=== PATIENT | male | born 1950 | race Two or more races ===

== ENCOUNTER 2016-04-11 21:47 | Emergency (ER) | payer MEDICARE ==
[2016-04-12] MEDS: MOTRIN PO ONE (04:58)
[2016-04-12 05:20] LABS: Hematocrit 39.5 % (35.5-45.6); Hemoglobin 13.1 gm/dl (11.8-15.2); Mean Corpuscular HGB Conc 33 % (32-34); Mean Corpuscular Hemoglobin 31 pg (28-32); Mean Corpuscular Volume 92 fl (84-94); Platelet Count 331 K/mm3 (140-440); Red Blood Count 4.28 M/mm3 (3.65-5.03); Red Cell Distribution Width 12.8 % (13.2-15.2); White Blood Count 12.7 K/mm3 (4.5-11.0)
[2016-04-12 05:31] LABS: Anion Gap 17 mmol/L; BUN/Creatinine Ratio 13.33; Blood Urea Nitrogen 12 mg/dL (9-20); Calcium 9.5 mg/dL (8.4-10.2); Carbon Dioxide 26 mmol/L (22-30); Glucose 212 mg/dL (75-100); Potassium 4.4 mmol/L (3.6-5.0); Sodium 135 mmol/L (137-145)
--- NOTE | 2016-04-12 06:11 | Emergency Department Report ---
ED Extremity Problem HPI - General Chief complaint: Extremity Problem,Nontraumatic Stated complaint: RIGHT FOOT PAIN AND SWELLING Source: patient Mode of arrival: Ambulatory Limitations: No Limitations - History of Present Illness Initial comments: 65-year-old male with a past medical history of hypertension and diabetes type 2 comes in for complaint of right foot and right knee pain 1 week. Patient denies any trauma. He does report a history of gout. He does admit that he went to the [facility] and had a little bit too much to drink. He comes in now for pain and swelling. He denies any shortness of breathing and no chest pain. Complains of pain more on the top of the knee. Does admit that he has a history of arthritis and has been on [facility]. MD Complaint: extremity pain, extremity swelling - Related Data Home Medications Medication Instructions Recorded Confirmed Last Taken Lisinopril [Zestril] 40 mg PO QDAY 09/10/14 09/10/14 1 Day Ago Metformin HCl [Glucophage] 1,000 mg PO BID 09/10/14 09/10/14 1 Day Ago glipiZIDE [Glucotrol] 10 mg PO BID 09/10/14 09/10/14 1 Day Ago Saxagliptin HCl [Onglyza] 2.5 mg PO QDAY 04/12/16 04/12/16 1 Day Ago Previous Rx's Medication Instructions Recorded Last Taken Type Ibuprofen [Motrin] 800 mg PO Q8HR PRN #30 tablet 04/01/16 Unknown Rx Allergies Allergy/AdvReac Type Severity Reaction Status Date / Time No Known Allergies Allergy Verified 07/06/14 03:11 ED Review of Systems ROS: Stated complaint: RIGHT FOOT PAIN AND SWELLING Other details as noted in HPI Respiratory: denies: cough Cardiovascular: denies: chest pain, dyspnea on exertion Gastrointestinal: denies: nausea, vomiting Musculoskeletal: joint swelling, arthralgia ED Past Medical Hx - Past Medical History Previous Medical History?: Yes Hx Hypertension: Yes Hx Diabetes: Yes - Surgical History Past Surgical History?: Yes Additional Surgical History: ribs - Social History Smoking Status: Current Every Day Smoker Substance Use Type: Alcohol - Medications Home Medications: Home Medications Medication Instructions Recorded Confirmed Last Taken Type Lisinopril [Zestril] 40 mg PO QDAY 09/10/14 09/10/14 1 Day Ago History Metformin HCl [Glucophage] 1,000 mg PO BID 09/10/14 09/10/14 1 Day Ago History glipiZIDE [Glucotrol] 10 mg PO BID 09/10/14 09/10/14 1 Day Ago History Ibuprofen [Motrin] 800 mg PO Q8HR PRN #30 tablet 04/01/16 Unknown Rx Saxagliptin HCl [Onglyza] 2.5 mg PO QDAY 04/12/16 04/12/16 1 Day Ago History ED Physical Exam - General Limitations: No Limitations General appearance: alert, in no apparent distress - Head Head exam: Present: atraumatic, normocephalic - Respiratory Respiratory exam: Present: normal lung sounds bilaterally - Expanded Lower Extremity Exam Right Upper Leg exam: Present: full ROM Knee exam: Present: tenderness, swelling Lower Leg exam: Present: full ROM, tenderness, swelling Ankle exam: Present: tenderness, swelling Foot/Toe exam: Present: tenderness, swelling Neuro vascular tendon exam: Present: no vascular compromise. Absent: pulse deficit, abnormal cap refill ED Course Vital Signs 04/11/16 04/12/16 04/12/16 21:56 04:58 05:51 Temperature 98.4 F 98.6 F Pulse Rate 102 H 92 H Respiratory 18 18 16 Rate Blood Pressure 145/82 Blood Pressure 127/90 [Left] O2 Sat by Pulse 100 97 Oximetry ED Medical Decision Making - Lab Data Result diagrams: 04/12/16 05:04 04/12/16 05:04 - Medical Decision Making Patient's been evaluated by this provider. CBC BMP uric acid within normal limits. We will order a Doppler of the right leg. Patient was given ibuprofen which helped with some of the pain. Patient verbalized understanding discussed with Dr. Jauregui he is aware of the Doppler been ordered. This provider will give report and handed off to the next Provider. Critical care attestation.: If time is entered above; I have spent that time in minutes in the direct care of this critically ill patient, excluding procedure time. ED Disposition Condition: Undetermined Referrals: SYEDA LYONS MD, PHD [Primary Care Provider] - 3-5 Days
--- NOTE | 2016-04-12 09:40 | Emergency Department Report ---
Blank Doc - Documentation Documentation: A/P: Right knee pain 1- Duplex negative for DVT 2- Labs unremarkable 3- motrin and tylenol # 3 PRN for pain 4- I provided pt with PMD and orthopedics referral. i advised pt to return to the ED if he cannot flex or extend his knee, if he cannot walk which he is able to now or if he develops any fever or chills. On exam of right knee and RLE he has good distal dorsalis pedis and PT pules on palpation, no signs of cellulitis or erythema, ROM right knee fully intact. Pt ambulatory without assistance before discharge 5- Case d/w Dr. Carlson
[2016-04-12 09:56] VITALS: BP 124/86
--- NOTE | 2016-04-13 08:35 | Vascular Lab Report ---
Right Lower Extremity Venous Duplex Study: Reason for Exam: Right leg swelling. Comments on the Right: All veins visualized are freely compressible without evidence of internal echogenicity. Flow is spontaneous and phasic throughout. No evidence of acute or chronic thrombus is seen in any of the vessels visualized. Comments on the Left: A limited duplex study was done of the proximal veins of the left lower extremity. All veins visualized are freely compressible without evidence of internal echogenicity. Flow is spontaneous and phasic throughout. No evidence of acute or chronic thrombus is seen in any of the vessels visualized. Impression: No evidence of acute or chronic deep venous thrombosis in the right lower extremity.
== END 2016-04-12 09:56 | disposition home or self-care (01) ==
LOC: ED 21:47
DX: M25.561 Pain in right knee (principal); M79.671 Pain in right foot; I10 Essential (primary) hypertension; E11.9 Type 2 diabetes mellitus without complications; F17.200 Nicotine dependence, unspecified, uncomplicated
CPT/HCPCS: 36415; 80048; 84550; 85027

== ENCOUNTER 2016-04-29 14:25 | Emergency (ER) | payer MEDICARE ==
[2016-04-29 14:56] VITALS: BP 140/80
== END 2016-04-29 17:55 | disposition left against medical advice (07) ==
LOC: ED 14:25
DX: R11.0 Nausea (principal); Z53.21 Procedure and treatment not carried out due to patient leaving prior to being seen by health care provider

== ENCOUNTER 2016-07-07 21:51 | Emergency (ER) | payer MEDICARE ==
[2016-07-07 22:23] VITALS: BP 158/96
[2016-07-07 23:01] LABS: Basophils % (Auto) 1.8 % (0.0-1.8); Eosinophils % (Auto) 2.8 % (0.0-4.3); Hematocrit 38.8 % (35.5-45.6); Hemoglobin 13.1 gm/dl (11.8-15.2); Mean Corpuscular HGB Conc 34 % (32-34); Mean Corpuscular Hemoglobin 31 pg (28-32); Mean Corpuscular Volume 92 fl (84-94); Platelet Count 194 K/mm3 (140-440); Red Blood Count 4.22 M/mm3 (3.65-5.03); Red Cell Distribution Width 13.7 % (13.2-15.2); White Blood Count 7.6 K/mm3 (4.5-11.0)
[2016-07-07 23:05] LABS: Anion Gap 17 mmol/L; Blood Urea Nitrogen 12 mg/dL (9-20); Calcium 8.9 mg/dL (8.4-10.2); Carbon Dioxide 25 mmol/L (22-30); Chloride 98.8 mmol/L (98-107); Glucose 201 mg/dL (75-100); Potassium 4.1 mmol/L (3.6-5.0); Sodium 137 mmol/L (137-145)
[2016-07-07 23:35] LABS: Erythrocyte Sedimentation Rate 12 mm/Hr (0-20)
[2016-07-08] MEDS ORDERED: MOTRIN PO ONE (00:21)
--- NOTE | 2016-07-08 00:21 | Emergency Department Report ---
ED General Adult HPI - General Chief complaint: Extremity Problem,Nontraumatic Stated complaint: RT FOOT PAIN Source: patient, RN notes reviewed, old records reviewed Mode of arrival: Ambulatory Limitations: No Limitations - History of Present Illness Initial comments: This is a 66-year-old male. He is previously known to me. The patient does a lot of work on his head. He presents to the ER with right lateral foot pain. The pain is present for 2 months. It is constant. It decreases with rest. It does not radiate anywhere. No fevers or chills, no chest pain or shortness of breath, no abdominal pain. -: Gradual Location: right, lower extremity Severity scale (0 -10): 4 Quality: aching Consistency: constant Improves with: rest Associated Symptoms: denies other symptoms, rash. denies: confusion, chest pain , cough, diaphoresis, fever/chills, headaches, loss of appetite, malaise, nausea /vomiting, shortness of breath, syncope, weakness - Related Data Home Medications Medication Instructions Recorded Confirmed Last Taken Lisinopril [Zestril] 40 mg PO QDAY 09/10/14 09/10/14 1 Day Ago Metformin HCl [Glucophage] 1,000 mg PO BID 09/10/14 09/10/14 1 Day Ago glipiZIDE [Glucotrol] 10 mg PO BID 09/10/14 09/10/14 1 Day Ago Saxagliptin HCl [Onglyza] 2.5 mg PO QDAY 04/12/16 04/12/16 1 Day Ago Previous Rx's Medication Instructions Recorded Last Taken Type Ibuprofen [Motrin] 800 mg PO Q8HR PRN #30 tablet 04/01/16 Unknown Rx Acetaminophen/Codeine [Tylenol #3] 1 tab PO Q6H PRN #12 tab 04/12/16 Unknown Rx Ibuprofen [Motrin] 200 mg PO Q6H PRN #20 tablet 04/12/16 Unknown Rx Ibuprofen [Motrin] 600 mg PO Q8H PRN #30 tablet 07/08/16 Unknown Rx Allergies Allergy/AdvReac Type Severity Reaction Status Date / Time No Known Allergies Allergy Verified 04/29/16 14:52 ED Review of Systems ROS: Stated complaint: RT FOOT PAIN Other details as noted in HPI ED Past Medical Hx - Past Medical History Previous Medical History?: Yes Hx Hypertension: Yes Hx Diabetes: Yes - Surgical History Past Surgical History?: Yes Additional Surgical History: ribs - Social History Smoking Status: Current Every Day Smoker Substance Use Type: Alcohol - Medications Home Medications: Home Medications Medication Instructions Recorded Confirmed Last Taken Type Lisinopril [Zestril] 40 mg PO QDAY 09/10/14 09/10/14 1 Day Ago History Metformin HCl [Glucophage] 1,000 mg PO BID 09/10/14 09/10/14 1 Day Ago History glipiZIDE [Glucotrol] 10 mg PO BID 09/10/14 09/10/14 1 Day Ago History Ibuprofen [Motrin] 800 mg PO Q8HR PRN #30 tablet 04/01/16 Unknown Rx Acetaminophen/Codeine [Tylenol #3] 1 tab PO Q6H PRN #12 tab 04/12/16 Unknown Rx Ibuprofen [Motrin] 200 mg PO Q6H PRN #20 tablet 04/12/16 Unknown Rx Saxagliptin HCl [Onglyza] 2.5 mg PO QDAY 04/12/16 04/12/16 1 Day Ago History Ibuprofen [Motrin] 600 mg PO Q8H PRN #30 tablet 07/08/16 Unknown Rx ED Physical Exam - General Limitations: No Limitations General appearance: alert, in no apparent distress - Head Head exam: Present: atraumatic, normocephalic - Eye Eye exam: Present: normal appearance, EOMI. Absent: nystagmus - ENT ENT exam: Present: normal exam, normal orophraynx, mucous membranes moist, normal external ear exam - Neck Neck exam: Present: normal inspection, full ROM. Absent: tenderness, meningismus - Respiratory Respiratory exam: Present: normal lung sounds bilaterally. Absent: respiratory distress, wheezes, rales, rhonchi, stridor, chest wall tenderness, accessory muscle use, decreased breath sounds, prolonged expiratory - Cardiovascular Cardiovascular Exam: Present: regular rate, normal rhythm, normal heart sounds. Absent: bradycardia, tachycardia, irregular rhythm, systolic murmur, diastolic murmur, rubs, gallop - GI/Abdominal GI/Abdominal exam: Present: soft, normal bowel sounds. Absent: distended, tenderness, guarding, rebound, rigid, pulsatile mass - Rectal Rectal exam: Present: deferred - Extremities Exam Extremities exam: Present: normal inspection, normal capillary refill, other ( there is chronic callus and chronic discoloration and hyperpigmentation to the lateral aspect of the right foot. There is no redness, pus, streaking or crepitus. 2+ pulses noted in 4 extremities. The compartments are soft.). Absent: pedal edema, joint swelling, calf tenderness - Back Exam Back exam: Present: normal inspection, full ROM. Absent: tenderness, CVA tenderness (R), CVA tenderness (L), muscle spasm, paraspinal tenderness, vertebral tenderness - Neurological Exam Neurological exam: Present: alert, oriented X3, normal gait, other (Extraocular movements intact. Tongue midline. No facial droop. Facial sensation intact to light touch in the V1, V2, V3 distribution bilaterally. 5 and 5 strength in 4 extremities.. Sensation is intact to light touch in 4 extremities.). Absent : motor sensory deficit - Psychiatric Psychiatric exam: Present: normal affect, normal mood - Skin Skin exam: Present: warm, dry, intact, normal color. Absent: rash ED Course Vital Signs 07/07/16 22:15 Temperature 98 F Pulse Rate 98 H Respiratory 20 Rate Blood Pressure 158/96 [Right] O2 Sat by Pulse 100 Oximetry - Reevaluation(s) Reevaluation #1: 07/08/16 00:25 differential diagnosis: Arthritis, bunion, chronic discoloration Assessment and plan: 66-year-old male with 2 weeks of chronic left foot pain, he stands, walks with a steady gait, x-ray demonstrates DJD. Patient's laboratory work is unremarkable. The patient should follow-up with an outpatient pesticide chemist. He will be discharged at this time. Return precautions are reviewed. ED Medical Decision Making - Lab Data Result diagrams: 07/07/16 22:35 07/07/16 22:35 Vital Signs 07/07/16 22:15 Temperature 98 F Pulse Rate 98 H Respiratory 20 Rate Blood Pressure 158/96 [Right] O2 Sat by Pulse 100 Oximetry Lab Results 07/07/16 07/07/16 07/07/16 Range/Units 22:35 22:35 22:38 WBC 7.6 (4.5-11.0) K/mm3 RBC 4.22 (3.65-5.03) M/mm3 Hgb 13.1 (11.8-15.2) gm/dl Hct 38.8 (35.5-45.6) % MCV 92 (84-94) fl MCH 31 (28-32) pg MCHC 34 (32-34) % RDW 13.7 (13.2-15.2) % Plt Count 194 (140-440) K/mm3 Lymph % (Auto) 23.0 (13.4-35.0) % [place] % (Auto) 7.9 H (0.0-7.3) % Eos % (Auto) 2.8 (0.0-4.3) % Baso % (Auto) 1.8 (0.0-1.8) % Lymph # 1.7 (1.2-5.4) K/mm3 [place] # 0.6 (0.0-0.8) K/mm3 Eos # 0.2 (0.0-0.4) K/mm3 Baso # 0.1 (0.0-0.1) K/mm3 Seg Neutrophils % 64.5 (40.0-70.0) % Seg Neutrophils # 4.9 (1.8-7.7) K/mm3 ESR 12 (0-20) mm/Hr Sodium 137 (137-145) mmol/L Potassium 4.1 (3.6-5.0) mmol/L Chloride 98.8 (98-107) mmol/L Carbon Dioxide 25 (22-30) mmol/L Anion Gap 17 mmol/L BUN 12 (9-20) mg/dL Creatinine 1.0 (0.8-1.5) mg/dL Estimated GFR > 60 ml/min BUN/Creatinine Ratio 12.00 % Glucose 201 H (75-100) mg/dL Calcium 8.9 (8.4-10.2) mg/dL C-Reactive Protein < 0.03 (0.00-1.30) mg/dL - Radiology Data Radiology results: image reviewed interpreted by me: X-ray of the right foot demonstrates DJD, no acute fracture, no acute dislocation Critical care attestation.: If time is entered above; I have spent that time in minutes in the direct care of this critically ill patient, excluding procedure time. ED Disposition Clinical Impression: Right foot pain Disposition: DISCHARGED TO HOME OR SELFCARE Is pt being admited?: No Does the pt Need Aspirin: No Condition: Good Instructions: Arthralgia (ED), Bunion (ED) Additional Instructions: Rest and avoid heavy lifting. Avoid strenuous physical activity. Take the pain medication as directed. Follow up with a pesticide chemist within the next [address] Campos, Dr. Malave are local podiatry specialist. Return to the ER right away with new pain, worsened pain, migration of pain, fevers or chills, nausea or vomiting, inability to tolerate liquid feeds. Referrals: PRIMARY CARE, [Primary Care Provider] - 3-5 Days MARU CAMPOS DPM [Staff Physician] - 3-5 Days NATO MALAVE MD [Staff Physician] - 3-5 Days SYEDA LYONS MD, PHD [Staff Physician] - 3-5 Days
--- NOTE | 2016-07-08 00:52 | XRay Report ---
FINAL REPORT EXAM: XR FOOT 3 RT HISTORY: RIGHT FOOT pain, send for report TECHNIQUE: 3 views of right foot. PRIORS: None. FINDINGS: Diffuse osteopenia and degenerative change scattered in the hind and midfoot. Mild posterior and plantar calcaneal spurring. Moderate hallux valgus, degenerative change in the great toe MTP and IP joints and mild soft tissue bunion formation overlying medial eminence of great toe metatarsal head. More pronounced soft tissue bunion formation overlying the lateral aspect of 5th metatarsal head. No apparent fracture or dislocation. Remainder of soft tissues grossly unremarkable. IMPRESSION: 1. No acute osseous abnormality. 2. Degenerative changes.
== END 2016-07-08 00:54 | disposition home or self-care (01) ==
LOC: ED 21:51
DX: M79.671 Pain in right foot (principal); I10 Essential (primary) hypertension; E11.9 Type 2 diabetes mellitus without complications; F17.200 Nicotine dependence, unspecified, uncomplicated
CPT/HCPCS: 36415; 80048; 85025; 85652; 86140; 99283

== ENCOUNTER 2016-08-31 22:07 | Emergency (ER) | payer MEDICARE ==
--- NOTE | 2016-09-01 00:09 | XRay Report ---
FINAL REPORT EXAM: XR FOOT 2V RT HISTORY: RIGHT FOOT PAIN TECHNIQUE: Right foot two views 2 images PRIORS: Right foot radiograph from 07/07/2016 FINDINGS: Soft tissue swelling is noted lateral to the 5th metatarsophalangeal joint, as in the prior study. There is hallux valgus. Joint space narrowing is seen in the 1st metatarsophalangeal joint. There is degenerative change in the interphalangeal joint of the great toe. No definite acute fracture is identified. There are degenerative changes in the tarsus. Traction enthesophytes are seen arising from the calcaneus. IMPRESSION: 1. Degenerative changes are again noted. 2. There is soft tissue swelling adjacent to the 5th metatarsophalangeal joint, as in the prior study. 3. No definite acute fracture is identified. If symptoms persist, consider repeat study in 10-14 days to assess for a currently radiographically occult fracture.
--- NOTE | 2016-09-01 00:36 | Cat Scan Report ---
FINAL REPORT EXAM: CT HEAD/BRAIN WO CON HISTORY: FALL TECHNIQUE: Noncontrast serial axial images from skull base to vertex PRIORS: CT scan of the head from 03/30/2015 FINDINGS: There is no mass effect or midline shift. Cortical sulci and lateral ventricles are within normal limits for size and configuration. Basilar cisterns are patent. No acute intracranial hemorrhage is identified. Visualized paranasal sinuses and mastoid air cells are well aerated. No acute osseous abnormality is identified. IMPRESSION: 1. No acute intracranial hemorrhage is identified.
[2016-09-01 03:30] VITALS: BP 140/79
--- NOTE | 2016-09-01 05:07 | Emergency Department Report ---
ED Fall HPI - General Chief Complaint: Fall Stated Complaint: FALL Time Seen by Provider: 09/01/16 04:56 Source: patient Mode of arrival: Ambulatory - History of Present Illness Initial Comments: Patient comes into the ER today with complaints of a abrasion to the front of his head as well as continued swelling to the right foot. Patient states that earlier tonight he was walking in the rain when he slipped and fell hitting his head. Patient denies any loss of consciousness. Patient states that he was able to get up on his own and has been walking since. Patient does state that the pain does seem to be getting worse with time as far as generalized body stiffening up. Patient denies any vision changes, nosebleed, back pain, chest pain, vomiting. MD Complaint: fall - Related Data Home Medications Medication Instructions Recorded Confirmed Last Taken Lisinopril [Zestril] 40 mg PO QDAY 09/10/14 09/10/14 1 Day Ago Metformin HCl [Glucophage] 1,000 mg PO BID 09/10/14 09/10/14 1 Day Ago glipiZIDE [Glucotrol] 10 mg PO BID 09/10/14 09/10/14 1 Day Ago Saxagliptin HCl [Onglyza] 2.5 mg PO QDAY 04/12/16 04/12/16 1 Day Ago Previous Rx's Medication Instructions Recorded Last Taken Type Ibuprofen [Motrin] 800 mg PO Q8HR PRN #30 tablet 04/01/16 Unknown Rx Acetaminophen/Codeine [Tylenol #3] 1 tab PO Q6H PRN #12 tab 04/12/16 Unknown Rx Ibuprofen [Motrin] 200 mg PO Q6H PRN #20 tablet 04/12/16 Unknown Rx Ibuprofen [Motrin] 600 mg PO Q8H PRN #30 tablet 07/08/16 Unknown Rx Cyclobenzaprine HCl [Flexeril 5 MG 5 mg PO TID #15 tab 09/01/16 Unknown Rx TAB] traMADol [Ultram 50 MG tab] 50 mg PO Q4HR PRN #20 tablet 09/01/16 Unknown Rx Allergies Allergy/AdvReac Type Severity Reaction Status Date / Time No Known Allergies Allergy Verified 04/29/16 14:52 ED Review of Systems ROS: Stated complaint: FALL Other details as noted in HPI Constitutional: denies: chills, fever Eyes: denies: eye pain, eye discharge, vision change ENT: denies: ear pain, throat pain, dental pain, epistaxis, congestion Respiratory: denies: cough, shortness of breath, wheezing Cardiovascular: denies: chest pain, palpitations Endocrine: no symptoms reported Gastrointestinal: denies: abdominal pain, nausea, vomiting, diarrhea Genitourinary: denies: urgency, dysuria Musculoskeletal: denies: back pain, joint swelling, arthralgia Skin: denies: rash, lesions Neurological: headache. denies: weakness, numbness, paresthesias, confusion, vertigo Psychiatric: denies: anxiety, depression Hematological/Lymphatic: denies: easy bleeding, easy bruising ED Past Medical Hx - Past Medical History Hx Hypertension: Yes Hx Diabetes: Yes - Surgical History Additional Surgical History: ribs - Social History Smoking Status: Current Every Day Smoker Substance Use Type: Alcohol - Medications Home Medications: Home Medications Medication Instructions Recorded Confirmed Last Taken Type Lisinopril [Zestril] 40 mg PO QDAY 09/10/14 09/10/14 1 Day Ago History Metformin HCl [Glucophage] 1,000 mg PO BID 09/10/14 09/10/14 1 Day Ago History glipiZIDE [Glucotrol] 10 mg PO BID 09/10/14 09/10/14 1 Day Ago History Ibuprofen [Motrin] 800 mg PO Q8HR PRN #30 tablet 04/01/16 Unknown Rx Acetaminophen/Codeine [Tylenol #3] 1 tab PO Q6H PRN #12 tab 04/12/16 Unknown Rx Ibuprofen [Motrin] 200 mg PO Q6H PRN #20 tablet 04/12/16 Unknown Rx Saxagliptin HCl [Onglyza] 2.5 mg PO QDAY 04/12/16 04/12/16 1 Day Ago History Ibuprofen [Motrin] 600 mg PO Q8H PRN #30 tablet 07/08/16 Unknown Rx Cyclobenzaprine HCl [Flexeril 5 MG 5 mg PO TID #15 tab 09/01/16 Unknown Rx TAB] traMADol [Ultram 50 MG tab] 50 mg PO Q4HR PRN #20 tablet 09/01/16 Unknown Rx ED Physical Exam - General Limitations: No Limitations General appearance: alert, in no apparent distress - Head Head exam: Present: normocephalic, other (left frontal skin abrasion) - Eye Eye exam: Present: normal appearance, PERRL, EOMI. Absent: conjunctival injection, periorbital swelling, periorbital tenderness Pupils: Present: normal accommodation - ENT ENT exam: Present: normal orophraynx, mucous membranes moist, TM's normal bilaterally, normal external ear exam - Neck Neck exam: Present: normal inspection, tenderness (bilateral trapezius muscle tenderness), full ROM. Absent: lymphadenopathy - Respiratory Respiratory exam: Present: normal lung sounds bilaterally. Absent: respiratory distress, chest wall tenderness - Cardiovascular Cardiovascular Exam: Present: regular rate, normal rhythm. Absent: systolic murmur, diastolic murmur, rubs, gallop - GI/Abdominal GI/Abdominal exam: Present: soft, normal bowel sounds. Absent: distended, tenderness, guarding, rebound - Rectal Rectal exam: Present: deferred - Extremities Exam Extremities exam: Present: normal inspection, full ROM, normal capillary refill , joint swelling (right lateral 5th MTP joint). Absent: tenderness, calf tenderness - Back Exam Back exam: Present: normal inspection, full ROM. Absent: tenderness, muscle spasm, paraspinal tenderness, vertebral tenderness - Neurological Exam Neurological exam: Present: alert, oriented X3, CN II-XII intact, normal gait, reflexes normal. Absent: motor sensory deficit - Psychiatric Psychiatric exam: Present: normal affect, normal mood - Skin Skin exam: Present: warm, dry, intact, normal color. Absent: rash ED Course Vital Signs 08/31/16 09/01/16 23:13 03:25 Temperature 98 F 98.3 F Pulse Rate 100 H 95 H Respiratory 18 20 Rate Blood Pressure 131/83 140/79 Blood Pressure 131/83 [Left] O2 Sat by Pulse 100 96 Oximetry ED Medical Decision Making - Radiology Data Radiology results: report reviewed CT head without contrast, No acute pathology noted X-ray foot reveals soft tissue swelling of right lateral MTP joint. No acute fracture noted. - Medical Decision Making Patient is nontoxic hemodynamically stable. Imaging results reviewed and discussed with patient room. I will start patient on some muscle relaxants and mild pain medications for any symptomatic relief and refer patient to podiatry to remove the noted pressure corn On right foot. Patient is in agreement with treatment plan patient is stable for discharge. Critical care attestation.: If time is entered above; I have spent that time in minutes in the direct care of this critically ill patient, excluding procedure time. ED Disposition Clinical Impression: Head contusion, Abrasion head, [place] of foot Disposition: DC- TO HOME OR SELFCARE Is pt being admited?: No Does the pt Need Aspirin: No Condition: Good Instructions: Minor Head Injury (ED), Abrasion (ED) Prescriptions: Cyclobenzaprine HCl [Flexeril 5 MG TAB] 5 mg PO TID #15 tab traMADol [Ultram 50 MG tab] 50 mg PO Q4HR PRN #20 tablet PRN Reason: Pain Referrals: PRIMARY CARE, [Primary Care Provider] - 3-5 Days SHLOMO ALTAMIRANO DPM [Staff Physician] - 3-5 Days Time of Disposition: 05:18
== END 2016-09-01 05:25 | disposition home or self-care (01) ==
LOC: ED 22:07
DX: S00.93XA Contusion of unspecified part of head, initial encounter (principal); S00.91XA Abrasion of unspecified part of head, initial encounter; L84 Corns and callosities; I10 Essential (primary) hypertension; E11.9 Type 2 diabetes mellitus without complications; F17.200 Nicotine dependence, unspecified, uncomplicated; W01.0XXA Fall on same level from slipping, tripping and stumbling without subsequent striking against object, initial encounter; Y93.9 Activity, unspecified; Y92.9 Unspecified place or not applicable; Y99.9 Unspecified external cause status
CPT/HCPCS: 70450; 82962; 99284

== ENCOUNTER 2016-09-30 00:10 | Emergency (ER) | payer MEDICARE ==
[2016-09-30 00:52] VITALS: BP 136/97
[2016-09-30 01:16] LABS: Basophils % (Auto) 1.3 % (0.0-1.8); Eosinophils % (Auto) 2.6 % (0.0-4.3); Hematocrit 37.9 % (35.5-45.6); Hemoglobin 12.9 gm/dl (11.8-15.2); Mean Corpuscular HGB Conc 34 % (32-34); Mean Corpuscular Hemoglobin 31 pg (28-32); Mean Corpuscular Volume 91 fl (84-94); Platelet Count 241 K/mm3 (140-440); Red Blood Count 4.15 M/mm3 (3.65-5.03); Red Cell Distribution Width 13.8 % (13.2-15.2); White Blood Count 8.5 K/mm3 (4.5-11.0)
[2016-09-30 01:25] LABS: Anion Gap 17 mmol/L; Blood Urea Nitrogen 21 mg/dL (9-20); Calcium 9.4 mg/dL (8.4-10.2); Carbon Dioxide 25 mmol/L (22-30); Chloride 100.1 mmol/L (98-107); Glucose 183 mg/dL (75-100); Potassium 4.1 mmol/L (3.6-5.0); Sodium 138 mmol/L (137-145)
[2016-09-30] MEDS ORDERED: TORADOL IM ONE (01:39)
[2016-09-30] MEDS ORDERED: NORCO PO ONE (01:39)
[2016-09-30] MEDS ORDERED: TORADOL ONE (01:44)
--- NOTE | 2016-09-30 01:46 | Emergency Department Report ---
ED Extremity Problem HPI - General Chief complaint: Extremity Injury, Lower Stated complaint: RT FOOT MUSCLE PAIN/ARTHRITIS Source: patient Mode of arrival: Ambulatory Limitations: No Limitations - History of Present Illness MD Complaint: extremity pain, extremity swelling, joint swelling, joint paint -: Gradual Location: right, lower extremity, toe History of Same: Yes -: Yes arthralgia, No fever Severity scale (0 -10): 8 Quality: aching Consistency: constant Worsens with: weight bearing, walking, exertion, palpation Associated Symptoms: denies other symptoms - Related Data Home Medications Medication Instructions Recorded Confirmed Last Taken Lisinopril [Zestril] 40 mg PO QDAY 09/10/14 09/10/14 1 Day Ago Metformin HCl [Glucophage] 1,000 mg PO BID 09/10/14 09/10/14 1 Day Ago glipiZIDE [Glucotrol] 10 mg PO BID 09/10/14 09/10/14 1 Day Ago Saxagliptin HCl [Onglyza] 2.5 mg PO QDAY 04/12/16 04/12/16 1 Day Ago Previous Rx's Medication Instructions Recorded Last Taken Type Ibuprofen [Motrin] 800 mg PO Q8HR PRN #30 tablet 04/01/16 Unknown Rx Acetaminophen/Codeine [Tylenol #3] 1 tab PO Q6H PRN #12 tab 04/12/16 Unknown Rx Ibuprofen [Motrin] 200 mg PO Q6H PRN #20 tablet 04/12/16 Unknown Rx Ibuprofen [Motrin] 600 mg PO Q8H PRN #30 tablet 07/08/16 Unknown Rx Cyclobenzaprine HCl [Flexeril 5 MG 5 mg PO TID #15 tab 09/01/16 Unknown Rx TAB] traMADol [Ultram 50 MG tab] 50 mg PO Q4HR PRN #20 tablet 09/01/16 Unknown Rx Prednisone [predniSONE 10 mg 10 mg PO .TAPER #1 tab.ds.pk 09/30/16 Unknown Rx (6-Day Pack, 21 Tabs)] traMADol [Ultram 50 MG tab] 50 mg PO Q4HR PRN #20 tablet 09/30/16 Unknown Rx Allergies Allergy/AdvReac Type Severity Reaction Status Date / Time No Known Allergies Allergy Verified 04/29/16 14:52 ED Review of Systems ROS: Stated complaint: RT FOOT MUSCLE PAIN/ARTHRITIS Other details as noted in HPI Patient has recurrent history of gouty arthritis that [facility] was supposed to be sending him his meds for gout and it has been a week and he still is not received them. Patient denies any other complaints. Constitutional: denies: chills, fever Eyes: denies: eye pain, eye discharge, vision change ENT: denies: ear pain, throat pain Respiratory: denies: cough, shortness of breath, wheezing Cardiovascular: denies: chest pain, palpitations Endocrine: no symptoms reported Gastrointestinal: denies: abdominal pain, nausea, diarrhea Genitourinary: denies: urgency, dysuria Musculoskeletal: joint swelling, arthralgia. denies: back pain Skin: denies: rash, lesions Neurological: denies: headache, weakness, paresthesias Psychiatric: denies: anxiety, depression Hematological/Lymphatic: denies: easy bleeding, easy bruising ED Past Medical Hx - Past Medical History Previous Medical History?: Yes Hx Hypertension: Yes Hx Diabetes: Yes - Surgical History Past Surgical History?: Yes Additional Surgical History: ribs - Social History Smoking Status: Current Every Day Smoker Substance Use Type: Alcohol - Medications Home Medications: Home Medications Medication Instructions Recorded Confirmed Last Taken Type Lisinopril [Zestril] 40 mg PO QDAY 09/10/14 09/10/14 1 Day Ago History Metformin HCl [Glucophage] 1,000 mg PO BID 09/10/14 09/10/14 1 Day Ago History glipiZIDE [Glucotrol] 10 mg PO BID 09/10/14 09/10/14 1 Day Ago History Ibuprofen [Motrin] 800 mg PO Q8HR PRN #30 tablet 04/01/16 Unknown Rx Acetaminophen/Codeine [Tylenol #3] 1 tab PO Q6H PRN #12 tab 04/12/16 Unknown Rx Ibuprofen [Motrin] 200 mg PO Q6H PRN #20 tablet 04/12/16 Unknown Rx Saxagliptin HCl [Onglyza] 2.5 mg PO QDAY 04/12/16 04/12/16 1 Day Ago History Ibuprofen [Motrin] 600 mg PO Q8H PRN #30 tablet 07/08/16 Unknown Rx Cyclobenzaprine HCl [Flexeril 5 MG 5 mg PO TID #15 tab 09/01/16 Unknown Rx TAB] traMADol [Ultram 50 MG tab] 50 mg PO Q4HR PRN #20 tablet 09/01/16 Unknown Rx Prednisone [predniSONE 10 mg 10 mg PO .TAPER #1 tab.ds.pk 09/30/16 Unknown Rx (6-Day Pack, 21 Tabs)] traMADol [Ultram 50 MG tab] 50 mg PO Q4HR PRN #20 tablet 09/30/16 Unknown Rx ED Physical Exam - General Limitations: No Limitations General appearance: alert, in no apparent distress - Head Head exam: Present: atraumatic, normocephalic - Eye Eye exam: Present: normal appearance - ENT ENT exam: Present: mucous membranes moist - Neck Neck exam: Present: normal inspection - Respiratory Respiratory exam: Present: normal lung sounds bilaterally. Absent: respiratory distress - Cardiovascular Cardiovascular Exam: Present: regular rate - GI/Abdominal GI/Abdominal exam: Present: soft - Expanded Lower Extremity Exam Right Foot/Toe exam: Present: tenderness, swelling, erythema Neuro vascular tendon exam: Present: no vascular compromise. Absent: pulse deficit, abnormal cap refill Gait: Positive: antalgic 1 - podagra - Back Exam Back exam: Present: normal inspection - Neurological Exam Neurological exam: Present: alert, oriented X3 - Psychiatric Psychiatric exam: Present: normal affect, normal mood - Skin Skin exam: Present: warm, dry, intact, normal color. Absent: rash ED Course Vital Signs 09/30/16 00:49 Temperature 98.8 F Pulse Rate 88 Respiratory 20 Rate Blood Pressure 136/97 O2 Sat by Pulse 97 Oximetry ED Medical Decision Making - Lab Data Result diagrams: 09/30/16 00:56 09/30/16 00:56 Critical care attestation.: If time is entered above; I have spent that time in minutes in the direct care of this critically ill patient, excluding procedure time. ED Disposition Clinical Impression: Gouty arthritis of toe of right foot Disposition: DC-01 TO HOME OR SELFCARE Is pt being admited?: No Condition: Stable Instructions: Acute Gouty Arthritis (ED) Prescriptions: Prednisone [predniSONE 10 mg (6-Day Pack, 21 Tabs)] 10 mg PO .TAPER #1 tab.ds.pk traMADol [Ultram 50 MG tab] 50 mg PO Q4HR PRN #20 tablet PRN Reason: Pain Referrals: SYEDA LYONS MD, PHD [Primary Care Provider] - 3-5 Days
== END 2016-09-30 02:09 | disposition home or self-care (01) ==
LOC: ED 00:10
DX: M10.9 Gout, unspecified (principal); I10 Essential (primary) hypertension; E11.9 Type 2 diabetes mellitus without complications; F17.200 Nicotine dependence, unspecified, uncomplicated
CPT/HCPCS: 36415; 80048; 85025; 96372; 99283; J1885

== ENCOUNTER 2016-10-21 03:11 | Emergency (ER) | payer MEDICARE ==
[2016-10-21 04:01] VITALS: BP 138/77
[2016-10-21] MEDS ORDERED: NAPROSYN PO ONE (04:59)
--- NOTE | 2016-10-21 05:05 | Emergency Department Report ---
ED ENT HPI - General Chief complaint: Earache Stated complaint: RT FOOT PAIN,RUNNY NOSE, EAR DRAINING,CRAMPING Time Seen by Provider: 10/21/16 04:26 Source: patient Mode of arrival: Ambulatory Limitations: No Limitations - History of Present Illness Initial comments: Left ear drainage x 1 week described as white/brown thick complaint: ear pain Onset/Timin -: Sudden, week(s) Location: L ear Severity: moderate Severity scale (0 -10): 4 Quality: aching Consistency: intermittent Improves with: none Worsens with: position Associated Symptoms: discharge from ear - Related Data Home Medications Medication Instructions Recorded Confirmed Last Taken Lisinopril [Zestril] 40 mg PO QDAY 09/10/14 09/10/14 1 Day Ago Metformin HCl [Glucophage] 1,000 mg PO BID 09/10/14 09/10/14 1 Day Ago glipiZIDE [Glucotrol] 10 mg PO BID 09/10/14 09/10/14 1 Day Ago Saxagliptin HCl [Onglyza] 2.5 mg PO QDAY 04/12/16 04/12/16 1 Day Ago Previous Rx's Medication Instructions Recorded Last Taken Type Ibuprofen [Motrin] 800 mg PO Q8HR PRN #30 tablet 04/01/16 Unknown Rx Acetaminophen/Codeine [Tylenol #3] 1 tab PO Q6H PRN #12 tab 04/12/16 Unknown Rx Ibuprofen [Motrin] 200 mg PO Q6H PRN #20 tablet 04/12/16 Unknown Rx Ibuprofen [Motrin] 600 mg PO Q8H PRN #30 tablet 07/08/16 Unknown Rx Cyclobenzaprine HCl [Flexeril 5 MG 5 mg PO TID #15 tab 09/01/16 Unknown Rx TAB] traMADol [Ultram 50 MG tab] 50 mg PO Q4HR PRN #20 tablet 09/01/16 Unknown Rx Prednisone [predniSONE 10 mg 10 mg PO .TAPER #1 tab.ds.pk 09/30/16 Unknown Rx (6-Day Pack, 21 Tabs)] traMADol [Ultram 50 MG tab] 50 mg PO Q4HR PRN #20 tablet 09/30/16 Unknown Rx Amoxicillin 500 mg PO TID #30 capsule 10/21/16 Unknown Rx Cipro/Dexameth 0.3/0.1% [Ciprodex 4 drops OT BID #1 bottle 10/21/16 Unknown Rx OTIC] Naproxen [Naprosyn TAB] 500 mg PO BID PRN #30 tablet 10/21/16 Unknown Rx Allergies Allergy/AdvReac Type Severity Reaction Status Date / Time No Known Allergies Allergy Verified 04/29/16 14:52 ED Dental HPI - General Chief complaint: Earache Stated complaint: RT FOOT PAIN,RUNNY NOSE, EAR DRAINING,CRAMPING Time Seen by Provider: 10/21/16 04:26 Source: patient Mode of arrival: Ambulatory Limitations: No Limitations - Related Data Home Medications Medication Instructions Recorded Confirmed Last Taken Lisinopril [Zestril] 40 mg PO QDAY 09/10/14 09/10/14 1 Day Ago Metformin HCl [Glucophage] 1,000 mg PO BID 09/10/14 09/10/14 1 Day Ago glipiZIDE [Glucotrol] 10 mg PO BID 09/10/14 09/10/14 1 Day Ago Saxagliptin HCl [Onglyza] 2.5 mg PO QDAY 04/12/16 04/12/16 1 Day Ago Previous Rx's Medication Instructions Recorded Last Taken Type Ibuprofen [Motrin] 800 mg PO Q8HR PRN #30 tablet 04/01/16 Unknown Rx Acetaminophen/Codeine [Tylenol #3] 1 tab PO Q6H PRN #12 tab 04/12/16 Unknown Rx Ibuprofen [Motrin] 200 mg PO Q6H PRN #20 tablet 04/12/16 Unknown Rx Ibuprofen [Motrin] 600 mg PO Q8H PRN #30 tablet 07/08/16 Unknown Rx Cyclobenzaprine HCl [Flexeril 5 MG 5 mg PO TID #15 tab 09/01/16 Unknown Rx TAB] traMADol [Ultram 50 MG tab] 50 mg PO Q4HR PRN #20 tablet 09/01/16 Unknown Rx Prednisone [predniSONE 10 mg 10 mg PO .TAPER #1 tab.ds.pk 09/30/16 Unknown Rx (6-Day Pack, 21 Tabs)] traMADol [Ultram 50 MG tab] 50 mg PO Q4HR PRN #20 tablet 09/30/16 Unknown Rx Amoxicillin 500 mg PO TID #30 capsule 10/21/16 Unknown Rx Cipro/Dexameth 0.3/0.1% [Ciprodex 4 drops OT BID #1 bottle 10/21/16 Unknown Rx OTIC] Naproxen [Naprosyn TAB] 500 mg PO BID PRN #30 tablet 10/21/16 Unknown Rx Allergies Allergy/AdvReac Type Severity Reaction Status Date / Time No Known Allergies Allergy Verified 04/29/16 14:52 ED Review of Systems ROS: Stated complaint: RT FOOT PAIN,RUNNY NOSE, EAR DRAINING,CRAMPING Other details as noted in HPI Constitutional: denies: chills, fever Eyes: denies: eye pain, eye discharge, vision change ENT: ear pain Respiratory: denies: cough, shortness of breath, wheezing Cardiovascular: denies: chest pain, palpitations Endocrine: no symptoms reported Gastrointestinal: denies: abdominal pain, nausea, diarrhea Genitourinary: denies: urgency, dysuria Musculoskeletal: denies: back pain, joint swelling, arthralgia Skin: denies: rash, lesions Neurological: denies: headache, weakness, paresthesias Psychiatric: denies: anxiety, depression Hematological/Lymphatic: denies: easy bleeding, easy bruising ED Past Medical Hx - Past Medical History Previous Medical History?: Yes Hx Hypertension: Yes Hx Diabetes: Yes - Surgical History Past Surgical History?: Yes Additional Surgical History: ribs - Social History Smoking Status: Current Every Day Smoker Substance Use Type: Alcohol - Medications Home Medications: Home Medications Medication Instructions Recorded Confirmed Last Taken Type Lisinopril [Zestril] 40 mg PO QDAY 09/10/14 09/10/14 1 Day Ago History Metformin HCl [Glucophage] 1,000 mg PO BID 09/10/14 09/10/14 1 Day Ago History glipiZIDE [Glucotrol] 10 mg PO BID 09/10/14 09/10/14 1 Day Ago History Ibuprofen [Motrin] 800 mg PO Q8HR PRN #30 tablet 04/01/16 Unknown Rx Acetaminophen/Codeine [Tylenol #3] 1 tab PO Q6H PRN #12 tab 04/12/16 Unknown Rx Ibuprofen [Motrin] 200 mg PO Q6H PRN #20 tablet 04/12/16 Unknown Rx Saxagliptin HCl [Onglyza] 2.5 mg PO QDAY 04/12/16 04/12/16 1 Day Ago History Ibuprofen [Motrin] 600 mg PO Q8H PRN #30 tablet 05/06/17 Unknown Rx Cyclobenzaprine HCl [Flexeril 5 MG 5 mg PO TID #15 tab 09/01/16 Unknown Rx TAB] traMADol [Ultram 50 MG tab] 50 mg PO Q4HR PRN #20 tablet 09/01/16 Unknown Rx Prednisone [predniSONE 10 mg 10 mg PO .TAPER #1 tab.ds.pk 09/30/16 Unknown Rx (6-Day Pack, 21 Tabs)] traMADol [Ultram 50 MG tab] 50 mg PO Q4HR PRN #20 tablet 09/30/16 Unknown Rx Amoxicillin 500 mg PO TID #30 capsule 10/21/16 Unknown Rx Cipro/Dexameth 0.3/0.1% [Ciprodex 4 drops OT BID #1 bottle 10/21/16 Unknown Rx OTIC] Naproxen [Naprosyn TAB] 500 mg PO BID PRN #30 tablet 10/21/16 Unknown Rx ED Physical Exam - General Limitations: No Limitations General appearance: alert, in no apparent distress - Head Head exam: Present: atraumatic, normocephalic - Eye Eye exam: Present: normal appearance - ENT ENT exam: Present: mucous membranes moist - Expanded ENT Exam Expanded TM/Canal exam: Erythema: Left TM, Loss of Landmarks: Left TM, Canal Discharge: Left TM, Canal Tenderness: Left TM Mouth exam: Present: normal external inspection, tongue normal. Absent: drooling, trismus, muffled voice Throat exam: Positive: normal inspection. Negative: tonsillar erythema, tonsillomegaly, tonsillar exudate, R peritonsillar mass, L peritonsillar mass - Neck Neck exam: Present: normal inspection, full ROM. Absent: lymphadenopathy, thyromegaly - Respiratory Respiratory exam: Present: normal lung sounds bilaterally. Absent: respiratory distress - Cardiovascular Cardiovascular Exam: Present: regular rate, normal rhythm. Absent: systolic murmur, diastolic murmur, rubs, gallop - GI/Abdominal GI/Abdominal exam: Present: soft, normal bowel sounds - Rectal Rectal exam: Present: deferred - Extremities Exam Extremities exam: Present: normal inspection - Back Exam Back exam: Present: normal inspection - Neurological Exam Neurological exam: Present: alert, oriented X3, normal gait, reflexes normal - Psychiatric Psychiatric exam: Present: normal affect, normal mood - Skin Skin exam: Present: warm, dry, intact, normal color. Absent: rash ED Course Vital Signs 10/21/16 03:58 Temperature 98.4 F Pulse Rate 87 Respiratory 20 Rate Blood Pressure 138/77 O2 Sat by Pulse 97 Oximetry ED Medical Decision Making - Medical Decision Making pt presents for left ear pain and discharge x 1 week pt denies fever or chills there is no tinnitis exam: left canal discharge purulent loss of landmark will tx wtih ciprodex drops , NSAIDS for pain. Critical care attestation.: If time is entered above; I have spent that time in minutes in the direct care of this critically ill patient, excluding procedure time. ED Disposition Clinical Impression: Otitis externa Qualifiers: Otitis externa type: diffuse Chronicity: acute Laterality: left Qualified Code( s): H60.312 - Diffuse otitis externa, left ear Disposition: TO HOME OR SELFCARE Is pt being admited?: No Does the pt Need Aspirin: No Condition: Good Instructions: Otitis Externa (ED) Prescriptions: Amoxicillin 500 mg PO TID #30 capsule Cipro/Dexameth 0.3/0.1% [Ciprodex OTIC] 4 drops OT BID #1 bottle Naproxen [Naprosyn TAB] 500 mg PO BID PRN #30 tablet PRN Reason: Pain Referrals: PRIMARY CARE, [Primary Care Provider] - 3-5 Days Forms: Work/School Release Form(ED) Time of Disposition: 05:12
[2016-10-21] MEDS ORDERED: MOTRIN PO ONE (05:13)
[2016-10-21] MEDS ORDERED: MOTRIN ONE (05:13)
== END 2016-10-21 05:21 | disposition home or self-care (01) ==
LOC: ED 03:11
DX: H60.312 Diffuse otitis externa, left ear (principal); I10 Essential (primary) hypertension; E11.9 Type 2 diabetes mellitus without complications; F17.200 Nicotine dependence, unspecified, uncomplicated
CPT/HCPCS: 99282

== ENCOUNTER 2016-11-30 00:06 | Emergency (ER) | payer MEDICARE ==
[2016-11-30 00:25] VITALS: BP 141/82
== END 2016-11-30 03:29 | disposition left against medical advice (07) ==
LOC: ED 00:06
DX: M79.671 Pain in right foot (principal); Z53.21 Procedure and treatment not carried out due to patient leaving prior to being seen by health care provider

== ENCOUNTER 2016-11-30 05:30 | Emergency (ER) | payer MEDICARE ==
[2016-11-30 06:13] VITALS: BP 150/98
--- NOTE | 2016-11-30 07:15 | XRay Report ---
FINAL REPORT EXAM: XR FOOT 3+V RT HISTORY: swelling, redness wound r foot TECHNIQUE: Two views of the right foot. PRIORS: 08/31/2016 FINDINGS: There is no evidence of acute fracture. There is no evidence of joint dislocation. There is soft tissue swelling laterally. There is a moderate bunion. There is moderate narrowing of the 1st MTP joint. There are degenerative changes involving the interphalangeal joints. There is plantar posterior calcaneal spurring. There is dorsal spurring in the midfoot. IMPRESSION: Soft tissue swelling laterally at the level of 5th MTP joint. Stable degenerative changes
== END 2016-11-30 06:24 | disposition left against medical advice (07) ==
LOC: ED 05:30
DX: S89.90XA Unspecified injury of unspecified lower leg, initial encounter (principal); X58.XXXA Exposure to other specified factors, initial encounter; Y93.9 Activity, unspecified; Y92.89 Other specified places as the place of occurrence of the external cause; Y99.9 Unspecified external cause status; Z53.21 Procedure and treatment not carried out due to patient leaving prior to being seen by health care provider

== ENCOUNTER 2017-01-21 21:05 | Emergency (ER) | payer MEDICARE ==
[2017-01-21 21:41] LABS: Basophils % (Auto) 1.2 % (0.0-1.8); Eosinophils % (Auto) 1.4 % (0.0-4.3); Hematocrit 38.6 % (35.5-45.6); Hemoglobin 13.1 gm/dl (11.8-15.2); Mean Corpuscular HGB Conc 34 % (32-34); Mean Corpuscular Hemoglobin 31 pg (28-32); Mean Corpuscular Volume 92 fl (84-94); Platelet Count 132 K/mm3 (140-440)
[2017-01-21 22:04] LABS: Alanine Aminotransferase 22 units/L (7-56); Albumin 4.3 g/dL (3.9-5); Albumin/Globulin Ratio 1.2 %; Alkaline Phosphatase 73 units/L (35-129); Anion Gap 17 mmol/L; BUN/Creatinine Ratio 17; Blood Urea Nitrogen 15 mg/dL (9-20); Calcium 9.2 mg/dL (8.4-10.2); Carbon Dioxide 27 mmol/L (22-30); Chloride 100.4 mmol/L (98-107); Glucose 109 mg/dL (75-100); Potassium 4.1 mmol/L (3.6-5.0); Sodium 140 mmol/L (137-145); Total Protein 7.9 g/dL (6.3-8.2)
--- NOTE | 2017-01-22 00:39 | XRay Report ---
FINAL REPORT EXAM: XR FOOT 3+V RT HISTORY: wound TECHNIQUE: AP, lateral, and oblique portable views of the right foot PRIORS: X-ray 11/30/2016 right foot FINDINGS: There is no evidence for acute fracture or dislocation. There is extensive soft tissue swelling of the 5th toe involving the neck of the 5th metatarsal and distally. No underlying cortical erosion or focal lucency is seen in the bony structures. No air in the soft tissues is seen. No radiopaque foreign bodies are seen. Bony mineralization is normal. There is extensive degenerative changes and spur formation throughout the foot along the dorsal tarsal bones and the plantar posterior calcaneus. A marked hallux valgus of the 1st metatarsophalangeal joint is seen with severe joint space narrowing at that level. These findings are all stable. IMPRESSION: No acute bony abnormality noted. Extensive soft tissue swelling of the 5th toe is noted. No underlying evidence for osteomyelitis is seen.
[2017-01-22 06:07] VITALS: BP 149/95
[2017-01-22] MEDS ORDERED: NAPROSYN PO ONE (07:07)
--- NOTE | 2017-01-22 08:02 | Emergency Department Report ---
ED General Adult HPI - General Chief complaint: Wound/Laceration Stated complaint: FOOT PAIN, RUNNY NOSE Time Seen by Provider: 01/22/17 07:07 Source: patient Mode of arrival: Ambulatory Limitations: No Limitations, Language Barrier - History of Present Illness Initial comments: Patient is a 66-year-old male past medical history of gout who presents with right foot pain. Patient states her veins been going on for possible diseases pain as a 7 out of 10 located to the right portion of his foot nothing makes it better and walking on it makes it worse. [facility] his medication for his gout. Patient also states that he's also run out of his medication for his diabetes. Patient denies any nausea or vomiting or any fatigue or any shortness of breath. Severity scale (0 -10): 4 - Related Data Home Medications Medication Instructions Recorded Confirmed Last Taken Lisinopril [Zestril] 40 mg PO QDAY 09/10/14 09/10/14 1 Day Ago ~04/11/16 Saxagliptin HCl [Onglyza] 2.5 mg PO QDAY 04/12/16 04/12/16 1 Day Ago ~04/11/16 Previous Rx's Medication Instructions Recorded Last Taken Type Ibuprofen [Motrin] 800 mg PO Q8HR PRN #30 tablet 04/01/16 Unknown Rx Acetaminophen/Codeine [Tylenol #3] 1 tab PO Q6H PRN #12 tab 04/12/16 Unknown Rx Ibuprofen [Motrin] 200 mg PO Q6H PRN #20 tablet 04/12/16 Unknown Rx Ibuprofen [Motrin] 600 mg PO Q8H PRN #30 tablet 07/08/16 Unknown Rx Cyclobenzaprine HCl [Flexeril 5 MG 5 mg PO TID #15 tab 09/01/16 Unknown Rx TAB] traMADol [Ultram 50 MG tab] 50 mg PO Q4HR PRN #20 tablet 09/01/16 Unknown Rx Prednisone [predniSONE 10 mg 10 mg PO .TAPER #1 tab.ds.pk 09/30/16 Unknown Rx (6-Day Pack, 21 Tabs)] traMADol [Ultram 50 MG tab] 50 mg PO Q4HR PRN #20 tablet 09/30/16 Unknown Rx Amoxicillin 500 mg PO TID #30 capsule 10/21/16 Unknown Rx Cipro/Dexameth 0.3/0.1% [Ciprodex 4 drops OT BID #1 bottle 10/21/16 Unknown Rx OTIC] Metformin HCl [Glucophage] 1,000 mg PO BID #60 tablet 01/22/17 Unknown Rx Naproxen [Naprosyn TAB] 500 mg PO BID PRN #30 tablet 01/22/17 Unknown Rx glipiZIDE [Glucotrol] 10 mg PO BID #60 tablet 01/22/17 Unknown Rx Allergies Allergy/AdvReac Type Severity Reaction Status Date / Time No Known Allergies Allergy Verified 01/21/17 21:11 ED Review of Systems ROS: Stated complaint: FOOT PAIN, RUNNY NOSE Other details as noted in HPI Constitutional: denies: chills, fever Eyes: denies: eye pain, eye discharge, vision change ENT: denies: ear pain, throat pain Respiratory: denies: cough, shortness of breath, wheezing Cardiovascular: denies: chest pain, palpitations Endocrine: no symptoms reported Gastrointestinal: denies: abdominal pain, nausea, diarrhea Genitourinary: denies: urgency, dysuria Musculoskeletal: other (foot pain). denies: back pain, joint swelling, arthralgia Skin: denies: rash, lesions Neurological: denies: headache, weakness, paresthesias Psychiatric: denies: anxiety, depression Hematological/Lymphatic: denies: easy bleeding, easy bruising ED Past Medical Hx - Past Medical History Hx Hypertension: Yes Hx Diabetes: Yes - Surgical History Additional Surgical History: ribs - Social History Smoking Status: Current Every Day Smoker Substance Use Type: Alcohol - Medications Home Medications: Home Medications Medication Instructions Recorded Confirmed Last Taken Type Lisinopril [Zestril] 40 mg PO QDAY 09/10/14 09/10/14 1 Day Ago History ~04/11/16 Ibuprofen [Motrin] 800 mg PO Q8HR PRN #30 tablet 04/01/16 Unknown Rx Acetaminophen/Codeine [Tylenol #3] 1 tab PO Q6H PRN #12 tab 04/12/16 Unknown Rx Ibuprofen [Motrin] 200 mg PO Q6H PRN #20 tablet 04/12/16 Unknown Rx Saxagliptin HCl [Onglyza] 2.5 mg PO QDAY 04/12/16 04/12/16 1 Day Ago History ~04/11/16 Ibuprofen [Motrin] 600 mg PO Q8H PRN #30 tablet 05/06/17 Unknown Rx Cyclobenzaprine HCl [Flexeril 5 MG 5 mg PO TID #15 tab 09/01/16 Unknown Rx TAB] traMADol [Ultram 50 MG tab] 50 mg PO Q4HR PRN #20 tablet 09/01/16 Unknown Rx Prednisone [predniSONE 10 mg 10 mg PO .TAPER #1 tab.ds.pk 09/30/16 Unknown Rx (6-Day Pack, 21 Tabs)] traMADol [Ultram 50 MG tab] 50 mg PO Q4HR PRN #20 tablet 09/30/16 Unknown Rx Amoxicillin 500 mg PO TID #30 capsule 10/21/16 Unknown Rx Cipro/Dexameth 0.3/0.1% [Ciprodex 4 drops OT BID #1 bottle 10/21/16 Unknown Rx OTIC] Metformin HCl [Glucophage] 1,000 mg PO BID #60 tablet 01/22/17 Unknown Rx Naproxen [Naprosyn TAB] 500 mg PO BID PRN #30 tablet 01/22/17 Unknown Rx glipiZIDE [Glucotrol] 10 mg PO BID #60 tablet 01/22/17 Unknown Rx ED Physical Exam - General Limitations: No Limitations, Language Barrier General appearance: alert, in no apparent distress - Head Head exam: Present: atraumatic, normocephalic - Eye Eye exam: Present: normal appearance - ENT ENT exam: Present: mucous membranes moist - Neck Neck exam: Present: normal inspection - Respiratory Respiratory exam: Present: normal lung sounds bilaterally. Absent: respiratory distress - Cardiovascular Cardiovascular Exam: Present: regular rate, normal rhythm. 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 Absent: rash ED Course Vital Signs 01/21/17 01/21/17 01/22/17 21:07 21:11 01:37 Temperature 98.2 F 98.2 F 97.8 F Pulse Rate 76 70 82 Respiratory 18 18 18 Rate Blood Pressure 166/92 166/92 168/69 Blood Pressure [Right] O2 Sat by Pulse 99 99 98 Oximetry 01/22/17 01/22/17 01/22/17 02:38 02:39 02:45 Temperature 98.2 F Pulse Rate 76 Respiratory 18 18 Rate Blood Pressure 159/88 Blood Pressure 155/69 [Right] O2 Sat by Pulse 100 100 100 Oximetry 01/22/17 01/22/17 01/22/17 03:01 03:15 03:30 Temperature Pulse Rate Respiratory Rate Blood Pressure 152/68 159/88 146/89 Blood Pressure [Right] O2 Sat by Pulse 100 99 99 Oximetry 01/22/17 01/22/17 01/22/17 03:45 04:00 04:15 Temperature Pulse Rate Respiratory Rate Blood Pressure 146/89 141/89 141/89 Blood Pressure [Right] O2 Sat by Pulse 99 100 99 Oximetry 01/22/17 01/22/17 01/22/17 04:30 04:45 05:00 Temperature Pulse Rate Respiratory Rate Blood Pressure 122/57 122/57 128/60 Blood Pressure [Right] O2 Sat by Pulse 100 99 99 Oximetry 01/22/17 01/22/17 01/22/17 05:15 05:30 05:45 Temperature Pulse Rate Respiratory Rate Blood Pressure 128/60 134/91 128/60 Blood Pressure [Right] O2 Sat by Pulse 98 98 100 Oximetry 01/22/17 01/22/17 06:01 06:07 Temperature 98.9 F Pulse Rate Respiratory Rate Blood Pressure 149/95 Blood Pressure [Right] O2 Sat by Pulse 100 Oximetry ED Medical Decision Making - Lab Data Result diagrams: 01/21/17 21:26 01/21/17 21:26 Lab Results 01/21/17 01/21/17 01/21/17 Range/Units 21:19 21:26 21:26 WBC 8.0 (4.5-11.0) K/mm3 RBC 4.20 (3.65-5.03) M/mm3 Hgb 13.1 (11.8-15.2) gm/dl Hct 38.6 (35.5-45.6) % MCV 92 (84-94) fl MCH 31 (28-32) pg MCHC 34 (32-34) % RDW 13.0 L (13.2-15.2) % Plt Count 132 L (140-440) K/mm3 Lymph % (Auto) 24.3 (13.4-35.0) % [place] % (Auto) 11.0 H (0.0-7.3) % Eos % (Auto) 1.4 (0.0-4.3) % Baso % (Auto) 1.2 (0.0-1.8) % Lymph # 1.9 (1.2-5.4) K/mm3 Marathon # 0.9 H (0.0-0.8) K/mm3 Eos # 0.1 (0.0-0.4) K/mm3 Baso # 0.1 (0.0-0.1) K/mm3 Seg Neutrophils % 62.1 (40.0-70.0) % Seg Neutrophils # 4.9 (1.8-7.7) K/mm3 Sodium 140 (137-145) mmol/L Potassium 4.1 (3.6-5.0) mmol/L Chloride 100.4 (98-107) mmol/L Carbon Dioxide 27 (22-30) mmol/L Anion Gap 17 mmol/L BUN 15 (9-20) mg/dL Creatinine 0.9 (0.8-1.5) mg/dL Estimated GFR > 60 ml/min BUN/Creatinine Ratio 17 % Glucose 109 H (75-100) mg/dL POC Glucose 125 H (70-105) Calcium 9.2 (8.4-10.2) mg/dL Total Bilirubin 0.60 (0.1-1.2) mg/dL AST 21 (5-40) units/L ALT 22 (7-56) units/L Alkaline Phosphatase 73 (35-129) units/L Total Protein 7.9 (6.3-8.2) g/dL Albumin 4.3 (3.9-5) g/dL Albumin/Globulin Ratio 1.2 % 01/22/17 Range/Units 06:18 WBC (4.5-11.0) K/mm3 RBC (3.65-5.03) M/mm3 Hgb (11.8-15.2) gm/dl Hct (35.5-45.6) % MCV (84-94) fl MCH (28-32) pg MCHC (32-34) % RDW (13.2-15.2) % Plt Count (140-440) K/mm3 Lymph % (Auto) (13.4-35.0) % Marathon % (Auto) (0.0-7.3) % Eos % (Auto) (0.0-4.3) % Baso % (Auto) (0.0-1.8) % Lymph # (1.2-5.4) K/mm3 [place] # (0.0-0.8) K/mm3 Eos # (0.0-0.4) K/mm3 Baso # (0.0-0.1) K/mm3 Seg Neutrophils % (40.0-70.0) % Seg Neutrophils # (1.8-7.7) K/mm3 Sodium (137-145) mmol/L Potassium (3.6-5.0) mmol/L Chloride (98-107) mmol/L Carbon Dioxide (22-30) mmol/L Anion Gap mmol/L BUN (9-20) mg/dL Creatinine (0.8-1.5) mg/dL Estimated GFR ml/min BUN/Creatinine Ratio % Glucose (75-100) mg/dL POC Glucose 83 (70-105) Calcium (8.4-10.2) mg/dL Total Bilirubin (0.1-1.2) mg/dL AST (5-40) units/L ALT (7-56) units/L Alkaline Phosphatase (35-129) units/L Total Protein (6.3-8.2) g/dL Albumin (3.9-5) g/dL Albumin/Globulin Ratio % - Radiology Data Radiology results: report reviewed, image reviewed Right foot x-ray: Shows soft tissue swelling of the fifth metatarsal no acute osseous injury. - Medical Decision Making Chief medical diagnosis: Gout Differential medical diagnosis: Osteomyelitis, callus formation, plantar fasciitis I will get CBC, CMP, oral pain medicine, x-ray of right foot. Shins x-ray shows no acute osseous injury his laboratory findings are unremarkable patient's feeling better after oral Naprosyn we'll send patient home with prescriptions for Naprosyn and metformin. Critical care attestation.: If time is entered above; I have spent that time in minutes in the direct care of this critically ill patient, excluding procedure time. ED Disposition Clinical Impression: Right foot pain Gout Qualifiers: Gout site: foot Gout etiology: unspecified cause Chronicity: chronic Laterality : right Qualified Code(s): M1A.0710 - Idiopathic chronic gout, right ankle and foot, without tophus (tophi) Diabetes mellitus Qualifiers: Diabetes mellitus type: type 2 Diabetes mellitus complication status: with unspecified complications Diabetes mellitus predatory animal exterminator insulin use: without predatory animal exterminator use Qualified Code(s): E11.8 - Type 2 diabetes mellitus with unspecified complications Disposition: TO HOME OR SELFCARE Is pt being admited?: No Does the pt Need Aspirin: No Condition: Stable Instructions: Acute Gouty Arthritis (ED), Self-Care Measures with a Chronic Disease (ED), Diabetes Mellitus Type 2 in Adults (ED) Prescriptions: glipiZIDE [Glucotrol] 10 mg PO BID #60 tablet Metformin HCl [Glucophage] 1,000 mg PO BID #60 tablet Naproxen [Naprosyn TAB] 500 mg PO BID PRN #30 tablet PRN Reason: Pain Referrals: SYEDA LYONS MD, PHD [Primary Care Provider] - 3-5 Days
== END 2017-01-22 08:48 | disposition home or self-care (01) ==
LOC: ED 21:05
DX: M1A.0710 Idiopathic chronic gout, right ankle and foot, without tophus (tophi) (principal); E11.8 Type 2 diabetes mellitus with unspecified complications; I10 Essential (primary) hypertension; E11.9 Type 2 diabetes mellitus without complications; F17.200 Nicotine dependence, unspecified, uncomplicated; Z79.4 Long term (current) use of insulin
CPT/HCPCS: 36415; 80053; 82962; 85025

== ENCOUNTER 2017-02-03 02:50 | Emergency (ER) | payer MEDICARE ==
[2017-02-03] MEDS ORDERED: NACL 0.9% 1000 ML 1,000 ML IV ONE (04:31)
[2017-02-03 04:43] LABS: Urine Drugs of Abuse Note Disclamer
[2017-02-03 04:45] LABS: Basophils % (Auto) 1.1 % (0.0-1.8); Eosinophils % (Auto) 0.7 % (0.0-4.3); Hemoglobin 12.7 gm/dl (11.8-15.2); Mean Corpuscular HGB Conc 34 % (32-34); Mean Corpuscular Hemoglobin 31 pg (28-32); Mean Corpuscular Volume 91 fl (84-94); Platelet Count 183 K/mm3 (140-440); Red Blood Count 4.16 M/mm3 (3.65-5.03); Red Cell Distribution Width 13.7 % (13.2-15.2); White Blood Count 7.1 K/mm3 (4.5-11.0)
[2017-02-03 04:53] LABS: Bilirubin,Urine NEG (Negative); Blood,Urine NEG (Negative); Ketones,Urine NEG (Negative); Leukocyte Esterase,Urine NEG (Negative); Nitrite,Urine NEG (Negative); Protein,Urine <15 mg/dL mg/dL (Negative); Urobilinogen,Urine < 2.0 mg/dL (<2.0)
[2017-02-03 05:29] LABS: Anion Gap 20 mmol/L; BUN/Creatinine Ratio 10; Blood Urea Nitrogen 9 mg/dL (9-20); Calcium 9.2 mg/dL (8.4-10.2); Carbon Dioxide 23 mmol/L (22-30); Chloride 99.4 mmol/L (98-107); Glucose 85 mg/dL (75-100); Potassium 3.6 mmol/L (3.6-5.0); Sodium 139 mmol/L (137-145)
--- NOTE | 2017-02-03 05:31 | Cat Scan Report ---
FINAL REPORT EXAM: CT HEAD/BRAIN W/O CONTRAST. HISTORY: Status post head injury. TECHNIQUE: Unenhanced axial CT images of the brain were obtained. Comparison is made with prior study 08/31/2016. FINDINGS: There is mild diffuse generalized volume loss, appropriate for patient's age. 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 The moreno-white differentiation is maintained. There is no mass, mass effect, midline shift, hydrocephalus, or acute intracranial hemorrhage. The overall appearance of the brain is stable compared to prior exam. There is opacification of left mastoid air cells, not seen on prior study. There is also near complete soft tissue opacification of the left middle ear cavity, likely otitis media. Clinical correlation is recommended. The visualized paranasal sinuses and right mastoid air cells are clear. There is no skull fracture or other osseous abnormality. Postsurgical changes are seen in both globes. IMPRESSION: 1. No fracture or acute intracranial abnormality. 2. Opacification of the left middle ear cavity, in keeping with otitis media. Clinical correlation is recommended. Additional opacification of left mastoid air cells, indicative of mild acute mastoiditis.
[2017-02-03] MEDS ORDERED: TYLENOL PO ONE (07:13)
[2017-02-03] MEDS ORDERED: VITAMIN B-1 100 MG, FOLVITE 1 MG, INFUVITE 10 ML in NACL 0.9% 1000 ML 1,000 ML IV ONE (07:13)
[2017-02-03] MEDS ORDERED: BOOSTRIX IM ONE (07:14)
--- NOTE | 2017-02-03 07:15 | Emergency Department Report ---
HPI - General Chief Complaint: Fall Time Seen by Provider: 02/03/17 06:50 - HPI HPI: The patient is a 66-year-old male presents for evaluation of traumatic injuries secondary to fall. Per local law enforcement, the patient was observed intoxicated and sustaining a fall from standing and injury to the head, approximately 1 hour prior to arrival. The patient complains of a mild, 1/10 severity achy in quality headache, constant since his fall, exacerbated with bright lights. The patient admits to consuming alcohol last night prior to his fall. The patient denies fever, neck pain, neck stiffness, vision or hearing changes, smell or taste changes, paresthesias, motor deficit, other focal neurological deficit, chest pain, dyspnea, abdominal pain, back pain, dysuria. ED Past Medical Hx - Past Medical History Hx Hypertension: Yes Hx Diabetes: Yes - Surgical History Additional Surgical History: ribs - Social History Smoking Status: Current Every Day Smoker Substance Use Type: Alcohol - Medications Home Medications: Home Medications Medication Instructions Recorded Confirmed Last Taken Type Lisinopril [Zestril] 40 mg PO QDAY 09/10/14 09/10/14 1 Day Ago History ~04/11/16 Ibuprofen [Motrin] 800 mg PO Q8HR PRN #30 tablet 04/01/16 Unknown Rx Acetaminophen/Codeine [Tylenol #3] 1 tab PO Q6H PRN #12 tab 04/12/16 Unknown Rx Ibuprofen [Motrin] 200 mg PO Q6H PRN #20 tablet 04/12/16 Unknown Rx Saxagliptin HCl [Onglyza] 2.5 mg PO QDAY 04/12/16 04/12/16 1 Day Ago History ~04/11/16 Ibuprofen [Motrin] 600 mg PO Q8H PRN #30 tablet 07/08/16 Unknown Rx Cyclobenzaprine HCl [Flexeril 5 MG 5 mg PO TID #15 tab 09/01/16 Unknown Rx TAB] traMADol [Ultram 50 MG tab] 50 mg PO Q4HR PRN #20 tablet 09/01/16 Unknown Rx Prednisone [predniSONE 10 mg 10 mg PO .TAPER #1 tab.ds.pk 09/30/16 Unknown Rx (6-Day Pack, 21 Tabs)] traMADol [Ultram 50 MG tab] 50 mg PO Q4HR PRN #20 tablet 09/30/16 Unknown Rx Amoxicillin 500 mg PO TID #30 capsule 10/21/16 Unknown Rx Cipro/Dexameth 0.3/0.1% [Ciprodex 4 drops OT BID #1 bottle 10/21/16 Unknown Rx OTIC] Metformin HCl [Glucophage] 1,000 mg PO BID #60 tablet 01/22/17 Unknown Rx Naproxen [Naprosyn TAB] 500 mg PO BID PRN #30 tablet 01/22/17 Unknown Rx glipiZIDE [Glucotrol] 10 mg PO BID #60 tablet 01/22/17 Unknown Rx Acetaminophen [Tylenol] 500 mg PO Q6HR #20 tablet 02/03/17 Unknown Rx ED Review of Systems ROS: Stated complaint: GROUND LEVEL FALL Other details as noted in HPI Constitutional: denies: fever ENT: denies: throat or neck pain Respiratory: denies: cough, shortness of breath Cardiovascular: denies: chest pain Endocrine: denies unexplained weight loss or gain Gastrointestinal: denies: abdominal pain, nausea Genitourinary: denies: dysuria Musculoskeletal: denies: leg swelling Skin: denies: rash Neurological: reports headache Hematological/Lymphatic: denies: easy bleeding or easy bruising Psych: denies sadness or hopelessness Physical Exam - Physical Exam Vital Signs: Vital Signs 02/03/17 02/03/17 02/03/17 04:05 04:45 04:49 Temperature 97.7 F Pulse Rate 79 68 Respiratory 16 15 15 Rate Blood Pressure 89/51 100/65 O2 Sat by Pulse 96 99 98 Oximetry 02/03/17 02/03/17 02/03/17 05:09 05:15 05:30 Temperature Pulse Rate 70 72 Respiratory 14 14 Rate Blood Pressure 100/65 111/72 117/76 O2 Sat by Pulse 99 100 99 Oximetry 02/03/17 02/03/17 02/03/17 05:45 06:00 06:30 Temperature Pulse Rate 70 71 72 Respiratory 13 14 14 Rate Blood Pressure 100/65 104/65 112/70 O2 Sat by Pulse 100 99 98 Oximetry Physical Exam: General: well-nourished, well-developed, no acute distress, patient smells of alcohol Head: Normocephalic, abrasions present to the left forehead and lateral to the left periorbital area Eyes: normal sclera, PERRL, EOM intact ENT: Mucous membranes are pale and dry Neck: No neck stiffness, no midline cervical tenderness to palpation, trachea midline, left tympanic membrane erythema present, mild middle ear effusion, no redness, swelling, fluctuance, or tenderness over the left or right mastoid process Respiratory: Breath sounds equal bilaterally, no wheezing, rales, or rhonchi Cardio: S1 and S2 present, no murmurs, rubs, gallops, capillary refill is delayed Abdomen: Normoactive bowel sounds, soft abdomen, no rigidity, no guarding or rebound tenderness Chest WALL/Back: No tenderness to palpation of the chest wall, no CVA tenderness with percussion Musc: No pitting edema of the legs Skin: No rash Neuro: alert oriented x4, normal cognition, speech mildly slurred, no facial drooping, no uvula or tongue deviation on protrusion, no deficit with rotation of neck or shoulder shrug, no obvious gross motor deficit in the upper or lower extremities with flexion or extension at the shoulder, elbow, wrist, hip, knee, or ankle bilaterally, no obvious gross sensation deficits, 2+ symmetric reflexes on DTR testing, no coordination deficit with [id number] testing Psych: Normal affect ED Course Vital Signs 02/03/17 02/03/17 02/03/17 04:05 04:45 04:49 Temperature 97.7 F Pulse Rate 79 68 Respiratory 16 15 15 Rate Blood Pressure 89/51 100/65 O2 Sat by Pulse 96 99 98 Oximetry 02/03/17 02/03/17 02/03/17 05:09 05:15 05:30 Temperature Pulse Rate 70 72 Respiratory 14 14 Rate Blood Pressure 100/65 111/72 117/76 O2 Sat by Pulse 99 100 99 Oximetry 02/03/17 02/03/17 02/03/17 05:45 06:00 06:30 Temperature Pulse Rate 70 71 72 Respiratory 13 14 14 Rate Blood Pressure 100/65 104/65 112/70 O2 Sat by Pulse 100 99 98 Oximetry ED Medical Decision Making - Lab Data Result diagrams: 02/03/17 04:25 02/03/17 04:25 - Medical Decision Making The patient was seen and examined by myself. The patient is placed on a fish farm laborer and continuous pulse ox. On initial evaluation, the patient was found to be in no distress. Evaluation orders were placed. The patient is given Tylenol for his pain. The patient is given a tetanus immunization. No lacerations warranting laceration repair. Lab results revealed elevated EtOH level of 0.2. CT scan the head is negative for acute or emergent intracranial disease process, but does exhibit left middle ear findings concerning for otitis media. CT scan also exhibited findings concerning for mastoiditis, but there are no clinical exam findings consistent with mastoiditis and has the patient is afebrile without any pain tenderness, redness or fluctuance to the mastoid area, mastoiditis is not suspected. Repeat alcohol level is obtained and found to be trending down. The patient's family member who presents to the emergency department and submits that the patient is at typical mental status baseline and behavior for the patient. The patient is discharged to the care of their family member. Critical care attestation.: If time is entered above; I have spent that time in minutes in the direct care of this critically ill patient, excluding procedure time. ED Disposition Clinical Impression: Acute post-traumatic headache, not intractable, Dehydration, Fall from other slipping, tripping, or stumbling Alcohol intoxication Qualifiers: Complication of substance-induced condition: uncomplicated Qualified Code(s): F10.920 - Alcohol use, unspecified with intoxication, uncomplicated Disposition: DC-01 TO HOME OR SELFCARE Is pt being admited?: No Does the pt Need Aspirin: No Condition: Stable Instructions: Fall Prevention (ED), Abuse of Alcohol (ED), Acute Headache (ED) Referrals: PRIMARY CARE, [Primary Care Provider] - 3-5 Days Time of Disposition: 08:49
[2017-02-03] MEDS ORDERED: ATIVAN IM ONE (08:38)
[2017-02-03] MEDS ORDERED: ATIVAN ONE (08:41)
--- NOTE | 2017-02-03 09:17 | XRay Report ---
LEFT CLAVICLE, 2 views: HISTORY: pain The clavicle is intact without evidence of fracture or bony destruction. Moderate to severe arthritic changes are identified at the acromioclavicular joint. The soft tissues are within normal limits. IMPRESSION: Unremarkable left clavicle. Degenerative changes at the left a.c. joint.
--- NOTE | 2017-02-03 09:18 | XRay Report ---
AP CHEST: HISTORY: chest pain Multiple bilateral chronic rib deformities are identified. Degenerative changes are noted in the shoulders and spine. No displaced bony fracture is appreciated. Heart and mediastinal structures are within normal limits. There are mild chronic interstitial changes in both lung bullard but no evidence for pneumonia, pleural effusion or pneumothorax. No overwhelming change since 07/06/14. IMPRESSION: No acute cardiopulmonary process identified.
[2017-02-03 16:34] VITALS: BP 162/84
== END 2017-02-03 16:34 | disposition home or self-care (01) ==
LOC: ED 02:50
DX: F10.920 Alcohol use, unspecified with intoxication, uncomplicated (principal); G44.209 Tension-type headache, unspecified, not intractable; I10 Essential (primary) hypertension; E11.9 Type 2 diabetes mellitus without complications; F17.200 Nicotine dependence, unspecified, uncomplicated
CPT/HCPCS: 36415; 70450; 71010; 73000; 80048; 80307; 81001; 82962; 85025; 90471; 90715; 96361; 96365; 96366; 96372; 99285; G0480; J2060; J3411; J7030; 80320

== ENCOUNTER 2017-02-09 21:04 | Inpatient (IN) | payer MEDICARE ==
[2017-02-09 23:31] LABS: Basophils % (Auto) 0.8 % (0.0-1.8); Eosinophils % (Auto) 1.9 % (0.0-4.3); Hematocrit 38.9 % (35.5-45.6); Hemoglobin 12.7 gm/dl (11.8-15.2); Mean Corpuscular HGB Conc 33 % (32-34); Mean Corpuscular Hemoglobin 31 pg (28-32); Mean Corpuscular Volume 94 fl (84-94); Platelet Count 234 K/mm3 (140-440); Red Blood Count 4.12 M/mm3 (3.65-5.03); Red Cell Distribution Width 14.5 % (13.2-15.2)
[2017-02-09 23:43] LABS: Anion Gap 19 mmol/L; BUN/Creatinine Ratio 19; Blood Urea Nitrogen 19 mg/dL (9-20); Calcium 9.1 mg/dL (8.4-10.2); Carbon Dioxide 25 mmol/L (22-30); Chloride 101.3 mmol/L (98-107); Glucose 207 mg/dL (75-100); Potassium 3.9 mmol/L (3.6-5.0); Sodium 141 mmol/L (137-145)
--- NOTE | 2017-02-10 04:02 | XRay Report ---
FINAL REPORT PROCEDURE: XR CHEST 1V AP TECHNIQUE: Chest radiograph anteroposterior view. CPT 48481 HISTORY: COUGH,?PNEUMONIA COMPARISON: No prior studies are available for comparison. FINDINGS: Heart: Normal. Mediastinum/Vessels: Normal. Lungs/Pleural space: Lungs are expanded. There are faint right perihilar and lower lobe infiltrates. Left lung is clear and expanded. There are no effusions or pneumothoraces. Questionable cavitating 16 millimeter nodule or thick walled cyst seen at the right lung apex. CT may be indicated. Bony thorax: No acute osseous abnormality. Life support devices: None. IMPRESSION: Right perihilar and lower lobe infiltrates.. Questionable cavitating 16 millimeter nodule or thick walled cyst seen at the right lung apex. CT may be indicated.
[2017-02-10 04:39] LABS: Alanine Aminotransferase 12 units/L (7-56); Albumin 3.4 g/dL (3.9-5); Albumin/Globulin Ratio 1.2 %; Alkaline Phosphatase 64 units/L (35-129); Total Protein 6.2 g/dL (6.3-8.2)
[2017-02-10 04:55] LABS: Bilirubin,Direct < 0.2 mg/dL (0-0.2)
--- NOTE | 2017-02-10 06:48 | Emergency Department Report ---
- General Chief Complaint: Chest Pain Stated Complaint: FLU SYMPTOMS Time Seen by Provider: 02/10/17 03:22 Source: patient Mode of arrival: Ambulatory Limitations: No Limitations - History of Present Illness MD Complaint: cough -: days(s) (2) Consistency: intermittent Improves With: nothing Worsens With: nothing - Related Data Home Medications Medication Instructions Recorded Confirmed Last Taken Lisinopril [Zestril] 40 mg PO QDAY 09/10/14 09/10/14 1 Day Ago ~04/11/16 Saxagliptin HCl [Onglyza] 2.5 mg PO QDAY 04/12/16 04/12/16 1 Day Ago ~04/11/16 Previous Rx's Medication Instructions Recorded Last Taken Type Ibuprofen [Motrin] 800 mg PO Q8HR PRN #30 tablet 04/01/16 Unknown Rx Acetaminophen/Codeine [Tylenol #3] 1 tab PO Q6H PRN #12 tab 04/12/16 Unknown Rx Ibuprofen [Motrin] 200 mg PO Q6H PRN #20 tablet 04/12/16 Unknown Rx Ibuprofen [Motrin] 600 mg PO Q8H PRN #30 tablet 07/08/16 Unknown Rx Cyclobenzaprine HCl [Flexeril 5 MG 5 mg PO TID #15 tab 09/01/16 Unknown Rx TAB] traMADol [Ultram 50 MG tab] 50 mg PO Q4HR PRN #20 tablet 09/01/16 Unknown Rx Prednisone [predniSONE 10 mg 10 mg PO .TAPER #1 tab.ds.pk 09/30/16 Unknown Rx (6-Day Pack, 21 Tabs)] traMADol [Ultram 50 MG tab] 50 mg PO Q4HR PRN #20 tablet 09/30/16 Unknown Rx Amoxicillin 500 mg PO TID #30 capsule 10/21/16 Unknown Rx Cipro/Dexameth 0.3/0.1% [Ciprodex 4 drops OT BID #1 bottle 10/21/16 Unknown Rx OTIC] Metformin HCl [Glucophage] 1,000 mg PO BID #60 tablet 01/22/17 Unknown Rx Naproxen [Naprosyn TAB] 500 mg PO BID PRN #30 tablet 01/22/17 Unknown Rx glipiZIDE [Glucotrol] 10 mg PO BID #60 tablet 01/22/17 Unknown Rx Acetaminophen [Tylenol] 500 mg PO Q6HR #20 tablet 02/03/17 Unknown Rx Allergies Allergy/AdvReac Type Severity Reaction Status Date / Time No Known Allergies Allergy Verified 01/21/17 21:11 ED Review of Systems ROS: Stated complaint: FLU SYMPTOMS Other details as noted in HPI Constitutional: denies: chills, fever Eyes: denies: eye pain, eye discharge, vision change ENT: denies: ear pain, throat pain Respiratory: denies: cough, shortness of breath, wheezing Cardiovascular: chest pain. denies: palpitations Endocrine: no symptoms reported Gastrointestinal: denies: abdominal pain, nausea, diarrhea Genitourinary: denies: urgency, dysuria Musculoskeletal: denies: back pain, joint swelling, arthralgia Skin: denies: rash, lesions Neurological: denies: headache, weakness, paresthesias Psychiatric: denies: anxiety, depression Hematological/Lymphatic: denies: easy bleeding, easy bruising ED Past Medical Hx - Past Medical History Previous Medical History?: Yes Hx Hypertension: Yes Hx Diabetes: Yes - Surgical History Past Surgical History?: Yes Additional Surgical History: ribs - Family History Family history: hypertension - Social History Smoking Status: Current Every Day Smoker Substance Use Type: None - Medications Home Medications: Home Medications Medication Instructions Recorded Confirmed Last Taken Type Lisinopril [Zestril] 40 mg PO QDAY 09/10/14 09/10/14 1 Day Ago History ~04/11/16 Ibuprofen [Motrin] 800 mg PO Q8HR PRN #30 tablet 04/01/16 Unknown Rx Acetaminophen/Codeine [Tylenol #3] 1 tab PO Q6H PRN #12 tab 04/12/16 Unknown Rx Ibuprofen [Motrin] 200 mg PO Q6H PRN #20 tablet 04/12/16 Unknown Rx Saxagliptin HCl [Onglyza] 2.5 mg PO QDAY 04/12/16 04/12/16 1 Day Ago History ~04/11/16 Ibuprofen [Motrin] 600 mg PO Q8H PRN #30 tablet 07/08/16 Unknown Rx Cyclobenzaprine HCl [Flexeril 5 MG 5 mg PO TID #15 tab 09/01/16 Unknown Rx TAB] traMADol [Ultram 50 MG tab] 50 mg PO Q4HR PRN #20 tablet 09/01/16 Unknown Rx Prednisone [predniSONE 10 mg 10 mg PO .TAPER #1 tab.ds.pk 09/30/16 Unknown Rx (6-Day Pack, 21 Tabs)] traMADol [Ultram 50 MG tab] 50 mg PO Q4HR PRN #20 tablet 09/30/16 Unknown Rx Amoxicillin 500 mg PO TID #30 capsule 10/21/16 Unknown Rx Cipro/Dexameth 0.3/0.1% [Ciprodex 4 drops OT BID #1 bottle 10/21/16 Unknown Rx OTIC] Metformin HCl [Glucophage] 1,000 mg PO BID #60 tablet 01/22/17 Unknown Rx Naproxen [Naprosyn TAB] 500 mg PO BID PRN #30 tablet 01/22/17 Unknown Rx glipiZIDE [Glucotrol] 10 mg PO BID #60 tablet 01/22/17 Unknown Rx Acetaminophen [Tylenol] 500 mg PO Q6HR #20 tablet 02/03/17 Unknown Rx ED Physical Exam - General Limitations: No Limitations, Language Barrier General appearance: alert, in no apparent distress - Head Head exam: Present: atraumatic, normocephalic - Eye Eye exam: Present: normal appearance, EOMI - ENT ENT exam: Present: mucous membranes moist - Neck Neck exam: Present: normal inspection, full ROM - Cardiovascular Cardiovascular Exam: Present: regular rate, normal rhythm, normal heart sounds - GI/Abdominal GI/Abdominal exam: Present: soft. Absent: tenderness - Rectal Rectal exam: Present: deferred - Extremities Exam Extremities exam: Present: full ROM - Back Exam Back exam: Present: normal inspection, full ROM - Neurological Exam Neurological exam: Present: alert, oriented X3, CN II-XII intact - Psychiatric Psychiatric exam: Present: normal affect, normal mood - Skin Skin exam: Present: warm, dry ED Course Vital Signs 02/09/17 22:33 Temperature 97.3 F L Pulse Rate 78 Blood Pressure 173/102 O2 Sat by Pulse 97 Oximetry ED Medical Decision Making - Lab Data Result diagrams: 02/09/17 23:05 02/09/17 23:05 - EKG Data -: EKG Interpreted by Me EKG shows normal: sinus rhythm, axis, intervals, QRS complexes, ST-T waves - Radiology Data Radiology results: report reviewed (CXR; RIGHT PERIHILAR AND LOWER LOBE INFILTRATE, 18MM CAVITATING LYMPH NODE IN THE RIGHT UPPER LUNG) Critical care attestation.: If time is entered above; I have spent that time in minutes in the direct care of this critically ill patient, excluding procedure time. ED Disposition Clinical Impression: Cavitary lesion of lung, Hyperglycemia Pneumonia Qualifiers: Pneumonia type: due to unspecified organism Laterality: right Lung location: lower lobe of lung Qualified Code(s): J18.1 - Lobar pneumonia, unspecified organism Disposition: OP ADMIT IP TO THIS HOSP Is pt being admited?: Yes Does the pt Need Aspirin: No Condition: Stable Referrals: SYEDA LYONS MD, PHD [Primary Care Provider] - 3-5 Days Time of Disposition: 06:51 (CASE REVIEWED WITH DR DIAZ AND HE KAYLEEN ACCEPT THE PT TO HIS SERVICE)
[2017-02-10] MEDS ORDERED: ROCEPHIN 500 MG in NACL 0.9% 50 ML IV NR (07:00)
[2017-02-10] MEDS ORDERED: cefTRIAXone 0.5 GM in NACL 0.9% 20 ML IV ONE (07:15)
--- NOTE | 2017-02-10 08:04 | Cat Scan Report ---
FINAL REPORT EXAM: CT CHEST W CON HISTORY: chest cavitary lesion, and infiltrates TECHNIQUE: CT imaging obtained through the chest following intravenous administration of contrast. Transaxial, Coronal and sagittal reformats are provided. PRIORS: Chest radiograph of the same date FINDINGS: Mediastinum is remarkable for coronary artery disease. Thoracic aorta is normal in course and caliber. No pneumothorax, effusion or focal airspace disease. The central airways are patent. No bronchiectasis. Imaged portion of the upper abdomen is unremarkable. The superficial soft tissues are unremarkable. No acute bony abnormality or worrisome osseous lesions identified. Multiple old posterior and anterolateral right rib fracture deformities. Thoracic diffuse idiopathic skeletal hyperostosis. IMPRESSION: No acute pulmonary finding or CT is focal airspace disease including no cavitary lesion. Described chest radiographic findings of the same date are likely due to multiple right-sided rib fracture deformities. Coronary artery disease.
[2017-02-10] MEDS ORDERED: ULTRAM PO PRN (08:34)
[2017-02-10] MEDS ORDERED: TRADJENTA PO SCH (09:00)
[2017-02-10] MEDS ORDERED: ZESTRIL PO SCH (10:00)
[2017-02-10] MEDS ORDERED: SAXAGLIPTIN HCL 2.5 MG PO SCH (10:00)
[2017-02-10] MEDS ORDERED: ZITHROMAX 500 MG in NACL 0.9% 250ML 250 ML IV SCH (10:00)
--- NOTE | 2017-02-10 13:50 | Event Note ---
Date: 02/10/17 Patient seen and examined. CXR reviewed with radiologist and finding discussed with ID Dr. Almanza. Patient is asymptomatic. He basically went to [place] yesterday at [facility] for appointment and then he was waiting for his daughter to pick him up. he could not communicate with bis daughter as he didnot have a cell phone, he started to walk (It was very cold and snowing yesterday) and felt very cold, sick and tired. he decided to come to hospital as that was on his way. he denies any chest pain, SOB, night sweat, fever. Admits cough but that is chronic as he is a 1 PPD smoker. Will discharge him and he will f/u at [place] for further work up.
[2017-02-10 16:16] VITALS: BP 148/89
--- NOTE | 2017-03-01 15:51 | Query- Nutrition ---
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 Questions asked do not imply a particular answer is desired or expected. We greatly appreciate your clarification on this issue. Clinical Documentation States: The event note (Dr. Deutsch) states " Patient seen and examined. CXR reviewed with radiologist and finding discussed with ID Dr. Almanza. He denies any chest pain, SOB, night sweat, fever. Admits cough but that is chronic as he is a 1 PPD smoker. " The ED documentation states " Clinical Impression: Cavitary lesion of lung, Hyperglycemia Pneumonia " Clinical Findings Show: Albumin: 3.4 Please select the most appropriate option 3 [x] Mild Malnutrition [] Mild - Moderate Malnutrition [] Moderate - Severe Malnutrition [] Severe Malnutrition Serum Albumin 2.8 to 3.4 g/dl or Pre-albumin 5 to 17 mg/dl1,2 Inadequate nutritional intake1,2,3,4 NPO > 5 days Weight loss: 5% in 1 month or 7.5% in 3 months or 10% in 6 months1, 3,4 BMI 16 to 18.4 or Weight <90% of ideal body weight1,2,3,4 Serum Albumin < 2.8 g/ dl1,2 Lymphocytes < 1500/ L2 Inadequate nutritional intake3, high stress e.g. major trauma, sepsis,pancreatitis, benavides etc. Decubitus ulcers1,2, , skin breakdown2, easy hair pluckability2 Weight <80% standard for height2 Triceps skin fold <3 mm2 Mid-arm muscle circumference <15 cm2 Creatinine-height index <60% standard2 [ ] Cachexia [ ] Emaciated w/Malnutrition [ ] Other: [ ] Unable to determine [ ] Comment/Explanation: Present on Admission: [x ] Yes (Y) [ ] Clinically undeterminable (W) [ ] No (N) Please also document response in your Progress Notes and/or Discharge Summary and indicate if the condition was present on admission. MTDD
== END 2017-02-10 14:49 | disposition home or self-care (01) | DRG 178 ==
LOC: ED 21:04 → 3A 02-10 06:40
PROVIDERS: ADMIT Internal Medicine; ATTEND Internal Medicine
DX: A15.0 Tuberculosis of lung (principal); E44.1 Mild protein-calorie malnutrition; J18.9 Pneumonia, unspecified organism; R07.9 Chest pain, unspecified; I10 Essential (primary) hypertension; F17.200 Nicotine dependence, unspecified, uncomplicated; E11.65 Type 2 diabetes mellitus with hyperglycemia; Z79.899 Other long term (current) drug therapy; Z82.49 Family history of ischemic heart disease and other diseases of the circulatory system; Z68.24 Body mass index [BMI] 24.0-24.9, adult
CPT/HCPCS: 36415; 71010; 71260; 80048; 80074; 82962; 84484; 85025; 87040; 93005; 93010; 96366; 96367; 96374; J0456; J0696; J7050; Q9967

== ENCOUNTER 2017-02-23 01:47 | Emergency (ER) | payer MEDICARE ==
--- NOTE | 2017-02-23 03:46 | XRay Report ---
FINAL REPORT EXAM: XR CHEST ROUTINE 2V HISTORY: cough COMPARISON: February 10, 2017. FINDINGS:: Frontal and lateral views of the chest obtained. Cardiac silhouette is within normal limits. No focal consolidation or effusion. No pneumothorax. Remote bilateral rib fractures.. IMPRESSION:: No acute infiltrates or effusions.
[2017-02-23 09:58] VITALS: BP 145/89
--- NOTE | 2017-02-23 11:41 | Emergency Department Report ---
ED General Adult HPI - General Chief complaint: Upper Respiratory Infection Stated complaint: URI SX Time Seen by Provider: 02/23/17 11:27 Source: patient, RN notes reviewed, old records reviewed Mode of arrival: Ambulatory Limitations: No Limitations - History of Present Illness Initial comments: This is a 66-year-old male who was previously unknown to this provider, typically follows at the [facility], presented to the ER with a complaint of cough. Cough has been present for weeks. It is constant. It does not radiate anywhere, patient indicates no exacerbating or relieving factors. Denies neck pain, chest pain, abdominal pain, shortness of breath, DVT or pulmonary embolus risk factors. Patient seen in this department a few days ago for similar symptoms, had a noncontrast CT scan of chest which demonstrated no significant or impressive findings. Patient admits to consuming tobacco. -: Gradual, week(s) Severity scale (0 -10): 0 Improves with: none Worsens with: none Associated Symptoms: cough. denies: confusion, chest pain, diaphoresis, fever/ chills, headaches, loss of appetite, malaise, rash, shortness of breath, syncope , weakness - Related Data Home Medications Medication Instructions Recorded Confirmed Last Taken Lisinopril [Zestril TAB] 40 mg PO QDAY 09/10/14 09/10/14 1 Day Ago ~04/11/16 Saxagliptin HCl [Onglyza] 2.5 mg PO QDAY 04/12/16 04/12/16 1 Day Ago ~04/11/16 Previous Rx's Medication Instructions Recorded Last Taken Type Ibuprofen [Motrin 800 MG tab] 800 mg PO Q8HR PRN #30 tablet 04/01/16 Unknown Rx Acetaminophen/Codeine [Tylenol 1 tab PO Q6H PRN #12 tab 04/12/16 Unknown Rx /Codeine # 3 tab] Ibuprofen [Motrin 200 MG tab] 200 mg PO Q6H PRN #20 tablet 04/12/16 Unknown Rx Ibuprofen [Motrin 600 MG tab] 600 mg PO Q8H PRN #30 tablet 07/08/16 Unknown Rx Cyclobenzaprine HCl [Flexeril 5 MG 5 mg PO TID #15 tab 09/01/16 Unknown Rx TAB] traMADol [Ultram 50 MG tab] 50 mg PO Q4HR PRN #20 tablet 09/01/16 Unknown Rx Prednisone [predniSONE 10 mg 10 mg PO .TAPER #1 tab.ds.pk 09/30/16 Unknown Rx (6-Day Pack, 21 Tabs)] traMADol [Ultram 50 MG tab] 50 mg PO Q4HR PRN #20 tablet 09/30/16 Unknown Rx Cipro/Dexameth 0.3/0.1% [Ciprodex 4 drops OT BID #1 bottle 10/21/16 Unknown Rx OTIC] Metformin HCl [Glucophage] 1,000 mg PO BID #60 tablet 01/22/17 Unknown Rx Naproxen [Naprosyn TAB] 500 mg PO BID PRN #30 tablet 01/22/17 Unknown Rx glipiZIDE [Glucotrol] 10 mg PO BID #60 tablet 01/22/17 Unknown Rx Acetaminophen [Acetaminophen TAB] 500 mg PO Q6HR #20 tablet 02/03/17 Unknown Rx Azithromycin [Zithromax TAB] 500 mg PO QDAY #5 tablet 02/10/17 Unknown Rx Albuterol Sulfate [Proair 90 mcg IH Q4HR PRN #2 aer.pow.ba 02/23/17 Unknown Rx Respiclick] Benzonatate [Tessalon Perles] 100 mg PO Q8HR PRN #30 capsule 02/23/17 Unknown Rx Fluticasone [Flonase] 1 spray NS QDAY #1 bottle 02/23/17 Unknown Rx Allergies Allergy/AdvReac Type Severity Reaction Status Date / Time No Known Allergies Allergy Verified 01/21/17 21:11 ED Review of Systems ROS: Stated complaint: URI SX Other details as noted in HPI ED Past Medical Hx - Past Medical History Previous Medical History?: Yes Hx Hypertension: Yes Hx Diabetes: Yes - Surgical History Past Surgical History?: Yes Additional Surgical History: ribs - Social History Smoking Status: Current Every Day Smoker Substance Use Type: Alcohol - Medications Home Medications: Home Medications Medication Instructions Recorded Confirmed Last Taken Type Lisinopril [Zestril TAB] 40 mg PO QDAY 09/10/14 09/10/14 1 Day Ago History ~04/11/16 Ibuprofen [Motrin 800 MG tab] 800 mg PO Q8HR PRN #30 tablet 04/01/16 Unknown Rx Acetaminophen/Codeine [Tylenol 1 tab PO Q6H PRN #12 tab 04/12/16 Unknown Rx /Codeine # 3 tab] Ibuprofen [Motrin 200 MG tab] 200 mg PO Q6H PRN #20 tablet 04/12/16 Unknown Rx Saxagliptin HCl [Onglyza] 2.5 mg PO QDAY 04/12/16 04/12/16 1 Day Ago History ~04/11/16 Ibuprofen [Motrin 600 MG tab] 600 mg PO Q8H PRN #30 tablet 07/08/16 Unknown Rx Cyclobenzaprine HCl [Flexeril 5 MG 5 mg PO TID #15 tab 09/01/16 Unknown Rx TAB] traMADol [Ultram 50 MG tab] 50 mg PO Q4HR PRN #20 tablet 09/01/16 Unknown Rx Prednisone [predniSONE 10 mg 10 mg PO .TAPER #1 tab.ds.pk 09/30/16 Unknown Rx (6-Day Pack, 21 Tabs)] traMADol [Ultram 50 MG tab] 50 mg PO Q4HR PRN #20 tablet 09/30/16 Unknown Rx Cipro/Dexameth 0.3/0.1% [Ciprodex 4 drops OT BID #1 bottle 10/21/16 Unknown Rx OTIC] Metformin HCl [Glucophage] 1,000 mg PO BID #60 tablet 01/22/17 Unknown Rx Naproxen [Naprosyn TAB] 500 mg PO BID PRN #30 tablet 01/22/17 Unknown Rx glipiZIDE [Glucotrol] 10 mg PO BID #60 tablet 01/22/17 Unknown Rx Acetaminophen [Acetaminophen TAB] 500 mg PO Q6HR #20 tablet 02/03/17 Unknown Rx Azithromycin [Zithromax TAB] 500 mg PO QDAY #5 tablet 02/10/17 Unknown Rx Albuterol Sulfate [Proair 90 mcg IH Q4HR PRN #2 aer.pow.ba 02/23/17 Unknown Rx Respiclick] Benzonatate [Tessalon Perles] 100 mg PO Q8HR PRN #30 capsule 02/23/17 Unknown Rx Fluticasone [Flonase] 1 spray NS QDAY #1 bottle 02/23/17 Unknown Rx ED Physical Exam - General Limitations: No Limitations General appearance: alert, in no apparent distress - Head Head exam: Present: atraumatic, normocephalic - Eye Eye exam: Present: normal appearance, EOMI. Absent: nystagmus - ENT ENT exam: Present: normal exam, normal orophraynx, mucous membranes moist, normal external ear exam - Neck Neck exam: Present: normal inspection, full ROM - Respiratory Respiratory exam: Present: normal lung sounds bilaterally. Absent: respiratory distress, wheezes, rales, rhonchi, stridor, chest wall tenderness - Cardiovascular Cardiovascular Exam: Present: regular rate, normal rhythm, normal heart sounds. Absent: bradycardia, tachycardia, irregular rhythm, systolic murmur, diastolic murmur, rubs, gallop - GI/Abdominal GI/Abdominal exam: Present: soft, normal bowel sounds. Absent: distended, tenderness, guarding, rebound, rigid, pulsatile mass - Rectal Rectal exam: Present: deferred - Extremities Exam Extremities exam: Present: normal inspection, full ROM, normal capillary refill. Absent: tenderness, pedal edema, joint swelling, calf tenderness - Back Exam Back exam: Present: normal inspection, full ROM. Absent: tenderness, CVA tenderness (R), paraspinal tenderness, vertebral tenderness - Neurological Exam Neurological exam: Present: alert, oriented X3, CN II-XII intact, normal gait, other (Extraocular movements intact. Tongue midline. No facial droop. Facial sensation intact to light touch in the V1, V2, V3 distribution bilaterally. 5 and 5 strength in 4 extremities.. Sensation is intact to light touch in 4 extremities.). Absent: motor sensory deficit - Psychiatric Psychiatric exam: Present: normal affect, normal mood - Skin Skin exam: Present: warm, dry, intact, normal color. Absent: rash ED Course Vital Signs 02/23/17 02/23/17 02/23/17 03:05 07:55 09:57 Temperature 97.6 F 98.6 F 98.7 F Pulse Rate 90 85 78 Respiratory 18 16 18 Rate Blood Pressure 160/90 158/101 Blood Pressure 145/89 [Left] O2 Sat by Pulse 98 100 99 Oximetry ED Medical Decision Making - Lab Data Vital Signs 02/23/17 02/23/17 02/23/17 03:05 07:55 09:57 Temperature 97.6 F 98.6 F 98.7 F Pulse Rate 90 85 78 Respiratory 18 16 18 Rate Blood Pressure 160/90 158/101 Blood Pressure 145/89 [Left] O2 Sat by Pulse 98 100 99 Oximetry - Radiology Data Radiology results: report reviewed, image reviewed nt Report Referring Physician: Maryuri Law Patient Name: FREDERICK GRULLON Date of : 1950 Sex: Male Report Date: 2017-02-10 Report Status: Finalized Findings [facility] [address] [place] [address] Cat Scan Report Signed Patient: FREDERICK GRULLON MR#: [id number] : 1950 Acct:[id number] Age/Sex: 66 / M ADM Date: 02/10/17 Loc: 3A [id number]: ROB DIAZ MD Ordering Physician: Maryuri Law MD Date of Service: 02/10/17 Procedure(s): CT chest w con Accession Number(s): [id number] cc: Maryuri Law MD FINAL REPORT EXAM: CT CHEST W CON HISTORY: chest cavitary lesion, and infiltrates TECHNIQUE: CT imaging obtained through the chest following intravenous administration of contrast. Transaxial, Coronal and sagittal reformats are provided. PRIORS: Chest radiograph of the same date FINDINGS: Mediastinum is remarkable for coronary artery disease. Thoracic aorta is normal in course and caliber. No pneumothorax, effusion or focal airspace disease. The central airways are patent. No bronchiectasis. Imaged portion of the upper abdomen is unremarkable. The superficial soft tissues are unremarkable. No acute bony abnormality or worrisome osseous lesions identified. Multiple old posterior and anterolateral right rib fracture deformities. Thoracic diffuse idiopathic skeletal hyperostosis. IMPRESSION: No acute pulmonary finding or CT is focal airspace disease including no cavitary lesion. Described chest radiographic findings of the same date are likely due to multiple right-sided rib fracture deformities. Coronary artery disease. Transcribed By: MB Dictated By: ROB HAMMOND MD Electronically Authenticated By: ROB HAMMOND MD Signed Date/Time: 02/10/17 0401 Referring Physician: ED DOC Patient Name: FREDERICK GRULLON Date of : 1950 Sex: Male Report Date: 2017-02-22 Report Status: Finalized Findings [facility] [address] [place] [address] XRay Report Signed Patient: FREDERICK GRULLON MR#: [id number] : 1950 Acct:[id number] Age/Sex: 66 / M ADM Date: 02/23/17 Loc: ED Attending Dr: Ordering Physician: LAWRENCE JEFFERSON MD Date of Service: 02/23/17 Procedure(s): XR chest routine 2V Accession Number(s): [id number] cc: LAWRENCE JEFFERSON MD Fluoro Time In Minutes: FINAL REPORT EXAM: XR CHEST ROUTINE 2V HISTORY: cough COMPARISON: February 10, 2017. FINDINGS:: Frontal and lateral views of the chest obtained. Cardiac silhouette is within normal limits. No focal consolidation or effusion. No pneumothorax. Remote bilateral rib fractures.. IMPRESSION:: No acute infiltrates or effusions. Transcribed By: LMA Dictated By: SCOTT COHEN MD Electronically Authenticated By: SCOTT COHEN MD Signed Date/Time: 02/22/172341 DD/ 41 TD/TT: 02/22/172341 - Medical Decision Making Differential diagnosis, including but not limited to: Bronchitis, bronchiectasis , smoker's cough, pneumonia Assessment and plan: 66-year-old male with complaint of coughing for weeks. Patient seen at this hospital earlier on this month, had unremarkable blood work , had a noncontrast CT scan of the chest February 10 was demonstrated no significant airway or airspace disease. Patient is likely experiencing the natural expected history of bronchitis and chronic tobacco use. He is instructed to discontinue tobacco consumption, he will be discharged with as needed cough medication, and he can follow up with his outpatient primary care doctor at the [facility], and I will also refer him to outpatient pulmonology. Critical care attestation.: If time is entered above; I have spent that time in minutes in the direct care of this critically ill patient, excluding procedure time. ED Disposition Clinical Impression: Cough, Bronchitis Disposition: DC-01 TO HOME OR SELFCARE Is pt being admited?: No Does the pt Need Aspirin: No Condition: Good Instructions: Chronic Bronchitis (ED) Additional Instructions: Discontinue consumption of tobacco products. These are most likely the single most important contributing factor to the cough that the patient is experiencing. Patient likely has bronchitis, and symptoms of bronchitis can last for days, weeks or even months. Take cough medication/breathing medication as needed/directed, follow up with outpatient primary care doctor or information assurance specialist within the next month. Dr Aldana is a local information assurance specialist. Return to the ER right away with new pain, worsened pain, migration of pain, fevers, chills, lethargy, irritability, projectile vomiting, change in mental status, confusion, inability to tolerate liquids. Prescriptions: Albuterol Sulfate [Proair Respiclick] 90 mcg IH Q4HR PRN #2 aer.pow.ba PRN Reason: Wheezing Benzonatate [Tessalon Perles] 100 mg PO Q8HR PRN #30 capsule PRN Reason: Cough Fluticasone [Flonase] 1 spray NS QDAY #1 bottle Referrals: SYEDA LYONS MD, PHD [Primary Care Provider] - 3-5 Days BONNIE MITCHELL MD [Staff Physician] - 3-5 Days
== END 2017-02-23 12:05 | disposition home or self-care (01) ==
LOC: ED 01:47
DX: J40 Bronchitis, not specified as acute or chronic (principal); I10 Essential (primary) hypertension; E11.9 Type 2 diabetes mellitus without complications; F17.200 Nicotine dependence, unspecified, uncomplicated
CPT/HCPCS: 71020; 99283

== ENCOUNTER 2017-03-02 03:36 | Emergency (ER) | payer MEDICARE ==
--- NOTE | 2017-03-02 08:07 | Emergency Department Report ---
ED Back Pain/Injury HPI - General Chief Complaint: Extremity Injury, Lower Stated Complaint: RT LEG/RT FOOT PAIN Time Seen by Provider: 03/02/17 07:44 Source: patient Limitations: No Limitations - Related Data Home Medications Medication Instructions Recorded Confirmed Last Taken Lisinopril [Zestril TAB] 40 mg PO QDAY 09/10/14 09/10/14 1 Day Ago ~04/11/16 Saxagliptin HCl [Onglyza] 2.5 mg PO QDAY 04/12/16 04/12/16 1 Day Ago ~04/11/16 Previous Rx's Medication Instructions Recorded Last Taken Type Metformin HCl [Glucophage] 1,000 mg PO BID #60 tablet 01/22/17 Unknown Rx glipiZIDE [Glucotrol] 10 mg PO BID #60 tablet 01/22/17 Unknown Rx Acetaminophen [Acetaminophen TAB] 500 mg PO Q6HR #20 tablet 02/03/17 Unknown Rx Cyclobenzaprine [Flexeril] 5 mg PO BID PRN #10 tablet 03/02/17 Unknown Rx Allergies Allergy/AdvReac Type Severity Reaction Status Date / Time No Known Allergies Allergy Verified 01/21/17 21:11 ED Review of Systems ROS: Stated complaint: RT LEG/RT FOOT PAIN Other details as noted in HPI ED Past Medical Hx Family history: hypertension ED Back Pain Physical Exam - Exam General: Vital signs noted. No distress. Alert and acting appropriately. ED Course Vital Signs 03/02/17 03:48 Temperature 97.7 F Pulse Rate 97 H Blood Pressure 139/88 O2 Sat by Pulse 99 Oximetry Critical care attestation.: If time is entered above; I have spent that time in minutes in the direct care of this critically ill patient, excluding procedure time. ED Disposition Clinical Impression: Pain, joint, multiple sites, Back pain, Foot pain, Corns/callosities, Diabetes mellitus, HTN (hypertension), benign Disposition: DC-01 TO HOME OR SELFCARE Is pt being admited?: No Does the pt Need Aspirin: No Condition: Stable Instructions: Arthralgia (ED), Diabetes Mellitus Type 2 in Adults (ED), Hypertension (ED) Additional Instructions: rest hydrate well with water med as ordered today take naprosyn with food [facility]. Referrals: PRIMARY CARE, [Primary Care Provider] - 3-5 Days Time of Disposition: 08:14
[2017-03-02 08:47] VITALS: BP 119/78
== END 2017-03-02 08:58 | disposition home or self-care (01) ==
LOC: ED 03:36
DX: M79.672 Pain in left foot (principal); M54.9 Dorsalgia, unspecified; I10 Essential (primary) hypertension; E11.9 Type 2 diabetes mellitus without complications
CPT/HCPCS: 82962; 99282

== ENCOUNTER 2017-03-13 02:29 | Emergency (ER) | payer MEDICARE, OTHER ==
[2017-03-13 04:14] VITALS: BP 143/83
== END 2017-03-13 12:05 | disposition left against medical advice (07) ==
LOC: ED 02:29
DX: M79.673 Pain in unspecified foot (principal); Z53.21 Procedure and treatment not carried out due to patient leaving prior to being seen by health care provider

== ENCOUNTER 2017-03-14 01:17 | Emergency (ER) | payer MEDICARE | END 2017-03-14 01:45 | disposition left against medical advice (07) | LOC: ED 01:17 | DX: M79.671 Pain in right foot (principal); Z53.21 Procedure and treatment not carried out due to patient leaving prior to being seen by health care provider ==

== ENCOUNTER 2017-03-14 23:41 | Emergency (ER) | payer MEDICARE ==
[2017-03-14 23:57] VITALS: BP 162/81
--- NOTE | 2017-03-15 07:15 | Emergency Department Report ---
ED Extremity Problem HPI - General Chief complaint: Extremity Injury, Lower Stated complaint: FOOT PAIN Time Seen by Provider: 03/15/17 07:07 Source: patient Mode of arrival: Ambulatory Limitations: No Limitations - History of Present Illness Initial comments: 66-year-old male past medical history hypertension, diabetes type 2, presents with complaint of acute on chronic right foot pain. Patient states he has chronic pain in his right foot. States he spends prolonged periods of time on his feet walking states he walks at work because he works at a [employer]. Denies any fevers chills nausea vomiting. Patient states he had pain medicine but ran out. Patient awake alert and oriented 3. MD Complaint: extremity pain -: year(s) Location: right History of Same: Yes Severity scale (0 -10): 5 Quality: aching Consistency: constant Worsens with: weight bearing, walking - Related Data Home Medications Medication Instructions Recorded Confirmed Last Taken Lisinopril [Zestril TAB] 40 mg PO QDAY 09/10/14 09/10/14 1 Day Ago ~04/11/16 Saxagliptin HCl [Onglyza] 2.5 mg PO QDAY 04/12/16 04/12/16 1 Day Ago ~04/11/16 Previous Rx's Medication Instructions Recorded Last Taken Type Metformin HCl [Glucophage] 1,000 mg PO BID #60 tablet 01/22/17 Unknown Rx glipiZIDE [Glucotrol] 10 mg PO BID #60 tablet 01/22/17 Unknown Rx Cyclobenzaprine [Flexeril] 5 mg PO BID PRN #10 tablet 03/02/17 Unknown Rx Naproxen Sodium [Aleve TAB] 220 mg PO Q8H PRN #12 tablet 03/02/17 Unknown Rx Acetaminophen [Acetaminophen TAB] 500 mg PO Q6HR PRN #30 tablet 03/15/17 Unknown Rx Allergies Allergy/AdvReac Type Severity Reaction Status Date / Time No Known Allergies Allergy Verified 01/21/17 21:11 ED Review of Systems ROS: Stated complaint: FOOT PAIN Other details as noted in HPI Constitutional: denies: chills, fever Eyes: denies: eye pain, eye discharge, vision change ENT: denies: ear pain, throat pain Respiratory: denies: cough, shortness of breath, wheezing Cardiovascular: denies: chest pain, palpitations Endocrine: no symptoms reported Gastrointestinal: denies: abdominal pain, nausea, diarrhea Genitourinary: denies: urgency, dysuria Musculoskeletal: as per HPI. denies: back pain, joint swelling, arthralgia Skin: denies: rash, lesions Neurological: denies: headache, weakness, paresthesias Psychiatric: denies: anxiety, depression Hematological/Lymphatic: denies: easy bleeding, easy bruising ED Past Medical Hx - Past Medical History Previous Medical History?: Yes Hx Hypertension: Yes Hx Diabetes: Yes - Surgical History Past Surgical History?: Yes Additional Surgical History: ribs - Social History Smoking Status: Current Every Day Smoker Substance Use Type: None - Medications Home Medications: Home Medications Medication Instructions Recorded Confirmed Last Taken Type Lisinopril [Zestril TAB] 40 mg PO QDAY 09/10/14 09/10/14 1 Day Ago History ~04/11/16 Saxagliptin HCl [Onglyza] 2.5 mg PO QDAY 04/12/16 04/12/16 1 Day Ago History ~04/11/16 Metformin HCl [Glucophage] 1,000 mg PO BID #60 tablet 01/22/17 Unknown Rx glipiZIDE [Glucotrol] 10 mg PO BID #60 tablet 01/22/17 Unknown Rx Cyclobenzaprine [Flexeril] 5 mg PO BID PRN #10 tablet 03/02/17 Unknown Rx Naproxen Sodium [Aleve TAB] 220 mg PO Q8H PRN #12 tablet 03/02/17 Unknown Rx Acetaminophen [Acetaminophen TAB] 500 mg PO Q6HR PRN #30 tablet 03/15/17 Unknown Rx ED Physical Exam - General Limitations: No Limitations General appearance: alert, in no apparent distress - Head Head exam: Present: atraumatic, normocephalic - Eye Eye exam: Present: normal appearance, PERRL, EOMI - ENT ENT exam: Present: mucous membranes moist - Neck Neck exam: Present: normal inspection - Respiratory Respiratory exam: Present: normal lung sounds bilaterally. Absent: respiratory distress - Cardiovascular Cardiovascular Exam: Present: regular rate, normal rhythm. Absent: systolic murmur, diastolic murmur, rubs, gallop - GI/Abdominal GI/Abdominal exam: Present: soft, normal bowel sounds - Rectal Rectal exam: Present: deferred - Extremities Exam Extremities exam: Present: normal inspection - Expanded Lower Extremity Exam Right Hip exam: Present: normal inspection, full ROM Upper Leg exam: Present: normal inspection, full ROM Knee exam: Present: normal inspection, full ROM Lower Leg exam: Present: normal inspection, full ROM Ankle exam: Present: normal inspection, full ROM Foot/Toe exam: Present: full ROM, deformity (patient has multiple calluses and bunion right foot on plantar aspect of foot and sole of foot) Neuro vascular tendon exam: Present: no vascular compromise (distal dorsalis pedis and posterior tibial pulses are intact to palpation) - Back Exam Back exam: Present: normal inspection - Neurological Exam Neurological exam: Present: alert, oriented X3, CN II-XII intact, normal gait - Psychiatric Psychiatric exam: Present: normal affect, normal mood - Skin Skin exam: Present: warm, dry, intact, normal color. Absent: rash ED Course Vital Signs 03/14/17 03/15/17 03/15/17 23:48 07:23 08:18 Temperature 98.4 F Pulse Rate 96 H Respiratory 18 18 18 Rate Blood Pressure 162/81 O2 Sat by Pulse 97 Oximetry ED Medical Decision Making - Medical Decision Making A/P: Chronic right foot pain, calluses right foot 1-no clinical signs of diabetic foot infection on clinical exam 2-patient requires follow-up with spool tender 3-analgesia when necessary for pain 4-x-ray shows no Critical care attestation.: If time is entered above; I have spent that time in minutes in the direct care of this critically ill patient, excluding procedure time. ED Disposition Clinical Impression: Chronic pain in right foot Disposition: DC-01 TO HOME OR SELFCARE Is pt being admited?: No Does the pt Need Aspirin: No Condition: Stable Instructions: Arthralgia (ED) Prescriptions: Acetaminophen [Acetaminophen TAB] 500 mg PO Q6HR PRN #30 tablet PRN Reason: Pain Referrals: IFEANYI ALTAMIRANO [Registered Nurse] - 3-5 Days [facility] [Outside] - 3-5 Days Time of Disposition: 09:16
[2017-03-15] MEDS ORDERED: NORCO 5/325 PO ONE (07:16)
--- NOTE | 2017-03-15 09:18 | XRay Report ---
Right foot 3 views. History: Chronic foot pain. Findings: There is extensive soft tissue swelling of the fifth toe without underlying fracture or dislocation. There is no evidence of osteomyelitis. Small bony fragments adjacent to the base of the fifth metatarsal present on the previous study in January and consistent with a chronic process. Arthritic changes are noted at multiple sites, similar to the previous study. Impression: No acute findings or interval changes since January of 2017. There is no radiographic evidence of osteomyelitis although extensive soft tissue swelling is seen in the fifth digit.
== END 2017-03-15 09:28 | disposition home or self-care (01) ==
LOC: ED 23:41
DX: M79.671 Pain in right foot (principal); G89.29 Other chronic pain; I10 Essential (primary) hypertension; E11.9 Type 2 diabetes mellitus without complications; F17.200 Nicotine dependence, unspecified, uncomplicated
CPT/HCPCS: 99283

== ENCOUNTER 2017-03-21 22:29 | Emergency (ER) | payer MEDICARE ==
[2017-03-21 22:37] VITALS: BP 155/98
--- NOTE | 2017-03-22 09:51 | Emergency Department Report ---
ED Lower Extremity HPI - General Chief Complaint: Extremity Injury, Lower Stated Complaint: RIGHT FOOT PAIN Time Seen by Provider: 03/22/17 09:04 Source: patient Mode of arrival: Ambulatory Limitations: No Limitations - History of Present Illness Initial Comments: Patient is a 66-year-old male who returns to the ED stating that he has right foot pain. Patient states this going on for several years now sometimes the pain is aggravated with long periods of walking and standing. Patient states he has been walking for a long period of time. Patient states he did not sustain any injuries or trauma to the foot. Patient states he has a history of hypertension or diabetes and is taking his medication regularly. He denies chest pain, fever, nausea, vomiting, loss of sensation in the feet or any other problems. MD Complaint: foot injury Severity scale (0 -10): 3 Improves With: NSAID Worsens With: movement Associated Symptoms: denies: swelling, numbness, tingling - Related Data Home Medications Medication Instructions Recorded Confirmed Last Taken Lisinopril [Zestril TAB] 40 mg PO QDAY 09/10/14 09/10/14 1 Day Ago ~04/11/16 Saxagliptin HCl [Onglyza] 2.5 mg PO QDAY 04/12/16 04/12/16 1 Day Ago ~04/11/16 Previous Rx's Medication Instructions Recorded Last Taken Type Metformin HCl [Glucophage] 1,000 mg PO BID #60 tablet 01/22/17 Unknown Rx glipiZIDE [Glucotrol] 10 mg PO BID #60 tablet 01/22/17 Unknown Rx Naproxen Sodium [Aleve TAB] 220 mg PO Q8H PRN #12 tablet 03/02/17 Unknown Rx Acetaminophen [Acetaminophen TAB] 500 mg PO Q6HR PRN #30 tablet 03/15/17 Unknown Rx Cyclobenzaprine [Flexeril 10 MG 5 mg PO BID PRN #10 tablet 03/22/17 Unknown Rx TAB] Naproxen [Naprosyn] 500 mg PO BID #30 tablet 03/22/17 Unknown Rx Allergies Allergy/AdvReac Type Severity Reaction Status Date / Time No Known Allergies Allergy Verified 03/21/17 22:35 ED Review of Systems ROS: Stated complaint: RIGHT FOOT PAIN Other details as noted in HPI Constitutional: denies: chills, fever Eyes: denies: eye pain, eye discharge, vision change ENT: denies: ear pain, throat pain Respiratory: denies: cough, shortness of breath, wheezing Cardiovascular: denies: chest pain, palpitations Endocrine: no symptoms reported Gastrointestinal: denies: abdominal pain, nausea, diarrhea Genitourinary: denies: urgency, dysuria Musculoskeletal: denies: back pain, joint swelling, arthralgia Skin: denies: rash, lesions Neurological: denies: headache, weakness, paresthesias Psychiatric: denies: anxiety, depression Hematological/Lymphatic: denies: easy bleeding, easy bruising ED Past Medical Hx - Past Medical History Hx Hypertension: Yes Hx Diabetes: Yes - Surgical History Additional Surgical History: ribs - Social History Smoking Status: Current Every Day Smoker Substance Use Type: Alcohol - Medications Home Medications: Home Medications Medication Instructions Recorded Confirmed Last Taken Type Lisinopril [Zestril TAB] 40 mg PO QDAY 09/10/14 09/10/14 1 Day Ago History ~04/11/16 Saxagliptin HCl [Onglyza] 2.5 mg PO QDAY 04/12/16 04/12/16 1 Day Ago History ~04/11/16 Metformin HCl [Glucophage] 1,000 mg PO BID #60 tablet 01/22/17 Unknown Rx glipiZIDE [Glucotrol] 10 mg PO BID #60 tablet 01/22/17 Unknown Rx Naproxen Sodium [Aleve TAB] 220 mg PO Q8H PRN #12 tablet 03/02/17 Unknown Rx Acetaminophen [Acetaminophen TAB] 500 mg PO Q6HR PRN #30 tablet 03/15/17 Unknown Rx Cyclobenzaprine [Flexeril 10 MG 5 mg PO BID PRN #10 tablet 03/22/17 Unknown Rx TAB] Naproxen [Naprosyn] 500 mg PO BID #30 tablet 03/22/17 Unknown Rx ED Physical Exam - General Limitations: No Limitations General appearance: alert, in no apparent distress - Head Head exam: Present: atraumatic, normocephalic - Eye Eye exam: Present: normal appearance - ENT ENT exam: Present: mucous membranes moist - Neck Neck exam: Present: normal inspection - Respiratory Respiratory exam: Present: normal lung sounds bilaterally. Absent: respiratory distress - Cardiovascular Cardiovascular Exam: Present: regular rate, normal rhythm. Absent: systolic murmur, diastolic murmur, rubs, gallop - GI/Abdominal GI/Abdominal exam: Present: soft, normal bowel sounds - Rectal Rectal exam: Present: deferred - Extremities Exam Extremities exam: Present: normal inspection - Expanded Lower Extremity Exam Right Hip exam: Present: normal inspection Upper Leg exam: Present: normal inspection, full ROM Knee exam: Present: normal inspection, full ROM. Absent: tenderness, swelling, abrasion, laceration Lower Leg exam: Present: normal inspection, full ROM. Absent: tenderness, swelling, abrasion Ankle exam: Present: normal inspection, full ROM. Absent: tenderness, swelling , abrasion, laceration Foot/Toe exam: Present: normal inspection (callus noted on lateral asfect of foot, non tender), full ROM. Absent: tenderness, swelling, abrasion, dislocation, erythema, amputation, foreign body Neuro vascular tendon exam: Absent: no vascular compromise, sensory deficit Gait: Positive: observed and normal - Back Exam Back exam: Present: normal inspection - Neurological Exam Neurological exam: Present: alert, oriented X3 - Psychiatric Psychiatric exam: Present: normal affect, normal mood - Skin Skin exam: Present: warm, dry, intact, normal color. Absent: rash ED Course Vital Signs 03/21/17 22:35 Temperature 98.4 F Pulse Rate 102 H Respiratory 18 Rate Blood Pressure 155/98 O2 Sat by Pulse 98 Oximetry ED Lower Extremity MDM - Medical Decision Making 66-year-old male presents with chronic right foot pain. ED course: Patient received Motrin in the ED. I discussed with the patient was sent home on some NSAIDs to help with the pain. Patient's foot was Rei wrapped and he was given a prescription of naproxen 500mg Patient had no ulcers on the foot. Vital signs are normal patient was very interactive, pleasant and talkative and laughing he stay. Patient is in no acute distress. I discussed the [facility]. Patient is alert and oriented 3 has no neuro deficits states he understands instructions and will follow-up. Critical care attestation.: If time is entered above; I have spent that time in minutes in the direct care of this critically ill patient, excluding procedure time. ED Disposition Clinical Impression: Foot pain, right Disposition: DC-01 TO HOME OR SELFCARE Is pt being admited?: No Does the pt Need Aspirin: No Condition: Stable Instructions: Arthralgia (ED), Heat Pack Application (ED) Additional Instructions: Make sure to follow up with the primary care physician as discussed. Take all your medications as you've been prescribed. If you have any worsening symptoms or develop new symptoms please return to ED immediately. Prescriptions: Cyclobenzaprine [Flexeril 10 MG TAB] 5 mg PO BID PRN #10 tablet PRN Reason: Muscle Spasm Naproxen [Naprosyn] 500 mg PO BID #30 tablet Referrals: SYEDA LYONS MD, PHD [Primary Care Provider] - 3-5 Days Forms: Work/School Release Form(ED) Time of Disposition: 09:58
[2017-03-22] MEDS ORDERED: MOTRIN PO ONE (09:55)
== END 2017-03-22 10:36 | disposition home or self-care (01) ==
LOC: ED 22:29
DX: M79.671 Pain in right foot (principal); I10 Essential (primary) hypertension; E11.9 Type 2 diabetes mellitus without complications; F17.200 Nicotine dependence, unspecified, uncomplicated
CPT/HCPCS: 99282

== ENCOUNTER → 2017-03-27 | Emergency (ER) | payer MEDICARE ==
--- NOTE | 2017-03-28 10:27 | Emergency Department Report ---
ED Extremity Problem HPI - General Chief complaint: Extremity Problem,Nontraumatic Stated complaint: BILATERAL FEET PAIN Time Seen by Provider: 03/28/17 10:26 Source: family Mode of arrival: Ambulatory Limitations: No Limitations - History of Present Illness Initial comments: 66-year-old male past medical history diabetes, chronic foot pain, presents with acute on chronic bilateral foot pain. Denies any fevers chills denies any direct trauma. Patient states that he stands for prolonged periods of time at work. Patient is fully lucid awake alert and oriented 3. States he has been taking Tylenol for his pain. States he does take care of his feet and has tried to arrange follow-up with the [facility] with a agency service coordinator. Patient is ambulatory without assistance. Patient also complains of left-sided earache with some left-sided ear discharge for 2 days. Denies any tinnitus. States he has had some yellowish discharge from left ear. MD Complaint: extremity pain -: year(s) Location: bilateral lower extremity History of Same: Yes Severity scale (0 -10): 5 Quality: aching Consistency: intermittent Improves with: nothing Worsens with: weight bearing, walking Associated Symptoms: denies other symptoms - Related Data Home Medications Medication Instructions Recorded Confirmed Last Taken Lisinopril [Zestril TAB] 40 mg PO QDAY 09/10/14 09/10/14 1 Day Ago ~04/11/16 Saxagliptin HCl [Onglyza] 2.5 mg PO QDAY 04/12/16 04/12/16 1 Day Ago ~04/11/16 Previous Rx's Medication Instructions Recorded Last Taken Type Metformin HCl [Glucophage] 1,000 mg PO BID #60 tablet 01/22/17 Unknown Rx glipiZIDE [Glucotrol] 10 mg PO BID #60 tablet 01/22/17 Unknown Rx Naproxen Sodium [Aleve TAB] 220 mg PO Q8H PRN #12 tablet 03/02/17 Unknown Rx Acetaminophen [Acetaminophen TAB] 500 mg PO Q6HR PRN #30 tablet 03/15/17 Unknown Rx Cyclobenzaprine [Flexeril 10 MG 5 mg PO BID PRN #10 tablet 03/22/17 Unknown Rx TAB] Naproxen [Naprosyn] 500 mg PO BID #30 tablet 03/22/17 Unknown Rx Acetaminophen [Acetaminophen TAB] 500 mg PO Q6HR PRN #30 tablet 03/28/17 Unknown Rx Amoxicillin/K Clav Tab [Augmentin 1 tab PO Q12HR #20 tab 03/28/17 Unknown Rx 875 mg] Allergies Allergy/AdvReac Type Severity Reaction Status Date / Time No Known Allergies Allergy Verified 03/21/17 22:35 ED Review of Systems ROS: Stated complaint: BILATERAL FEET PAIN Other details as noted in HPI Constitutional: denies: chills, fever Eyes: denies: eye pain, eye discharge, vision change ENT: as per HPI, ear pain (left ear). denies: throat pain Respiratory: denies: cough, shortness of breath, wheezing Cardiovascular: denies: chest pain, palpitations Endocrine: no symptoms reported Gastrointestinal: denies: abdominal pain, nausea, diarrhea Genitourinary: denies: urgency, dysuria Musculoskeletal: as per HPI. denies: back pain, joint swelling, arthralgia Skin: denies: rash, lesions Neurological: denies: headache, weakness, paresthesias Psychiatric: denies: anxiety, depression Hematological/Lymphatic: denies: easy bleeding, easy bruising ED Past Medical Hx - Past Medical History Previous Medical History?: Yes Hx Hypertension: Yes Hx Diabetes: Yes - Surgical History Past Surgical History?: Yes Additional Surgical History: ribs - Social History Smoking Status: Current Every Day Smoker Substance Use Type: Alcohol - Medications Home Medications: Home Medications Medication Instructions Recorded Confirmed Last Taken Type Lisinopril [Zestril TAB] 40 mg PO QDAY 09/10/14 09/10/14 1 Day Ago History ~04/11/16 Saxagliptin HCl [Onglyza] 2.5 mg PO QDAY 04/12/16 04/12/16 1 Day Ago History ~04/11/16 Metformin HCl [Glucophage] 1,000 mg PO BID #60 tablet 01/22/17 Unknown Rx glipiZIDE [Glucotrol] 10 mg PO BID #60 tablet 01/22/17 Unknown Rx Naproxen Sodium [Aleve TAB] 220 mg PO Q8H PRN #12 tablet 03/02/17 Unknown Rx Acetaminophen [Acetaminophen TAB] 500 mg PO Q6HR PRN #30 tablet 03/15/17 Unknown Rx Cyclobenzaprine [Flexeril 10 MG 5 mg PO BID PRN #10 tablet 03/22/17 Unknown Rx TAB] Naproxen [Naprosyn] 500 mg PO BID #30 tablet 03/22/17 Unknown Rx Acetaminophen [Acetaminophen TAB] 500 mg PO Q6HR PRN #30 tablet 03/28/17 Unknown Rx Amoxicillin/K Clav Tab [Augmentin 1 tab PO Q12HR #20 tab 03/28/17 Unknown Rx 875 mg] ED Physical Exam - General Limitations: No Limitations General appearance: alert, in no apparent distress - Head Head exam: Present: atraumatic, normocephalic - Eye Eye exam: Present: normal appearance, PERRL, EOMI - ENT ENT exam: Present: mucous membranes moist - Expanded ENT Exam Expanded TM/Canal exam: Erythema: Left TM, Bulging: Left TM (no clinical signs of mastoiditis. Some left-sided canal discharge yellowish.), Canal Discharge: Left TM Mouth exam: Present: normal external inspection Teeth exam: Present: normal inspection - Neck Neck exam: Present: normal inspection, full ROM - Respiratory Respiratory exam: Present: normal lung sounds bilaterally. Absent: respiratory distress - Cardiovascular Cardiovascular Exam: Present: regular rate, normal rhythm. Absent: systolic murmur, diastolic murmur, rubs, gallop - GI/Abdominal GI/Abdominal exam: Present: soft, normal bowel sounds - Rectal Rectal exam: Present: deferred - Extremities Exam Extremities exam: Present: full ROM, other - Expanded Lower Extremity Exam Right Hip exam: Present: normal inspection, full ROM Upper Leg exam: Present: normal inspection, full ROM Knee exam: Present: normal inspection, full ROM Lower Leg exam: Present: normal inspection, full ROM Ankle exam: Present: normal inspection, full ROM Foot/Toe exam: Present: full ROM, deformity (small less than 1 cm diabetic foot ulcer with no subcutaneous fluctuance or surrounding cellulitis. Distal pulses dorsalis pedis and posterior tibial pulses strong to palpation.) Neuro vascular tendon exam: Present: no vascular compromise (distal posterior tibial and dorsalis pedis pulses strong to palpation) Gait: Positive: observed and normal - Back Exam Back exam: Present: normal inspection - Neurological Exam Neurological exam: Present: alert, oriented X3, CN II-XII intact, normal gait - Psychiatric Psychiatric exam: Present: normal affect, normal mood - Skin Skin exam: Present: warm, dry, intact, normal color. Absent: rash ED Course Vital Signs 03/28/17 01:04 Temperature 99.1 F Pulse Rate 94 H Blood Pressure 130/75 O2 Sat by Pulse 94 Oximetry ED Medical Decision Making - Medical Decision Making A/P: Chronic foot pain, acute otitis media, diabetic foot ulcer 1-Tylenol when necessary, [employer] foot powder 2-Augmentin twice a day 10 days 3-follow-up with primary care 4- I advised patient that it is important to follow-up with podiatry and to consistently take his diabetes medicines. Patient states that he does take his diabetes medicines on a regular basis. I advised him to return to the ED for any fevers chills or increased pain near site of the ulcer. Ulcer is approximately 1 cm in diameter that but has no underlying fluctuance and there is no surrounding cellulitis. Distal pulses are strong to palpation on exam. I advised him to wear comfortable footwear and to place and nonstick dressings on his foot on a daily basis. 5- patient has had x-rays of his feet multiple times, chronic degen changes. As there is no acute injury and patient is ambulatory no indication for reimaging at this time. Critical care attestation.: If time is entered above; I have spent that time in minutes in the direct care of this critically ill patient, excluding procedure time. ED Disposition Clinical Impression: Chronic foot pain Qualifiers: Laterality: unspecified laterality Qualified Code(s): M79.673 - Pain in unspecified foot Diabetic foot ulcer Qualifiers: Diabetic foot ulcer location: other Diabetes mellitus type: type 2 Laterality: right Non-pressure ulcer stage: limited to breakdown of skin Qualified Code(s): E11.621 - Type 2 diabetes mellitus with foot ulcer Otitis media Qualifiers: Otitis media type: suppurative Chronicity: acute Laterality: left Recurrence: not specified as recurrent Spontaneous tympanic membrane rupture: without spontaneous rupture Qualified Code(s): H66.002 - Acute suppurative otitis media without spontaneous rupture of ear drum, left ear Disposition: DC-01 TO HOME OR SELFCARE Is pt being admited?: No Does the pt Need Aspirin: No Condition: Stable Instructions: Diabetes Mellitus Type 2 in Adults (ED), Diabetic Foot Ulcers (ED ) Additional Instructions: [email or web address] Prescriptions: Acetaminophen [Acetaminophen TAB] 500 mg PO Q6HR PRN #30 tablet PRN Reason: Pain Amoxicillin/K Clav Tab [Augmentin 875 mg] 1 tab PO Q12HR #20 tab Referrals: [facility] [Outside] - 3-5 Days [facility] [Outside] - 3-5 Days IFEANYI ALTAMIRANO [Registered Nurse] - 3-5 Days [facility] [Outside] - 3-5 Days Time of Disposition: 11:26
[2017-03-28 11:57] VITALS: BP 132/82
== END | disposition home or self-care (01) ==
LOC: ED 23:53
DX: E11.621 Type 2 diabetes mellitus with foot ulcer (principal); M79.672 Pain in left foot; M79.671 Pain in right foot; G89.29 Other chronic pain; H66.92 Otitis media, unspecified, left ear; I10 Essential (primary) hypertension; F17.200 Nicotine dependence, unspecified, uncomplicated; Z88.0 Allergy status to penicillin
CPT/HCPCS: 99281

== ENCOUNTER 2017-04-01 20:29 | Emergency (ER) | payer MEDICARE ==
[2017-04-02 01:52] VITALS: BP 143/81
[2017-04-02] MEDS ORDERED: BENADRYL IM ONE (03:37)
[2017-04-02] MEDS ORDERED: DELTASONE PO ONE (03:37)
--- NOTE | 2017-04-02 03:37 | Emergency Department Report ---
ED Allergic Reaction HPI - General Chief complaint: Skin Rash Stated complaint: BROKEN SKIN,UPSET STOMACH Time Seen by Provider: 04/02/17 03:25 Source: patient Mode of arrival: Ambulatory Limitations: No Limitations - History of Present Illness Initial Comments: Patient here reports that he was antibiotic 03/28/2017 and started itching 2 days ago and stop antibiotic. He reports that he has a rash to his skin with itching. Denies any sore throat, coughing, wheezing, difficulty swallowing, swelling of tongue or lips. Denies any fever or chills. Denies any nausea or vomiting. Patient with documentation on chart that he has diabetes and hypertension. Also chart reflects the patient was here on 03/28/2017 and started on Augmentin and Tylenol for diabetic foot ulcer right foot and was referred to his principal secretary. Patient states that his foot is getting better but now he has allergic reaction to medication with itching and rash. No Over-the- counter medication taken. MD Complaint: allergic reaction Onset/Timin -: days(s) Exposure: medication Symptoms: rash, itching. denies: facial swelling, lip swelling, difficulty swallowing, difficulty breathing, orolingual swelling, hoarseness, syncopy, dizziness, nausea, vomiting, other, abdominal pain Treatment Prior to Arrival: none Previous Allergy History: none - Related Data Home Medications Medication Instructions Recorded Confirmed Last Taken Lisinopril [Zestril TAB] 40 mg PO QDAY 09/10/14 09/10/14 1 Day Ago ~04/11/16 Saxagliptin HCl [Onglyza] 2.5 mg PO QDAY 04/12/16 04/12/16 1 Day Ago ~04/11/16 Previous Rx's Medication Instructions Recorded Last Taken Type Metformin HCl [Glucophage] 1,000 mg PO BID #60 tablet 01/22/17 Unknown Rx glipiZIDE [Glucotrol] 10 mg PO BID #60 tablet 01/22/17 Unknown Rx Naproxen Sodium [Aleve TAB] 220 mg PO Q8H PRN #12 tablet 03/02/17 Unknown Rx Acetaminophen [Acetaminophen TAB] 500 mg PO Q6HR PRN #30 tablet 03/15/17 Unknown Rx Cyclobenzaprine [Flexeril 10 MG 5 mg PO BID PRN #10 tablet 03/22/17 Unknown Rx TAB] Naproxen [Naprosyn] 500 mg PO BID #30 tablet 03/22/17 Unknown Rx Acetaminophen [Acetaminophen TAB] 500 mg PO Q6HR PRN #30 tablet 03/28/17 Unknown Rx Clindamycin [Clindamycin CAP] 300 mg PO Q8H 10 Days #30 cap 04/02/17 Unknown Rx diphenhydrAMINE [Benadryl CAP] 25 mg PO Q8HR PRN #12 capsule 04/02/17 Unknown Rx predniSONE [Deltasone] 20 mg PO QDAY 5 Days #5 tab 04/02/17 Unknown Rx Allergies Allergy/AdvReac Type Severity Reaction Status Date / Time No Known Allergies Allergy Verified 03/21/17 22:35 ED Review of Systems ROS: Stated complaint: BROKEN SKIN,UPSET STOMACH Other details as noted in HPI Comment: All other systems reviewed and negative Constitutional: no symptoms reported ENT: denies: ear pain, throat pain, congestion Respiratory: no symptoms reported Cardiovascular: denies: chest pain, palpitations, edema, syncope Gastrointestinal: denies: nausea, vomiting Musculoskeletal: denies: back pain, joint swelling, arthralgia, myalgia Skin: rash, pruritus Neurological: denies: headache, abnormal gait ED Past Medical Hx - Past Medical History Previous Medical History?: Yes Hx Hypertension: Yes Hx Diabetes: Yes - Surgical History Past Surgical History?: Yes Additional Surgical History: ribs - Family History Family history: hypertension - Social History Smoking Status: Never Smoker Substance Use Type: None - Medications Home Medications: Home Medications Medication Instructions Recorded Confirmed Last Taken Type Lisinopril [Zestril TAB] 40 mg PO QDAY 09/10/14 09/10/14 1 Day Ago History ~04/11/16 Saxagliptin HCl [Onglyza] 2.5 mg PO QDAY 04/12/16 04/12/16 1 Day Ago History ~04/11/16 Metformin HCl [Glucophage] 1,000 mg PO BID #60 tablet 01/22/17 Unknown Rx glipiZIDE [Glucotrol] 10 mg PO BID #60 tablet 01/22/17 Unknown Rx Naproxen Sodium [Aleve TAB] 220 mg PO Q8H PRN #12 tablet 03/02/17 Unknown Rx Acetaminophen [Acetaminophen TAB] 500 mg PO Q6HR PRN #30 tablet 03/15/17 Unknown Rx Cyclobenzaprine [Flexeril 10 MG 5 mg PO BID PRN #10 tablet 03/22/17 Unknown Rx TAB] Naproxen [Naprosyn] 500 mg PO BID #30 tablet 03/22/17 Unknown Rx Acetaminophen [Acetaminophen TAB] 500 mg PO Q6HR PRN #30 tablet 03/28/17 Unknown Rx Clindamycin [Clindamycin CAP] 300 mg PO Q8H 10 Days #30 cap 04/02/17 Unknown Rx diphenhydrAMINE [Benadryl CAP] 25 mg PO Q8HR PRN #12 capsule 04/02/17 Unknown Rx predniSONE [Deltasone] 20 mg PO QDAY 5 Days #5 tab 04/02/17 Unknown Rx ED Physical Exam - General Limitations: No Limitations General appearance: alert, in no apparent distress - Head Head exam: Present: atraumatic, normocephalic, normal inspection - Eye Eye exam: Present: normal appearance, PERRL, EOMI. Absent: periorbital swelling , periorbital tenderness Pupils: Present: normal accommodation - ENT ENT exam: Present: normal exam, normal orophraynx, mucous membranes moist, TM's normal bilaterally, normal external ear exam - Neck Neck exam: Present: normal inspection, full ROM, other (no C-spine tenderness). Absent: tenderness, meningismus, lymphadenopathy, thyromegaly - Respiratory Respiratory exam: Present: normal lung sounds bilaterally. Absent: respiratory distress, wheezes, rales, rhonchi, stridor, chest wall tenderness, accessory muscle use, decreased breath sounds, prolonged expiratory - Cardiovascular Cardiovascular Exam: Present: regular rate, normal rhythm, normal heart sounds. Absent: systolic murmur, diastolic murmur - GI/Abdominal GI/Abdominal exam: Present: soft, normal bowel sounds. Absent: distended, tenderness, guarding, rebound, rigid, organomegaly, mass, bruit, pulsatile mass - Extremities Exam Extremities exam: Present: normal inspection, full ROM, tenderness (right foot) , normal capillary refill, other (ambulates without any difficulties. No clubbing, cyanosis or edema. +2 pulses to all extremities). Absent: pedal edema, joint swelling, calf tenderness - Back Exam Back exam: Present: normal inspection, full ROM - Neurological Exam Neurological exam: Present: alert, oriented X3, normal gait - Psychiatric Psychiatric exam: Present: normal affect, normal mood - Skin Skin exam: Present: warm, dry, other (Pt with diabetic ulcer to right foot without any drainage. No cellulitic areas noted.) ED Course Vital Signs 04/01/17 04/01/17 04/02/17 21:44 21:49 01:49 Temperature 97.6 F 97.9 F 97.6 F Pulse Rate 87 85 82 Respiratory 18 18 17 Rate Blood Pressure 143/81 156/90 143/81 O2 Sat by Pulse 90 96 95 Oximetry - Reevaluation(s) Reevaluation #1: 04/02/17 04:36 Patient given Benadryl 50 mg IM and Deltasone 60 mg by mouth with reports of decreased itching and feeling better. I discussed the patient he needs to stop Augmentin and I'll put him on another antibiotic for diabetic ulcer ED Medical Decision Making - Medical Decision Making ED course: Patient reports allergic reaction to Augmentin which he said he stopped taking 2 days ago. Patient was started on Augmentin for diabetic foot ulcer on 03/28/2017. Patient does have access to primary care and he does have a principal secretary that he was told to follow up with. Physical findings for erythema , maculopapular areas to skin surface. Patient also has areas of scratch cerda from where he scratched. No respiratory involvement. Patient was given Benadryl 50 mg IM and Deltasone 60 mg by mouth with relief of itching. I discussed the patient that he should stop taking Augmentin and will start patient on clindamycin, Benadryl and prednisone. Also discussed the patient he needs to take his blood sugar daily and more frequently due to prednisone. I told him that prednisone can cause his blood sugar to be elevated. I also discussed that he should call his principal secretary and schedule appointment and also schedule an appointment for follow-up visit primary care. Discharged home a prescription for clindamycin, Benadryl and prednisone Critical care attestation.: If time is entered above; I have spent that time in minutes in the direct care of this critically ill patient, excluding procedure time. ED Disposition Clinical Impression: Rash as adverse effect of penicillin, Pruritic dermatitis Allergic reaction caused by a drug Qualifiers: Encounter type: initial encounter Qualified Code(s): T78.40XA - Allergy, unspecified, initial encounter Disposition: TO HOME OR SELFCARE Is pt being admited?: No Does the pt Need Aspirin: No Condition: Stable Instructions: Antibiotic Medication Allergy (ED), Zinc Oxide (On the skin), Acute Rash (ED), Itchy Skin (ED), Diabetic Foot Ulcers (ED) Additional Instructions: Stop Taking Augmentin Start taking clindamycin antibiotic Please do not drive or operate heavy machinery while taking in Benadryl as this medication causes drowsiness Take prednisone as prescribed but please take your blood sugar several times a day as this medication causes elevation in blood sugar Increasing her fluid intake Follow up with your Primary care physician and your principal secretary in 2-3 days Prescriptions: Clindamycin [Clindamycin CAP] 300 mg PO Q8H 10 Days #30 cap diphenhydrAMINE [Benadryl CAP] 25 mg PO Q8HR PRN #12 capsule PRN Reason: Allergic Reaction predniSONE [Deltasone] 20 mg PO QDAY 5 Days #5 tab Referrals: follow-up with your, primary care physician [Other] - 2-3 Days [facility] [Outside] - 2-3 Days Forms: Work/School Release Form(ED)
== END 2017-04-02 05:07 | disposition home or self-care (01) ==
LOC: ED 20:29
DX: T78.40XA Allergy, unspecified, initial encounter (principal); L30.8 Other specified dermatitis; Y92.9 Unspecified place or not applicable; I10 Essential (primary) hypertension; E11.9 Type 2 diabetes mellitus without complications
CPT/HCPCS: 96372; 99282; J1200; J7512

== ENCOUNTER 2017-05-24 15:43 | Emergency (ER) | payer MEDICARE ==
[2017-05-24 15:50] VITALS: BP 129/86
[2017-05-24 16:30] LABS: Basophils # (Auto) 0.1 K/mm3 (0.0-0.1); Basophils % (Auto) 0.8 % (0.0-1.8); Eosinophils # (Auto) 0.1 K/mm3 (0.0-0.4); Eosinophils % (Auto) 0.6 % (0.0-4.3); Hematocrit 39.7 % (35.5-45.6); Hemoglobin 13.2 gm/dl (11.8-15.2); Mean Corpuscular HGB Conc 33 % (32-34); Mean Corpuscular Hemoglobin 30 pg (28-32); Mean Corpuscular Volume 89 fl (84-94); Monocytes # (Auto) 0.8 K/mm3 (0.0-0.8); Monocytes % (Auto) 7.3 % (0.0-7.3); Platelet Count 189 K/mm3 (140-440); Red Blood Count 4.48 M/mm3 (3.65-5.03); Red Cell Distribution Width 14.2 % (13.2-15.2)
[2017-05-24 16:45] LABS: Alanine Aminotransferase 19 units/L (7-56); Albumin 4.3 g/dL (3.9-5); BUN/Creatinine Ratio 19; Blood Urea Nitrogen 19 mg/dL (9-20); Calcium 9.2 mg/dL (8.4-10.2); Hemolysis Index 7; Lipase 26 units/L (13-60)
[2017-05-24 17:30] LABS: Bilirubin,Urine NEG (Negative); Blood,Urine NEG (Negative); Color,Urine Yellow (Yellow); Mucus,Urine FEW /HPF; Protein,Urine <15 mg/dL mg/dL (Negative)
== END 2017-05-24 18:48 | disposition left against medical advice (07) ==
LOC: ED 15:43
DX: R10.9 Unspecified abdominal pain (principal); Z53.21 Procedure and treatment not carried out due to patient leaving prior to being seen by health care provider
CPT/HCPCS: 36415; 80053; 81001; 82962; 83690; 85025

== ENCOUNTER 2017-05-24 23:08 | Emergency (ER) | payer MEDICARE ==
[2017-05-25 02:12] LABS: Basophils # (Auto) 0.1 K/mm3 (0.0-0.1); Eosinophils # (Auto) 0.1 K/mm3 (0.0-0.4); Eosinophils % (Auto) 0.7 % (0.0-4.3); Hematocrit 35.5 % (35.5-45.6); Hemoglobin 11.8 gm/dl (11.8-15.2); Lymphocytes # (Auto) 1.8 K/mm3 (1.2-5.4); Lymphocytes % (Auto) 18.3 % (13.4-35.0); Mean Corpuscular HGB Conc 33 % (32-34); Mean Corpuscular Hemoglobin 30 pg (28-32); Mean Corpuscular Volume 91 fl (84-94); Monocytes # (Auto) 0.7 K/mm3 (0.0-0.8); Monocytes % (Auto) 7.1 % (0.0-7.3); Platelet Count 180 K/mm3 (140-440); Red Blood Count 3.92 M/mm3 (3.65-5.03); Red Cell Distribution Width 13.6 % (13.2-15.2)
[2017-05-25 02:21] LABS: Alanine Aminotransferase 17 units/L (7-56); Albumin 3.9 g/dL (3.9-5); BUN/Creatinine Ratio 18; Blood Urea Nitrogen 16 mg/dL (9-20); Hemolysis Index 3
[2017-05-25] MEDS ORDERED: ALUM-MAG HYDROX-SIMETH 200-200-20MG/5ML PO ONE (03:23)
[2017-05-25] MEDS ORDERED: LIDOCAINE VISCOUS 2% PO ONE (03:23)
--- NOTE | 2017-05-25 04:30 | Emergency Department Report ---
ED Abdominal Pain HPI - General Chief Complaint: Abdominal Pain Stated Complaint: STOMACH ACHE, HEADACHE AND RIGHT FOOT Time Seen by Provider: 05/25/17 03:23 Source: patient Mode of arrival: Ambulatory Limitations: No Limitations - History of Present Illness Initial Comments: Presents to the ER complaining of right foot pain, belly pain, and a headache. Patient states that his belly pain is the main reason that he came to the ER today. He always has the foot pain. His belly hurts and the top portion of his belly. Burning in nature. He says that is because he drinks too much coffee and drinks too much alcohol. The pain is non-exertional, non-pleuritic, not affected by food. Has had a chronic healing wound on his right foot, but it is improving. Says that his headache is mild, progressive onset without numbness /weakness in his arms/legs. MD Complaint: abdominal pain -: month(s) Location: periumbilical Radiation: none Severity: moderate Quality: burning Consistency: intermittent - Related Data Home Medications Medication Instructions Recorded Confirmed Last Taken Lisinopril [Zestril TAB] 40 mg PO QDAY 09/10/14 09/10/14 1 Day Ago ~04/11/16 Saxagliptin HCl [Onglyza] 2.5 mg PO QDAY 04/12/16 04/12/16 1 Day Ago ~04/11/16 Previous Rx's Medication Instructions Recorded Last Taken Type Metformin HCl [Glucophage] 1,000 mg PO BID #60 tablet 01/22/17 Unknown Rx glipiZIDE [Glucotrol] 10 mg PO BID #60 tablet 01/22/17 Unknown Rx Naproxen Sodium [Aleve TAB] 220 mg PO Q8H PRN #12 tablet 03/02/17 Unknown Rx Acetaminophen [Acetaminophen TAB] 500 mg PO Q6HR PRN #30 tablet 03/15/17 Unknown Rx Cyclobenzaprine [Flexeril 10 MG 5 mg PO BID PRN #10 tablet 03/22/17 Unknown Rx TAB] Naproxen [Naprosyn] 500 mg PO BID #30 tablet 03/22/17 Unknown Rx Acetaminophen [Acetaminophen TAB] 500 mg PO Q6HR PRN #30 tablet 03/28/17 Unknown Rx Clindamycin [Clindamycin CAP] 300 mg PO Q8H 10 Days #30 cap 04/02/17 Unknown Rx diphenhydrAMINE [Benadryl CAP] 25 mg PO Q8HR PRN #12 capsule 04/02/17 Unknown Rx predniSONE [Deltasone] 20 mg PO QDAY 5 Days #5 tab 04/02/17 Unknown Rx Allergies Allergy/AdvReac Type Severity Reaction Status Date / Time Penicillins Allergy Mild Rash Verified 04/02/17 04:54 ED Review of Systems ROS: Stated complaint: STOMACH ACHE, HEADACHE AND RIGHT FOOT Other details as noted in HPI Constitutional: denies: chills, fever Eyes: denies: eye pain, eye discharge, vision change ENT: denies: ear pain, throat pain Respiratory: denies: cough, shortness of breath, wheezing Cardiovascular: denies: chest pain, palpitations Endocrine: no symptoms reported Gastrointestinal: abdominal pain. denies: nausea, diarrhea Genitourinary: denies: urgency, dysuria Musculoskeletal: arthralgia, myalgia. denies: back pain, joint swelling Skin: denies: rash, lesions Neurological: headache. denies: weakness, paresthesias Psychiatric: denies: anxiety, depression Hematological/Lymphatic: denies: easy bleeding, easy bruising ED Past Medical Hx - Past Medical History Previous Medical History?: Yes Hx Hypertension: Yes Hx Heart Attack/AMI: Yes Hx Diabetes: Yes Additional medical history: gout - Surgical History Past Surgical History?: Yes Additional Surgical History: ribs - Social History Smoking Status: Current Every Day Smoker Substance Use Type: Alcohol - Medications Home Medications: Home Medications Medication Instructions Recorded Confirmed Last Taken Type Lisinopril [Zestril TAB] 40 mg PO QDAY 09/10/14 09/10/14 1 Day Ago History ~04/11/16 Saxagliptin HCl [Onglyza] 2.5 mg PO QDAY 04/12/16 04/12/16 1 Day Ago History ~04/11/16 Metformin HCl [Glucophage] 1,000 mg PO BID #60 tablet 01/22/17 Unknown Rx glipiZIDE [Glucotrol] 10 mg PO BID #60 tablet 01/22/17 Unknown Rx Naproxen Sodium [Aleve TAB] 220 mg PO Q8H PRN #12 tablet 03/02/17 Unknown Rx Acetaminophen [Acetaminophen TAB] 500 mg PO Q6HR PRN #30 tablet 03/15/17 Unknown Rx Cyclobenzaprine [Flexeril 10 MG 5 mg PO BID PRN #10 tablet 03/22/17 Unknown Rx TAB] Naproxen [Naprosyn] 500 mg PO BID #30 tablet 03/22/17 Unknown Rx Acetaminophen [Acetaminophen TAB] 500 mg PO Q6HR PRN #30 tablet 03/28/17 Unknown Rx Clindamycin [Clindamycin CAP] 300 mg PO Q8H 10 Days #30 cap 04/02/17 Unknown Rx diphenhydrAMINE [Benadryl CAP] 25 mg PO Q8HR PRN #12 capsule 04/02/17 Unknown Rx predniSONE [Deltasone] 20 mg PO QDAY 5 Days #5 tab 04/02/17 Unknown Rx ED Physical Exam - General Limitations: No Limitations General appearance: alert, in no apparent distress (sleeping when I walked in the room) - Head Head exam: Present: atraumatic, normocephalic - Eye Eye exam: Present: normal appearance - ENT ENT exam: Present: mucous membranes moist - Neck Neck exam: Present: normal inspection - Respiratory Respiratory exam: Present: normal lung sounds bilaterally. Absent: respiratory distress - Cardiovascular Cardiovascular Exam: Present: regular rate, normal rhythm. Absent: systolic murmur, diastolic murmur, rubs, gallop - GI/Abdominal GI/Abdominal exam: Present: soft, tenderness (epigastric), normal bowel sounds - Rectal Rectal exam: Present: deferred - Extremities Exam Extremities exam: Present: normal inspection, other (right lateral foot with bunion on the 5th MTP) - Back Exam Back exam: Present: normal inspection - Neurological Exam Neurological exam: Present: alert, oriented X3 - Psychiatric Psychiatric exam: Present: normal affect, normal mood - Skin Skin exam: Present: warm, dry, intact, normal color. Absent: rash ED Course Vital Signs 05/25/17 05/25/17 00:08 03:47 Temperature 98.1 F Pulse Rate 88 Respiratory 18 20 Rate Blood Pressure 139/72 O2 Sat by Pulse 95 Oximetry ED Medical Decision Making - Lab Data Result diagrams: 05/25/17 01:48 05/25/17 01:48 - Medical Decision Making 67-year-old male with past history of diabetes, hypertension that presents to the ER with multiple complaints. Patient with mild epigastric abdominal pain. He was given a GI cocktail which helped the symptoms. Likely patient is having gastritis versus gastric ulcer. Both suspicion for pancreatitis given the well appearance of the patient and no correlation with eating. Nothing to benefit from imaging at this point in time. Labwork unremarkable. Patient has a chronic right lateral foot wound. He has been to this ER numerous times for this issue. We'll acute pathology at this point in time. I reevaluation, patient feeling improved and sleeping comfortably in the room. Patient will be discharged with Pepcid and told to follow-up with his family doctor for reevaluation. Vital signs stable presentation. Critical care attestation.: If time is entered above; I have spent that time in minutes in the direct care of this critically ill patient, excluding procedure time. ED Disposition Clinical Impression: Abdominal pain, Headache, Foot pain, right Disposition: DC-01 TO HOME OR SELFCARE Is pt being admited?: No Condition: Stable Additional Instructions: Please start taking a daily pepcid. This can be purchased over the counter at a [employer], [employer], [employer], [employer], etc. Referrals: ROB PRYOR MD [Primary Care Provider] - 3-5 Days
[2017-05-25 04:56] VITALS: BP 129/78
== END 2017-05-25 04:30 | disposition home or self-care (01) ==
LOC: ED 23:08
DX: R10.9 Unspecified abdominal pain (principal); R51 Headache; M79.671 Pain in right foot; I10 Essential (primary) hypertension; I25.2 Old myocardial infarction; F17.200 Nicotine dependence, unspecified, uncomplicated
CPT/HCPCS: 36415; 80053; 85025; 99283

== ENCOUNTER 2017-05-27 06:25 | Emergency (ER) | payer MEDICARE ==
[2017-05-27 07:40] VITALS: BP 119/97
== END 2017-05-27 07:45 | disposition left against medical advice (07) ==
LOC: ED 06:25
DX: R10.9 Unspecified abdominal pain (principal); Z53.21 Procedure and treatment not carried out due to patient leaving prior to being seen by health care provider

== ENCOUNTER 2017-05-27 22:42 | Emergency (ER) | payer MEDICARE ==
[2017-05-28] MEDS ORDERED: ULTRAM PO ONE (02:23)
[2017-05-28] MEDS ORDERED: ALUM-MAG HYDROX-SIMETH 200-200-20MG/5ML PO ONE (02:23)
[2017-05-28] MEDS ORDERED: LIDOCAINE VISCOUS 2% PO ONE (02:23)
--- NOTE | 2017-05-28 03:19 | Emergency Department Report ---
ED Abdominal Pain HPI - General Chief Complaint: Abdominal Pain Stated Complaint: STOMACH ,RIGHT FOOT PAIN Time Seen by Provider: 05/28/17 02:05 Source: patient, old records reviewed Mode of arrival: Ambulatory Limitations: No Limitations - History of Present Illness Initial Comments: 67-year-old male with a past medical history PUD, diabetes, hypertension, and gout presents to the hospital with complaints of chronic stomach and right foot pain. Patient states symptoms have been going on for greater than one year. He has had multiple recent visits here for the same including a visit on the . Patient states he has a history of ulcers and has intermittent epigastric pain worse with caffeine and alcohol use. Burning in nature. He denies nausea, vomiting, melena, hematochezia, hematemesis, or fever. Patient is not currently taking a PPI or H2 penelope. Patient has a chronic wound to the fifth MTP area of his right foot. He states it is painful when he walks and places pressure on the wound. This wound has been here for greater than 1 year as well. No present fever or purulent drainage. Patient was just seen here on the for the same symptoms. He states that they are unchanged since his initial presentation. He was recommended to take [id number] Pepcid. Patient did not take the medication nor did he follow-up with his primary care doctor. He states he has missed his last several follow-up visits with the [facility]. Severity scale (0 -10): 6 - Related Data Home Medications Medication Instructions Recorded Confirmed Last Taken Lisinopril [Zestril TAB] 40 mg PO QDAY 09/10/14 09/10/14 1 Day Ago ~04/11/16 Saxagliptin HCl [Onglyza] 2.5 mg PO QDAY 04/12/16 04/12/16 1 Day Ago ~04/11/16 Previous Rx's Medication Instructions Recorded Last Taken Type Metformin HCl [Glucophage] 1,000 mg PO BID #60 tablet 01/22/17 Unknown Rx glipiZIDE [Glucotrol] 10 mg PO BID #60 tablet 01/22/17 Unknown Rx Naproxen Sodium [Aleve TAB] 220 mg PO Q8H PRN #12 tablet 03/02/17 Unknown Rx Acetaminophen [Acetaminophen TAB] 500 mg PO Q6HR PRN #30 tablet 03/15/17 Unknown Rx Cyclobenzaprine [Flexeril 10 MG 5 mg PO BID PRN #10 tablet 03/22/17 Unknown Rx TAB] Naproxen [Naprosyn] 500 mg PO BID #30 tablet 03/22/17 Unknown Rx Acetaminophen [Acetaminophen TAB] 500 mg PO Q6HR PRN #30 tablet 03/28/17 Unknown Rx Clindamycin [Clindamycin CAP] 300 mg PO Q8H 10 Days #30 cap 04/02/17 Unknown Rx diphenhydrAMINE [Benadryl CAP] 25 mg PO Q8HR PRN #12 capsule 04/02/17 Unknown Rx predniSONE [Deltasone] 20 mg PO QDAY 5 Days #5 tab 04/02/17 Unknown Rx Mag Hydrox/Aluminum Hyd/Simeth 20 ml PO QID PRN #1 bottle 05/28/17 Unknown Rx [Maalox Advanced Suspension] Omeprazole Magnesium [PriLOSEC Otc] 20 mg PO QDAY #20 tablet. 05/28/17 Unknown Rx traMADol [Ultram 50 MG tab] 50 mg PO Q6HR PRN #20 tablet 05/28/17 Unknown Rx Allergies Allergy/AdvReac Type Severity Reaction Status Date / Time Penicillins Allergy Mild Rash Verified 04/02/17 04:54 ED Review of Systems ROS: Stated complaint: STOMACH ,RIGHT FOOT PAIN Other details as noted in HPI Comment: All other systems reviewed and negative ED Past Medical Hx - Past Medical History Previous Medical History?: Yes Hx Hypertension: Yes Hx Heart Attack/AMI: Yes Hx Diabetes: Yes Additional medical history: gout - Surgical History Past Surgical History?: Yes Additional Surgical History: ribs - Social History Smoking Status: Current Every Day Smoker Substance Use Type: None - Medications Home Medications: Home Medications Medication Instructions Recorded Confirmed Last Taken Type Lisinopril [Zestril TAB] 40 mg PO QDAY 09/10/14 09/10/14 1 Day Ago History ~04/11/16 Saxagliptin HCl [Onglyza] 2.5 mg PO QDAY 04/12/16 04/12/16 1 Day Ago History ~04/11/16 Metformin HCl [Glucophage] 1,000 mg PO BID #60 tablet 01/22/17 Unknown Rx glipiZIDE [Glucotrol] 10 mg PO BID #60 tablet 01/22/17 Unknown Rx Naproxen Sodium [Aleve TAB] 220 mg PO Q8H PRN #12 tablet 03/02/17 Unknown Rx Acetaminophen [Acetaminophen TAB] 500 mg PO Q6HR PRN #30 tablet 03/15/17 Unknown Rx Cyclobenzaprine [Flexeril 10 MG 5 mg PO BID PRN #10 tablet 03/22/17 Unknown Rx TAB] Naproxen [Naprosyn] 500 mg PO BID #30 tablet 03/22/17 Unknown Rx Acetaminophen [Acetaminophen TAB] 500 mg PO Q6HR PRN #30 tablet 03/28/17 Unknown Rx Clindamycin [Clindamycin CAP] 300 mg PO Q8H 10 Days #30 cap 04/02/17 Unknown Rx diphenhydrAMINE [Benadryl CAP] 25 mg PO Q8HR PRN #12 capsule 04/02/17 Unknown Rx predniSONE [Deltasone] 20 mg PO QDAY 5 Days #5 tab 04/02/17 Unknown Rx Mag Hydrox/Aluminum Hyd/Simeth 20 ml PO QID PRN #1 bottle 05/28/17 Unknown Rx [Maalox Advanced Suspension] Omeprazole Magnesium [PriLOSEC Otc] 20 mg PO QDAY #20 tablet.dr 05/28/17 Unknown Rx traMADol [Ultram 50 MG tab] 50 mg PO Q6HR PRN #20 tablet 05/28/17 Unknown Rx ED Physical Exam - General Limitations: No Limitations - Other Other exam information: General: No limitations, patient is alert in no acute distress Head exam: Atraumatic, normocephalic Eyes exam: Normal appearance ENT: Moist mucous membrane, normal oropharynx Neck exam: Normal inspection, full range of motion, no meningismus nontender Respiratory exam: Clear to auscultation bilateral, no wheezes, rales, crackles Cardiovascular: Normal rate and rhythm, normal heart sounds Abdomen: Soft, nondistended, epigastric tenderness, with normal bowel sounds, no rebound, or guarding Extremity: Full range of motion, chronic ulcerated callused to the right plantar surface of the lateral right foot at the area of the fifth MTP. Tender to palpation. No warmth, erythema, or drainage Back: Normal Inspection, full range of motion, no tenderness Neurologic: Alert, oriented x3, cranial nerves intact, no motor or sensory deficit Psychiatric: normal affect, normal mood Skin: Warm, dry, intact ED Course Vital Signs 05/27/17 05/28/17 05/28/17 22:53 02:39 02:45 Temperature 98.7 F Pulse Rate 102 H Respiratory 17 Rate Blood Pressure 156/89 142/87 142/87 O2 Sat by Pulse 97 Oximetry 05/28/17 05/28/17 05/28/17 03:00 03:15 03:24 Temperature Pulse Rate Respiratory 16 Rate Blood Pressure 144/96 142/87 O2 Sat by Pulse 96 95 96 Oximetry 05/28/17 03:39 Temperature Pulse Rate 72 Respiratory 16 Rate Blood Pressure O2 Sat by Pulse 95 Oximetry - Reevaluation(s) Reevaluation #1: 05/28/17 03:20 Patient stable ED Medical Decision Making - Lab Data Lab Results 05/28/17 Range/Units 03:07 POC Glucose 212 H (70-105) - Medical Decision Making Recent labs from the reviewed. Patient also had labs on the but left prior to MD evaluation. Patient's symptoms are chronic and ongoing and he has not been compliant with his follow-up. He will be prescribed tramadol for pain and a PPI and Maalox for his abdominal symptoms. Once again outpatient follow- up will be encouraged. - Differential Diagnosis gastritis, pancreatitis, PUD, chronic pain, ulcer, cellulitis Critical Care Time: No Critical care attestation.: If time is entered above; I have spent that time in minutes in the direct care of this critically ill patient, excluding procedure time. ED Disposition Clinical Impression: Epigastric pain, Diabetes mellitus, Foot callus Disposition: - TO HOME OR SELFCARE Is pt being admited?: No Does the pt Need Aspirin: No Condition: Stable Instructions: Gastritis (ED), Diabetic Foot Care (ED) Additional Instructions: Take the medication as prescribed. It is very important that you follow up with either the doctor provided or with your [facility] with the [facility]. Return if symptoms worsen as indicated by your discharge instructions Prescriptions: Mag Hydrox/Aluminum Hyd/Simeth [Maalox Advanced Suspension] 20 ml PO QID PRN #1 bottle PRN Reason: Indigestion Omeprazole Magnesium [PriLOSEC Otc] 20 mg PO QDAY #20 tablet.dr JenkinsADol [Ultram 50 MG tab] 50 mg PO Q6HR PRN #20 tablet PRN Reason: Pain Referrals: ROB PRYOR MD [Primary Care Provider] - 3-5 Days [facility] [Other] - 3-5 Days Time of Disposition: 03:51
[2017-05-28 04:07] VITALS: BP 118/67
== END 2017-05-28 04:33 | disposition home or self-care (01) ==
LOC: ED 22:42
DX: E11.621 Type 2 diabetes mellitus with foot ulcer (principal); I11.0 Hypertensive heart disease with heart failure; E11.9 Type 2 diabetes mellitus without complications; M10.9 Gout, unspecified; F17.200 Nicotine dependence, unspecified, uncomplicated; Z88.0 Allergy status to penicillin
CPT/HCPCS: 82962; 99282

== ENCOUNTER 2017-05-31 05:24 | Emergency (ER) | payer MEDICARE ==
--- NOTE | 2017-05-31 06:33 | XRay Report ---
FINAL REPORT EXAM: XR FOOT 2V RT HISTORY: right foot pain TECHNIQUE: Two views the right foot were submitted. Comparison is made to the study of 01/21/2017. FINDINGS: There is non specific soft tissue swelling along the lateral aspect of the 5th metatarsophalangeal joint. There is no evidence of fracture or osteomyelitis. There is a prominent hallux valgus deformity of the 1st metatarsophalangeal joint along with joint space narrowing. There additional marginal spurring along multiple joints in the midfoot along with spurring along the posterior and plantar margin of the calcaneus. Additional arthritic changes seen in the ankle. IMPRESSION: Nonspecific soft tissue swelling overlying the lateral aspect of the 5th metatarsophalangeal joint. No evidence of fracture or dislocation. Prominent hallux valgus deformity with arthritic changes noted midfoot and in the ankle. Calcaneal spurs.
[2017-05-31 08:04] VITALS: BP 132/63
[2017-05-31] MEDS ORDERED: TYLENOL PO ONE (08:10)
[2017-05-31] MEDS ORDERED: GUAIFENESIN DM SYRUP PO ONE (08:10)
--- NOTE | 2017-05-31 08:15 | Emergency Department Report ---
ED Extremity Problem HPI - General Chief complaint: Upper Respiratory Infection Stated complaint: COLD SX Time Seen by Provider: 05/31/17 07:30 Source: patient Mode of arrival: Ambulatory Limitations: No Limitations - History of Present Illness Initial comments: 67-year-old male past medical history multiple medical problems, chronic foot pain, multiple ED, diabetes visits presents with complaint of one-week of stuffy runny nose. Patient denies fevers or chills earache sore throat nausea or vomiting. Patient denies headache blurry vision or dizziness or tinnitus. 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 Primarily complaining of nasal congestion and stuffy nose. Patient also states that since he is on his feet for prolonged periods of time he is experiencing acute on chronic right foot pain. Denies any direct trauma. Patient is ambulatory without assistance. Patient speaking in full sentences awake alert and oriented 3 nontoxic appearing. Denies any productive cough. Patient states he was recently treated for GERD/indigestion. I specifically asked patient if he had any chest pain shortness of breath palpitations diaphoresis or abdominal pain. Patient denies any of these at this time. Patient is ambulatory without assistance. MD Complaint: extremity pain Onset/Timin -: week(s) Location: right, lower extremity (right foot) History of Same: Yes -: Yes arthralgia Radiation: distal Severity scale (0 -10): 4 Quality: aching Consistency: constant Improves with: immobilization, elevation Worsens with: weight bearing, walking Associated Symptoms: denies other symptoms - Related Data Home Medications Medication Instructions Recorded Confirmed Last Taken Lisinopril [Zestril TAB] 40 mg PO QDAY 09/10/14 09/10/14 1 Day Ago ~04/11/16 Saxagliptin HCl [Onglyza] 2.5 mg PO QDAY 04/12/16 04/12/16 1 Day Ago ~04/11/16 Previous Rx's Medication Instructions Recorded Last Taken Type Metformin HCl [Glucophage] 1,000 mg PO BID #60 tablet 01/22/17 Unknown Rx glipiZIDE [Glucotrol] 10 mg PO BID #60 tablet 01/22/17 Unknown Rx Naproxen Sodium [Aleve TAB] 220 mg PO Q8H PRN #12 tablet 03/02/17 Unknown Rx Acetaminophen [Acetaminophen TAB] 500 mg PO Q6HR PRN #30 tablet 03/15/17 Unknown Rx Cyclobenzaprine [Flexeril 10 MG 5 mg PO BID PRN #10 tablet 03/22/17 Unknown Rx TAB] Naproxen [Naprosyn] 500 mg PO BID #30 tablet 03/22/17 Unknown Rx Acetaminophen [Acetaminophen TAB] 500 mg PO Q6HR PRN #30 tablet 03/28/17 Unknown Rx Clindamycin [Clindamycin CAP] 300 mg PO Q8H 10 Days #30 cap 04/02/17 Unknown Rx diphenhydrAMINE [Benadryl CAP] 25 mg PO Q8HR PRN #12 capsule 04/02/17 Unknown Rx predniSONE [Deltasone] 20 mg PO QDAY 5 Days #5 tab 04/02/17 Unknown Rx Mag Hydrox/Aluminum Hyd/Simeth 20 ml PO QID PRN #1 bottle 05/28/17 Unknown Rx [Maalox Advanced Suspension] Omeprazole Magnesium [PriLOSEC Otc] 20 mg PO QDAY #20 tablet. 05/28/17 Unknown Rx traMADol [Ultram 50 MG tab] 50 mg PO Q6HR PRN #20 tablet 05/28/17 Unknown Rx Acetaminophen [Acetaminophen TAB] 500 mg PO Q6HR PRN #20 tablet 05/31/17 Unknown Rx Fluticasone [Flonase] 1 spray NS QDAY PRN #1 bottle 05/31/17 Unknown Rx Loratadine [Claritin] 10 mg PO DAILY PRN #20 tablet 05/31/17 Unknown Rx Allergies Allergy/AdvReac Type Severity Reaction Status Date / Time Penicillins Allergy Mild Rash Verified 04/02/17 04:54 ED Review of Systems ROS: Stated complaint: COLD SX Other details as noted in HPI Constitutional: denies: chills, fever Eyes: denies: eye pain, eye discharge, vision change ENT: congestion (1-2 weeks of nasal congestion). denies: ear pain, throat pain Respiratory: denies: cough, shortness of breath, wheezing Cardiovascular: denies: chest pain, palpitations Endocrine: no symptoms reported Gastrointestinal: denies: abdominal pain, nausea, diarrhea Genitourinary: denies: urgency, dysuria Musculoskeletal: as per HPI (chronic right foot pain). denies: back pain, joint swelling, arthralgia Skin: denies: rash, lesions Neurological: denies: headache, weakness, paresthesias Psychiatric: denies: anxiety, depression Hematological/Lymphatic: denies: easy bleeding, easy bruising ED Past Medical Hx - Past Medical History Hx Hypertension: Yes Hx Heart Attack/AMI: Yes Hx Diabetes: Yes Additional medical history: gout - Surgical History Additional Surgical History: ribs - Social History Smoking Status: Current Every Day Smoker Substance Use Type: Alcohol - Medications Home Medications: Home Medications Medication Instructions Recorded Confirmed Last Taken Type Lisinopril [Zestril TAB] 40 mg PO QDAY 09/10/14 09/10/14 1 Day Ago History ~04/11/16 Saxagliptin HCl [Onglyza] 2.5 mg PO QDAY 04/12/16 04/12/16 1 Day Ago History ~04/11/16 Metformin HCl [Glucophage] 1,000 mg PO BID #60 tablet 01/22/17 Unknown Rx glipiZIDE [Glucotrol] 10 mg PO BID #60 tablet 01/22/17 Unknown Rx Naproxen Sodium [Aleve TAB] 220 mg PO Q8H PRN #12 tablet 03/02/17 Unknown Rx Acetaminophen [Acetaminophen TAB] 500 mg PO Q6HR PRN #30 tablet 03/15/17 Unknown Rx Cyclobenzaprine [Flexeril 10 MG 5 mg PO BID PRN #10 tablet 03/22/17 Unknown Rx TAB] Naproxen [Naprosyn] 500 mg PO BID #30 tablet 03/22/17 Unknown Rx Acetaminophen [Acetaminophen TAB] 500 mg PO Q6HR PRN #30 tablet 03/28/17 Unknown Rx Clindamycin [Clindamycin CAP] 300 mg PO Q8H 10 Days #30 cap 04/02/17 Unknown Rx diphenhydrAMINE [Benadryl CAP] 25 mg PO Q8HR PRN #12 capsule 04/02/17 Unknown Rx predniSONE [Deltasone] 20 mg PO QDAY 5 Days #5 tab 04/02/17 Unknown Rx Mag Hydrox/Aluminum Hyd/Simeth 20 ml PO QID PRN #1 bottle 05/28/17 Unknown Rx [Maalox Advanced Suspension] Omeprazole Magnesium [PriLOSEC Otc] 20 mg PO QDAY #20 tablet. 05/28/17 Unknown Rx traMADol [Ultram 50 MG tab] 50 mg PO Q6HR PRN #20 tablet 05/28/17 Unknown Rx Acetaminophen [Acetaminophen TAB] 500 mg PO Q6HR PRN #20 tablet 05/31/17 Unknown Rx Fluticasone [Flonase] 1 spray NS QDAY PRN #1 bottle 05/31/17 Unknown Rx Loratadine [Claritin] 10 mg PO DAILY PRN #20 tablet 05/31/17 Unknown Rx ED Physical Exam - General Limitations: No Limitations General appearance: alert, in no apparent distress - Head Head exam: Present: atraumatic, normocephalic - Eye Eye exam: Present: normal appearance, PERRL, EOMI - ENT ENT exam: Present: mucous membranes moist, other (nasal congestion, nares are open bilaterally) - Neck Neck exam: Present: normal inspection, full ROM - Respiratory Respiratory exam: Present: normal lung sounds bilaterally (lungs clear to auscultation bilaterally). Absent: respiratory distress - Cardiovascular Cardiovascular Exam: Present: regular rate, normal rhythm. Absent: systolic murmur, diastolic murmur, rubs, gallop - GI/Abdominal GI/Abdominal exam: Present: soft (abdomen soft and nontender), normal bowel sounds - Rectal Rectal exam: Present: deferred - Extremities Exam Extremities exam: Present: normal inspection - Expanded Lower Extremity Exam Right Upper Leg exam: Present: normal inspection, full ROM Knee exam: Present: normal inspection, full ROM Lower Leg exam: Present: normal inspection, full ROM Ankle exam: Present: normal inspection, full ROM Foot/Toe exam: Present: full ROM Neuro vascular tendon exam: Present: no vascular compromise (distal dorsalis pedis and posterior tibial pulses strong to palpation) Gait: Positive: observed and normal - Back Exam Back exam: Present: normal inspection - Neurological Exam Neurological exam: Present: alert, oriented X3, CN II-XII intact, normal gait - Psychiatric Psychiatric exam: Present: normal affect, normal mood - Skin Skin exam: Present: warm, dry, intact, normal color. Absent: rash ED Course Vital Signs 05/31/17 05/31/17 05/31/17 05:50 08:03 08:05 Temperature 98.5 F 97.8 F Pulse Rate 98 H 58 L Respiratory 16 20 20 Rate Blood Pressure 137/88 132/63 [Left] O2 Sat by Pulse 98 96 96 Oximetry 05/31/17 08:26 Temperature Pulse Rate Respiratory 20 Rate Blood Pressure [Left] O2 Sat by Pulse Oximetry ED Medical Decision Making - Medical Decision Making A/P: Allergic rhinitis, chronic right foot pain 1- xray shows chronic degenerative changes of right foot. No cellulitis on exam , chronic bunion, small chronic noninfected ulcer on foot no erythema or purulence on exam 2- Flonase when necessary, Claritin when necessary 3- patient referred to primary care and podiatry 4- advised patient to continue to take Pepcid as prescribed previously for GERD , can take when necessary Flonase and Claritin Critical care attestation.: If time is entered above; I have spent that time in minutes in the direct care of this critically ill patient, excluding procedure time. ED Disposition Clinical Impression: Chronic toe pain, right foot Allergic rhinitis Qualifiers: Allergic rhinitis trigger: pollen Allergic rhinitis seasonality: seasonal Qualified Code(s): J30.1 - Allergic rhinitis due to pollen Disposition: DC-01 TO HOME OR SELFCARE Is pt being admited?: No Does the pt Need Aspirin: No Condition: Stable Instructions: Bunion (ED), Allergic Rhinitis (ED), Arthralgia (ED) Prescriptions: Acetaminophen [Acetaminophen TAB] 500 mg PO Q6HR PRN #20 tablet PRN Reason: Pain Fluticasone [Flonase] 1 spray NS QDAY PRN #1 bottle PRN Reason: Congestion Loratadine [Claritin] 10 mg PO DAILY PRN #20 tablet PRN Reason: Congestion Referrals: SYEDA LYONS MD, PHD [Primary Care Provider] - 3-5 Days [facility] [Provider Group] - 3-5 Days Forms: Work/School Release Form(ED) Time of Disposition: 08:12
== END 2017-05-31 08:32 | disposition home or self-care (01) ==
LOC: ED 05:24
DX: J30.89 Other allergic rhinitis (principal); M79.674 Pain in right toe(s); I11.0 Hypertensive heart disease with heart failure; E11.9 Type 2 diabetes mellitus without complications; M10.9 Gout, unspecified; F17.200 Nicotine dependence, unspecified, uncomplicated; Z88.0 Allergy status to penicillin
CPT/HCPCS: 99283

== ENCOUNTER 2017-06-03 02:14 | Emergency (ER) | payer MEDICARE ==
[2017-06-03 05:40] VITALS: BP 163/88
--- NOTE | 2017-06-03 07:35 | Emergency Department Report ---
ED Headache HPI - General Chief Complaint: Headache Stated Complaint: HEADACHE,CHILL Time Seen by Provider: 06/03/17 07:09 - History of Present Illness Initial Comments: This is a 67-year-old male nontoxic, well nourished in appearance, no acute signs of distress presents to the ED with c/o of headache. Patient stated last night he had into an argument with step daughter and then developed a headache. Patient describes headache as a gradual onset and aching diffusely but denies thunderclap headache. Patient then stated he went to the [employer] and ate a "big mac" and headache went away. Patient stated he came in to the ED because he was "bored" and wanted to get checked out. Patient curretnly denies any headache. Patient denies any head trauma, nausea, vomiting, chest pain, shortness of breathe, fever, chills, nausea, vomiting, blurry vision, or visual changes. Patient denies any numbness or tingling. Patient states allergies to PCN. Quality: mild, achy Head Injury Location: other (diffuse) Recent Head Trauma: no recent headache/trauma Associated Symptoms: denies symptoms. denies: confusion, fatigue, facial pain, fever/chills, flushing, loss of consciousness, nausea/vomiting, nasal congestion , nasal drainage, numbness in legs/feet, rash, seizures, sinus infection, stiff neck, vision changes, weakness Allergies/Adverse Reactions: Allergies Penicillins Allergy (Mild, Verified 04/02/17 04:54) Rash Home Medications: Ambulatory Orders Lisinopril [Zestril TAB] 40 mg PO QDAY 09/10/14 Saxagliptin HCl [Onglyza] 2.5 mg PO QDAY 04/12/16 Metformin HCl [Glucophage] 1,000 mg PO BID #60 tablet 01/22/17 glipiZIDE [Glucotrol] 10 mg PO BID #60 tablet 01/22/17 Naproxen Sodium [Aleve TAB] 220 mg PO Q8H PRN #12 tablet 03/02/17 Acetaminophen [Acetaminophen TAB] 500 mg PO Q6HR PRN #30 tablet 03/15/17 Cyclobenzaprine [Flexeril 10 MG TAB] 5 mg PO BID PRN #10 tablet 03/22/17 Naproxen [Naprosyn] 500 mg PO BID #30 tablet 03/22/17 Acetaminophen [Acetaminophen TAB] 500 mg PO Q6HR PRN #30 tablet 03/28/17 Clindamycin [Clindamycin CAP] 300 mg PO Q8H 10 Days #30 cap 04/02/17 diphenhydrAMINE [Benadryl CAP] 25 mg PO Q8HR PRN #12 capsule 04/02/17 predniSONE [Deltasone] 20 mg PO QDAY 5 Days #5 tab 04/02/17 Mag Hydrox/Aluminum Hyd/Simeth [Maalox Advanced Suspension] 20 ml PO QID PRN #1 bottle 05/28/17 Omeprazole Magnesium [PriLOSEC Otc] 20 mg PO QDAY #20 tablet. 05/28/17 traMADol [Ultram 50 MG tab] 50 mg PO Q6HR PRN #20 tablet 05/28/17 Acetaminophen [Acetaminophen TAB] 500 mg PO Q6HR PRN #20 tablet 05/31/17 Fluticasone [Flonase] 1 spray NS QDAY PRN #1 bottle 05/31/17 Loratadine [Claritin] 10 mg PO DAILY PRN #20 tablet 05/31/17 Ibuprofen [Motrin] 600 mg PO Q8H PRN #30 tablet 06/03/17 ED Review of Systems ROS: Stated complaint: HEADACHE,CHILL Other details as noted in HPI Constitutional: denies: chills, fever Eyes: denies: eye pain, eye discharge, vision change ENT: denies: ear pain, throat pain Respiratory: denies: cough, shortness of breath, wheezing Cardiovascular: denies: chest pain, palpitations Endocrine: no symptoms reported Gastrointestinal: denies: abdominal pain, nausea, diarrhea Genitourinary: denies: urgency, dysuria Musculoskeletal: denies: back pain, joint swelling, arthralgia Skin: denies: rash, lesions Neurological: headache. denies: weakness, paresthesias Psychiatric: denies: anxiety, depression Hematological/Lymphatic: denies: easy bleeding, easy bruising ED Past Medical Hx - Past Medical History Hx Hypertension: Yes Hx Heart Attack/AMI: Yes Hx Diabetes: Yes Additional medical history: gout - Surgical History Additional Surgical History: ribs - Social History Smoking Status: Current Every Day Smoker Substance Use Type: None - Medications Home Medications: Home Medications Medication Instructions Recorded Confirmed Last Taken Type Lisinopril [Zestril TAB] 40 mg PO QDAY 09/10/14 09/10/14 1 Day Ago History ~04/11/16 Saxagliptin HCl [Onglyza] 2.5 mg PO QDAY 04/12/16 04/12/16 1 Day Ago History ~04/11/16 Metformin HCl [Glucophage] 1,000 mg PO BID #60 tablet 01/22/17 Unknown Rx glipiZIDE [Glucotrol] 10 mg PO BID #60 tablet 01/22/17 Unknown Rx Naproxen Sodium [Aleve TAB] 220 mg PO Q8H PRN #12 tablet 03/02/17 Unknown Rx Acetaminophen [Acetaminophen TAB] 500 mg PO Q6HR PRN #30 tablet 03/15/17 Unknown Rx Cyclobenzaprine [Flexeril 10 MG 5 mg PO BID PRN #10 tablet 03/22/17 Unknown Rx TAB] Naproxen [Naprosyn] 500 mg PO BID #30 tablet 03/22/17 Unknown Rx Acetaminophen [Acetaminophen TAB] 500 mg PO Q6HR PRN #30 tablet 03/28/17 Unknown Rx Clindamycin [Clindamycin CAP] 300 mg PO Q8H 10 Days #30 cap 04/02/17 Unknown Rx diphenhydrAMINE [Benadryl CAP] 25 mg PO Q8HR PRN #12 capsule 04/02/17 Unknown Rx predniSONE [Deltasone] 20 mg PO QDAY 5 Days #5 tab 04/02/17 Unknown Rx Mag Hydrox/Aluminum Hyd/Simeth 20 ml PO QID PRN #1 bottle 05/28/17 Unknown Rx [Maalox Advanced Suspension] Omeprazole Magnesium [PriLOSEC Otc] 20 mg PO QDAY #20 tablet.dr 05/28/17 Unknown Rx traMADol [Ultram 50 MG tab] 50 mg PO Q6HR PRN #20 tablet 05/28/17 Unknown Rx Acetaminophen [Acetaminophen TAB] 500 mg PO Q6HR PRN #20 tablet 05/31/17 Unknown Rx Fluticasone [Flonase] 1 spray NS QDAY PRN #1 bottle 05/31/17 Unknown Rx Loratadine [Claritin] 10 mg PO DAILY PRN #20 tablet 05/31/17 Unknown Rx Ibuprofen [Motrin] 600 mg PO Q8H PRN #30 tablet 06/03/17 Unknown Rx ED Physical Exam - General Limitations: No Limitations General appearance: alert, in no apparent distress - Head Head exam: Present: atraumatic, normocephalic - Eye Eye exam: Present: normal appearance Pupils: Present: normal accommodation - ENT ENT exam: Present: normal exam, mucous membranes moist - Neck Neck exam: Present: normal inspection, full ROM. Absent: tenderness, meningismus - Respiratory Respiratory exam: Present: normal lung sounds bilaterally. Absent: respiratory distress, wheezes, rales, rhonchi, stridor, chest wall tenderness, accessory muscle use, decreased breath sounds, prolonged expiratory - Cardiovascular Cardiovascular Exam: Present: regular rate, normal rhythm, normal heart sounds. Absent: irregular rhythm, systolic murmur, diastolic murmur, rubs, gallop - GI/Abdominal GI/Abdominal exam: Present: soft, normal bowel sounds. Absent: distended, tenderness, guarding, rebound, rigid, diminished bowel sounds - Rectal Rectal exam: Present: deferred - Extremities Exam Extremities exam: Present: normal inspection, full ROM, normal capillary refill. Absent: tenderness - Back Exam Back exam: Present: normal inspection, full ROM. Absent: tenderness, CVA tenderness (R) - Neurological Exam Neurological exam: Present: alert, oriented X3, CN II-XII intact, normal gait, reflexes normal - Expanded Neurological Exam Expanded Patient oriented to: Present: person, place, time Cranial nerves: EOM's Intact: Normal, Gag Reflex: Normal, Facial Sensation: Normal, Facial Palsy with Forehead Movement: Normal Cerebellar function: Finger to Nose: Normal Upper motor neuron: Pronator Drift: Normal, Sensory Extinction: Normal Sensory exam: Upper Extremity Light Touch: Normal, Upper Extremity Pin Prick: Normal, Upper Extremity Temperature: Normal, UE 2 Point Discrimination: Normal, Lower Extremity Light Touch: Normal, Lower Extremity Pin Prick: Normal, Lower Extremity Temperature: Normal, LE 2 Point Discrimination: Normal Motor strength exam: RUE: 5, LUE: 5, RLE: 5, LLE: 5 DTR: bicep (R): 2+, bicep (L): 2+, tricep (R): 2+, tricep (L): 2+, knee (R): 2+ , knee (L): 2+, ankle (R): 2+, ankle (L): 2+ Best Eye Response (Adi): (4) open spontaneously Best Motor Response (Adi): (6) obeys commands Best Verbal Response (Adi): (5) oriented [place] Total: 15 - Psychiatric Psychiatric exam: Present: normal affect, normal mood - Skin Skin exam: Present: warm, dry, intact, normal color. Absent: rash ED Course Vital Signs 06/03/17 05:30 Temperature 98.5 F Pulse Rate 78 Respiratory 16 Rate Blood Pressure 163/88 O2 Sat by Pulse 97 Oximetry - Reevaluation(s) Reevaluation #1: 06/03/17 07:37 Patient is speaking in full sentences with no signs of distress noted. ED Medical Decision Making - Medical Decision Making This is a 67-year-old male that presents with headache. Patient is stable and was examined by me. Patient refused any medical treatment and he refused Tylenol that was prescribed to him in triage as he stated that his headache has subsided and he is just "board". Patient refused any medications or further evaluation. 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 Patient is neurologically stable. Patient was instructed to Follow-up with a primary care doctor in 3-5 days or if symptoms worsen and continue return to emergency room as soon as possible. At time of discharge, the patient does not seem toxic or ill in appearance. No acute signs of distress noted. Patient agrees to discharge treatment plan of care. No further questions noted by the patient. Critical care attestation.: If time is entered above; I have spent that time in minutes in the direct care of this critically ill patient, excluding procedure time. ED Disposition Clinical Impression: Headache Qualifiers: Headache type: unspecified Headache chronicity pattern: acute headache Intractability: not intractable Qualified Code(s): R51 - Headache Disposition: DC-01 TO HOME OR SELFCARE Is pt being admited?: No Does the pt Need Aspirin: No Condition: Stable Instructions: Acute Headache (ED) Additional Instructions: Follow-up with a primary care doctor in 3-5 days or if symptoms worsen and continue return to emergency room as soon as possible. Prescriptions: Ibuprofen [Motrin] 600 mg PO Q8H PRN #30 tablet PRN Reason: Pain Referrals: ROB PRYOR MD [Primary Care Provider] - 3-5 Days PRIMARY CARE, [Referring] - 3-5 Days [facility] [Outside] - 3-5 Days [facility] [Outside] - 3-5 Days
== END 2017-06-03 07:59 | disposition home or self-care (01) ==
LOC: ED 02:14
DX: R51 Headache (principal); I10 Essential (primary) hypertension; E11.9 Type 2 diabetes mellitus without complications; I25.2 Old myocardial infarction; F17.200 Nicotine dependence, unspecified, uncomplicated; Z88.0 Allergy status to penicillin
CPT/HCPCS: 99282

== ENCOUNTER 2017-06-11 17:15 | Emergency (ER) | payer MEDICARE ==
[2017-06-11 17:53] VITALS: BP 155/94
== END 2017-06-11 19:57 | disposition left against medical advice (07) ==
LOC: ED 17:15
DX: R10.9 Unspecified abdominal pain (principal); Z53.21 Procedure and treatment not carried out due to patient leaving prior to being seen by health care provider

== ENCOUNTER 2017-06-19 04:14 | Emergency (ER) | payer MEDICARE ==
[2017-06-19 09:53] VITALS: BP 129/82
== END 2017-06-19 12:09 | disposition left against medical advice (07) ==
LOC: ED 04:14
DX: R10.9 Unspecified abdominal pain (principal); Z53.21 Procedure and treatment not carried out due to patient leaving prior to being seen by health care provider

== ENCOUNTER 2017-07-03 03:25 | Emergency (ER) | payer MEDICARE ==
[2017-07-03 03:34] VITALS: BP 135/69
[2017-07-03 04:22] LABS: Basophils # (Auto) 0.1 K/mm3 (0.0-0.1); Basophils % (Auto) 0.8 % (0.0-1.8); Eosinophils # (Auto) 0.2 K/mm3 (0.0-0.4); Eosinophils % (Auto) 2.2 % (0.0-4.3); Hematocrit 37.5 % (35.5-45.6); Hemoglobin 12.6 gm/dl (11.8-15.2); Lymphocytes # (Auto) 1.7 K/mm3 (1.2-5.4); Lymphocytes % (Auto) 21.2 % (13.4-35.0); Mean Corpuscular HGB Conc 34 % (32-34); Mean Corpuscular Hemoglobin 30 pg (28-32); Mean Corpuscular Volume 90 fl (84-94); Monocytes # (Auto) 0.6 K/mm3 (0.0-0.8); Monocytes % (Auto) 7.9 % (0.0-7.3); Platelet Count 231 K/mm3 (140-440); Red Blood Count 4.16 M/mm3 (3.65-5.03); Red Cell Distribution Width 14.6 % (13.2-15.2)
[2017-07-03 05:48] LABS: Alanine Aminotransferase 39 units/L (7-56); Albumin 4.2 g/dL (3.9-5); BUN/Creatinine Ratio 17; Blood Urea Nitrogen 15 mg/dL (9-20); Calcium 9.2 mg/dL (8.4-10.2); Hemolysis Index 2
== END 2017-07-03 06:45 | disposition left against medical advice (07) ==
LOC: ED 03:25
DX: M79.1 Myalgia (principal); Z53.21 Procedure and treatment not carried out due to patient leaving prior to being seen by health care provider
CPT/HCPCS: 36415; 80053; 85025

== ENCOUNTER 2017-07-19 03:45 | Emergency (ER) | payer MEDICARE ==
[2017-07-19 04:15] VITALS: BP 146/78
== END 2017-07-19 09:10 | disposition left against medical advice (07) ==
LOC: ED 03:45
DX: M54.2 Cervicalgia (principal); M79.1 Myalgia; Z53.21 Procedure and treatment not carried out due to patient leaving prior to being seen by health care provider

== ENCOUNTER 2018-06-03 03:21 | Emergency (ER) | payer MEDICARE ==
[2018-06-03 03:40] VITALS: BP 155/83
[2018-06-03] MEDS ORDERED: TORADOL IM ONE (07:27)
--- NOTE | 2018-06-03 07:32 | Emergency Department Report ---
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 He denies any respiratory complaints as indicated in triage. Patient admits to alcohol. He is diabetic he takes metformin. He also is on Naprosyn for his foot pain. Patient's vital signs are stable. He is ambulatory and laughing and talking with staff. -: Gradual, month(s) Location: lower extremity Severity scale (0 -10): 0 Improves with: none Worsens with: none Associated Symptoms: denies other symptoms Treatments Prior to Arrival: NSAID - Related Data Home Medications Medication Instructions Recorded Confirmed Last Taken Lisinopril [Zestril TAB] 40 mg PO QDAY 09/10/14 09/10/14 1 Day Ago ~04/11/16 Saxagliptin HCl [Onglyza] 2.5 mg PO QDAY 04/12/16 04/12/16 1 Day Ago ~04/11/16 Previous Rx's Medication Instructions Recorded Last Taken Type Metformin HCl [Glucophage] 1,000 mg PO BID #60 tablet 01/22/17 Unknown Rx glipiZIDE [Glucotrol] 10 mg PO BID #60 tablet 01/22/17 Unknown Rx Naproxen Sodium [Aleve TAB] 220 mg PO Q8H PRN #12 tablet 03/02/17 Unknown Rx Acetaminophen [Acetaminophen TAB] 500 mg PO Q6HR PRN #30 tablet 03/15/17 Unknown Rx Cyclobenzaprine [Flexeril 10 MG 5 mg PO BID PRN #10 tablet 03/22/17 Unknown Rx TAB] Naproxen [Naprosyn] 500 mg PO BID #30 tablet 03/22/17 Unknown Rx Acetaminophen [Acetaminophen TAB] 500 mg PO Q6HR PRN #30 tablet 03/28/17 Unknown Rx Clindamycin [Clindamycin CAP] 300 mg PO Q8H 10 Days #30 cap 04/02/17 Unknown Rx diphenhydrAMINE [Benadryl CAP] 25 mg PO Q8HR PRN #12 capsule 04/02/17 Unknown Rx predniSONE [Deltasone] 20 mg PO QDAY 5 Days #5 tab 04/02/17 Unknown Rx Mag Hydrox/Aluminum Hyd/Simeth 20 ml PO QID PRN #1 bottle 05/28/17 Unknown Rx [Maalox Advanced Suspension] Omeprazole Magnesium [PriLOSEC Otc] 20 mg PO QDAY #20 tablet. 05/28/17 Unknown Rx traMADol [Ultram 50 MG tab] 50 mg PO Q6HR PRN #20 tablet 05/28/17 Unknown Rx Acetaminophen [Acetaminophen TAB] 500 mg PO Q6HR PRN #20 tablet 05/31/17 Unknown Rx Fluticasone [Flonase] 1 spray NS QDAY PRN #1 bottle 05/31/17 Unknown Rx Loratadine [Claritin] 10 mg PO DAILY PRN #20 tablet 05/31/17 Unknown Rx Ibuprofen [Motrin] 600 mg PO Q8H PRN #30 tablet 06/03/17 Unknown Rx Allergies Allergy/AdvReac Type Severity Reaction Status Date / Time Penicillins Allergy Mild Rash Verified 06/19/17 07:12 ED Review of Systems ROS: Stated complaint: COLD SX Other details as noted in HPI Comment: All other systems reviewed and negative Constitutional: denies: chills ENT: denies: ear pain Respiratory: denies: orthopnea Cardiovascular: denies: palpitations Endocrine: denies: intolerance to cold Gastrointestinal: denies: nausea Genitourinary: denies: urgency Musculoskeletal: as per HPI Skin: denies: rash Neurological: denies: weakness Psychiatric: denies: depression Hematological/Lymphatic: denies: easy bleeding ED Past Medical Hx - Past Medical History Previous Medical History?: Yes Hx Hypertension: Yes Hx Heart Attack/AMI: Yes Hx Diabetes: Yes Hx Arthritis: Yes (gout) Additional medical history: gout - Surgical History Past Surgical History?: Yes Additional Surgical History: ribs - Family History Family history: no significant - Social History Smoking Status: Current Every Day Smoker Substance Use Type: None - Medications Home Medications: Home Medications Medication Instructions Recorded Confirmed Last Taken Type Lisinopril [Zestril TAB] 40 mg PO QDAY 09/10/14 09/10/14 1 Day Ago History ~04/11/16 Saxagliptin HCl [Onglyza] 2.5 mg PO QDAY 04/12/16 04/12/16 1 Day Ago History ~04/11/16 Metformin HCl [Glucophage] 1,000 mg PO BID #60 tablet 01/22/17 Unknown Rx glipiZIDE [Glucotrol] 10 mg PO BID #60 tablet 01/22/17 Unknown Rx Naproxen Sodium [Aleve TAB] 220 mg PO Q8H PRN #12 tablet 03/02/17 Unknown Rx Acetaminophen [Acetaminophen TAB] 500 mg PO Q6HR PRN #30 tablet 03/15/17 Unknown Rx Cyclobenzaprine [Flexeril 10 MG 5 mg PO BID PRN #10 tablet 03/22/17 Unknown Rx TAB] Naproxen [Naprosyn] 500 mg PO BID #30 tablet 03/22/17 Unknown Rx Acetaminophen [Acetaminophen TAB] 500 mg PO Q6HR PRN #30 tablet 03/28/17 Unknown Rx Clindamycin [Clindamycin CAP] 300 mg PO Q8H 10 Days #30 cap 04/02/17 Unknown Rx diphenhydrAMINE [Benadryl CAP] 25 mg PO Q8HR PRN #12 capsule 04/02/17 Unknown Rx predniSONE [Deltasone] 20 mg PO QDAY 5 Days #5 tab 04/02/17 Unknown Rx Mag Hydrox/Aluminum Hyd/Simeth 20 ml PO QID PRN #1 bottle 05/28/17 Unknown Rx [Maalox Advanced Suspension] Omeprazole Magnesium [PriLOSEC Otc] 20 mg PO QDAY #20 tablet.dr 05/28/17 Unknown Rx traMADol [Ultram 50 MG tab] 50 mg PO Q6HR PRN #20 tablet 05/28/17 Unknown Rx Acetaminophen [Acetaminophen TAB] 500 mg PO Q6HR PRN #20 tablet 05/31/17 Unknown Rx Fluticasone [Flonase] 1 spray NS QDAY PRN #1 bottle 05/31/17 Unknown Rx Loratadine [Claritin] 10 mg PO DAILY PRN #20 tablet 05/31/17 Unknown Rx Ibuprofen [Motrin] 600 mg PO Q8H PRN #30 tablet 06/03/17 Unknown Rx ED Physical Exam - General Limitations: No Limitations General appearance: alert - Head Head exam: Present: normocephalic - Eye Eye exam: Present: normal appearance, PERRL - ENT ENT exam: Present: mucous membranes moist - Neck Neck exam: Present: normal inspection - Respiratory Respiratory exam: Present: normal lung sounds bilaterally - Cardiovascular Cardiovascular Exam: Present: regular rate - GI/Abdominal GI/Abdominal exam: Present: soft, normal bowel sounds - Rectal Rectal exam: Present: deferred - Extremities Exam Extremities exam: Present: normal inspection, full ROM - Back Exam Back exam: Present: normal inspection, full ROM - Neurological Exam Neurological exam: Present: alert, oriented X3, CN II-XII intact - Psychiatric Psychiatric exam: Present: normal affect, normal mood - Skin Skin exam: Present: warm, dry, intact ED Course Vital Signs 06/03/18 03:38 Temperature 97.7 F Pulse Rate 86 Respiratory 18 Rate Blood Pressure 155/83 O2 Sat by Pulse 96 Oximetry ED Medical Decision Making - Medical Decision Making a/c foot pain 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 ED Disposition Clinical Impression: Foot pain Disposition: DC-01 TO HOME OR SELFCARE Is pt being admited?: No Does the pt Need Aspirin: No Condition: Stable Additional Instructions: FOLLOW UP WITH PRIMARY CARE THIS WEEK. TAKE YOUR HOME MEDICATIONS HYDRATE WELL WITH WATER Referrals: MARQUIS ACUNA MD [Primary Care Provider] - 3-5 Days Time of Disposition: 07:40
== END 2018-06-03 07:43 | disposition home or self-care (01) ==
LOC: ED 03:21
DX: M79.671 Pain in right foot (principal); M79.672 Pain in left foot; I10 Essential (primary) hypertension; I25.2 Old myocardial infarction; E11.9 Type 2 diabetes mellitus without complications; F17.200 Nicotine dependence, unspecified, uncomplicated; M10.9 Gout, unspecified; Z79.899 Other long term (current) drug therapy; Z88.0 Allergy status to penicillin
CPT/HCPCS: 96372; 99282; J1885

== ENCOUNTER 2018-07-26 15:39 | Emergency (ER) | payer MEDICARE | END 2018-07-26 15:44 | disposition left against medical advice (07) | LOC: ED 15:39 | DX: M79.673 Pain in unspecified foot (principal); Z53.21 Procedure and treatment not carried out due to patient leaving prior to being seen by health care provider ==

== ENCOUNTER 2019-01-14 12:34 | Emergency (ER) | payer MEDICARE ==
--- NOTE | 2019-01-14 13:45 | Emergency Department Report ---
Blank Doc - Documentation Documentation: Patient is a 68-year-old gentleman who presented secondary to feeling cold and having some dysuria. Patient was at a [facility] and staff called 911 secondary to the patient yelling that he was not feeling well. EMS transported the patient here. Patient's blood pressure was 210/109. Patient was noted to be pacing back and forth in the room yelling and cursing. Patient refused the assessment viral nursing staff. Patient walked out before I was able to go into the room. I was actively walking into the room when the patient was walking.
== END 2019-01-14 14:42 ==
LOC: ED 12:34
DX: J00 Acute nasopharyngitis [common cold] (principal); Z53.21 Procedure and treatment not carried out due to patient leaving prior to being seen by health care provider

== ENCOUNTER 2019-01-15 00:45 | Inpatient (IN) | payer MEDICARE ==
[2019-01-15] MEDS ORDERED: IPRATROPIUM/ALBUTEROL SULFATE 3 ML AMPUL.NEB IH ONE (02:41)
[2019-01-15] MEDS ORDERED: methylPREDNISolone Sod Succinate 125 MG/2 ML INJ IV ONE (02:41)
--- NOTE | 2019-01-15 03:25 | XRay Report ---
CHEST 2 VIEWS INDICATION / CLINICAL INFORMATION: cough. COMPARISON: 02/23/2017 FINDINGS: SUPPORT DEVICES: None. HEART / MEDIASTINUM: No significant abnormality. LUNGS / PLEURA: No significant pulmonary or pleural abnormality. The lungs remain mildly hyperinflate d. No pneumothorax. ADDITIONAL FINDINGS: Multiple healed bilateral rib fractures. IMPRESSION: 1. No acute findings. COPD. Signer Name: Edna Lopez MD Signed: 01/15/2019 3:20 AM Workstation Name: [id number]
[2019-01-15 03:53] LABS: Hematocrit 37.3 % (35.5-45.6); Hemoglobin 12.4 gm/dl (11.8-15.2); Mean Corpuscular HGB Conc 33 % (32-34); Mean Corpuscular Volume 95 fl (84-94); Platelet Count 160 K/mm3 (140-440); Red Blood Count 3.92 M/mm3 (3.65-5.03); Red Cell Distribution Width 13.5 % (13.2-15.2)
[2019-01-15 04:12] LABS: Alanine Aminotransferase 19 units/L (7-56); Albumin 3.6 g/dL (3.9-5); BUN/Creatinine Ratio 16; Blood Urea Nitrogen 23 mg/dL (9-20); Calcium 9.2 mg/dL (8.4-10.2); Hemolysis Index 10
[2019-01-15] MEDS ORDERED: cefTRIAXone/NS 1 GM/50 ML 1 GM/50 ML BAG IV ONE (04:42)
[2019-01-15] MEDS ORDERED: AZITHROMYCIN 500 MG in SODIUM CHLORIDE 0.9% 250ML 250 ML IV ONE (04:42)
[2019-01-15 05:25] LABS: Band Neutrophils # (Manual) 2.9 K/mm3; Basophils % (Manual) 0 % (0.0-1.8); Eosinophils % (Manual) 0 % (0.0-4.3); Total Cells Counted 100
[2019-01-15 05:26] LABS: Platelet Estimate Consistent w Auto
--- NOTE | 2019-01-15 05:45 | Emergency Department Report ---
- General Chief Complaint: Dyspnea/Respdistress Stated Complaint: Cough, Nasal and sinus congestion Source: patient Mode of arrival: Ambulatory Limitations: No Limitations - History of Present Illness Initial Comments: Patient is a 68-year-old Monegasque male with history of hypertension, [id number] diabetes, COPD, coronary artery disease status post CO and chronic gout and heavy tobacco smoker who presents to the ED with complaint of acute onset persistent nasal and sinus congestion, dry cough with wheezing and shortness of breath for the last 2 weeks. Patient states that his symptoms got worse in the last 2 days. Patient denies dizziness, chest pain, abdominal pain, nausea, vomiting, diarrhea, change in vision, syncope, palpitations, back pain, dysuria or hematuria, urinary frequency and urgency and sore throat. MD Complaint: fever, cough, rhinorrhea, nasal congestion, sinus pain, other (shortness of breath) -: Gradual, week(s) (2) Severity: moderate Severity scale (0 -10): 7 Quality: dull, aching Consistency: constant Improves With: nothing Worsens With: activity Context: sick contacts, other (homeless, on the streets) Associated Symptoms: denies other symptoms, fever, chills, myalgias, rhinorrhea, nasal congestion, cough, shortness of breath, hoarseness. denies: diaphoresis, headache, chest pain, abdominal pain, nausea, vomiting, diarrhea, dysuria, rash, confusion, weight loss, ear pain Treatments Prior to Arrival: none - Related Data Home Medications Medication Instructions Recorded Confirmed Last Taken Lisinopril [Zestril TAB] 40 mg PO QDAY 09/10/14 09/10/14 1 Day Ago ~04/11/16 Saxagliptin HCl [Onglyza] 2.5 mg PO QDAY 04/12/16 04/12/16 1 Day Ago ~04/11/16 Previous Rx's Medication Instructions Recorded Last Taken Type Metformin HCl [Glucophage] 1,000 mg PO BID #60 tablet 01/22/17 Unknown Rx glipiZIDE [Glucotrol] 10 mg PO BID #60 tablet 01/22/17 Unknown Rx Naproxen Sodium [Aleve TAB] 220 mg PO Q8H PRN #12 tablet 03/02/17 Unknown Rx Naproxen [Naprosyn] 500 mg PO BID #30 tablet 03/22/17 Unknown Rx Omeprazole Magnesium [PriLOSEC Otc] 20 mg PO QDAY #20 tablet. 05/28/17 Unknown Rx Loratadine [Claritin] 10 mg PO DAILY PRN #20 tablet 05/31/17 Unknown Rx Fluticasone [Flonase] 1 spray NS QDAY #1 bottle 11/22/18 Unknown Rx Ibuprofen [Motrin] 600 mg PO Q8H PRN #30 tablet 11/22/18 Unknown Rx Magnesium Oxide [Magnesium] 400 mg PO QDAY #7 capsule 11/22/18 Unknown Rx Azithromycin [Zithromax Z-HARJINDER] 250 mg PO DAILY #6 tablet 11/25/18 Unknown Rx Naproxen 500 mg PO Q8H PRN #20 tablet 11/25/18 Unknown Rx Allergies Allergy/AdvReac Type Severity Reaction Status Date / Time Penicillins Allergy Mild Rash Verified 07/26/18 15:41 ED Review of Systems ROS: Stated complaint: Other details as noted in HPI Constitutional: denies: chills, fever Eyes: denies: eye pain, eye discharge, vision change ENT: congestion. denies: ear pain, throat pain Respiratory: cough, shortness of breath, wheezing Cardiovascular: denies: chest pain, palpitations Endocrine: no symptoms reported Gastrointestinal: denies: abdominal pain, nausea, diarrhea Genitourinary: denies: urgency, dysuria Musculoskeletal: arthralgia, myalgia. denies: back pain, joint swelling Skin: denies: rash, lesions Neurological: headache. denies: weakness, paresthesias Psychiatric: denies: anxiety, depression Hematological/Lymphatic: denies: easy bleeding, easy bruising ED Past Medical Hx - Past Medical History Previous Medical History?: Yes Hx Hypertension: Yes Hx Heart Attack/AMI: Yes Hx Diabetes: Yes Hx Arthritis: Yes (gout) Additional medical history: gout, Chronic Pain in legs - Surgical History Past Surgical History?: Yes Additional Surgical History: ribs - Social History Smoking Status: Current Every Day Smoker Substance Use Type: Alcohol - Medications Home Medications: Home Medications Medication Instructions Recorded Confirmed Last Taken Type Lisinopril [Zestril TAB] 40 mg PO QDAY 09/10/14 09/10/14 1 Day Ago History ~04/11/16 Saxagliptin HCl [Onglyza] 2.5 mg PO QDAY 04/12/16 04/12/16 1 Day Ago History ~04/11/16 Metformin HCl [Glucophage] 1,000 mg PO BID #60 tablet 01/22/17 Unknown Rx glipiZIDE [Glucotrol] 10 mg PO BID #60 tablet 01/22/17 Unknown Rx Naproxen Sodium [Aleve TAB] 220 mg PO Q8H PRN #12 tablet 03/02/17 Unknown Rx Naproxen [Naprosyn] 500 mg PO BID #30 tablet 03/22/17 Unknown Rx Omeprazole Magnesium [PriLOSEC Otc] 20 mg PO QDAY #20 tablet. 05/28/17 Unknown Rx Loratadine [Claritin] 10 mg PO DAILY PRN #20 tablet 05/31/17 Unknown Rx Fluticasone [Flonase] 1 spray NS QDAY #1 bottle 11/22/18 Unknown Rx Ibuprofen [Motrin] 600 mg PO Q8H PRN #30 tablet 11/22/18 Unknown Rx Magnesium Oxide [Magnesium] 400 mg PO QDAY #7 capsule 11/22/18 Unknown Rx Azithromycin [Zithromax Z-HARJINDER] 250 mg PO DAILY #6 tablet 11/25/18 Unknown Rx Naproxen 500 mg PO Q8H PRN #20 tablet 11/25/18 Unknown Rx ED Physical Exam - General General appearance: alert, in no apparent distress - Head Head exam: Present: atraumatic, normocephalic, normal inspection - Eye Eye exam: Present: normal appearance, PERRL, EOMI Pupils: Present: normal accommodation - ENT ENT exam: Present: mucous membranes dry, mucous membranes moist, TM's normal bilaterally, normal external ear exam, other (grossly congested nasal passages) - Neck Neck exam: Present: normal inspection, full ROM. Absent: tenderness - Respiratory Respiratory exam: Present: wheezes (diffuse coarse wheezes throughout). Absent: respiratory distress, chest wall tenderness, accessory muscle use, decreased breath sounds, prolonged expiratory - Cardiovascular Cardiovascular Exam: Present: regular rate, normal rhythm, normal heart sounds. Absent: systolic murmur, diastolic murmur, rubs, gallop - GI/Abdominal GI/Abdominal exam: Present: soft, normal bowel sounds. Absent: tenderness, guarding, rebound, hyperactive bowel sounds - Extremities Exam Extremities exam: Present: normal inspection, full ROM, normal capillary refill - Back Exam Back exam: Present: normal inspection, full ROM. Absent: tenderness, CVA tenderness (R), CVA tenderness (L), muscle spasm, paraspinal tenderness - Neurological Exam Neurological exam: Present: alert, oriented X3, CN II-XII intact, normal gait, reflexes normal - Psychiatric Psychiatric exam: Present: normal affect, normal mood - Skin Skin exam: Present: warm, dry, intact, normal color. Absent: rash ED Medical Decision Making - Lab Data Result diagrams: 01/15/19 03:25 01/15/19 03:25 - Radiology Data Radiology results: report reviewed, image reviewed Chest x-ray shows no acute cardiopulmonary abnormalities or pneumonitis. - Medical Decision Making This is a 68-year-old male with a history of hypertension, [id number] diabetes and coronary artery disease and is homeless and living on the streets who presented to the ED with shortness of breath, nasal and sinus congestion, wheezing, dry cough, subjective fever and diffuse body aches and pains for 2 weeks. In the ED: Patient is alert and oriented 3 and is not in distress but appears to be cachectic and unkempt but in no acute distress. Lab test results were reviewed and show acute leukocytosis of 22,500 with a BNP of 1123 and BUN of 23, as well as hyperglycemia to 216 mg/dL. Chest x-ray shows no acute cardiopulmonary abnormalities. Patient was treated in the ED with DuoNeb, Solu- Medrol 125 mg IV. Patient's case was discussed with the ED attending physician Dr. Michelle who agreed with the plan of care to admit the patient to hospital. The patient's case was therefore discussed with the hospitalist physician rehabilitation team lead Dr. Valenzuela who admitted patient to the hospital for further evaluation and treatment. - Differential Diagnosis Asthma/COPD Exacerbation; Pneumonia; Influenza; URI; CHF Critical care attestation.: If time is entered above; I have spent that time in minutes in the direct care of this critically ill patient, excluding procedure time. ED Disposition Clinical Impression: COPD with acute exacerbation, Shortness of breath CHF exacerbation Qualifiers: Heart failure type: unspecified Qualified Code(s): I50.9 - Heart failure, unspecified Disposition: OP ADMIT IP TO THIS HOSP Is pt being admited?: Yes Does the pt Need Aspirin: Yes Condition: Stable Instructions: Chronic Obstructive Pulmonary Disease (ED), Heart Failure (ED) Referrals: PRIMARY CARE, [Primary Care Provider] - 3-5 Days Time of Disposition: 04:00 Print Language: TAJIK
[2019-01-15] MEDS ORDERED: ASPIRIN 81 MG TAB CHEW PO ONE (05:56)
[2019-01-15] MEDS ORDERED: ONDANSETRON 4 MG/2 ML INJ IV PRN (06:39)
[2019-01-15] MEDS ORDERED: ACETAMINOPHEN 325 MG TAB PO PRN (06:39)
[2019-01-15] MEDS ORDERED: ALBUTEROL 2.5 MG/3 ML NEBU IH PRN (06:43)
--- NOTE | 2019-01-15 06:51 | History and Physical Report ---
History of Present Illness Date of examination: 01/22/19 Date of admission: 01/15/19 Chief complaint: Shortness of breath and cough History of present illness: Patient is a 68-year-old male with known history of COPD and diabetes mellitus presented to the emergency room today complaining of cough and shortness of breath which has been ongoing for the past few days. He has also been having some fever but denies any chills. Denies any chest pain . No nausea vomiting. Upon arrival in the emergency room his work-up reveals a leukocytosis of about 22,000, chest x-ray was within normal limits except for COPD changes. Past History Past Medical History: COPD, diabetes, hypertension Past Surgical History: Other (Right foot surgery in the past) Social history: smoking (Smokes 2 packs/day of cigarette), alcohol abuse (Drinks liquor on a daily basis) Family history: diabetes (Brother had diabetes mellitus) Medications and Allergies Allergies Allergy/AdvReac Type Severity Reaction Status Date / Time Penicillins Allergy Mild Rash Verified 07/26/18 15:41 Home Medications Medication Instructions Recorded Confirmed Last Taken Type Lisinopril [Zestril TAB] 40 mg PO QDAY 09/10/14 09/10/14 1 Day Ago History ~04/11/16 Saxagliptin HCl [Onglyza] 2.5 mg PO QDAY 04/12/16 04/12/16 1 Day Ago History ~04/11/16 Metformin HCl [Glucophage] 1,000 mg PO BID #60 tablet 01/22/17 Unknown Rx glipiZIDE [Glucotrol] 10 mg PO BID #60 tablet 01/22/17 Unknown Rx Naproxen Sodium [Aleve TAB] 220 mg PO Q8H PRN #12 tablet 03/02/17 Unknown Rx Naproxen [Naprosyn] 500 mg PO BID #30 tablet 03/22/17 Unknown Rx Omeprazole Magnesium [PriLOSEC Otc] 20 mg PO QDAY #20 tablet. 05/28/17 Unknown Rx Loratadine [Claritin] 10 mg PO DAILY PRN #20 tablet 05/31/17 Unknown Rx Fluticasone [Flonase] 1 spray NS QDAY #1 bottle 11/22/18 Unknown Rx Ibuprofen [Motrin] 600 mg PO Q8H PRN #30 tablet 11/22/18 Unknown Rx Magnesium Oxide [Magnesium] 400 mg PO QDAY #7 capsule 11/22/18 Unknown Rx Azithromycin [Zithromax Z-HARJINDER] 250 mg PO DAILY #6 tablet 11/25/18 Unknown Rx Naproxen 500 mg PO Q8H PRN #20 tablet 11/25/18 Unknown Rx Active Meds: Active Medications Acetaminophen (Tylenol) 650 mg PO Q4H PRN PRN Reason: Pain MILD(1-3)/Fever >100.5/LOJA Albuterol (Proventil) 2.5 mg IH Q4HRT PRN PRN Reason: Shortness Of Breath Levofloxacin/Dextrose (Levaquin 750mg/150ml) 750 mg in 150 mls @ 100 mls/hr IV Q24HR SOPHIE; Protocol Ondansetron HCl (Zofran) 4 mg IV Q8H PRN PRN Reason: Nausea And Vomiting Sodium Chloride (Sodium Chloride Flush Syringe 10 Ml) 10 ml IV BID SOPHIE Sodium Chloride (Sodium Chloride Flush Syringe 10 Ml) 10 ml IV PRN PRN PRN Reason: LINE FLUSH Review of Systems Constitutional: fever Respiratory: cough, shortness of breath Exam - Constitutional General appearance: Present: no acute distress, cachectic - EENT Eyes: Present: PERRL, EOM intact ENT: hearing intact, clear oral mucosa, dentition normal - Neck Neck: Present: supple, normal ROM - Respiratory Respiratory: bilateral: wheezing - Cardiovascular Rhythm: regular Heart Sounds: Present: S1 & S2 - Extremities Extremities: no ischemia, No edema Peripheral Pulses: within normal limits - Abdominal General gastrointestinal: Present: soft, non-tender, non-distended - Integumentary Integumentary: Present: clear, warm, dry - Musculoskeletal Musculoskeletal: strength equal bilaterally - Psychiatric Psychiatric: appropriate mood/affect, intact judgment & insight - Neurologic Neurologic: CNII-XII intact, moves all extremities Results - Labs CBC & Chem 7: 01/15/19 03:25 01/15/19 03:25 Labs: Abnormal lab results 01/15/19 01/15/19 01/15/19 Range/Units 03:25 03:25 03:25 WBC 22.5 H (4.5-11.0) K/mm3 MCV 95 H (84-94) fl Seg Neuts % (Manual) 75.0 H (40.0-70.0) % Lymphocytes % (Manual) 3.0 L (13.4-35.0) % Monocytes % (Manual) 9.0 H (0.0-7.3) % Seg Neutrophils # Man 16.9 H (1.8-7.7) K/mm3 Lymphocytes # (Manual) 0.7 L (1.2-5.4) K/mm3 Monocytes # (Manual) 2.0 H (0.0-0.8) K/mm3 Sodium 135 L (137-145) mmol/L BUN 23 H (9-20) mg/dL Glucose 216 H (75-100) mg/dL NT-Pro-B Natriuret Pep 1123 H (0-900) pg/mL Albumin 3.6 L (3.9-5) g/dL Assessment and Plan - Patient Problems (1) COPD with acute exacerbation Current Visit: Yes Status: Acute Plan to address problem: Patient admitted to the medical floor and will place on nebulizer treatments and also on IV steroid. We will keep O2 saturation greater than 92%. (2) Diabetes mellitus Current Visit: No Status: Acute Plan to address problem: We will monitor Accu-Cheks and continue routine home medications (3) Leucocytosis Current Visit: Yes Status: Acute Plan to address problem: Will monitor CBC. No obvious source of infection but probably secondary to underlying bronchitis. Patient placed on empiric IV antibiotics. (4) DVT prophylaxis Current Visit: Yes Status: Acute Plan to address problem: Patient placed on subcutaneous heparin (5) Full code status Current Visit: Yes Status: Acute
[2019-01-15] MEDS: methylPREDNISolone Sod Succinate 40 MG/1 ML INJ IV SCH ×2 (13:23→22:15)
--- NOTE | 2019-01-15 13:26 | Event Note ---
Date: 01/15/19 Patient seen and examined Appears very agitated, refusing treatment, Admitted for elevated white count/SIRS and COPD exacerbation Will consult psych for further evaluation for acute psychosis
[2019-01-15 15:32] LABS: Bilirubin,Urine NEG (Negative); Blood,Urine NEG (Negative); Color,Urine Yellow (Yellow); Mucus,Urine FEW /HPF; Urobilinogen,Urine < 2.0 mg/dL (<2.0)
[2019-01-15] MEDS: INSULIN REGULAR, HUMAN 100 UNITS/1 ML SUB-Q SCH ×2 (17:13→22:15)
[2019-01-16 05:39] LABS: Hematocrit 40.9 % (35.5-45.6); Hemoglobin 13.4 gm/dl (11.8-15.2); Mean Corpuscular HGB Conc 33 % (32-34); Mean Corpuscular Volume 95 fl (84-94); Platelet Count 172 K/mm3 (140-440); Red Blood Count 4.29 M/mm3 (3.65-5.03); Red Cell Distribution Width 13.6 % (13.2-15.2)
[2019-01-16 05:47] LABS: INR 0.95 (0.87-1.13)
[2019-01-16 05:48] LABS: Partial Thromboplastin Time 32.7 Sec. (24.2-36.6)
[2019-01-16 05:53] LABS: BUN/Creatinine Ratio 29; Blood Urea Nitrogen 40 mg/dL (9-20); Calcium 9.7 mg/dL (8.4-10.2); Hemolysis Index 5
[2019-01-16] MEDS: methylPREDNISolone Sod Succinate 40 MG/1 ML INJ IV SCH (06:11)
[2019-01-16] MEDS: INSULIN REGULAR, HUMAN 100 UNITS/1 ML SUB-Q SCH (07:43)
[2019-01-16 07:48] VITALS: BP 134/85
[2019-01-16 09:55] LABS: Band Neutrophils # (Manual) 7.6 K/mm3; Basophils % (Manual) 0 % (0.0-1.8); Eosinophils % (Manual) 0 % (0.0-4.3); Total Cells Counted 100
[2019-01-16 09:56] LABS: Platelet Estimate Consistent w Auto; RBC Morphology Normal
--- NOTE | 2019-01-16 11:38 | Discharge Summary ---
Providers - Providers Date of Admission: 01/15/19 06:39 Date of discharge: 01/16/19 Attending physician: GIANNI GUERIN 01/15/19 13:13 Consult to Mental Health [CONS] Routine Reason For Exam: psychosis Place consult to:: mental health Notified:: yes Phone number called:: [phone] Was contact made?: Yes If yes, spoke with:: [email or web address] Time called:: 13:42 Comment:: dariel 01/16/19 10:07 Consult to Physician [CONS] Routine Comment: Consulting Provider: MELODIE SANTANA Physician Instructions: Reason For Exam: gm -ve bacteremia Primary care physician: [employer] Hospitalization Condition: Stable Hospital course: Patient is a 68-year-old male with known history of COPD and diabetes mellitus presented to the emergency room complaining of cough and shortness of breath which has been ongoing for the past few days. He also reported having some fever but denies any chills. Upon arrival in the emergency room his work-up reveals a leukocytosis of about 22,000, chest x-ray was within normal limits except for COPD changes. blood cx grew Gm -ve rods. But today he refused to stay hospital as he was not allowed to smoke. He signed AMA paper and left the hospital. His working diagnosis and risk of leaving AMA explained with risk management, he vwebalized understanding. Discharge diagnosis: (1) COPD with acute exacerbation (2) Diabetes mellitus type 2 uncontrolled (3) Sepsis with bacteremia with gm -ve rods (4) Tobacco abuse (5) Full code status Disposition: [id number] LEFT AGAINST MED ADVICE Core Measure Documentation - Palliative Care Palliative Care/ Comfort Measures: Not Applicable - Core Measures Any of the following diagnoses?: none Exam - Constitutional Vitals: Temp Pulse Resp BP Pulse Ox 98.0 F 76 20 134/85 94 01/16/19 07:25 01/16/19 07:25 01/16/19 07:25 01/16/19 07:25 01/16/19 07:25 General appearance: Present: other (very agitated) - Neck Neck: Present: supple, normal ROM - Respiratory Respiratory effort: normal - Cardiovascular Heart Sounds: Present: S1 & S2 - Extremities Extremities: No edema - Abdominal General gastrointestinal: Present: soft, non-distended - Integumentary Integumentary: Present: clear, dry - Musculoskeletal Musculoskeletal: gait normal, strength equal bilaterally - Psychiatric Psychiatric: no cooperative, agitated - Neurologic Neurologic: moves all extremities Plan Follow up with: PRIMARY CARE, [Primary Care Provider] - 3-5 Days
[2019-01-16] MEDS ORDERED: MEROPENEM/NS 500 MG/50 ML 500 MG/50 ML BAG IV SCH (12:00)
== END 2019-01-16 11:30 | disposition left against medical advice (07) | DRG 872 ==
LOC: SUATTDRO 00:45 → ED 00:45 → 2B-ACE 06:39
PROVIDERS: ADMIT Internal Medicine Geriatric Medicine; ATTEND Internal Medicine
DX: A41.9 Sepsis, unspecified organism (principal); J44.1 Chronic obstructive pulmonary disease with (acute) exacerbation; E11.9 Type 2 diabetes mellitus without complications; I50.9 Heart failure, unspecified; Z53.29 Procedure and treatment not carried out because of patient's decision for other reasons; G89.29 Other chronic pain; M10.9 Gout, unspecified; I11.0 Hypertensive heart disease with heart failure; F17.210 Nicotine dependence, cigarettes, uncomplicated; F10.10 Alcohol abuse, uncomplicated; Y90.9 Presence of alcohol in blood, level not specified; I25.10 Atherosclerotic heart disease of native coronary artery without angina pectoris; I25.2 Old myocardial infarction; Z79.84 Long term (current) use of oral hypoglycemic drugs; Z79.899 Other long term (current) drug therapy; Z88.0 Allergy status to penicillin; Z83.3 Family history of diabetes mellitus
CPT/HCPCS: 36415; 71046; 80048; 80053; 81001; 82962; 83880; 84484; 85007; 85025; 85610; 85730; 87040; 87076; 87086; 87116; 87186; 93005; 93010; 96360; G0378; J0456; J0696; J1815; J1956; J2405; J2920; J2930; J7050

== ENCOUNTER 2019-01-16 21:13 | Inpatient (IN) | payer MEDICARE ==
--- NOTE | 2019-01-16 22:15 | Emergency Department Report ---
Blank Doc - Documentation Documentation: 68-year-old male that presents with abdominal pain with n/v and URI symptoms. Patient left AMA this morning and returned today. This initial assessment/diagnostic orders/clinical plan/treatment(s) is/are subject to change based on patient's health status, clinical progression and re- assessment by fellow clinical providers in the ED. Further treatment and workup at subsequent clinical providers discretion. Patient/guardians urged not to elope from the ED as their condition may be serious if not clinically assessed and managed. Initial orders include: 1- Patient sent to MAIN ED for further evaluation and treatment 2- labs 3- UA
[2019-01-16 22:48] LABS: Hematocrit 39.5 % (35.5-45.6); Hemoglobin 13.1 gm/dl (11.8-15.2); Mean Corpuscular HGB Conc 33 % (32-34); Mean Corpuscular Volume 95 fl (84-94); Platelet Count 182 K/mm3 (140-440); Red Blood Count 4.18 M/mm3 (3.65-5.03); Red Cell Distribution Width 13.5 % (13.2-15.2)
[2019-01-16 23:11] LABS: Albumin 3.6 g/dL (3.9-5); Calcium 9.5 mg/dL (8.4-10.2)
[2019-01-16 23:23] LABS: Basophils % (Manual) 0 % (0.0-1.8); Eosinophils % (Manual) 0 % (0.0-4.3); RBC Morphology Normal; Total Cells Counted 100
--- NOTE | 2019-01-17 00:36 | Emergency Department Report ---
ED General Adult HPI - General Chief complaint: Abdominal Pain Stated complaint: ABD PAIN, COLD, RUNNY NOSE Time Seen by Provider: 01/16/19 22:12 Source: patient Mode of arrival: Ambulatory Limitations: No Limitations - History of Present Illness Initial comments: The patient presents to the emergency department with a chief complaint of abdominal pain. Patient was admitted to this health care facility and left AGAINST MEDICAL ADVICE morning. Patient was admitted to the hospital for sepsis. Patient's only complaint currently is abdominal pain and upset stomach. Patient denies any chest pain, shortness breath, or headache. -: unknown Location: abdomen Radiation: non-radiation Severity scale (0 -10): 2 Quality: aching Consistency: constant Improves with: none Worsens with: none Associated Symptoms: denies other symptoms Treatments Prior to Arrival: none - Related Data Home Medications Medication Instructions Recorded Confirmed Last Taken Lisinopril [Zestril TAB] 40 mg PO QDAY 09/10/14 01/15/19 1 Day Ago ~04/11/16 Previous Rx's Medication Instructions Recorded Last Taken Type Metformin HCl [Glucophage] 1,000 mg PO BID #60 tablet 01/22/17 Unknown Rx glipiZIDE [Glucotrol] 10 mg PO BID #60 tablet 01/22/17 Unknown Rx Omeprazole Magnesium [PriLOSEC Otc] 20 mg PO QDAY #20 tablet. 05/28/17 Unknown Rx Loratadine [Claritin] 10 mg PO DAILY PRN #20 tablet 05/31/17 Unknown Rx Fluticasone [Flonase] 1 spray NS QDAY #1 bottle 11/22/18 Unknown Rx Ibuprofen [Motrin] 600 mg PO Q8H PRN #30 tablet 11/22/18 Unknown Rx Magnesium Oxide [Magnesium] 400 mg PO QDAY #7 capsule 11/22/18 Unknown Rx Naproxen 500 mg PO Q8H PRN #20 tablet 11/25/18 Unknown Rx Allergies Allergy/AdvReac Type Severity Reaction Status Date / Time Penicillins Allergy Mild Rash Verified 07/26/18 15:41 ED Review of Systems ROS: Stated complaint: ABD PAIN, COLD, RUNNY NOSE Other details as noted in HPI Constitutional: denies: chills, fever Eyes: denies: eye pain, eye discharge, vision change ENT: denies: ear pain, throat pain Respiratory: denies: cough, shortness of breath, wheezing Cardiovascular: denies: chest pain, palpitations Endocrine: no symptoms reported Gastrointestinal: abdominal pain. denies: nausea, diarrhea Genitourinary: denies: urgency, dysuria Musculoskeletal: denies: back pain, joint swelling, arthralgia Skin: denies: rash, lesions Neurological: denies: headache, weakness, paresthesias Psychiatric: denies: anxiety, depression Hematological/Lymphatic: denies: easy bleeding, easy bruising ED Past Medical Hx - Past Medical History Previous Medical History?: Yes Hx Hypertension: Yes Hx Heart Attack/AMI: Yes Hx Diabetes: Yes Hx Arthritis: Yes (gout) Hx COPD: Yes (Admitted with acute exacerbation) Hx Dementia: No Additional medical history: gout, Chronic Pain in legs - Surgical History Past Surgical History?: Yes Additional Surgical History: ribs - Social History Smoking Status: Current Every Day Smoker Substance Use Type: None - Medications Home Medications: Home Medications Medication Instructions Recorded Confirmed Last Taken Type Lisinopril [Zestril TAB] 40 mg PO QDAY 09/10/14 01/15/19 1 Day Ago History ~04/11/16 Metformin HCl [Glucophage] 1,000 mg PO BID #60 tablet 01/22/17 01/15/19 Unknown Rx glipiZIDE [Glucotrol] 10 mg PO BID #60 tablet 01/22/17 01/15/19 Unknown Rx Omeprazole Magnesium [PriLOSEC Otc] 20 mg PO QDAY #20 tablet. 05/28/17 01/15/19 Unknown Rx Loratadine [Claritin] 10 mg PO DAILY PRN #20 tablet 05/31/17 01/15/19 Unknown Rx Fluticasone [Flonase] 1 spray NS QDAY #1 bottle 11/22/18 01/15/19 Unknown Rx Ibuprofen [Motrin] 600 mg PO Q8H PRN #30 tablet 11/22/18 01/15/19 Unknown Rx Magnesium Oxide [Magnesium] 400 mg PO QDAY #7 capsule 11/22/18 01/15/19 Unknown Rx Naproxen 500 mg PO Q8H PRN #20 tablet 11/25/18 01/15/19 Unknown Rx ED Physical Exam - General Limitations: No Limitations General appearance: alert, in no apparent distress - Head Head exam: Present: atraumatic, normocephalic - Eye Eye exam: Present: normal appearance, PERRL, EOMI - ENT ENT exam: Present: mucous membranes moist - Neck Neck exam: Present: normal inspection - Respiratory Respiratory exam: Present: normal lung sounds bilaterally. Absent: respiratory distress - Cardiovascular Cardiovascular Exam: Present: regular rate, normal rhythm. Absent: systolic murmur, diastolic murmur, rubs, gallop - GI/Abdominal GI/Abdominal exam: Present: soft, tenderness (diffuse tenderness to palpation), normal bowel sounds. Absent: distended - Rectal Rectal exam: Present: deferred - Extremities Exam Extremities exam: Present: normal inspection - Back Exam Back exam: Present: normal inspection - Neurological Exam Neurological exam: Present: alert, oriented X3 - Psychiatric Psychiatric exam: Present: normal affect, normal mood - Skin Skin exam: Present: warm, dry, intact, normal color. Absent: rash ED Course Vital Signs 01/16/19 21:28 Temperature 98.0 F Pulse Rate 78 Respiratory 20 Rate Blood Pressure 197/84 O2 Sat by Pulse 95 Oximetry ED Medical Decision Making - Lab Data Result diagrams: 01/17/19 00:09 01/17/19 00:09 Lab Results 01/16/19 01/16/19 01/17/19 Range/Units 22:37 22:37 00:09 WBC 21.6 H 19.8 H (4.5-11.0) K/mm3 RBC 4.18 3.94 (3.65-5.03) M/mm3 Hgb 13.1 12.4 (11.8-15.2) gm/dl Hct 39.5 37.4 (35.5-45.6) % MCV 95 H 95 H (84-94) fl MCH 31 31 (28-32) pg MCHC 33 33 (32-34) % RDW 13.5 13.4 (13.2-15.2) % Plt Count 182 168 (140-440) K/mm3 Lymph % (Auto) 2.8 L (13.4-35.0) % Thomas % (Auto) 7.1 (0.0-7.3) % Eos % (Auto) 0.0 (0.0-4.3) % Baso % (Auto) 0.1 (0.0-1.8) % Lymph # 0.6 L (1.2-5.4) K/mm3 Thomas # 1.4 H (0.0-0.8) K/mm3 Eos # 0.0 (0.0-0.4) K/mm3 Baso # 0.0 (0.0-0.1) K/mm3 Add Manual Diff Complete Total Counted 100 Seg Neutrophils % Portable Grinding Machine Operator 90.0 H Seg Neuts % (Manual) 89.0 H (40.0-70.0) % Band Neutrophils % 0 % Lymphocytes % (Manual) 4.0 L (13.4-35.0) % Reactive Lymphs % (Man) 0 % Monocytes % (Manual) 7.0 (0.0-7.3) % Eosinophils % (Manual) 0 (0.0-4.3) % Basophils % (Manual) 0 (0.0-1.8) % Metamyelocytes % 0 % Myelocytes % 0 % Promyelocytes % 0 % Blast Cells % 0 % Nucleated RBC % Not Reportable Seg Neutrophils # 17.8 H (1.8-7.7) K/mm3 Seg Neutrophils # Man 19.2 H (1.8-7.7) K/mm3 Band Neutrophils # 0.0 K/mm3 Lymphocytes # (Manual) 0.9 L (1.2-5.4) K/mm3 Abs React Lymphs (Man) 0.0 K/mm3 Monocytes # (Manual) 1.5 H (0.0-0.8) K/mm3 Eosinophils # (Manual) 0.0 (0.0-0.4) K/mm3 Basophils # (Manual) 0.0 (0.0-0.1) K/mm3 Metamyelocytes # 0.0 K/mm3 Myelocytes # 0.0 K/mm3 Promyelocytes # 0.0 K/mm3 Blast Cells # 0.0 K/mm3 WBC Morphology Not Reportable Hypersegmented Neuts Not Reportable Hyposegmented Neuts Not Reportable Hypogranular Neuts Not Reportable Smudge Cells Not Reportable Toxic Granulation Not Reportable Toxic Vacuolation Not Reportable Dohle Bodies Not Reportable Pelger-Huet Anomaly Not Reportable Kathryn Rods Not Reportable Platelet Estimate Not Reportable Clumped Platelets Not Reportable Plt Clumps, EDTA Not Reportable Large Platelets Not Reportable Giant Platelets Not Reportable Platelet Satelliting Not Reportable Plt Morphology Comment Not Reportable RBC Morphology Normal Dimorphic RBCs Not Reportable Polychromasia Not Reportable Hypochromasia Not Reportable Poikilocytosis Not Reportable Anisocytosis Not Reportable Microcytosis Not Reportable Macrocytosis Not Reportable Spherocytes Not Reportable Pappenheimer Bodies Not Reportable Sickle Cells Not Reportable Target Cells Not Reportable Tear Drop Cells Not Reportable Ovalocytes Not Reportable Helmet Cells Not Reportable [place] Bodies Not Reportable [place] Rings Not Reportable Ca Cells Not Reportable Bite Cells Not Reportable Crenated Cell Not Reportable Elliptocytes Not Reportable Acanthocytes (Spur) Not Reportable Rouleaux Not Reportable Hemoglobin C Crystals Not Reportable Schistocytes Not Reportable Malaria parasites Not Reportable Leon Bodies Not Reportable Hem Pathologist Commnt No Sodium 134 L (137-145) mmol/L Potassium 4.4 (3.6-5.0) mmol/L Chloride 97.9 L (98-107) mmol/L Carbon Dioxide 24 (22-30) mmol/L Anion Gap 17 mmol/L BUN 43 H (9-20) mg/dL Creatinine 1.5 (0.8-1.5) mg/dL Estimated GFR 56 ml/min BUN/Creatinine Ratio 29 % Glucose 285 H (75-100) mg/dL Lactic Acid (0.7-2.0) mmol/L Calcium 9.5 (8.4-10.2) mg/dL Total Bilirubin 0.40 (0.1-1.2) mg/dL AST 20 (5-40) units/L ALT 20 (7-56) units/L Alkaline Phosphatase 68 (35-129) units/L Total Protein 7.1 (6.3-8.2) g/dL Albumin 3.6 L (3.9-5) g/dL Albumin/Globulin Ratio 1.0 % Lipase 30 (13-60) units/L 01/17/19 01/17/19 Range/Units 00:09 00:09 WBC (4.5-11.0) K/mm3 RBC (3.65-5.03) M/mm3 Hgb (11.8-15.2) gm/dl Hct (35.5-45.6) % MCV (84-94) fl MCH (28-32) pg MCHC (32-34) % RDW (13.2-15.2) % Plt Count (140-440) K/mm3 Lymph % (Auto) (13.4-35.0) % Thomas % (Auto) (0.0-7.3) % Eos % (Auto) (0.0-4.3) % Baso % (Auto) (0.0-1.8) % Lymph # (1.2-5.4) K/mm3 Thomas # (0.0-0.8) K/mm3 Eos # (0.0-0.4) K/mm3 Baso # (0.0-0.1) K/mm3 Add Manual Diff Total Counted Seg Neutrophils % Seg Neuts % (Manual) (40.0-70.0) % Band Neutrophils % % Lymphocytes % (Manual) (13.4-35.0) % Reactive Lymphs % (Man) % Monocytes % (Manual) (0.0-7.3) % Eosinophils % (Manual) (0.0-4.3) % Basophils % (Manual) (0.0-1.8) % Metamyelocytes % % Myelocytes % % Promyelocytes % % Blast Cells % % Nucleated RBC % Seg Neutrophils # (1.8-7.7) K/mm3 Seg Neutrophils # Man (1.8-7.7) K/mm3 Band Neutrophils # K/mm3 Lymphocytes # (Manual) (1.2-5.4) K/mm3 Abs React Lymphs (Man) K/mm3 Monocytes # (Manual) (0.0-0.8) K/mm3 Eosinophils # (Manual) (0.0-0.4) K/mm3 Basophils # (Manual) (0.0-0.1) K/mm3 Metamyelocytes # K/mm3 Myelocytes # K/mm3 Promyelocytes # K/mm3 Blast Cells # K/mm3 WBC Morphology Hypersegmented Neuts Hyposegmented Neuts Hypogranular Neuts Smudge Cells Toxic Granulation Toxic Vacuolation Dohle Bodies Pelger-Huet Anomaly Kathryn Rods Platelet Estimate Clumped Platelets Plt Clumps, EDTA Large Platelets Giant Platelets Platelet Satelliting Plt Morphology Comment RBC Morphology Dimorphic RBCs Polychromasia Hypochromasia Poikilocytosis Anisocytosis Microcytosis Macrocytosis Spherocytes Pappenheimer Bodies Sickle Cells Target Cells Tear Drop Cells Ovalocytes Helmet Cells Marks-[place] Bodies [place] Rings Ca Cells Bite Cells Crenated Cell Elliptocytes Acanthocytes (Spur) Rouleaux Hemoglobin C Crystals Schistocytes Malaria parasites Leon Bodies Hem Pathologist Commnt Sodium 135 L (137-145) mmol/L Potassium 4.2 (3.6-5.0) mmol/L Chloride 99.1 (98-107) mmol/L Carbon Dioxide 24 (22-30) mmol/L Anion Gap 16 mmol/L BUN 42 H (9-20) mg/dL Creatinine 1.5 (0.8-1.5) mg/dL Estimated GFR 56 ml/min BUN/Creatinine Ratio 28 % Glucose 263 H (75-100) mg/dL Lactic Acid 1.00 (0.7-2.0) mmol/L Calcium 9.3 (8.4-10.2) mg/dL Total Bilirubin 0.40 (0.1-1.2) mg/dL AST 17 (5-40) units/L ALT 18 (7-56) units/L Alkaline Phosphatase 62 (35-129) units/L Total Protein 6.6 (6.3-8.2) g/dL Albumin 3.3 L (3.9-5) g/dL Albumin/Globulin Ratio 1.0 % Lipase (13-60) units/L - Radiology Data Radiology results: report reviewed - Medical Decision Making The patient's medical record was reviewed and the cultures show growth of Negative rods Critical care attestation.: If time is entered above; I have spent that time in minutes in the direct care of this critically ill patient, excluding procedure time. ED Disposition Clinical Impression: Leukocytosis, Bacteremia Disposition: [id number] OP ADMIT IP TO THIS HOSP Is pt being admited?: Yes Does the pt Need Aspirin: No Condition: Fair
[2019-01-17 00:39] LABS: Basophils % (Auto) 0.1 % (0.0-1.8); Hematocrit 37.4 % (35.5-45.6); Hemoglobin 12.4 gm/dl (11.8-15.2); Lymphocytes # (Auto) 0.6 K/mm3 (1.2-5.4); Lymphocytes % (Auto) 2.8 % (13.4-35.0); Mean Corpuscular HGB Conc 33 % (32-34); Mean Corpuscular Volume 95 fl (84-94); Monocytes # (Auto) 1.4 K/mm3 (0.0-0.8); Monocytes % (Auto) 7.1 % (0.0-7.3); Platelet Count 168 K/mm3 (140-440); Red Blood Count 3.94 M/mm3 (3.65-5.03); Red Cell Distribution Width 13.4 % (13.2-15.2)
[2019-01-17 01:03] LABS: Albumin 3.3 g/dL (3.9-5); Calcium 9.3 mg/dL (8.4-10.2)
--- NOTE | 2019-01-17 01:36 | Cat Scan Report ---
CT abdomen pelvis w con INDICATION / CLINICAL INFORMATION: Patient complains of "Generalized" abdominal pain. Omnipaque 300 / 100ml's was used for this exam.. TECHNIQUE: Axial CT imaging of abdomen and pelvis was obtained with IV contrast. Coronal and sagittal reformatte d imaging obtained and reviewed. All CT scans at this location are performed using CT dose reduction for ALARA by means of automated exposure control. COMPARISON: None available. FINDINGS: CT abdomen with contrast demonstrates grossly normal appearance of the liver, spleen, pancreas, kidne ys, and adrenal glands. Gallbladder is present and without obvious abnormality. No biliary dilatation . The abdominal aorta contains a small amount of calcific plaque and is without aneurysm. CT pelvis with contrast demonstrates moderate enlargement of the prostate gland. No pelvic mass, free fluid, or focal inflammatory changes noted. 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 For this p atient, the cecum is in the LEFT lower quadrant. A normal appendix is identified in the LEFT lower qu adrant. Moderate amount retained stool is seen throughout the colon. No acute GI tract abnormality is noted. Visualized lung bases are grossly clear. There are old healed right posterior rib fractures noted. No acute osseous abnormality. IMPRESSION: 1. No acute significant finding of the abdomen or pelvis is identified. 2. Moderate amount retained stool is present consistent with constipation. 3. Incidental finding of congenital malrotation. For future reference, the appendix is in the left lo wer quadrant of this patient's abdomen Signer Name: Edna Lopez MD Signed: 01/17/2019 1:32 AM Workstation Name: [email or web address]
[2019-01-17 03:21] LABS: Bacteria,Urine 1+ /HPF (Negative); Bilirubin,Urine NEG (Negative); Blood,Urine SM (Negative); Color,Urine Yellow (Yellow); Mucus,Urine FEW /HPF
[2019-01-17] MEDS ORDERED: ONDANSETRON 4 MG/2 ML INJ IV PRN (03:53)
[2019-01-17] MEDS ORDERED: MAGNESIUM HYDROXIDE (MOM) ORAL LIQD UDC PO PRN (03:53)
[2019-01-17] MEDS ORDERED: DEXTROSE 50% IN WATER (25GM) 50 ML SYRINGE IV PRN (03:53)
[2019-01-17] MEDS ORDERED: SODIUM CHLORIDE 0.9% 1000 ML 1,000 ML IV SCH (04:00)
--- NOTE | 2019-01-17 05:39 | History and Physical Report ---
History of Present Illness Date of examination: 01/17/19 Date of admission: 01/17/19 02:13 Chief complaint: Abdominal pain History of present illness: Patient is a 68-year-old male with known history of diabetes mellitus hypertension COPD. He was recently seen in this hospital few days ago and left AMA he had been admitted for COPD exacerbation and also had a leukocytosis during his recent admission. Presents to the emergency room today with abdominal pain which is said to be generalized. He denies any nausea vomiting and no diarrhea. Denies any chest pain or shortness of breath. Review of his recent labs done during his recent admission showed gram-negative rods on the blood culture. He was given some IV fluids in the emergency room and started on empiric IV antibiotics Past History Past Medical History: COPD, diabetes, hypertension Past Surgical History: Other (Right foot surgery in the past) Social history: smoking (2 packs/day), alcohol abuse (Drinks liquid on a daily basis) Family history: diabetes (Brother has diabetes mellitus) Medications and Allergies Allergies Allergy/AdvReac Type Severity Reaction Status Date / Time Penicillins Allergy Mild Rash Verified 07/26/18 15:41 Home Medications Medication Instructions Recorded Confirmed Last Taken Type Lisinopril [Zestril TAB] 40 mg PO QDAY 09/10/14 01/17/19 1 Day Ago History ~04/11/16 Metformin HCl [Glucophage] 1,000 mg PO BID #60 tablet 01/22/17 01/17/19 Unknown Rx glipiZIDE [Glucotrol] 10 mg PO BID #60 tablet 01/22/17 01/17/19 Unknown Rx Omeprazole Magnesium [PriLOSEC Otc] 20 mg PO QDAY #20 tablet. 05/28/17 01/17/19 Unknown Rx Loratadine [Claritin] 10 mg PO DAILY PRN #20 tablet 05/31/17 01/17/19 Unknown Rx Fluticasone [Flonase] 1 spray NS QDAY #1 bottle 11/22/18 01/17/19 Unknown Rx Ibuprofen [Motrin] 600 mg PO Q8H PRN #30 tablet 11/22/18 01/17/19 Unknown Rx Magnesium Oxide [Magnesium] 400 mg PO QDAY #7 capsule 11/22/18 01/17/19 Unknown Rx Naproxen 500 mg PO Q8H PRN #20 tablet 11/25/18 01/17/19 Unknown Rx Active Meds: Active Medications Acetaminophen (Tylenol) 650 mg PO Q4H PRN PRN Reason: Pain MILD(1-3)/Fever >100.5/LOJA Dextrose (D50w (25gm) Syringe) 0 ml IV Q30MIN PRN; Protocol PRN Reason: Hypoglycemia Sodium Chloride (Nacl 0.9% 1000 Ml) 1,000 mls @ 125 mls/hr IV DIRECT SOPHIE Levofloxacin/Dextrose (Levaquin 750mg/150ml) 750 mg in 150 mls @ 100 mls/hr IV Q24HR SOPHIE; Protocol Magnesium Hydroxide (Milk Of Magnesia) 30 ml PO Q4H PRN PRN Reason: Constipation Ondansetron HCl (Zofran) 4 mg IV Q8H PRN PRN Reason: Nausea And Vomiting Sodium Chloride (Sodium Chloride Flush Syringe 10 Ml) 10 ml IV BID SOPHIE Sodium Chloride (Sodium Chloride Flush Syringe 10 Ml) 10 ml IV PRN PRN PRN Reason: LINE FLUSH Review of Systems Gastrointestinal: abdominal pain Exam - Constitutional Vitals: Temp Pulse Resp BP Pulse Ox 98.0 F 78 20 168/86 98 01/16/19 21:28 01/17/19 03:10 01/17/19 03:10 01/17/19 03:10 01/17/19 03:10 General appearance: Present: no acute distress, well-nourished - EENT Eyes: Present: PERRL, EOM intact ENT: hearing intact, clear oral mucosa, dentition normal - Neck Neck: Present: supple, normal ROM - Respiratory Respiratory effort: normal Respiratory: bilateral: CTA - Cardiovascular Rhythm: regular Heart Sounds: Present: S1 & S2 - Extremities Extremities: no ischemia, No edema Peripheral Pulses: within normal limits - Abdominal General gastrointestinal: Present: soft, non-tender, non-distended - Integumentary Integumentary: Present: clear, warm, dry - Musculoskeletal Musculoskeletal: strength equal bilaterally - Psychiatric Psychiatric: appropriate mood/affect, intact judgment & insight - Neurologic Neurologic: CNII-XII intact, moves all extremities Results - Labs CBC & Chem 7: 01/17/19 00:09 01/17/19 00:09 Labs: Abnormal lab results 01/16/19 01/16/19 01/17/19 Range/Units 22:37 22:37 00:09 WBC 21.6 H 19.8 H (4.5-11.0) K/mm3 MCV 95 H 95 H (84-94) fl Lymph % (Auto) 2.8 L (13.4-35.0) % Lymph # 0.6 L (1.2-5.4) K/mm3 Rawlins # 1.4 H (0.0-0.8) K/mm3 Seg Neutrophils % 90.0 H (40.0-70.0) % Seg Neuts % (Manual) 89.0 H (40.0-70.0) % Lymphocytes % (Manual) 4.0 L (13.4-35.0) % Seg Neutrophils # 17.8 H (1.8-7.7) K/mm3 Seg Neutrophils # Man 19.2 H (1.8-7.7) K/mm3 Lymphocytes # (Manual) 0.9 L (1.2-5.4) K/mm3 Monocytes # (Manual) 1.5 H (0.0-0.8) K/mm3 Sodium 134 L (137-145) mmol/L Chloride 97.9 L (98-107) mmol/L BUN 43 H (9-20) mg/dL Glucose 285 H (75-100) mg/dL Albumin 3.6 L (3.9-5) g/dL Urine WBC (Auto) (0.0-6.0) /HPF 01/17/19 01/17/19 Range/Units 00:09 Unknown WBC (4.5-11.0) K/mm3 MCV (84-94) fl Lymph % (Auto) (13.4-35.0) % Lymph # (1.2-5.4) K/mm3 Raw[place]ins # (0.0-0.8) K/mm3 Seg Neutrophils % (40.0-70.0) % Seg Neuts % (Manual) (40.0-70.0) % Lymphocytes % (Manual) (13.4-35.0) % Seg Neutrophils # (1.8-7.7) K/mm3 Seg Neutrophils # Man (1.8-7.7) K/mm3 Lymphocytes # (Manual) (1.2-5.4) K/mm3 Monocytes # (Manual) (0.0-0.8) K/mm3 Sodium 135 L (137-145) mmol/L Chloride (98-107) mmol/L BUN 42 H (9-20) mg/dL Glucose 263 H (75-100) mg/dL Albumin 3.3 L (3.9-5) g/dL Urine WBC (Auto) 81.0 H (0.0-6.0) /HPF Assessment and Plan - Patient Problems (1) Abdominal pain Current Visit: Yes Status: Acute Plan to address problem: Etiology is unclear however patient indicates that he has history of GERD. Will consider placing on proton pump inhibitor if needed (2) Bacteremia Current Visit: Yes Status: Acute Plan to address problem: He has been placed on empiric IV antibiotics. Will await final identification of organism blood culture (3) Diabetes mellitus Current Visit: No Status: Chronic Plan to address problem: We will monitor Accu-Cheks and continue routine home medications. (4) DVT prophylaxis Current Visit: No Status: Acute Plan to address problem: Patient placed on subcutaneous heparin. (5) Full code status Current Visit: No Status: Acute
[2019-01-17] MEDS: ACETAMINOPHEN 325 MG TAB PO PRN (06:16)
[2019-01-17] MEDS ORDERED: MEROPENEM/NS 500 MG/50 ML 500 MG/50 ML BAG IV SCH (12:00)
[2019-01-17] MEDS: INSULIN REGULAR, HUMAN 100 UNITS/1 ML SUB-Q SCH ×3 (12:02→22:55)
[2019-01-17] MEDS: MEROPENEM/NS 500 MG/50 ML 500 MG/50 ML BAG IV SCH ×2 (12:02→16:37)
--- NOTE | 2019-01-17 14:32 | Consultation ---
History of Present Illness - Reason for Consult Consult date: 01/17/19 GNR bacteremia Requesting physician: GIANNI GUERIN - History of Present Illness The patient is a 68-year-old male with COPD, diabetes mellitus, hypertension, ongoing tobacco and alcohol use came into the emergency room initially on 01/14/2019 but left before he could be seen. He returned on 01/15/2019 with complaints of pain with urination as well as cough and shortness of breath. He was admitted to the hospital, blood cultures grew gram-negative rods but patient left AMA. He then returned to the hospital with complaints of abdominal pain and was hospitalized, started on IV antibiotics. He is hard of hearing. Complains of abdominal pain and having pain with urination prior to admission. He has otherwise been afebrile. He was noted to have leukocytosis. Denies nausea or vomiting. Denies diarrhea. Review of Systems: General: no fevers,chills or rigors HEENT: no new visual disturbance Respiratory: No cough, sputum, hemoptysis or shortness of breath Cardiovascular: No chest pain, syncope Gastrointestinal: No nausea, vomiting or diarrhea Genitourinary: + dysuria. no hematuria Musculoskeletal: No new or worsening neck pain or back pain Neurologic: No headaches, seizures Hematologic: No easy bruising or bleeding Endocrine: No night sweats or acute weight loss Skin: negative for rash, jaundice Psychiatric: No suicidal or homicidal ideation Past History Past Medical History: COPD, diabetes, hypertension Past Surgical History: Other (Right foot surgery in the past) Social history: smoking (2 packs/day), alcohol abuse (Drinks liquid on a daily basis) Family history: diabetes (Brother has diabetes mellitus) Medications and Allergies Allergies Allergy/AdvReac Type Severity Reaction Status Date / Time Penicillins Allergy Mild Rash Verified 07/26/18 15:41 Home Medications Medication Instructions Recorded Confirmed Last Taken Type Lisinopril [Zestril TAB] 40 mg PO QDAY 09/10/14 01/17/19 1 Day Ago History ~04/11/16 Metformin HCl [Glucophage] 1,000 mg PO BID #60 tablet 01/22/17 01/17/19 Unknown Rx glipiZIDE [Glucotrol] 10 mg PO BID #60 tablet 01/22/17 01/17/19 Unknown Rx Omeprazole Magnesium [PriLOSEC Otc] 20 mg PO QDAY #20 tablet. 05/28/17 01/17/19 Unknown Rx Loratadine [Claritin] 10 mg PO DAILY PRN #20 tablet 05/31/17 01/17/19 Unknown Rx Fluticasone [Flonase] 1 spray NS QDAY #1 bottle 11/22/18 01/17/19 Unknown Rx Ibuprofen [Motrin] 600 mg PO Q8H PRN #30 tablet 11/22/18 01/17/19 Unknown Rx Magnesium Oxide [Magnesium] 400 mg PO QDAY #7 capsule 11/22/18 01/17/19 Unknown Rx Naproxen 500 mg PO Q8H PRN #20 tablet 11/25/18 01/17/19 Unknown Rx Active Meds: Active Medications Acetaminophen (Tylenol) 650 mg PO Q4H PRN PRN Reason: Pain MILD(1-3)/Fever >100.5/LOJA Last Admin: 01/17/19 06:16 Dose: 650 mg Documented by: Dextrose (D50w (25gm) Syringe) 0 ml IV Q30MIN PRN; Protocol PRN Reason: Hypoglycemia Sodium Chloride (Nacl 0.9% 1000 Ml) 1,000 mls @ 125 mls/hr IV DIRECT SOPHIE Last Admin: 01/17/19 05:52 Dose: 125 mls/hr Documented by: Meropenem (Merrem/Ns 500 Mg/50 Ml) 500 mg in 50 mls @ 50 mls/hr IV Q8HR SOPHIE Last Admin: 01/17/19 12:02 Dose: 50 mls/hr Documented by: Insulin Human Regular (Humulin R) 0 units SUB-Q ACHS SOPHIE; Protocol Last Admin: 01/17/19 12:02 Dose: 4 units Documented by: Magnesium Hydroxide (Milk Of Magnesia) 30 ml PO Q4H PRN PRN Reason: Constipation Ondansetron HCl (Zofran) 4 mg IV Q8H PRN PRN Reason: Nausea And Vomiting Last Admin: 01/17/19 06:17 Dose: 4 mg Documented by: Sodium Chloride (Sodium Chloride Flush Syringe 10 Ml) 10 ml IV BID SOPHIE Last Admin: 01/17/19 12:02 Dose: 10 ml Documented by: Sodium Chloride (Sodium Chloride Flush Syringe 10 Ml) 10 ml IV PRN PRN PRN Reason: LINE FLUSH Physical Examination - Physical Exam Narrative exam: Physical Exam: Constitutional: Alert, cooperative. No acute distress Head, Ears, Nose: Normocephalic, atraumatic. External ears, nose normal. Hard of hearing. Eyes: Conjunctivae/corneas clear. No icterus. No ptosis. Neck: Supple, no meningeal signs Oral: edentulous. no thrush Cardiovascular: S1, S2 normal. Respiratory: Good air entry, clear to auscultation bilaterally GI: Soft, Mild epigastric tenderness; bowel sounds normal. No peritoneal signs Musculoskeletal: No pedal edema, no cyanosis. Skin: No rash or abscess Hem/Lymphatic: No palpable cervical or supraclavicular nodes. No lymphangitis Psych: Mood ok. Affect normal Neurological: Awake, alert, oriented. No gross abnormality - Constitutional Vitals: Vital Signs Temp Pulse Resp BP Pulse Ox 98.3 F 68 20 202/109 95 01/17/19 13:36 01/17/19 13:36 01/17/19 13:36 01/17/19 13:36 01/17/19 13:36 Temperature -Last 24 Hours Temperature 98.3 F Temperature 97.9 F Temperature 98.0 F Results - Labs CBC & Chem 7: 01/17/19 00:09 01/17/19 00:09 Labs: Abnormal lab results 01/16/19 01/16/19 01/17/19 Range/Units 22:37 22:37 00:09 WBC 21.6 H 19.8 H (4.5-11.0) K/mm3 MCV 95 H 95 H (84-94) fl Lymph % (Auto) 2.8 L (13.4-35.0) % Lymph # 0.6 L (1.2-5.4) K/mm3 [place] # 1.4 H (0.0-0.8) K/mm3 Seg Neutrophils % 90.0 H (40.0-70.0) % Seg Neuts % (Manual) 89.0 H (40.0-70.0) % Lymphocytes % (Manual) 4.0 L (13.4-35.0) % Seg Neutrophils # 17.8 H (1.8-7.7) K/mm3 Seg Neutrophils # Man 19.2 H (1.8-7.7) K/mm3 Lymphocytes # (Manual) 0.9 L (1.2-5.4) K/mm3 Monocytes # (Manual) 1.5 H (0.0-0.8) K/mm3 Sodium 134 L (137-145) mmol/L Chloride 97.9 L (98-107) mmol/L BUN 43 H (9-20) mg/dL Glucose 285 H (75-100) mg/dL POC Glucose (70-105) Albumin 3.6 L (3.9-5) g/dL Urine WBC (Auto) (0.0-6.0) /HPF 01/17/19 01/17/19 01/17/19 Range/Units 00:09 07:18 11:34 WBC (4.5-11.0) K/mm3 MCV (84-94) fl Lymph % (Auto) (13.4-35.0) % Lymph # (1.2-5.4) K/mm3 [place] # (0.0-0.8) K/mm3 Seg Neutrophils % (40.0-70.0) % Seg Neuts % (Manual) (40.0-70.0) % Lymphocytes % (Manual) (13.4-35.0) % Seg Neutrophils # (1.8-7.7) K/mm3 Seg Neutrophils # Man (1.8-7.7) K/mm3 Lymphocytes # (Manual) (1.2-5.4) K/mm3 Monocytes # (Manual) (0.0-0.8) K/mm3 Sodium 135 L (137-145) mmol/L Chloride (98-107) mmol/L BUN 42 H (9-20) mg/dL Glucose 263 H (75-100) mg/dL POC Glucose 241 H 289 H (70-105) Albumin 3.3 L (3.9-5) g/dL Urine WBC (Auto) (0.0-6.0) /HPF 01/17/19 Range/Units Unknown WBC (4.5-11.0) K/mm3 MCV (84-94) fl Lymph % (Auto) (13.4-35.0) % Lymph # (1.2-5.4) K/mm3 [place] # (0.0-0.8) K/mm3 Seg Neutrophils % (40.0-70.0) % Seg Neuts % (Manual) (40.0-70.0) % Lymphocytes % (Manual) (13.4-35.0) % Seg Neutrophils # (1.8-7.7) K/mm3 Seg Neutrophils # Man (1.8-7.7) K/mm3 Lymphocytes # (Manual) (1.2-5.4) K/mm3 Monocytes # (Manual) (0.0-0.8) K/mm3 Sodium (137-145) mmol/L Chloride (98-107) mmol/L BUN (9-20) mg/dL Glucose (75-100) mg/dL POC Glucose (70-105) Albumin (3.9-5) g/dL Urine WBC (Auto) 81.0 H (0.0-6.0) /HPF - Imaging and Cardiology Chest x-ray: report reviewed, image reviewed (no pneumonia seen) CT scan - abdomen: report reviewed, image reviewed (evidence of constipation. No pyelonephritis seen) Assessment and Plan Cultures: 01/15/2019 blood culture: GNR 01/15/2019 MRSA nasal culture: Negative 01/15/2019 urine culture: No significant growth 01/17/2019 blood culture: In process A/P: 68-year-old male with COPD, diabetes mellitus, hypertension, ongoing tobacco and alcohol use came into the emergency room initially on 01/14/2019 but left before he could be seen. He returned on 01/15/2019 with complaints of pain with urination as well as cough and shortness of breath, LEFT AMA and then re-admitted: #Leukocytosis, Gram-negative bacteremia: UA shows pyuria and patient was symptomatic with dysuria. Denies any h/o prostate issues. CT without pyelonephritis or hydronephrosis. LFTs normal, GB also appeared normal on CT. So likely source is urine. Treat empirically with IV Cefepime. May need outpatient urology eval. #Acute kidney injury: Renally dose antibiotics. #Epigastric abdominal pain # DM # PCN allergy: remote. Tolerated Meropenem. Low risk with Cefepime. Recs: d/charley Meropenem started IV Cefepime 1 gm q8 hrs follow up blood culture results monitor WBC d/w Dr. Guerin. Robby Ford MD, FACP [facility] C: [phone] O: [phone] F: [phone]
--- NOTE | 2019-01-17 15:33 | Progress Note ---
Assessment and Plan /Leukocytosis with Gram-negative bacteremia: - UA shows pyuria and patient was symptomatic with dysuria. CT without pyelonephritis or hydronephrosis. likely source is urine. Treat empirically with IV Cefepime. May need outpatient urology eval. ID consulted and following, ordered repeat blood culture /Acute kidney injury: Renally dose antibiotics. IV fluid / DM type 2 -continue consistent carb diet and SSI / COPD with exacerbation, continue nebs, tapering steroid /Possible psychosis with aggressive behavior - Psych consult placed - We'll give him as needed Xanax /DVT prophylaxis Brief history: 68-year-old male with COPD, diabetes mellitus, hypertension, ongoing tobacco and alcohol use came into the emergency room initially on 01/15/2019 but left AMA. He returned on 01/16/2019 with complaints of pain with urination as well as cough and shortness of breath, and then re-admitted: Physical exam: GENERAL: Elderly male lying on bed appeared to be in no discomfort. HEENT: Normocephalic. Atraumatic. No conjunctival congestion or icterus. Patient has moist mucous membranes. NECK: Supple. Trachea midline. CHEST/LUNGS: Decreased breath sounds auscultated bilaterally, breathing nonlabored. No wheezes crackles or rhonchi. HEART/CARDIOVASCULAR: Regular in rate and rhythm. S1 and S2 positive. ABDOMEN: Abdomen is soft, nontender. Patient has normal bowel sounds. SKIN: There is no rash. Warm and dry. NEURO: No focal motor deficit. Follows command. MUSCULOSKELETAL: No joint effusion or tenderness. EXTRIMITY: No edema, no cyanosis or clubbing. PSYCH: Cooperative but little agitated. Subjective Date of service: 01/17/19 Interval history: Patient seen and examined. Medical records and medication list reviewed. No acute event overnight noted by the RN. Patient denies any chest pain or difficulty breathing. Patient is tolerating diet. Discussed plan of care at bedside with patient. Plan the RN he remains aggressive towards the staff -but a lot better today Objective - Constitutional Vitals: Vital Signs - 12hr 01/17/19 01/17/19 01/17/19 06:16 07:33 10:00 Temperature 97.9 F Pulse Rate 67 67 Respiratory 20 18 Rate Blood Pressure 182/102 O2 Sat by Pulse 95 Oximetry 01/17/19 13:36 Temperature 98.3 F Pulse Rate 68 Respiratory 20 Rate Blood Pressure 202/109 O2 Sat by Pulse 95 Oximetry - Labs CBC & Chem 7: 01/18/19 04:12 01/18/19 04:12 Labs: Abnormal lab results 01/16/19 01/16/19 01/17/19 Range/Units 22:37 22:37 00:09 WBC 21.6 H 19.8 H (4.5-11.0) K/mm3 MCV 95 H 95 H (84-94) fl Lymph % (Auto) 2.8 L (13.4-35.0) % Lymph # 0.6 L (1.2-5.4) K/mm3 [place] # 1.4 H (0.0-0.8) K/mm3 Seg Neutrophils % 90.0 H (40.0-70.0) % Seg Neuts % (Manual) 89.0 H (40.0-70.0) % Lymphocytes % (Manual) 4.0 L (13.4-35.0) % Seg Neutrophils # 17.8 H (1.8-7.7) K/mm3 Seg Neutrophils # Man 19.2 H (1.8-7.7) K/mm3 Lymphocytes # (Manual) 0.9 L (1.2-5.4) K/mm3 Monocytes # (Manual) 1.5 H (0.0-0.8) K/mm3 Sodium 134 L (137-145) mmol/L Chloride 97.9 L (98-107) mmol/L BUN 43 H (9-20) mg/dL Glucose 285 H (75-100) mg/dL POC Glucose (70-105) Albumin 3.6 L (3.9-5) g/dL Urine WBC (Auto) (0.0-6.0) /HPF 01/17/19 01/17/19 01/17/19 Range/Units 00:09 07:18 11:34 WBC (4.5-11.0) K/mm3 MCV (84-94) fl Lymph % (Auto) (13.4-35.0) % Lymph # (1.2-5.4) K/mm3 [place] # (0.0-0.8) K/mm3 Seg Neutrophils % (40.0-70.0) % Seg Neuts % (Manual) (40.0-70.0) % Lymphocytes % (Manual) (13.4-35.0) % Seg Neutrophils # (1.8-7.7) K/mm3 Seg Neutrophils # Man (1.8-7.7) K/mm3 Lymphocytes # (Manual) (1.2-5.4) K/mm3 Monocytes # (Manual) (0.0-0.8) K/mm3 Sodium 135 L (137-145) mmol/L Chloride (98-107) mmol/L BUN 42 H (9-20) mg/dL Glucose 263 H (75-100) mg/dL POC Glucose 241 H 289 H (70-105) Albumin 3.3 L (3.9-5) g/dL Urine WBC (Auto) (0.0-6.0) /HPF 01/17/19 Range/Units Unknown WBC (4.5-11.0) K/mm3 MCV (84-94) fl Lymph % (Auto) (13.4-35.0) % Lymph # (1.2-5.4) K/mm3 [place] # (0.0-0.8) K/mm3 Seg Neutrophils % (40.0-70.0) % Seg Neuts % (Manual) (40.0-70.0) % Lymphocytes % (Manual) (13.4-35.0) % Seg Neutrophils # (1.8-7.7) K/mm3 Seg Neutrophils # Man (1.8-7.7) K/mm3 Lymphocytes # (Manual) (1.2-5.4) K/mm3 Monocytes # (Manual) (0.0-0.8) K/mm3 Sodium (137-145) mmol/L Chloride (98-107) mmol/L BUN (9-20) mg/dL Glucose (75-100) mg/dL POC Glucose (70-105) Albumin (3.9-5) g/dL Urine WBC (Auto) 81.0 H (0.0-6.0) /HPF
[2019-01-17] MEDS: predniSONE 20 MG TAB PO SCH (16:32)
[2019-01-17] MEDS: CEFEPIME/NS 1 GM/100 ML 1 GM/100 ML BAG IV SCH (16:36)
[2019-01-17] MEDS: IPRATROPIUM/ALBUTEROL SULFATE 3 ML AMPUL.NEB IH SCH ×2 (17:07→21:47)
[2019-01-18] MEDS: IPRATROPIUM/ALBUTEROL SULFATE 3 ML AMPUL.NEB IH SCH ×3 (02:00→14:57)
[2019-01-18] MEDS: hydrALAZINE 20 MG/1 ML INJ IV PRN ×2 (03:09→08:05)
[2019-01-18] MEDS: CEFEPIME/NS 1 GM/100 ML 1 GM/100 ML BAG IV SCH (03:09)
[2019-01-18 04:57] LABS: Basophils % (Auto) 0.2 % (0.0-1.8); Hematocrit 42.2 % (35.5-45.6); Hemoglobin 14.2 gm/dl (11.8-15.2); Lymphocytes # (Auto) 0.4 K/mm3 (1.2-5.4); Lymphocytes % (Auto) 5.1 % (13.4-35.0); Mean Corpuscular HGB Conc 34 % (32-34); Mean Corpuscular Volume 95 fl (84-94); Monocytes # (Auto) 0.9 K/mm3 (0.0-0.8); Monocytes % (Auto) 10.9 % (0.0-7.3); Platelet Count 167 K/mm3 (140-440); Red Blood Count 4.45 M/mm3 (3.65-5.03); Red Cell Distribution Width 13.4 % (13.2-15.2)
[2019-01-18 05:06] LABS: INR 1.03 (0.87-1.13); Partial Thromboplastin Time 30.7 Sec. (24.2-36.6)
[2019-01-18 05:14] LABS: BUN/Creatinine Ratio 19; Blood Urea Nitrogen 23 mg/dL (9-20); Calcium 9.1 mg/dL (8.4-10.2); Hemolysis Index 5
[2019-01-18] MEDS: INSULIN REGULAR, HUMAN 100 UNITS/1 ML SUB-Q SCH ×2 (08:06→12:03)
[2019-01-18] MEDS: ACETAMINOPHEN 325 MG TAB PO PRN (08:12)
[2019-01-18] MEDS ORDERED: LORATADINE (NF) 10 MG TAB PO PRN (09:14)
[2019-01-18] MEDS ORDERED: glipiZIDE 10 MG TAB PO SCH (10:00)
[2019-01-18] MEDS ORDERED: amLODIPine 10 MG TAB PO SCH (10:00)
[2019-01-18] MEDS ORDERED: LISINOPRIL 40 MG TAB PO SCH (10:00)
[2019-01-18] MEDS ORDERED: PANTOPRAZOLE 20 MG TAB PO SCH (10:00)
[2019-01-18] MEDS ORDERED: NON-FORMULARY EACH (Metformin Hcl [Glucophage] 1,000 MG) PO SCH (10:00)
[2019-01-18] MEDS ORDERED: metFORMIN 500 MG TAB PO SCH (10:00)
[2019-01-18] MEDS ORDERED: NON-FORMULARY EACH (Omeprazole Magnesium [Prilosec Otc] 20 MG) PO SCH (10:00)
[2019-01-18] MEDS ORDERED: FLUTICASONE PROPIONATE NASAL SPRAY 16 GM NS SCH (10:00)
[2019-01-18] MEDS: hydrALAZINE 25 MG TAB PO SCH ×2 (10:19→14:00)
[2019-01-18] MEDS: predniSONE 20 MG TAB PO SCH (10:20)
[2019-01-18] MEDS ORDERED: CEFEPIME/NS 1 GM/100 ML 1 GM/100 ML BAG IV SCH (14:00)
--- NOTE | 2019-01-18 14:00 | Discharge Summary ---
Providers - Providers Date of Admission: 01/17/19 02:13 Date of discharge: 01/18/19 Attending physician: GIANNI GUERIN 01/17/19 08:53 Consult to Mental Health [CONS] Routine Reason For Exam: agitation Place consult to:: mental health Notified:: [place] Consult to Physician [CONS] Routine Comment: Consulting Provider: MELODIE FORD Physician Instructions: Reason For Exam: bacteremia Primary care physician: SYEDA LYONS Hospitalization Condition: Fair Pertinent studies: Abdomen/pelvis CT CXR Hospital course: 68-year-old male with COPD, diabetes mellitus, hypertension, ongoing tobacco and alcohol use came into the emergency room initially on 01/15/2019 but left AMA. He returned on 01/16/2019 with complaints of pain with urination as well as cough and shortness of breath, and then re-admitted for for further evaluation AND Mx: He was medicaly stabilized and was discharged home to be f/u at [facility]. Discharge diagnosis and management: /Leukocytosis with Gram-negative bacteremia: - UA showed pyuria and patient was symptomatic with dysuria. CT without pyelon ephritis or hydronephrosis. likely source is urine. Treated empirically with IV Cefepime. May need outpatient urology eval. ID consulted and ordered repeat blood culture which was negative Discussed with Dr. Ford - recommended to discharge patient with Levaquin for 10 days Patient will do further follow-up as outpatient. /Acute kidney injury: vasomotor nephropathy, Renally dosed antibiotics. i mproved with IV fluid / DM type 2 -placed on consistent carb diet and SSI / COPD with exacerbation, managed with scheduled nebs, tapering steroid /Possible psychosis with aggressive behavior -Patient was much cooperative and calm on the day of discharge - Recommended to follow-up at [facility] for further management /DVT prophylaxis Physical exam: GENERAL: Elderly male lying on bed appeared to be in no discomfort. HEENT: Normocephalic. Atraumatic. No conjunctival congestion or icterus. Patient has moist mucous membranes. NECK: Supple. Trachea midline. CHEST/LUNGS: Decreased breath sounds auscultated bilaterally, breathing nonlabored. No wheezes crackles or rhonchi. HEART/CARDIOVASCULAR: Regular in rate and rhythm. S1 and S2 positive. ABDOMEN: Abdomen is soft, nontender. Patient has normal bowel sounds. SKIN: There is no rash. Warm and dry. NEURO: No focal motor deficit. Follows command. MUSCULOSKELETAL: No joint effusion or tenderness. EXTRIMITY: No edema, no cyanosis or clubbing. PSYCH: Cooperative but little agitated. Disposition: DC-01 TO HOME OR SELFCARE Time spent for discharge: 34 minutes Core Measure Documentation - Palliative Care Palliative Care/ Comfort Measures: Not Applicable - Core Measures Any of the following diagnoses?: none Exam - Constitutional Vitals: Temp Pulse Resp BP Pulse Ox 98.8 F 81 18 204/121 99 01/18/19 07:32 01/18/19 10:19 01/18/19 07:32 01/18/19 10:19 01/18/19 07:32 Plan Activity: advance as tolerated Weight Bearing Status: Weight Bear as Tolerated Diet: low fat, low salt Additional Instructions: [facility] Follow up with: SYEDA LYONS MD, PHD [Primary Care Provider] - 7 Days Prescriptions: ALBUTEROL Inhaler (OR & NICU) [ProAir HFA Inhaler] 2 puff IH QID PRN #8.5 gram PRN Reason: Shortness Of Breath
[2019-01-18 17:14] VITALS: BP 178/88
== END 2019-01-18 15:45 | disposition home or self-care (01) | DRG 190 ==
LOC: ED 21:13 → 2B-ACE 01-17 02:13
PROVIDERS: ADMIT Internal Medicine Geriatric Medicine; ATTEND Internal Medicine
DX: J44.1 Chronic obstructive pulmonary disease with (acute) exacerbation (principal); N17.0 Acute kidney failure with tubular necrosis; R78.81 Bacteremia; D72.829 Elevated white blood cell count, unspecified; E11.9 Type 2 diabetes mellitus without complications; I10 Essential (primary) hypertension; F29 Unspecified psychosis not due to a substance or known physiological condition; M10.9 Gout, unspecified; G89.29 Other chronic pain; Z72.89 Other problems related to lifestyle; Z83.3 Family history of diabetes mellitus; Z88.0 Allergy status to penicillin; Z79.899 Other long term (current) drug therapy; I25.2 Old myocardial infarction
CPT/HCPCS: 36415; 74177; 80048; 80053; 81001; 82140; 82962; 83690; 85007; 85025; 85610; 85730; 87040; 87086; 94640; G0378; J0360; J0692; J1815; J1956; J2185; J2405; J7030; J7512; Q9967

== ENCOUNTER 2019-01-25 12:28 | Emergency (ER) | payer MEDICARE | END 2019-01-25 12:30 | disposition left against medical advice (07) | LOC: ED 12:28 | DX: J00 Acute nasopharyngitis [common cold] (principal); Z53.21 Procedure and treatment not carried out due to patient leaving prior to being seen by health care provider ==

== ENCOUNTER 2019-01-26 17:20 | Inpatient (IN) | payer MEDICARE ==
--- NOTE | 2019-01-26 17:31 | Event Note ---
ED Screening Note ED Screening Note: pt presents for "feeling sick" states he has dysuria states he has productive cough admitted recently for gram negative bacteremia This initial assessment/diagnostic orders/clinical plan/treatment(s) is/are subject to change based on patients health status, clinical progression and re- assessment by fellow clinical providers in the ED. Further treatment and workup at subsequent clinical providers discretion. Patient/guardian urged not to elope from the ED as their condition may be serious if not clinically assessed and managed. Initial orders include: labs, UA, CXR
--- NOTE | 2019-01-26 18:12 | XRay Report ---
CHEST 2 VIEWS INDICATION / CLINICAL INFORMATION: productive cough. COMPARISON: 2 views of the chest from 01/15/2019. FINDINGS: SUPPORT DEVICES: None. HEART / MEDIASTINUM: No significant abnormality. LUNGS / PLEURA: No significant pulmonary or pleural abnormality. No pneumothorax. ADDITIONAL FINDINGS: The bones are unchanged. IMPRESSION: 1. No acute abnormality of the chest. Signer Name: Richar Almaguer MD Signed: 01/26/2019 6:07 PM Workstation Name: [id number]
[2019-01-26 18:46] LABS: Albumin 3.2 g/dL (3.9-5); Calcium 8.7 mg/dL (8.4-10.2)
[2019-01-26 18:51] LABS: Hematocrit 35.6 % (35.5-45.6); Hemoglobin 11.7 gm/dl (11.8-15.2); Mean Corpuscular HGB Conc 33 % (32-34); Mean Corpuscular Volume 95 fl (84-94); Platelet Count 249 K/mm3 (140-440); Red Blood Count 3.76 M/mm3 (3.65-5.03); Red Cell Distribution Width 13.1 % (13.2-15.2)
--- NOTE | 2019-01-26 20:06 | Emergency Department Report ---
Blank Doc - Documentation Documentation: patient did not answer for a room I attempted and SHYANNE do attempted to call all numbers provided for patient appears pt has suspected sepsis advised charge nurse diane that the police need to be called to patients house
[2019-01-26 21:31] LABS: Basophils % (Manual) 0.5 % (0.0-1.8); Eosinophils % (Manual) 0 % (0.0-4.3); Large Platelets 1+; Total Cells Counted 200
[2019-01-26 21:32] LABS: Platelet Estimate Consistent w Auto; RBC Morphology Normal
[2019-01-26 22:05] LABS: Bilirubin,Urine NEG (Negative); Blood,Urine MOD (Negative); Color,Urine Yellow (Yellow)
[2019-01-26 22:13] LABS: Bacteria,Urine 2+ /HPF (Negative); Mucus,Urine FEW /HPF
[2019-01-26] MEDS ORDERED: SODIUM CHLORIDE 0.9% 1000 ML 1,000 ML IV ONE (22:17)
[2019-01-26 22:25] LABS: WBC,Urine > 182.0 /HPF (0.0-6.0)
--- NOTE | 2019-01-26 22:34 | Emergency Department Report ---
HPI - General Chief Complaint: Pain General Time Seen by Provider: 01/26/19 17:28 - HPI HPI: 68 yo M presents to the ED with the complaint of "I'm sick." He says that he has a past medical history of hypertension and diabetes, but chart review also appears to show that he has a history of COPD and CHF. The patient was recently here being treated for SIRS or sepsis. He was admitted to this hospital and then upon discharge he says that he made an appointment at the [facility] for follow-up but was late and it was rescheduled. The patient complains of some pain to the right lower quadrant and right groin that he says has been going on for the past 3 months. He is a tobacco smoker. He denies any illicit drug use. He does drink alcohol but says he does it on weekends. Apparently this patient came into the emergency department yesterday for the complaints of some general illness but became agitated and eloped before being seen. ED Past Medical Hx - Past Medical History Previous Medical History?: Yes Hx Hypertension: Yes Hx Heart Attack/AMI: Yes Hx Diabetes: Yes Hx Arthritis: Yes (gout) Hx COPD: Yes (Admitted with acute exacerbation) Hx Dementia: No Additional medical history: gout, Chronic Pain in legs - Surgical History Past Surgical History?: Yes Additional Surgical History: ribs - Social History Smoking Status: Current Every Day Smoker - Medications Home Medications: Home Medications Medication Instructions Recorded Confirmed Last Taken Type Metformin HCl [Glucophage] 1,000 mg PO BID #60 tablet 01/22/17 01/17/19 Unknown Rx glipiZIDE [Glucotrol] 10 mg PO BID #60 tablet 01/22/17 01/17/19 Unknown Rx Omeprazole Magnesium [PriLOSEC Otc] 20 mg PO QDAY #20 tablet. 05/28/17 01/17/19 Unknown Rx Loratadine [Claritin] 10 mg PO DAILY PRN #20 tablet 05/31/17 01/17/19 Unknown Rx Fluticasone [Flonase] 1 spray NS QDAY #1 bottle 11/22/18 01/17/19 Unknown Rx Ibuprofen [Motrin 600 MG tab] 600 mg PO Q8H PRN #30 tablet 11/22/18 01/17/19 Unknown Rx Magnesium Oxide [Magnesium] 400 mg PO QDAY #7 capsule 11/22/18 01/17/19 Unknown Rx ALBUTEROL Inhaler (OR & NICU) 2 puff IH QID PRN #8.5 gram 01/18/19 Unknown Rx [ProAir HFA Inhaler] amLODIPine 10 mg PO QDAY #30 tablet 01/18/19 Unknown Rx hydrALAZINE [Apresoline TAB] 50 mg PO Q8HR #90 tablet 01/18/19 Unknown Rx levoFLOXacin [Levaquin] 750 mg PO QDAY #7 tablet 01/18/19 Unknown Rx ED Review of Systems ROS: Stated complaint: GENERAL ILLNESS Other details as noted in HPI Comment: All other systems reviewed and negative Constitutional: chills. denies: fever Eyes: denies: eye pain, vision change ENT: denies: ear pain, throat pain Respiratory: cough. denies: shortness of breath Cardiovascular: denies: chest pain, palpitations Gastrointestinal: abdominal pain. denies: vomiting Genitourinary: dysuria. denies: discharge Musculoskeletal: denies: back pain, arthralgia Skin: denies: rash, lesions Neurological: denies: headache, weakness Physical Exam - Physical Exam Vital Signs: Vital Signs 01/26/19 22:24 Temperature 97.7 F Pulse Rate 86 Respiratory 16 Rate Blood Pressure 98/68 [Right] O2 Sat by Pulse 98 Oximetry Physical Exam: GENERAL: The patient is well-developed well-nourished. HENT: Normocephalic. Atraumatic. Patient has moist mucous membranes. EYES: Extraocular motions are intact. NECK: Supple. Trachea is midline. CHEST/LUNGS: Clear to auscultation. There is no respiratory distress noted. HEART/CARDIOVASCULAR: Regular. There is no tachycardia. There is no murmur. ABDOMEN: Abdomen is soft. There is some right lower quadrant abdominal tenderness to palpation. There is some tenderness to palpation to the right inguinal region without any hernia, swelling or any abnormalities palpated. No guarding. Patient has normal bowel sounds. There is no abdominal distention. SKIN: Skin is warm and dry. NEURO: The patient is awake, alert, and oriented. The patient is cooperative. The patient has no focal neurologic deficits. Normal speech. MUSCULOSKELETAL: There is no tenderness or deformity. There is no evidence of acute injury. ED Course Vital Signs 01/26/19 22:24 Temperature 97.7 F Pulse Rate 86 Respiratory 16 Rate Blood Pressure 98/68 [Right] O2 Sat by Pulse 98 Oximetry ED Medical Decision Making - Lab Data Result diagrams: 01/26/19 17:46 01/26/19 17:46 - Radiology Data Radiology results: report reviewed, image reviewed interpreted by me: Chest x-ray does not show any acute process. There are no pleural effusions, obvious pneumonia and there is no pneumothorax. CT ABDOMEN AND PELVIS WITHOUT CONTRAST INDICATION / CLINICAL INFORMATION: RLQ and groin pain. TECHNIQUE: Axial CT images were obtained through the abdomen and pelvis without IV contrast. All CT scans at this location are performed using CT dose reduction for ALARA by means of automated exposure control. COMPARISON: CT scan 01/17/2019 FINDINGS: LOWER CHEST: No significant abnormality. LIVER: No significant abnormality. GALLBLADDER: No significant abnormality. BILE DUCTS: No significant abnormality. PANCREAS: No significant abnormality. SPLEEN: No significant abnormality. ADRENALS: No significant abnormality. RIGHT KIDNEY and URETER: No significant abnormality. LEFT KIDNEY and URETER: No significant abnormality. STOMACH and SMALL BOWEL: No acute abnormality. Congenital malrotation again noted. COLON: No significant abnormality. APPENDIX: Normal, again seen in the left lower quadrant. PERITONEUM: No free fluid. No free air. No fluid collection. LYMPH NODES: No adenopathy. AORTA and ARTERIES: No significant abnormality. IVC and VEINS: No significant abnormality. URINARY BLADDER: No significant abnormality. REPRODUCTIVE ORGANS: No significant abnormality. ADDITIONAL FINDINGS: None. SKELETAL SYSTEM: No acute abnormality. IMPRESSION: 1. No acute finding or significant change. - Medical Decision Making This patient presents with complaint of being "sick." While he is afebrile he was found to have a 34,000 white blood cell count. Labs also show hyponatremia, acute kidney injury and a urinary tract infection. Cultures have been sent and the patient has been started on Levaquin. A chest x-ray did not show any pneumonia or any other acute process. CT scan of the abdomen and pelvis did not show any acute process as well. Patient will be admitted to the hospital for further evaluation and treatment was accepted for admission by the hospitalist, Dr. Joya. - Differential Diagnosis UTI, sepsis, nephrolithiasis, pyelonephritis, appendicitis Critical Care Time: No Critical care attestation.: If time is entered above; I have spent that time in minutes in the direct care of this critically ill patient, excluding procedure time. ED Disposition Clinical Impression: AMANDA (acute kidney injury), Hyponatremia Leukocytosis Qualifiers: Leukocytosis type: unspecified Qualified Code(s): D72.829 - Elevated white blood cell count, unspecified Abdominal pain Qualifiers: Abdominal location: right lower quadrant Qualified Code(s): R10.31 - Right lower quadrant pain UTI (urinary tract infection) Qualifiers: Urinary tract infection type: acute cystitis Hematuria presence: with hematuria Qualified Code(s): N30.01 - Acute cystitis with hematuria Disposition: OP ADMIT IP TO THIS HOSP Is pt being admited?: Yes Condition: Fair Time of Disposition: 00:02
--- NOTE | 2019-01-26 23:48 | Cat Scan Report ---
CT ABDOMEN AND PELVIS WITHOUT CONTRAST INDICATION / CLINICAL INFORMATION: RLQ and groin pain. TECHNIQUE: Axial CT images were obtained through the abdomen and pelvis without IV contrast. All CT scans at [facility] location are performed using CT dose reduction for ALARA by means of automated exposure control. COMPARISON: CT scan 01/17/2019 FINDINGS: LOWER CHEST: No significant abnormality. LIVER: No significant abnormality. GALLBLADDER: No significant abnormality. BILE DUCTS: No significant abnormality. PANCREAS: No significant abnormality. SPLEEN: No significant abnormality. ADRENALS: No significant abnormality. RIGHT KIDNEY and URETER: No significant abnormality. LEFT KIDNEY and URETER: No significant abnormality. STOMACH and SMALL BOWEL: No acute abnormality. Congenital malrotation again noted. COLON: No significant abnormality. APPENDIX: Normal, again seen in the left lower quadrant. PERITONEUM: No free fluid. No free air. No fluid collection. LYMPH NODES: No adenopathy. AORTA and ARTERIES: No significant abnormality. IVC and VEINS: No significant abnormality. URINARY BLADDER: No significant abnormality. REPRODUCTIVE ORGANS: No significant abnormality. ADDITIONAL FINDINGS: None. SKELETAL SYSTEM: No acute abnormality. IMPRESSION: 1. No acute finding or significant change. Signer Name: Rubin Salinas MD Signed: 01/26/2019 11:44 PM Workstation Name: [id number]
[2019-01-27] MEDS ORDERED: ONDANSETRON 4 MG/2 ML INJ IV PRN (00:36)
[2019-01-27] MEDS ORDERED: ACETAMINOPHEN 325 MG TAB PO PRN (00:36)
[2019-01-27] MEDS ORDERED: DEXTROSE 50% IN WATER (25GM) 50 ML SYRINGE IV PRN (00:41)
--- NOTE | 2019-01-27 00:41 | History and Physical Report ---
History of Present Illness Date of examination: 01/27/19 History of present illness: History was obtained from the chart and pertinent nurse. This is a 68-year-old man with a history of hypertension, diabetes, COPD, coronary artery disease, schizophrenia was brought to the emergency room for evaluation. Chart state th at he had multiple layers of clothing on and was throwing is close at the nurses, yelling. He states that they should leave him alone, refused offer further history. Lab shows urinary tract infection. Her review of systems unobtainable PAST MEDICAL HISTORY hypertension, diabetes, COPD, coronary artery disease, schizophrenia PAST SURGICAL HISTORY: Unknown SOCIAL HISTORY: Unknown FAMILY HISTORY: Unknown Medications and Allergies Allergies Allergy/AdvReac Type Severity Reaction Status Date / Time Penicillins Allergy Mild Rash Verified 07/26/18 15:41 Home Medications Medication Instructions Recorded Confirmed Last Taken Type Metformin HCl [Glucophage] 1,000 mg PO BID #60 tablet 01/22/17 01/17/19 Unknown Rx glipiZIDE [Glucotrol] 10 mg PO BID #60 tablet 01/22/17 01/17/19 Unknown Rx Omeprazole Magnesium [PriLOSEC Otc] 20 mg PO QDAY #20 tablet. 05/28/17 01/17/19 Unknown Rx Loratadine [Claritin] 10 mg PO DAILY PRN #20 tablet 05/31/17 01/17/19 Unknown Rx Fluticasone [Flonase] 1 spray NS QDAY #1 bottle 11/22/18 01/17/19 Unknown Rx Ibuprofen [Motrin 600 MG tab] 600 mg PO Q8H PRN #30 tablet 11/22/18 01/17/19 Unknown Rx Magnesium Oxide [Magnesium] 400 mg PO QDAY #7 capsule 11/22/18 01/17/19 Unknown Rx ALBUTEROL Inhaler (OR & NICU) 2 puff IH QID PRN #8.5 gram 01/18/19 Unknown Rx [ProAir HFA Inhaler] amLODIPine 10 mg PO QDAY #30 tablet 01/18/19 Unknown Rx hydrALAZINE [Apresoline TAB] 50 mg PO Q8HR #90 tablet 01/18/19 Unknown Rx levoFLOXacin [Levaquin] 750 mg PO QDAY #7 tablet 01/18/19 Unknown Rx Active Meds: Active Medications Sodium Chloride (Nacl 0.9% 1000 Ml) 1,000 mls @ 125 mls/hr IV ONCE ONE Stop: 01/27/19 06:16 Last Admin: 01/26/19 22:56 Dose: 125 mls/hr Documented by: Exam - Physical Exam Narrative exam: Gen. appearance: Patient lying in bed, no apparent distress HEENT: Normocephalic, atraumatic, pupils equally round and reactive to light, extraocular movement intact, and no sclericterus,. No JVD or thyromegaly or nodule,neck supple, no carotid bruit ,mucous membranes moist, unable to examine oral cavity Heart: S1, S2, regular rate and rhythm Lungs: Difficult to assess Abdomen: Positive bowel sounds, non-tender, nondistended, no organomegaly Extremity:no edema cyanosis, clubbing Skin: no rash, dry, warm Neuro: Difficult to assess - Constitutional Vitals: Temp Pulse Resp BP Pulse Ox 97.7 F 88 16 107/62 98 01/26/19 22:24 01/27/19 00:23 01/27/19 00:23 01/27/19 00:23 01/27/19 00:23 Results - Labs CBC & Chem 7: 01/26/19 17:46 01/26/19 17:46 Labs: Abnormal lab results 01/26/19 01/26/19 01/26/19 Range/Units 17:46 17:46 21:40 WBC 33.8 H (4.5-11.0) K/mm3 Hgb 11.7 L (11.8-15.2) gm/dl MCV 95 H (84-94) fl RDW 13.1 L (13.2-15.2) % Seg Neuts % (Manual) 90.5 H (40.0-70.0) % Lymphocytes % (Manual) 2.0 L (13.4-35.0) % Seg Neutrophils # Man 30.6 H (1.8-7.7) K/mm3 Lymphocytes # (Manual) 0.7 L (1.2-5.4) K/mm3 Monocytes # (Manual) 2.4 H (0.0-0.8) K/mm3 Basophils # (Manual) 0.2 H (0.0-0.1) K/mm3 Sodium 129 L (137-145) mmol/L Chloride 91.6 L (98-107) mmol/L Carbon Dioxide 21 L (22-30) mmol/L BUN 36 H (9-20) mg/dL Creatinine 2.0 H (0.8-1.5) mg/dL Glucose 254 H (75-100) mg/dL Total Bilirubin 1.40 H (0.1-1.2) mg/dL Albumin 3.2 L (3.9-5) g/dL Urine WBC (Auto) > 182.0 H (0.0-6.0) /HPF - Imaging and Cardiology Chest x-ray: report reviewed CT scan - abdomen: report reviewed CT scan - pelvis: report reviewed Assessment and Plan Assessment Sepsis Urinary tract infection Renal insufficiency, acute Hyponatremia Hypertension Diabetes COPD Coronary artery disease Gout Schizophrenia Plan Admit to medicine Start IV fluids, IV aztreonan, follow cultures Check CT head, fingersticks initiate insulin sliding scale DVT prophylaxis
--- NOTE | 2019-01-27 01:54 | Cat Scan Report ---
Examination: CT of the head without contrast Clinical information: Altered mental status Comparison: CT of the head, 02/03/2017 Technical: Multiple axial CT images of the head were obtained without intravenous contrast. Sagittal and coronal reformats were obtained. All CTs at this facility utilize dose reduction techniques inc luding automated exposure control, iterative reconstruction and weight based dosing when appropriate to reduce patient radiation dose to as low as reasonable achievable. Findings: There is no CT evidence of acute intracranial hemorrhage or large territorial infarct. The ventricular system remains normal in size. 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 Evaluation of the calvarium demonstrates no evidence of acute bony abnormality. There is partial muco neelam opacification of the ethmoid air cells and right maxillary sinus. Impression: 1. No CT evidence of acute intracranial process. 2. Partial mucosal opacification of the ethmoid and right maxillary sinuses that may suggest sinusiti s. Signer Name: Heydi Ware MD Signed: 01/27/2019 1:50 AM Workstation Name: [id number]
[2019-01-27] MEDS: AZTREONAM/NS 1 GM/50 ML 1 GM/50 ML VIAL IV SCH ×2 (02:48→14:51)
[2019-01-27 04:32] LABS: Hematocrit 33.1 % (35.5-45.6); Mean Corpuscular HGB Conc 33 % (32-34); Mean Corpuscular Volume 95 fl (84-94); Platelet Count 211 K/mm3 (140-440); Red Cell Distribution Width 13.4 % (13.2-15.2)
[2019-01-27 04:52] LABS: Calcium 8.2 mg/dL (8.4-10.2)
[2019-01-27 05:43] LABS: Basophils % (Manual) 0 % (0.0-1.8); Eosinophils % (Manual) 0 % (0.0-4.3); RBC Morphology Normal; Total Cells Counted 100
[2019-01-27 05:44] LABS: Large Platelets 1+; Platelet Estimate Consistent w Auto
[2019-01-27] MEDS: SODIUM CHLORIDE 0.9% 1000 ML 1,000 ML IV SCH (06:33)
[2019-01-27] MEDS: INSULIN LISPRO 100 UNIT/ML SUB-Q SCH ×4 (08:00→22:21)
[2019-01-27] MEDS: ENOXAPARIN 30 MG/0.3 ML INJ SUB-Q SCH (10:57)
[2019-01-28] MEDS: AZTREONAM/NS 1 GM/50 ML 1 GM/50 ML VIAL IV SCH ×2 (03:32→18:02)
[2019-01-28] MEDS: SODIUM CHLORIDE 0.9% 1000 ML 1,000 ML IV SCH (05:31)
[2019-01-28] MEDS: INSULIN LISPRO 100 UNIT/ML SUB-Q SCH ×4 (08:27→22:51)
[2019-01-28] MEDS: ENOXAPARIN 30 MG/0.3 ML INJ SUB-Q SCH (09:40)
--- NOTE | 2019-01-28 11:26 | Consultation ---
History of Present Illness - Reason for Consult Consult date: 01/28/19 - History of Present Illness 68 yo M PMHx HTN, CAD, DM2, COPD admitted with complaints of generally feeling unwell as well as lower abdominal pain. He had been recently admitted to this hospital for SIRS/sepsis. He notes some RLQ pain and R thigh pain which has been present and consistent for the past 3 months. Otherwise he denies any fevers, sweats, chills at home. Denies any other symptoms at this time aside from gene ral malaise. Febrile to 101.5 with a white count of 30 with neutrophilic predominance. Urine cultures with GNR. Currently receiving aztreonam. Imaging personally reviewed: CTAP: No acute infectious abnormality. Review of systems: Bold if positive; otherwise negative GENERAL: fever, chills, weight loss, fatigue, night sweats, malaise EYES: blurry vision, eye pain HENT: headache, hearing loss, sore throat, dysphagia, sinus pain CARDIO: chest pain, palpitations, orthopnea PULM: shortness of breath, wheezing, cough, sputum, hemoptysis GI: nausea, vomiting, diarrhea, abdominal pain, blood in stool : urinary frequency, urgency, dysuria, urethral discharge MSK: joint pain, back pain, swelling SKIN: rash, redness HEME: easy bruising, bleeding Past History Past Medical History: other (See HPI) Past Surgical History: No surgical history Social history: smoking Family history: CAD, diabetes Medications and Allergies Allergies Allergy/AdvReac Type Severity Reaction Status Date / Time Penicillins Allergy Mild Rash Verified 07/26/18 15:41 Home Medications Medication Instructions Recorded Confirmed Last Taken Type Metformin HCl [Glucophage] 1,000 mg PO BID #60 tablet 01/22/17 01/28/19 Unknown Rx glipiZIDE [Glucotrol] 10 mg PO BID #60 tablet 01/22/17 01/28/19 Unknown Rx Omeprazole Magnesium [PriLOSEC Otc] 20 mg PO QDAY #20 tablet. 05/28/17 01/28/19 Unknown Rx Loratadine [Claritin] 10 mg PO DAILY PRN #20 tablet 05/31/17 01/28/19 Unknown Rx Fluticasone [Flonase] 1 spray NS QDAY #1 bottle 11/22/18 01/28/19 Unknown Rx Ibuprofen [Motrin 600 MG tab] 600 mg PO Q8H PRN #30 tablet 11/22/18 01/28/19 Unknown Rx Magnesium Oxide [Magnesium] 400 mg PO QDAY #7 capsule 11/22/18 01/28/19 Unknown Rx ALBUTEROL Inhaler (OR & NICU) 2 puff IH QID PRN #8.5 gram 01/18/19 01/28/19 Unknown Rx [ProAir HFA Inhaler] amLODIPine 10 mg PO QDAY #30 tablet 01/18/19 01/28/19 Unknown Rx hydrALAZINE [Apresoline TAB] 50 mg PO Q8HR #90 tablet 01/18/19 01/28/19 Unknown Rx levoFLOXacin [Levaquin] 750 mg PO QDAY #7 tablet 01/18/19 01/28/19 Unknown Rx Naproxen [Naprosyn] 500 mg PO BID PRN 01/28/19 01/28/19 Unknown History Active Meds: Active Medications Acetaminophen (Tylenol) 650 mg PO Q4H PRN PRN Reason: Pain MILD(1-3)/Fever >100.5/LOJA Last Admin: 01/27/19 14:50 Dose: 650 mg Documented by: Dextrose (D50w (25gm) Syringe) 50 ml IV Q30MIN PRN; Protocol PRN Reason: Hypoglycemia Enoxaparin Sodium (Enoxaparin) 30 mg SUB-Q QDAY [facility] Last Admin: 01/28/19 09:40 Dose: Not Given Documented by: Sodium Chloride (Nacl 0.9% 1000 Ml) 1,000 mls @ 150 mls/hr IV DIRECT SOPHIE Last Admin: 01/28/19 05:31 Dose: 150 mls/hr Documented by: Aztreonam (Azactam/Ns 1 Gm/50 Ml) 1 gm in 50 mls @ 50 mls/hr IV Q12H SOPHIE; Sejal col Last Admin: 01/28/19 03:32 Dose: 50 mls/hr Documented by: Insulin Human Lispro (Humalog) 0 unit SUB-Q ACHS [facility]; Protocol Last Admin: 01/28/19 08:27 Dose: Not Given Documented by: Ondansetron HCl (Zofran) 4 mg IV Q8H PRN PRN Reason: Nausea And Vomiting Sodium Chloride (Sodium Chloride Flush Syringe 10 Ml) 10 ml IV BID [facility] Last Admin: 01/28/19 09:40 Dose: Not Given Documented by: Sodium Chloride (Sodium Chloride Flush Syringe 10 Ml) 10 ml IV PRN PRN PRN Reason: LINE FLUSH Physical Examination - Physical Exam Narrative exam: General Normal appearance, well developed, no acute distress Eyes - PERRLA, EOM intact ENT - Moist mucous membranes, no lymphadenopathy Neck - No noticeable or palpable swelling, redness or rash around throat or on face Lymph Nodes - No lymphadenopathy Cardiovascular - RRR no m/r/g, no JVD, no carotid bruits Lungs - Clear to auscultation, no use of accessory muscles, no crackles or wheezes. Skin - No rashes, skin warm and dry, no erythematous areas Abdomen - Normal bowel sounds, abdomen soft and nontender Extremities - No edema, cyanosis or clubbing Musculoskeletal - 5/5 strength, normal range of motion, no swollen or erythematous joints. Neurological Alert and oriented x 3, CN 2-12 grossly intact. - Constitutional Vitals: Vital Signs Temp Pulse Resp BP Pulse Ox 97.4 F L 81 18 117/70 96 01/28/19 07:18 01/28/19 07:18 01/28/19 07:18 01/28/19 07:18 01/28/19 07:18 Temperature -Last 24 Hours Temperature 97.4 F Temperature 99 F Temperature 99.1 F Temperature 98.0 F Temperature 101.5 F Results - Labs CBC & Chem 7: 01/27/19 03:34 01/27/19 03:34 Labs: Abnormal lab results 01/27/19 01/27/19 01/27/19 Range/Units 11:36 16:55 21:28 POC Glucose 225 H 135 H 200 H (70-105) 01/28/19 Range/Units 07:23 POC Glucose 240 H (70-105) Assessment and Plan Cultures Blood culture 01/27/2019 no growth to date Urine culture 01/26/2019 GNR Assessment: 68 yo M PMHx with PMHx HTN, DM2, COPD, CAD admitted with acute sepsis likely secondary to a UTI. 1. Acute sepsis - present with fever and leukocytosis, secondary to UTI 2. UTI - urine cultures pending YOLY and identification. Continue aztreonam for now, hopefully able to de-escalate to fluoroquinolone pending culture finalization. Duration pending blood culture results. No evidence of pyelo nephritis on CTAP. 3. DM2 - tight glycemic control for best immune function 4. Penicillin allergy 5. CKD - renally dose antibiotics. Recs: - Continue aztreonam 1g q12h - de-escalate pending culture results. - follow up urine and blood cultures - daily CBC [facility] M: [phone] O: [phone] F: [phone]
--- NOTE | 2019-01-28 15:28 | Progress Note ---
Assessment and Plan Assessment and plan: 68-year-old man who is a , with history of schizophrenia who has been admitted to the hospital many times and has been very difficult. He presented to the hospital with fever. Patient was found to have acute kidney injury and UTI abx and ivf Patient advised to continue drinking up to 8 glasses of water daily as renal function continues to improve -He refused majority of his medications while he was in the hospital He required sitter for safety while in hospital. Diagnosis Sepsis UTI Acute kidney injury due to vasomotor nephropathy Schizophrenia Hypertension Diabetes COPD CAD History Interval history: Continues to have agitation and his verbally abusive which is consistent with his baseline per his daughter Review of systems Constitutional: No fevers, no malaise, no joint pains CVS: No chest pain, no orthopnea, no pedal edema GI: No abdominal pain, no diarrhea, no vomiting, no constipation Respiratory: , no wheezing, no coughing Hospitalist Physical - Physical exam Narrative exam: General.: Appears well, no distress, nontoxic HEENT: Moist mucous membranes, extraocular muscles intact, no lymphadenopathy Neck: supple Cardiac: S1-S2 heard Lungs: clear to auscultation bilaterally Abdomen: soft , nontender, nondistended, bowel sounds positive Extremities: no edema clubbing or cyanosis Skin: no rash or lesions Neurologic: no gross focal deficits Psych: Patient is not calm, he is screaming and cursing at staff - Constitutional Vitals: Temp Pulse Resp BP Pulse Ox 97.4 F L 77 18 110/65 97 01/28/19 13:06 01/28/19 13:06 01/28/19 13:06 01/28/19 13:06 01/28/19 13:06 Results - Labs CBC & Chem 7: 01/27/19 03:34 01/29/19 05:14 Labs: Laboratory Last Values WBC 30.2 K/mm3 (4.5-11.0) H 01/27/19 03:34 RBC 3.50 M/mm3 (3.65-5.03) L 01/27/19 03:34 Hgb 11.0 gm/dl (11.8-15.2) L 01/27/19 03:34 Hct 33.1 % (35.5-45.6) L 01/27/19 03:34 MCV 95 fl (84-94) H 01/27/19 03:34 MCH 31 pg (28-32) 01/27/19 03:34 MCHC 33 % (32-34) 01/27/19 03:34 RDW 13.4 % (13.2-15.2) 01/27/19 03:34 Plt Count 211 K/mm3 (140-440) 01/27/19 03:34 Add Manual Diff Complete 01/27/19 03:34 Total Counted 100 01/27/19 03:34 Seg Neuts % (Manual) 94.0 % (40.0-70.0) H 01/27/19 03:34 Band Neutrophils % 0 % 01/27/19 03:34 Lymphocytes % (Manual) 1.0 % (13.4-35.0) L 01/27/19 03:34 Reactive Lymphs % (Man) 0 % 01/27/19 03:34 Monocytes % (Manual) 5.0 % (0.0-7.3) 01/27/19 03:34 Eosinophils % (Manual) 0 % (0.0-4.3) 01/27/19 03:34 Basophils % (Manual) 0 % (0.0-1.8) 01/27/19 03:34 Metamyelocytes % 0 % 01/27/19 03:34 Myelocytes % 0 % 01/27/19 03:34 Promyelocytes % 0 % 01/27/19 03:34 Blast Cells % 0 % 01/27/19 03:34 Nucleated RBC % Not Reportable 01/27/19 03:34 Seg Neutrophils # Man 28.4 K/mm3 (1.8-7.7) H 01/27/19 03:34 Band Neutrophils # 0.0 K/mm3 01/27/19 03:34 Lymphocytes # (Manual) 0.3 K/mm3 (1.2-5.4) L 01/27/19 03:34 Abs React Lymphs (Man) 0.0 K/mm3 01/27/19 03:34 Monocytes # (Manual) 1.5 K/mm3 (0.0-0.8) H 01/27/19 03:34 Eosinophils # (Manual) 0.0 K/mm3 (0.0-0.4) 01/27/19 03:34 Basophils # (Manual) 0.0 K/mm3 (0.0-0.1) 01/27/19 03:34 Metamyelocytes # 0.0 K/mm3 01/27/19 03:34 Myelocytes # 0.0 K/mm3 01/27/19 03:34 Promyelocytes # 0.0 K/mm3 01/27/19 03:34 Blast Cells # 0.0 K/mm3 01/27/19 03:34 Pathologist Review 01/26/19 17:46 WBC Morphology Not Reportable 01/27/19 03:34 Hypersegmented Neuts Not Reportable 01/27/19 03:34 Hyposegmented Neuts Not Reportable 01/27/19 03:34 Hypogranular Neuts Not Reportable 01/27/19 03:34 Smudge Cells Not Reportable 01/27/19 03:34 Toxic Granulation Not Reportable 01/27/19 03:34 Toxic Vacuolation Not Reportable 01/27/19 03:34 Dohle Bodies Not Reportable 01/27/19 03:34 Pelger-Huet Anomaly Not Reportable 01/27/19 03:34 Kathryn Rods Not Reportable 01/27/19 03:34 Platelet Estimate Consistent w auto 01/27/19 03:34 Clumped Platelets Not Reportable 01/27/19 03:34 Plt Clumps, EDTA Not Reportable 01/27/19 03:34 Large Platelets 1+ 01/27/19 03:34 Giant Platelets Not Reportable 01/27/19 03:34 Platelet Satelliting Not Reportable 01/27/19 03:34 Plt Morphology Comment Not Reportable 01/27/19 03:34 RBC Morphology Normal 01/27/19 03:34 Dimorphic RBCs Not Reportable 01/27/19 03:34 Polychromasia Not Reportable 01/27/19 03:34 Hypochromasia Not Reportable 01/27/19 03:34 Poikilocytosis Not Reportable 01/27/19 03:34 Anisocytosis Not Reportable 01/27/19 03:34 Microcytosis Not Reportable 01/27/19 03:34 Macrocytosis Not Reportable 01/27/19 03:34 Spherocytes Not Reportable 01/27/19 03:34 Pappenheimer Bodies Not Reportable 01/27/19 03:34 Sickle Cells Not Reportable 01/27/19 03:34 Target Cells Not Reportable 01/27/19 03:34 Tear Drop Cells Not Reportable 01/27/19 03:34 Ovalocytes Not Reportable 01/27/19 03:34 Helmet Cells Not Reportable 01/27/19 03:34 Marks-Wingdale Bodies Not Reportable 01/27/19 03:34 Holdrege Rings Not Reportable 01/27/19 03:34 Ca Cells Not Reportable 01/27/19 03:34 Bite Cells Not Reportable 01/27/19 03:34 Crenated Cell Not Reportable 01/27/19 03:34 Elliptocytes Not Reportable 01/27/19 03:34 Acanthocytes (Spur) Not Reportable 01/27/19 03:34 Rouleaux Not Reportable 01/27/19 03:34 Hemoglobin C Crystals Not Reportable 01/27/19 03:34 Schistocytes Not Reportable 01/27/19 03:34 Malaria parasites Not Reportable 01/27/19 03:34 Leon Bodies Not Reportable 01/27/19 03:34 Hem Pathologist Commnt No 01/27/19 03:34 Sodium 134 mmol/L (137-145) L 01/27/19 03:34 Potassium 4.0 mmol/L (3.6-5.0) 01/27/19 03:34 Chloride 98.1 mmol/L (98-107) 01/27/19 03:34 Carbon Dioxide 22 mmol/L (22-30) 01/27/19 03:34 Anion Gap 18 mmol/L 01/27/19 03:34 BUN 34 mg/dL (9-20) H 01/27/19 03:34 Creatinine 1.9 mg/dL (0.8-1.5) H 01/27/19 03:34 Estimated GFR 43 ml/min 01/27/19 03:34 BUN/Creatinine Ratio 18 % 01/27/19 03:34 Glucose 187 mg/dL (75-100) H 01/27/19 03:34 POC Glucose 308 (70-105) H 01/28/19 11: Lactic Acid 1.10 mmol/L (0.7-2.0) 01/26/19 20:57 Calcium 8.2 mg/dL (8.4-10.2) L 01/27/19 03:34 Total Bilirubin 1.40 mg/dL (0.1-1.2) H 01/26/19 17:46 AST 19 units/L (5-40) 01/26/19 17:46 ALT 16 units/L (7-56) 01/26/19 17:46 Alkaline Phosphatase 92 units/L (35-129) 01/26/19 17:46 Total Protein 7.1 g/dL (6.3-8.2) 01/26/19 17:46 Albumin 3.2 g/dL (3.9-5) L 01/26/19 17:46 Albumin/Globulin Ratio 0.8 % 01/26/19 17:46 Urine Color Yellow (Yellow) 01/26/19 21:40 Urine Turbidity Cloudy (Clear) 01/26/19 21:40 Urine pH 6.0 (5.0-7.0) 01/26/19 21:40 Ur Specific [place] 1.012 (1.003-1.030) 01/26/19 21:40 Urine Protein 100 mg/dl mg/dL (Negative) 01/26/19 21:40 Urine Glucose (UA) 50 mg/dL (Negative) 01/26/19 21:40 Urine Ketones Neg mg/dL (Negative) 01/26/19 21:40 Urine Blood Mod (Negative) 01/26/19 21:40 Urine Nitrite Pos (Negative) 01/26/19 21:40 Urine Bilirubin Neg (Negative) 01/26/19 21:40 Urine Urobilinogen 2.0 mg/dL (<2.0) 01/26/19 21:40 Ur Leukocyte Esterase Lg (Negative) 01/26/19 21:40 Urine WBC (Auto) > 182.0 /HPF (0.0-6.0) H 01/26/19 21:40 Urine RBC (Auto) 39.0 /HPF (0.0-6.0) 01/26/19 21:40 Urine Bacteria (Auto) 2+ /HPF (Negative) 01/26/19 21:40 Urine WBC Clumps 2+ /HPF 01/26/19 21:40 Urine Mucus Few /HPF 01/26/19 21:40 Active Medications - Current Medications Current Medications: Generic Name Dose Route Start Last Admin Trade Name Freq PRN Reason Stop Dose Admin Acetaminophen 650 mg 01/27/19 00:36 01/27/19 14:50 Tylenol PO 650 mg Q4H PRN Administration Pain MILD(1-3)/Fever >100.5/LOJA Dextrose 50 ml 01/27/19 00:41 D50w (25gm) Syringe IV Q30MIN PRN Hypoglycemia Protocol Enoxaparin Sodium 30 mg 01/27/19 10:00 01/28/19 09:40 Enoxaparin SUB-Q Not Given QDAY [facility] Sodium Chloride 1,000 mls @ 150 mls/hr 01/27/19 01:00 01/28/19 05:31 Nacl 0.9% 1000 Ml IV 150 mls/hr DIRECT [facility] Administration Aztreonam 1 gm in 50 mls @ 50 mls/hr 01/27/19 03:00 01/28/19 03:32 Azactam/Ns 1 Gm/50 Ml IV 50 mls/hr Q12H [facility] Administration Protocol Insulin Human Lispro 0 unit 01/27/19 07:30 01/28/19 12:16 Humalog SUB-Q 6 unit ACHS [facility] Administration Protocol Ondansetron HCl 4 mg 01/27/19 00:36 Zofran IV Q8H PRN Nausea And Vomiting Sodium Chloride 10 ml 01/27/19 10:00 01/28/19 09:40 Sodium Chloride Flush Syringe 10 Ml IV Not Given BID [facility] Sodium Chloride 10 ml 01/27/19 00:36 Sodium Chloride Flush Syringe 10 Ml IV PRN PRN LINE FLUSH
--- NOTE | 2019-01-28 18:28 | Consultation ---
History of Present Illness - Reason for Consult Consult date: 01/28/19 acute renal failure Requesting physician: MCKAYLA CISNEROS - History of Present Illness This is a 68yo with a history of hypertension, diabetes, COPD, coronary artery disease, schizophrenia, who was brought to the emergency room for evaluation. Chart state that he had multiple layers of clothing on and was throwing is close at the nurses, yelling. He states that they should leave him alone, refused offer further history. In ER patient was febrile, UA was consistent with acute UTI, labs showed evidence of leukocytosis along with elevated BUN/Cr at 36/2.0mg/dl for which renal consult is requested. pt is a poor historian, history obtained by chart review and by nurse. Past History Past Medical History: other (See HPI) Past Surgical History: No surgical history Social history: smoking Family history: CAD, diabetes Medications and Allergies Allergies Allergy/AdvReac Type Severity Reaction Status Date / Time Penicillins Allergy Mild Rash Verified 07/26/18 15:41 Home Medications Medication Instructions Recorded Confirmed Last Taken Type Metformin HCl [Glucophage] 1,000 mg PO BID #60 tablet 01/22/17 01/28/19 Unknown Rx glipiZIDE [Glucotrol] 10 mg PO BID #60 tablet 01/22/17 01/28/19 Unknown Rx Omeprazole Magnesium [PriLOSEC Otc] 20 mg PO QDAY #20 tablet. 05/28/17 01/28/19 Unknown Rx Loratadine [Claritin] 10 mg PO DAILY PRN #20 tablet 05/31/17 01/28/19 Unknown Rx Fluticasone [Flonase] 1 spray NS QDAY #1 bottle 11/22/18 01/28/19 Unknown Rx Ibuprofen [Motrin 600 MG tab] 600 mg PO Q8H PRN #30 tablet 11/22/18 01/28/19 Unknown Rx Magnesium Oxide [Magnesium] 400 mg PO QDAY #7 capsule 11/22/18 01/28/19 Unknown Rx ALBUTEROL Inhaler (OR & NICU) 2 puff IH QID PRN #8.5 gram 01/18/19 01/28/19 Unknown Rx [ProAir HFA Inhaler] amLODIPine 10 mg PO QDAY #30 tablet 01/18/19 01/28/19 Unknown Rx hydrALAZINE [Apresoline TAB] 50 mg PO Q8HR #90 tablet 01/18/19 01/28/19 Unknown Rx levoFLOXacin [Levaquin] 750 mg PO QDAY #7 tablet 01/18/19 01/28/19 Unknown Rx Naproxen [Naprosyn] 500 mg PO BID PRN 01/28/19 01/28/19 Unknown History Active Meds: Active Medications Acetaminophen (Tylenol) 650 mg PO Q4H PRN PRN Reason: Pain MILD(1-3)/Fever >100.5/LOJA Last Admin: 01/27/19 14:50 Dose: 650 mg Documented by: Dextrose (D50w (25gm) Syringe) 50 ml IV Q30MIN PRN; Protocol PRN Reason: Hypoglycemia Enoxaparin Sodium (Enoxaparin) 30 mg SUB-Q QDAY [facility] Last Admin: 01/28/19 09:40 Dose: Not Given Documented by: Sodium Chloride (Nacl 0.9% 1000 Ml) 1,000 mls @ 150 mls/hr IV DIRECT [facility] Last Admin: 01/28/19 05:31 Dose: 150 mls/hr Documented by: Aztreonam (Azactam/Ns 1 Gm/50 Ml) 1 gm in 50 mls @ 50 mls/hr IV Q12H [facility]; Protocol Last Admin: 01/28/19 18:02 Dose: 50 mls/hr Documented by: Insulin Human Lispro (Humalog) 0 unit SUB-Q ACHS [facility]; Protocol Last Admin: 01/28/19 18:02 Dose: 2 unit Documented by: Ondansetron HCl (Zofran) 4 mg IV Q8H PRN PRN Reason: Nausea And Vomiting Sodium Chloride (Sodium Chloride Flush Syringe 10 Ml) 10 ml IV BID [facility] Last Admin: 01/28/19 09:40 Dose: Not Given Documented by: Sodium Chloride (Sodium Chloride Flush Syringe 10 Ml) 10 ml IV PRN PRN PRN Reason: LINE FLUSH Review of Systems ROS unobtainable: due to mental status Exam - Vital Signs Vital signs: Vital Signs Pulse Ox 98 01/26/19 22:20 - General Appearance General appearance: well-developed, well-nourished, appears stated age EENT: ATNC, PERRL, mucous membranes moist Neck: Present: neck supple Respiratory: Clear to Ascultation Heart: regular, S1S2 Gastrointestinal: Present: normoactive bowel sounds Integumentary: no rash, other (no edema ) Neurologic: no focal deficit, alert and oriented x3, strength 5/5, CN 3-12 intact Psychiatric: mood/affect appropriate, cooperative Results - Lab Results 01/27/19 03:34 01/27/19 03:34 Most recent lab results Calcium 8.2 mg/dL (8.4-10.2) L 01/27/19 03:34 Assessment and Plan - Patient Problems (1) AMANDA (acute kidney injury) Current Visit: Yes Status: Acute Plan to address problem: acute kidney injury secondary to pre-renal azotemia in the setting of UTI. check urine lytes to assess FeNA, check urine protein/Cr ratio. CT A/P showed unremarkable b/l kidneys without evidence of hydronephrosis/or other structural disease. cont gentle IV hydration with NS along with IV ABXs w/ aztreonam. Avoid nephrotoxins, NSAIDS, IV contrast. will monitor lytes/renal parameters closely and make further recommendations. (2) UTI (urinary tract infection) Current Visit: Yes Status: Acute Qualifiers: Urinary tract infection type: acute cystitis Hematuria presence: with hematuria Qualified Code(s): N30.01 - Acute cystitis with hematuria Plan to address problem: cont ABXs with aztreonam, pending final sensitivities. Follow ID rec ommendations. (3) Hyponatremia Current Visit: Yes Status: Acute Plan to address problem: likely hypovolemic hyponatrmia, improving with IV NS (4) Proteinuria Current Visit: Yes Status: Acute Plan to address problem: check urine protein/cr ratio (5) Leucocytosis Current Visit: Yes Status: Acute Qualifiers: Leukocytosis type: unspecified Qualified Code(s): D72.829 - Elevated white blood cell count, unspecified Plan to address problem: due to acute UTI/ SIRS/sepsis. cont ABXs as per ID.
[2019-01-28 19:42] VITALS: BP 110/69
[2019-01-29] MEDS: AZTREONAM/NS 1 GM/50 ML 1 GM/50 ML VIAL IV SCH (03:46)
[2019-01-29 06:16] LABS: Calcium 8.5 mg/dL (8.4-10.2)
[2019-01-29] MEDS: INSULIN LISPRO 100 UNIT/ML SUB-Q SCH (08:04)
--- NOTE | 2019-01-29 09:31 | Progress Note ---
Assessment and Plan - Patient Problems (1) AMANDA (acute kidney injury) Current Visit: Yes Status: Acute Plan to address problem: acute kidney injury secondary to pre-renal azotemia in the setting of UTI. check urine lytes to assess FeNA, check urine protein/Cr ratio. CT A/P showed unremarkable b/l kidneys without evidence of hydronephrosis/or other structural disease. renal function stabilizing on IV hydration with NS along with IV ABXs w/ aztreonam. Avoid nephrotoxins, NSAIDS, IV contrast. will monitor lytes/renal parameters closely and make further recommendations. (2) UTI (urinary tract infection) Current Visit: Yes Status: Acute Qualifiers: Urinary tract infection type: acute cystitis Hematuria presence: with hem aturia Qualified Code(s): N30.01 - Acute cystitis with hematuria Plan to address problem: cont ABXs with aztreonam, pending final sensitivities. Follow ID recommendations. (3) Hyponatremia Current Visit: Yes Status: Acute Plan to address problem: likely hypovolemic hyponatrmia, improving with IV NS (4) Proteinuria Current Visit: Yes Status: Acute Plan to address problem: check urine protein/cr ratio (5) Leucocytosis Current Visit: Yes Status: Acute Qualifiers: Leukocytosis type: unspecified Qualified Code(s): D72.829 - Elevated white blood cell count, unspecified Plan to address problem: due to acute UTI/ SIRS/sepsis. cont ABXs as per ID. Subjective Date of service: 01/29/19 Principal diagnosis: AMANDA Interval history: pt awake, agitated, in no acute respiratory distress. denies fever, chills, n/v/d Objective - General Appearance General appearance: well-developed, well-nourished, appears stated age EENT: ATNC, PERRL, mucous membranes moist Neck: no JVD Respiratory: Present: Clear to Ascultation Cardiology: regular, S1S2 Gastrointestinal: normoactive bowel sounds Integumentary: no rash, other (no edema ) Neurologic: no focal deficit, alert and oriented x3, strength 5/5, CN 3-12 intact Psychiatric: mood/affect appropriate, cooperative - Lab 01/27/19 03:34 01/29/19 05:14 Most recent lab results Calcium 8.5 mg/dL (8.4-10.2) 01/29/19 05:14 Medications & Allergies - Medications Allergies/Adverse Reactions: Allergies Penicillins Allergy (Mild, Verified 07/26/18 15:41) Rash Home Medications: Home Medications Medication Instructions Recorded Confirmed Last Taken Type Metformin HCl [Glucophage] 1,000 mg PO BID #60 tablet 01/22/17 01/28/19 Unknown Rx glipiZIDE [Glucotrol] 10 mg PO BID #60 tablet 01/22/17 01/28/19 Unknown Rx Omeprazole Magnesium [PriLOSEC Otc] 20 mg PO QDAY #20 tablet. 05/28/17 01/28/19 Unknown Rx Loratadine [Claritin] 10 mg PO DAILY PRN #20 tablet 05/31/17 01/28/19 Unknown Rx Fluticasone [Flonase] 1 spray NS QDAY #1 bottle 11/22/18 01/28/19 Unknown Rx Ibuprofen [Motrin 600 MG tab] 600 mg PO Q8H PRN #30 tablet 11/22/18 01/28/19 Unknown Rx Magnesium Oxide [Magnesium] 400 mg PO QDAY #7 capsule 11/22/18 01/28/19 Unknown Rx ALBUTEROL Inhaler (OR & NICU) 2 puff IH QID PRN #8.5 gram 01/18/19 01/28/19 Unknown Rx [ProAir HFA Inhaler] amLODIPine 10 mg PO QDAY #30 tablet 01/18/19 01/28/19 Unknown Rx hydrALAZINE [Apresoline TAB] 50 mg PO Q8HR #90 tablet 01/18/19 01/28/19 Unknown Rx levoFLOXacin [Levaquin] 750 mg PO QDAY #7 tablet 01/18/19 01/28/19 Unknown Rx Naproxen [Naprosyn] 500 mg PO BID PRN 01/28/19 01/28/19 Unknown History Active Medications: Generic Name Dose Route Start Last Admin Trade Name Freq PRN Reason Stop Dose Admin Acetaminophen 650 mg 01/27/19 00:36 01/27/19 14:50 Tylenol PO 650 mg Q4H PRN Administration Pain MILD(1-3)/Fever >100.5/LOJA Dextrose 50 ml 01/27/19 00:41 D50w (25gm) Syringe IV Q30MIN PRN Hypoglycemia Protocol Enoxaparin Sodium 40 mg 01/29/19 10:00 01/29/19 09:19 Enoxaparin SUB-Q Not Given QDAY@1000 [facility] Sodium Chloride 1,000 mls @ 150 mls/hr 01/27/19 01:00 01/28/19 05:31 Nacl 0.9% 1000 Ml IV 150 mls/hr DIRECT [facility] Administration Aztreonam 1 gm in 50 mls @ 50 mls/hr 01/27/19 03:00 01/29/19 03:46 Azactam/Ns 1 Gm/50 Ml IV Not Given Q12H [facility] Protocol Insulin Human Lispro 0 unit 01/27/19 07:30 01/29/19 08:04 Humalog SUB-Q 3 unit ACHS [facility] Administration Protocol Ondansetron HCl 4 mg 01/27/19 00:36 Zofran IV Q8H PRN Nausea And Vomiting Sodium Chloride 10 ml 01/27/19 10:00 01/29/19 09:24 Sodium Chloride Flush Syringe 10 Ml IV Not Given BID [facility] Sodium Chloride 10 ml 01/27/19 00:36 Sodium Chloride Flush Syringe 10 Ml IV PRN PRN LINE FLUSH
[2019-01-29] MEDS ORDERED: ENOXAPARIN 40 MG/0.4 ML INJ SUB-Q SCH (10:00)
--- NOTE | 2019-01-29 11:37 | Progress Note ---
Assessment and Plan Cultures Blood culture 01/27/2019 no growth to date Urine culture 01/26/2019 E coli (R: ampicillin, gentamicin. I: ampicillin/sulbactam, aztreonam, tobramycin) Assessment: 68 yo M PMHx with PMHx HTN, DM2, COPD, CAD admitted with acute sep sis likely secondary to a UTI. 1. Acute sepsis - present with fever and leukocytosis, secondary to UTI 2. UTI - E coli. Stop aztreonam and start levofloxacin. No evidence of pyelonephritis on CTAP. 3. DM2 - tight glycemic control for best immune function 4. Penicillin allergy 5. CKD - renally dose antibiotics. Recs: - stop aztreonam - stasrt levofloxacin 750mg q24h PO. Stop date: 02/03/19 - Ordered CBC for AM. [facility] M: [phone] O: [phone] F: [phone] Subjective Date of service: 01/29/19 Principal diagnosis: AMANDA Interval history: Afebrile, WBC not checked. Objective - Exam Narrative Exam: General Normal appearance, well developed, no acute distress Eyes - PERRLA, EOM intact ENT - Moist mucous membranes, no lymphadenopathy Neck - No noticeable or palpable swelling, redness or rash around throat or on face Lymph Nodes - No lymphadenopathy Cardiovascular - RRR no m/r/g, no JVD, no carotid bruits Lungs - Clear to auscultation, no use of accessory muscles, no crackles or wheezes. Skin - No rashes, skin warm and dry, no erythematous areas Abdomen - Normal bowel sounds, abdomen soft and nontender Extremities - No edema, cyanosis or clubbing Musculoskeletal - 5/5 strength, normal range of motion, no swollen or erythematous joints. Neurological Alert and oriented x 3, CN 2-12 grossly intact. - Constitutional Vitals: Vital Signs Temp Pulse Resp BP Pulse Ox 98.3 F 73 20 110/69 95 01/28/19 19:39 01/29/19 10:00 01/29/19 10:00 01/28/19 19:39 01/29/19 10:00 Temperature -Last 24 Hours Temperature 98.3 F Temperature 97.4 F - Labs CBC & Chem 7: 01/27/19 03:34 01/29/19 05:14 Labs: Abnormal lab results 01/28/19 01/29/19 01/29/19 Range/Units 16:41 05:14 07:48 Carbon Dioxide 19 L (22-30) mmol/L BUN 32 H (9-20) mg/dL Creatinine 1.6 H (0.8-1.5) mg/dL Glucose 254 H (75-100) mg/dL POC Glucose 152 H 208 H (70-105)
--- NOTE | 2019-01-30 15:24 | Discharge Summary ---
Providers - Providers Date of Admission: 01/27/19 00:37 Attending physician: MCKAYLA CISNEROS MD 01/27/19 08:39 Physical Therapy Evaluation and Treat [CONS] Routine Comment: Reason For Exam: weakness 01/27/19 16:31 Consult to Physician [CONS] Routine Comment: Consulting Provider: MELODIE SANTANA Physician Instructions: Reason For Exam: sepsis, uti 01/28/19 11:55 Consult to Physician [CONS] Routine Comment: Consulting Provider: TOBI LOW Physician Instructions: Reason For Exam: hattie Primary care physician: SYEDA LYONS Hospitalization Condition: Fair Hospital course: 68-year-old man who is a , with history of schizophrenia who has been admitted to the hospital many times and has been very difficult. He presented to the hospital with fever. Patient was found to have acute kidney injury and UTI He was treated with antibiotics and IV fluids. He had improvement in his renal function, and he defervesced, urine cultures were finalized and he was given antibiotics for which it was sensitive. Patient advised to continue drinking up to 8 glasses of water daily as renal function continues to improve -He refused majority of his medications while he was in the hospital He required sitter for safety while in hospital. Diagnosis Sepsis UTI Acute kidney injury due to vasomotor nephropathy Schizophrenia Hypertension Diabetes COPD CAD Disposition: TO HOME OR SELFCARE Time spent for discharge: 33 mins Core Measure Documentation - Palliative Care Palliative Care/ Comfort Measures: Not Applicable - Core Measures Any of the following diagnoses?: none Exam - Physical Exam Narrative exam: General.: Appears well, no distress, nontoxic HEENT: Moist mucous membranes, extraocular muscles intact, no lymphadenopathy Neck: supple Cardiac: S1-S2 heard Lungs: clear to auscultation bilaterally Abdomen: soft , nontender, nondistended, bowel sounds positive Extremities: no edema clubbing or cyanosis Skin: no rash or lesions Neurologic: no gross focal deficits Psych: Patient is not calm, he is screaming and cursing at staff - Constitutional Vitals: Temp Pulse Resp BP Pulse Ox 98.3 F 73 20 110/69 95 01/28/19 19:39 01/29/19 10:00 01/29/19 10:00 01/28/19 19:39 01/29/19 10:00 Plan Follow up with: SYEDA LYONS MD, PHD [Primary Care Provider] - 7 Days Prescriptions: Ciprofloxacin HCl [Ciprofloxacin TAB] 500 mg PO Q12HR #14 tab glipiZIDE [Glucotrol] 5 mg PO BID #30 tablet
== END 2019-01-29 10:55 | disposition home or self-care (01) | DRG 871 ==
LOC: ED 17:20 → 2B-ACE 01-27 00:37
PROVIDERS: ADMIT Internal Medicine; ATTEND Internal Medicine
DX: A41.9 Sepsis, unspecified organism (principal); N17.0 Acute kidney failure with tubular necrosis; E87.1 Hypo-osmolality and hyponatremia; N30.01 Acute cystitis with hematuria; I13.0 Hypertensive heart and chronic kidney disease with heart failure and stage 1 through stage 4 chronic kidney disease, or unspecified chronic kidney disease; I50.9 Heart failure, unspecified; J44.9 Chronic obstructive pulmonary disease, unspecified; I25.2 Old myocardial infarction; M10.9 Gout, unspecified; G89.29 Other chronic pain; F17.210 Nicotine dependence, cigarettes, uncomplicated; I25.10 Atherosclerotic heart disease of native coronary artery without angina pectoris; F20.9 Schizophrenia, unspecified; E11.22 Type 2 diabetes mellitus with diabetic chronic kidney disease; N18.9 Chronic kidney disease, unspecified; B96.20 Unspecified Escherichia coli [E. coli] as the cause of diseases classified elsewhere; Z79.84 Long term (current) use of oral hypoglycemic drugs
CPT/HCPCS: 36415; 70450; 71046; 74176; 80048; 80053; 81001; 82140; 82962; 85007; 85025; 87040; 87076; 87086; 87116; 87186; 96374; G0378; J1650; J1815; J1956; J7030

== ENCOUNTER 2019-02-06 21:36 | Emergency (ER) | payer MEDICARE ==
[2019-02-06 23:47] VITALS: BP 136/84
--- NOTE | 2019-02-07 01:53 | Emergency Department Report ---
ED Abdominal Pain HPI - General Chief Complaint: Abdominal Pain Stated Complaint: UPSET STOMACH, COLD SXS Time Seen by Provider: 02/07/19 01:39 Source: patient Mode of arrival: Ambulatory Limitations: No Limitations - History of Present Illness MD Complaint: abdominal pain - Related Data Previous Rx's Medication Instructions Recorded Last Taken Type Omeprazole Magnesium [PriLOSEC Otc] 20 mg PO QDAY #20 tablet. 05/28/17 Unknown Rx Fluticasone [Flonase] 1 spray NS QDAY #1 bottle 11/22/18 Unknown Rx ALBUTEROL Inhaler (OR & NICU) 2 puff IH QID PRN #8.5 gram 01/18/19 Unknown Rx [ProAir HFA Inhaler] Ciprofloxacin HCl [Ciprofloxacin 500 mg PO Q12HR #14 tab 01/29/19 Unknown Rx TAB] glipiZIDE [Glucotrol] 5 mg PO BID #30 tablet 01/29/19 Unknown Rx Allergies Allergy/AdvReac Type Severity Reaction Status Date / Time Penicillins Allergy Mild Rash Verified 07/26/18 15:41 ED Review of Systems ROS: Stated complaint: UPSET STOMACH, COLD SXS Other details as noted in HPI ED Past Medical Hx - Past Medical History Previous Medical History?: Yes Hx Hypertension: Yes Hx Heart Attack/AMI: Yes Hx Diabetes: Yes Hx Arthritis: Yes (gout) Hx COPD: Yes (Admitted with acute exacerbation) Hx Dementia: No Additional medical history: gout, Chronic Pain in legs - Surgical History Past Surgical History?: Yes Additional Surgical History: ribs - Social History Smoking Status: Current Every Day Smoker Substance Use Type: Alcohol - Medications Home Medications: Home Medications Medication Instructions Recorded Confirmed Last Taken Type Omeprazole Magnesium [PriLOSEC Otc] 20 mg PO QDAY #20 tablet. 05/28/17 01/28/19 Unknown Rx Fluticasone [Flonase] 1 spray NS QDAY #1 bottle 11/22/18 01/28/19 Unknown Rx ALBUTEROL Inhaler (OR & NICU) 2 puff IH QID PRN #8.5 gram 01/18/19 01/28/19 Unkn own Rx [ProAir HFA Inhaler] Ciprofloxacin HCl [Ciprofloxacin 500 mg PO Q12HR #14 tab 01/29/19 Unknown Rx TAB] glipiZIDE [Glucotrol] 5 mg PO BID #30 tablet 01/29/19 Unknown Rx ED Physical Exam - General Limitations: No Limitations ED Course Vital Signs 02/06/19 21:50 Temperature 97.7 F Pulse Rate 88 Respiratory 20 Rate Blood Pressure 136/84 O2 Sat by Pulse 98 Oximetry Critical care attestation.: If time is entered above; I have spent that time in minutes in the direct care of this critically ill patient, excluding procedure time. ED Disposition Condition: Stable Referrals: PRIMARY CARE, [Primary Care Provider] - 3-5 Days
== END 2019-02-07 01:52 | disposition left against medical advice (07) ==
LOC: ED 21:36
DX: R10.9 Unspecified abdominal pain (principal); Z53.21 Procedure and treatment not carried out due to patient leaving prior to being seen by health care provider

== ENCOUNTER 2019-02-12 23:52 | Emergency (ER) | payer MEDICARE ==
[2019-02-13 01:22] VITALS: BP 130/69
[2019-02-13 02:03] LABS: Basophils # (Auto) 0.1 K/mm3 (0.0-0.1); Basophils % (Auto) 1.5 % (0.0-1.8); Eosinophils # (Auto) 0.1 K/mm3 (0.0-0.4); Eosinophils % (Auto) 1.7 % (0.0-4.3); Hematocrit 30.1 % (35.5-45.6); Hemoglobin 10.1 gm/dl (11.8-15.2); Lymphocytes # (Auto) 1.5 K/mm3 (1.2-5.4); Lymphocytes % (Auto) 18.7 % (13.4-35.0); Mean Corpuscular HGB Conc 34 % (32-34); Mean Corpuscular Volume 94 fl (84-94); Monocytes # (Auto) 0.7 K/mm3 (0.0-0.8); Monocytes % (Auto) 8.7 % (0.0-7.3); Platelet Count 327 K/mm3 (140-440); Red Blood Count 3.22 M/mm3 (3.65-5.03); Red Cell Distribution Width 13.4 % (13.2-15.2)
--- NOTE | 2019-02-13 02:09 | XRay Report ---
ABDOMEN 1 VIEW INDICATION / CLINICAL INFORMATION: Unspecified abdominal pain. COMPARISON: CT abdomen and pelvis without contrast from 01/26/2019. FINDINGS: TUBES / LINES: None. BOWEL GAS PATTERN: The colon contains a large amount of stool. No dilated bowel loops are seen. FREE AIR / EXTRALUMINAL GAS: None seen. ADDITIONAL FINDINGS: No significant additional findings. IMPRESSION: No acute abnormality of the abdomen. Signer Name: Richar Almaguer MD Signed: 02/13/2019 2:04 AM Workstation Name: [address]
[2019-02-13 02:25] LABS: Alanine Aminotransferase 13 units/L (7-56); Albumin 3.4 g/dL (3.9-5); BUN/Creatinine Ratio 15; Blood Urea Nitrogen 15 mg/dL (9-20)
[2019-02-13 03:15] LABS: Hemolysis Index 17
[2019-02-13 03:20] LABS: Calcium 8.9 mg/dL (8.4-10.2)
--- NOTE | 2019-02-13 03:32 | Emergency Department Report ---
HPI - General Chief Complaint: Abdominal Pain Time Seen by Provider: 02/13/19 01:28 - HPI HPI: 68-year-old male presents to the emergency department with a complaint of a two- week history of some abdominal pain, some recent dysuria, and some nonspecific cold symptoms. He has a past medical history of arthritis, gout, COPD, non- insulin depended diabetes, coronary artery disease, hypertension. I have seen this patient previously and he was here in late January with the complaint of some chronic lower abdominal pain. At that time the patient was admitted to the hospital secondary to a leukocytosis of 34,000 and a urinary tract infection. Patient is a tobacco smoker but denies any illicit drug use. ED Past Medical Hx - Past Medical History Previous Medical History?: Yes Hx Hypertension: Yes Hx Heart Attack/AMI: Yes Hx Diabetes: Yes Hx Arthritis: Yes (gout) Hx COPD: Yes (Admitted with acute exacerbation) Hx Dementia: No Additional medical history: gout, Chronic Pain in legs - Surgical History Past Surgical History?: Yes Additional Surgical History: ribs - Social History Smoking Status: Current Every Day Smoker Substance Use Type: None - Medications Home Medications: Home Medications Medication Instructions Recorded Confirmed Last Taken Type Omeprazole Magnesium [PriLOSEC Otc] 20 mg PO QDAY #20 tablet. 05/28/17 01/28/19 Unknown Rx Fluticasone [Flonase] 1 spray NS QDAY #1 bottle 11/22/18 01/28/19 Unknown Rx ALBUTEROL Inhaler (OR & NICU) 2 puff IH QID PRN #8.5 gram 01/18/19 01/28/19 Unknown Rx [ProAir HFA Inhaler] Ciprofloxacin HCl [Ciprofloxacin 500 mg PO Q12HR #14 tab 01/29/19 Unknown Rx TAB] glipiZIDE [Glucotrol] 5 mg PO BID #30 tablet 01/29/19 Unknown Rx ED Review of Systems ROS: Stated complaint: BAD COLD,UPSET STOMACH,RIGHT FOOT PAIN Other details as noted in HPI Comment: All other systems reviewed and negative Constitutional: denies: chills, fever Eyes: denies: eye pain, vision change ENT: denies: ear pain, throat pain Respiratory: cough Cardiovascular: denies: chest pain, palpitations Gastrointestinal: abdominal pain. denies: vomiting Genitourinary: dysuria. denies: discharge Musculoskeletal: denies: joint swelling, arthralgia Neurological: denies: headache, weakness Physical Exam - Physical Exam Vital Signs: Vital Signs 02/13/19 00:01 Temperature 97.5 F L Pulse Rate 81 Respiratory 20 Rate Blood Pressure 130/69 O2 Sat by Pulse 98 Oximetry Physical Exam: GENERAL: The patient is well-developed well-nourished. Disheveled appearance. HENT: Normocephalic. Atraumatic. Patient has moist mucous membranes. EYES: Extraocular motions are intact. NECK: Supple. Trachea is midline. CHEST/LUNGS: Clear to auscultation. There is no respiratory distress noted. HEART/CARDIOVASCULAR: Regular. There is no tachycardia. There is no murmur. ABDOMEN: Abdomen is soft, nontender. Patient has normal bowel sounds. There is no abdominal distention. SKIN: Skin is warm and dry. NEURO: The patient is awake, alert, and oriented. The patient is cooperative. The patient has no focal neurologic deficits. Normal speech. Cranial nerves II through XII grossly intact. MUSCULOSKELETAL: There is no tenderness or deformity. There is no limitation range of motion. There is no evidence of acute injury. ED Course Vital Signs 02/13/19 00:01 Temperature 97.5 F L Pulse Rate 81 Respiratory 20 Rate Blood Pressure 130/69 O2 Sat by Pulse 98 Oximetry ED Medical Decision Making - Lab Data Result diagrams: 02/13/19 01:55 02/13/19 01:55 - Radiology Data Radiology results: image reviewed interpreted by me: abdominal x-ray shows nonspecific nonobstructive bowel gas - Medical Decision Making This patient presents with some chronic abdominal discomfort and some cold-like symptoms. On examination he does not appear in any acute or respiratory distress. Patient is mostly interested in resting but will give blood and urine samples, and will have the abdominal x-ray, if continuously redirected. Abdominal x-ray shows nonspecific nonobstructive bowel gas. Patient's labs are unremarkable CBC, metabolic panel and urinalysis. His vital signs and stable throughout his ED course. The patient was seen resting comfortable in multiple times and does not appear in any distress. He'll be discharged home to follow up with primary care and will return to the ER for any worsening of symptoms or any acute distress. Critical Care Time: No Critical care attestation.: If time is entered above; I have spent that time in minutes in the direct care of this critically ill patient, excluding procedure time. ED Disposition Clinical Impression: Abdominal pain Qualifiers: Abdominal location: unspecified location Qualified Code(s): R10.9 - Unspecified abdominal pain Disposition: TO HOME OR SELFCARE Is pt being admited?: No Condition: Stable Instructions: Abdominal Pain (ED) Additional Instructions: Please follow up with a primary care physician in the next few days. I have also given you a referral for a local tree driller, Dr. Lewis, to follow up regarding your abdominal pains. Return to the emergency Department with any worsening of your symptoms or any acute distress. Referrals: ELIER MILLER MD [Staff Physician] - 2-3 Days [facility] [Outside] - 2-3 Days JUANITA LEWIS MD [Staff Physician] - 3-5 Days
[2019-02-13 04:40] LABS: Bacteria,Urine 1+ /HPF (Negative); Bilirubin,Urine NEG (Negative); Blood,Urine NEG (Negative); Color,Urine Straw (Yellow); Protein,Urine <15 mg/dL mg/dL (Negative); RBC,Urine < 1.0 /HPF (0.0-6.0); Urobilinogen,Urine < 2.0 mg/dL (<2.0)
== END 2019-02-13 05:40 | disposition home or self-care (01) ==
LOC: ED 23:52
DX: R10.30 Lower abdominal pain, unspecified (principal); R30.0 Dysuria; J00 Acute nasopharyngitis [common cold]; G89.29 Other chronic pain; M10.9 Gout, unspecified; I10 Essential (primary) hypertension; E11.9 Type 2 diabetes mellitus without complications; I25.2 Old myocardial infarction; J44.9 Chronic obstructive pulmonary disease, unspecified; F17.200 Nicotine dependence, unspecified, uncomplicated; Z79.899 Other long term (current) drug therapy; Z88.0 Allergy status to penicillin
CPT/HCPCS: 36415; 74019; 80053; 81001; 83690; 85025

== ENCOUNTER 2019-02-25 06:04 | Emergency (ER) | payer MEDICARE ==
[2019-02-25 06:22] VITALS: BP 167/88
== END 2019-02-25 07:20 | disposition left against medical advice (07) ==
LOC: ED 06:04
DX: J00 Acute nasopharyngitis [common cold] (principal); Z53.21 Procedure and treatment not carried out due to patient leaving prior to being seen by health care provider

== ENCOUNTER 2019-02-26 23:48 | Emergency (ER) | payer MEDICARE | END 2019-02-26 23:50 | disposition left against medical advice (07) | LOC: ED 23:48 | DX: J00 Acute nasopharyngitis [common cold] (principal); Z53.21 Procedure and treatment not carried out due to patient leaving prior to being seen by health care provider ==

== ENCOUNTER 2019-02-27 02:13 | Emergency (ER) | payer MEDICARE ==
--- NOTE | 2019-02-27 08:11 | Emergency Department Report ---
ED General Adult HPI - General Chief complaint: Abdominal Pain Stated complaint: UPSET STOMACH, COUGH, RUNNY NOSE, BODY PAIN Time Seen by Provider: 02/27/19 07:24 Source: patient Mode of arrival: Ambulatory Limitations: No Limitations - History of Present Illness Initial comments: 68 male states that he mild abdominal pain, coughing, and runny nose x 2 months. Pt further states that he has a history of indigestion. -: month(s) Location: abdomen Severity scale (0 -10): 8 Quality: aching Improves with: none Worsens with: none Associated Symptoms: denies other symptoms Treatments Prior to Arrival: none - Related Data Previous Rx's Medication Instructions Recorded Last Taken Type Omeprazole Magnesium [PriLOSEC Otc] 20 mg PO QDAY #20 tablet. 05/28/17 Unknown Rx Fluticasone [Flonase] 1 spray NS QDAY #1 bottle 11/22/18 Unknown Rx ALBUTEROL Inhaler (OR & NICU) 2 puff IH QID PRN #8.5 gram 01/18/19 Unknown Rx [ProAir HFA Inhaler] Ciprofloxacin HCl [Ciprofloxacin 500 mg PO Q12HR #14 tab 01/29/19 Unknown Rx TAB] glipiZIDE [Glucotrol] 5 mg PO BID #30 tablet 01/29/19 Unknown Rx Omeprazole 20 mg PO QDAY 20 Days #20 02/27/19 Unknown Rx capsule. Allergies Allergy/AdvReac Type Severity Reaction Status Date / Time Penicillins Allergy Mild Rash Verified 07/26/18 15:41 ED Review of Systems ROS: Stated complaint: UPSET STOMACH, COUGH, RUNNY NOSE, BODY PAIN Other details as noted in HPI Comment: All other systems reviewed and negative Constitutional: see HPI ENT: as per HPI Respiratory: see HPI Gastrointestinal: as per HPI ED Past Medical Hx - Past Medical History Previous Medical History?: Yes Hx Hypertension: Yes Hx Heart Attack/AMI: Yes Hx Diabetes: Yes Hx Arthritis: Yes (gout) Hx COPD: Yes (Admitted with acute exacerbation) Hx Dementia: No Additional medical history: gout, Chronic Pain in legs - Surgical History Past Surgical History?: Yes Additional Surgical History: ribs - Social History Smoking Status: Former Smoker Substance Use Type: Alcohol - Medications Home Medications: Home Medications Medication Instructions Recorded Confirmed Last Taken Type Omeprazole Magnesium [PriLOSEC Otc] 20 mg PO QDAY #20 tablet. 05/28/17 01/28/19 Unknown Rx Fluticasone [Flonase] 1 spray NS QDAY #1 bottle 11/22/18 01/28/19 Unknown Rx ALBUTEROL Inhaler (OR & NICU) 2 puff IH QID PRN #8.5 gram 01/18/19 01/28/19 Unknown Rx [ProAir HFA Inhaler] Ciprofloxacin HCl [Ciprofloxacin 500 mg PO Q12HR #14 tab 01/29/19 Unknown Rx TAB] glipiZIDE [Glucotrol] 5 mg PO BID #30 tablet 01/29/19 Unknown Rx Omeprazole 20 mg PO QDAY 20 Days #20 02/27/19 Unknown Rx capsule. ED Physical Exam - General Limitations: No Limitations General appearance: alert, in no apparent distress, appears intoxicated - Head Head exam: Present: atraumatic, normocephalic, normal inspection - Eye Eye exam: Present: normal appearance, PERRL, EOMI - ENT ENT exam: Present: normal exam, normal orophraynx - Neck Neck exam: Present: normal inspection, tenderness - Respiratory Respiratory exam: Present: normal lung sounds bilaterally. Absent: respiratory distress, wheezes - Cardiovascular Cardiovascular Exam: Present: regular rate, normal rhythm, normal heart sounds - GI/Abdominal GI/Abdominal exam: Present: soft, tenderness (diffuse), normal bowel sounds. Absent: distended, guarding, rebound, rigid, mass - Rectal Rectal exam: Present: deferred - Extremities Exam Extremities exam: Present: normal inspection, full ROM, tenderness - Back Exam Back exam: Present: normal inspection, full ROM. Absent: tenderness, CVA tenderness (R), CVA tenderness (L) - Neurological Exam Neurological exam: Present: alert, altered, oriented X3, normal gait - Psychiatric Psychiatric exam: Present: normal affect, normal mood. Absent: depressed - Skin Skin exam: Present: warm, dry, intact ED Course Vital Signs 02/27/19 02:28 Temperature 98.8 F Pulse Rate 81 Respiratory 18 Rate Blood Pressure 125/72 O2 Sat by Pulse 95 Oximetry ED Medical Decision Making - Medical Decision Making 68 male states that he mild abdominal pain, coughing, and runny nose x 2 months. Pt further states that he has a history of indigestion. Pt verbalized that he feels better after sitting; he further states that he ate while in the ER and his stomach has settled. Pt states that he needs a refill on his Omepraz[facility] He also states his inhaler as needed. He was instructed that otc cough syrup that is diabetic sensitive is indicated. Pt was instructed to take medication as directed, f[facility] as [facility] and see ER as needed. Pt verbalized understanding and agreed with the plan of care. Critical care attestation.: If time is entered above; I have spent that time in minutes in the direct care of this critically ill patient, excluding procedure time. ED Disposition Clinical Impression: Cough, Gastritis Disposition: DC-01 TO HOME OR SELFCARE Is pt being admited?: No Does the pt Need Aspirin: No Condition: Stable Instructions: Gastritis (ED), Chronic Cough (ED) Additional Instructions: He was instructed that otc cough syrup that is diabetic sensitive is indicated. Pt was instructed to take medication as directed, [facility] and see ER as needed. Pt verbalized understanding and agreed with the plan of care. Prescriptions: Omeprazole 20 mg PO QDAY 20 Days #20 capsule. Referrals: PRIMARY CARE, [Primary Care Provider] - 3-5 Days Time of Disposition: 08:24
[2019-02-27 08:58] VITALS: BP 120/76
== END 2019-02-27 08:58 | disposition home or self-care (01) ==
LOC: ED 02:13
DX: K29.70 Gastritis, unspecified, without bleeding (principal); I10 Essential (primary) hypertension; I25.2 Old myocardial infarction; E11.9 Type 2 diabetes mellitus without complications; M10.9 Gout, unspecified; J44.9 Chronic obstructive pulmonary disease, unspecified; Z87.891 Personal history of nicotine dependence; Z88.0 Allergy status to penicillin; Z79.899 Other long term (current) drug therapy

== ENCOUNTER 2019-03-24 18:26 | Emergency (ER) | payer MEDICARE ==
--- NOTE | 2019-03-24 18:46 | Event Note ---
ED Screening Note ED Screening Note: 68 y/o male with severe central abdominal pain associated with nausea, dizziness, and chills. Reports polydypsia and polyuria. This initial assessment/diagnostic orders/clinical plan/treatment(s) is/are subject to change based on patients health status, clinical progression and re- assessment by fellow clinical providers in the ED. Further treatment and workup at subsequent clinical providers discretion. Patient/guardian urged not to elope from the ED as their condition may be serious if not clinically assessed and managed. Initial orders include:
[2019-03-24 23:44] LABS: Basophils # (Auto) 0.1 K/mm3 (0.0-0.1); Basophils % (Auto) 1.1 % (0.0-1.8); Eosinophils # (Auto) 0.2 K/mm3 (0.0-0.4); Eosinophils % (Auto) 2.6 % (0.0-4.3); Hematocrit 29.3 % (35.5-45.6); Hemoglobin 9.7 gm/dl (11.8-15.2); Lymphocytes # (Auto) 1.7 K/mm3 (1.2-5.4); Lymphocytes % (Auto) 27.6 % (13.4-35.0); Mean Corpuscular HGB Conc 33 % (32-34); Mean Corpuscular Volume 88 fl (84-94); Monocytes # (Auto) 0.6 K/mm3 (0.0-0.8); Platelet Count 252 K/mm3 (140-440); Red Blood Count 3.33 M/mm3 (3.65-5.03); Red Cell Distribution Width 15.1 % (13.2-15.2)
[2019-03-25] LABS: Alanine Aminotransferase 30 units/L (7-56); Albumin 3.9 g/dL (3.9-5); BUN/Creatinine Ratio 14; Blood Urea Nitrogen 15 mg/dL (9-20); Calcium 9.1 mg/dL (8.4-10.2); Hemolysis Index 3
[2019-03-25 00:06] LABS: Bilirubin,Direct < 0.2 mg/dL (0-0.2)
--- NOTE | 2019-03-25 00:56 | Cat Scan Report ---
CT ABDOMEN AND PELVIS WITH IV CONTRAST INDICATION: Abdominal Pain. COMPARISON: CT 01/26/2019. TECHNIQUE: All CT scans at this facility use dose modulation, automated exposure control, iterative reconstructi on or weight based dosing, when appropriate, to reduce radiation dose to as low as reasonably achieva ble. FINDINGS: Lung Bases: No significant abnormality. Skeletal System: No acute abnormality. ABDOMEN: Liver: No significant abnormality. Gallbladder: No significant abnormality. Bile Ducts: No significant abnormality. Pancreas: No significant abnormality. Spleen: No significant abnormality. Adrenals: No significant abnormality. Right Kidney: Punctate nonobstructing calyceal stone. No acute findings. Left Kidney: No significant abnormality. Upper GI tract: Stomach is mildly distended with fluid. As on the prior, there is partial bowel malro tation with small bowel in the right and: On the left. Proximal loops of small bowel in the right upp er quadrant are mildly thick-walled. No small bowel dilatation is seen. Lymph Nodes: No significant adenopathy. Aorta: No significant abnormality. Additional Findings: No significant abnormality. PELVIS: Colon: No acute abnormality. Urinary Bladder and Distal Ureters: No significant abnormality. Appendix: No significant abnormality. Lymph Nodes: No significant adenopathy. Additional Findings: Prostate is mildly enlarged. IMPRESSION: 1. Probable gastroenteritis. No bowel obstruction. 2. Incidental findings, as above. Signer Name: Deon Roth MD Signed: 03/25/2019 12:52 AM Workstation Name: [id number]
--- NOTE | 2019-03-25 03:49 | Emergency Department Report ---
ED Abdominal Pain HPI - General Chief Complaint: Abdominal Pain Stated Complaint: BELLY PAIN Time Seen by Provider: 03/24/19 18:42 Source: patient Mode of arrival: Ambulatory Limitations: No Limitations - History of Present Illness Initial Comments: 68 yo M presents to ED with complaint of abdominal pain x 1 week. Denies vomiting or diarrhea, fever, urinary dysuria. Pt also reports associated URI symptoms w/ runny nose and congestion. Also reports increased urination and thirst. MD Complaint: abdominal pain -: week(s) (1) Location: diffuse Radiation: none Migration to: no migration Severity: mild Quality: cramping Consistency: intermittent Improves With: nothing Worsens With: nothing Associated Symptoms: nausea. denies: vomiting, diarrhea, fever, dysuria - Related Data Previous Rx's Medication Instructions Recorded Last Taken Type Omeprazole Magnesium [PriLOSEC Otc] 20 mg PO QDAY #20 tablet. 05/28/17 Unknown Rx Fluticasone [Flonase] 1 spray NS QDAY #1 bottle 11/22/18 Unknown Rx Albuterol INH(or & Nicu Only) 2 puff IH QID PRN #8.5 gram 01/18/19 Unknown Rx [ProAir HFA Inhaler] Ciprofloxacin HCl [Ciprofloxacin 500 mg PO Q12HR #14 tab 01/29/19 Unknown Rx TAB] glipiZIDE [Glucotrol] 5 mg PO BID #30 tablet 01/29/19 Unknown Rx Omeprazole 20 mg PO QDAY 20 Days #20 02/27/19 Unknown Rx capsule. Benzonatate [Tessalon Perles] 100 mg PO Q8HR PRN #20 capsule 03/25/19 Unknown Rx Dicyclomine [Bentyl] 20 mg PO QID PRN #20 tablet 03/25/19 Unknown Rx Naproxen [Naprosyn] 500 mg PO BID #20 tablet 03/25/19 Unknown Rx traMADoL [Ultram] 50 mg PO Q6HR PRN #7 tablet 03/25/19 Unknown Rx Allergies Allergy/AdvReac Type Severity Reaction Status Date / Time Penicillins Allergy Mild Rash Verified 07/26/18 15:41 ED Review of Systems ROS: Stated complaint: BELLY PAIN Other details as noted in HPI Comment: All other systems reviewed and negative Constitutional: denies: fever Respiratory: cough Gastrointestinal: abdominal pain, nausea. denies: vomiting, diarrhea Genitourinary: frequency. denies: dysuria ED Past Medical Hx - Past Medical History Previous Medical History?: Yes Hx Hypertension: Yes Hx Heart Attack/AMI: Yes Hx Diabetes: Yes Hx Arthritis: Yes (gout) Hx COPD: Yes (Admitted with acute exacerbation) Hx Dementia: No Additional medical history: gout, Chronic Pain in legs - Surgical History Past Surgical History?: Yes Additional Surgical History: ribs - Social History Smoking Status: Never Smoker Substance Use Type: None - Medications Home Medications: Home Medications Medication Instructions Recorded Confirmed Last Taken Type Omeprazole Magnesium [PriLOSEC Otc] 20 mg PO QDAY #20 tablet. 05/28/17 01/28/19 Unknown Rx Fluticasone [Flonase] 1 spray NS QDAY #1 bottle 11/22/18 01/28/19 Unknown Rx Albuterol INH(or & Nicu Only) 2 puff IH QID PRN #8.5 gram 01/18/19 01/28/19 Unknown Rx [ProAir HFA Inhaler] Ciprofloxacin HCl [Ciprofloxacin 500 mg PO Q12HR #14 tab 01/29/19 Unknown Rx TAB] glipiZIDE [Glucotrol] 5 mg PO BID #30 tablet 01/29/19 Unknown Rx Omeprazole 20 mg PO QDAY 20 Days #20 02/27/19 Unknown Rx capsule. Benzonatate [Tessalon Perles] 100 mg PO Q8HR PRN #20 capsule 03/25/19 Unknown Rx Dicyclomine [Bentyl] 20 mg PO QID PRN #20 tablet 03/25/19 Unknown Rx Naproxen [Naprosyn] 500 mg PO BID #20 tablet 03/25/19 Unknown Rx traMADoL [Ultram] 50 mg PO Q6HR PRN #7 tablet 03/25/19 Unknown Rx ED Physical Exam - General Limitations: No Limitations General appearance: alert, in no apparent distress - Head Head exam: Present: atraumatic, normocephalic - Eye Eye exam: Present: normal appearance - ENT ENT exam: Present: mucous membranes moist - Neck Neck exam: Present: normal inspection - Respiratory Respiratory exam: Present: normal lung sounds bilaterally. Absent: respiratory distress - Cardiovascular Cardiovascular Exam: Present: regular rate, normal rhythm - GI/Abdominal GI/Abdominal exam: Present: soft. Absent: distended, tenderness - Extremities Exam Extremities exam: Present: normal inspection - Neurological Exam Neurological exam: Present: alert, oriented X3 - Psychiatric Psychiatric exam: Present: normal affect, normal mood - Skin Skin exam: Present: warm, dry, intact, normal color ED Course Vital Signs 03/24/19 03/25/19 21:32 04:03 Temperature 98.2 F 98.2 F Pulse Rate 58 L 82 Respiratory 18 Rate Blood Pressure 165/82 Blood Pressure 145/80 [Left] O2 Sat by Pulse 96 Oximetry ED Medical Decision Making - Lab Data Result diagrams: 03/24/19 23:01 03/24/19 23:01 - Radiology Data Radiology results: report reviewed, image reviewed - Medical Decision Making 68 yo w/ abdominal pain, URI sx's x 1 week. Vitals normal. Labs unremarkable. CT Abd/ Pelvis shows no acute findings. Pt no distress, laughing and joking. Tolerating PO. Will d/c with prescriptions. Return precautions given. Outpt f/u advised. Critical care attestation.: If time is entered above; I have spent that time in minutes in the direct care of this critically ill patient, excluding procedure time. ED Disposition Clinical Impression: Viral illness Disposition: DC- TO HOME OR SELFCARE Is pt being admited?: No Condition: Stable Instructions: Upper Respiratory Infection (ED), Viral Syndrome (ED), Abdominal Pain (ED) Prescriptions: Dicyclomine [Bentyl] 20 mg PO QID PRN #20 tablet PRN Reason: abdominal pain Naproxen [Naprosyn] 500 mg PO BID #20 tablet Benzonatate [Tessalon Perles] 100 mg PO Q8HR PRN #20 capsule PRN Reason: Cough traMADoL [Ultram] 50 mg PO Q6HR PRN #7 tablet PRN Reason: Pain Referrals: PRIMARY CARE, [Primary Care Provider] - 3-[address] [facility] [Provider Group] - 3-5 Days Time of Disposition: 03:48
[2019-03-25 04:04] VITALS: BP 145/80
== END 2019-03-25 04:05 | disposition home or self-care (01) ==
LOC: ED 18:26
DX: B34.9 Viral infection, unspecified (principal); I10 Essential (primary) hypertension; I25.2 Old myocardial infarction; E11.9 Type 2 diabetes mellitus without complications; M19.90 Unspecified osteoarthritis, unspecified site; J44.9 Chronic obstructive pulmonary disease, unspecified; Z79.899 Other long term (current) drug therapy; Z88.0 Allergy status to penicillin
CPT/HCPCS: 36415; 74177; 80048; 80076; 82962; 83690; 85025; 99284; Q9967

== ENCOUNTER 2019-04-24 22:15 | Emergency (ER) | payer MEDICARE | END 2019-04-25 00:55 | disposition left against medical advice (07) | LOC: ED 22:15 | DX: R05 Cough (principal); Z53.21 Procedure and treatment not carried out due to patient leaving prior to being seen by health care provider ==

== ENCOUNTER 2019-04-25 03:43 | Emergency (ER) | payer MEDICARE ==
[2019-04-25 04:09] VITALS: BP 176/92
[2019-04-25] MEDS ORDERED: ONDANSETRON 4 MG ODT TAB PO ONE (04:40)
--- NOTE | 2019-04-25 05:03 | Emergency Department Report ---
ED Abdominal Pain HPI - General Chief Complaint: Abdominal Pain Stated Complaint: UPSET STOMACH Time Seen by Provider: 04/25/19 04:37 Source: patient Mode of arrival: Ambulatory Limitations: No Limitations - History of Present Illness Initial Comments: Mr. Lazar is 68 y/o male who presents for "upset stomach" patient has a history of GERD he is prescribed omeprazole however takes it intermittently. He denies being homeless however he travels with multiple bags. He complains of vague abdominal pain today described as being upset however there is no nausea vomiting there is no fever chills and patient is tolerating p.o. intake without symptoms. He denies exacerbating factors. He denies relieving factors. He is literally sleeping at this point. He denies EtOH or substance tonight. MD Complaint: abdominal pain Onset/Timin -: week(s) Radiation: other (generalized "all over") Migration to: no migration Severity: moderate Severity scale (0 -10): 4 Quality: other ("upset" ) Consistency: intermittent Improves With: nothing Worsens With: nothing Associated Symptoms: denies: nausea, vomiting, diarrhea, fever, chills, constipation, dysuria, melena - Related Data Previous Rx's Medication Instructions Recorded Last Taken Type Fluticasone [Flonase] 1 spray NS QDAY #1 bottle 11/22/18 Unknown Rx Albuterol INH(or & Nicu Only) 2 puff IH QID PRN #8.5 gram 01/18/19 Unknown Rx [ProAir HFA Inhaler] Ciprofloxacin HCl [Ciprofloxacin 500 mg PO Q12HR #14 tab 01/29/19 Unknown Rx TAB] glipiZIDE [Glucotrol] 5 mg PO BID #30 tablet 01/29/19 Unknown Rx Omeprazole 20 mg PO QDAY 20 Days #20 02/27/19 Unknown Rx capsule. Benzonatate [Tessalon Perles] 100 mg PO Q8HR PRN #20 capsule 03/25/19 Unknown Rx Dicyclomine [Bentyl] 20 mg PO QID PRN #20 tablet 03/25/19 Unknown Rx Naproxen [Naprosyn] 500 mg PO BID #20 tablet 03/25/19 Unknown Rx traMADoL [Ultram] 50 mg PO Q6HR PRN #7 tablet 03/25/19 Unknown Rx Omeprazole Magnesium [PriLOSEC Otc] 20 mg PO QDAY #30 tablet. 04/25/19 Unknown Rx Allergies Allergy/AdvReac Type Severity Reaction Status Date / Time Penicillins Allergy Mild Rash Verified 07/26/18 15:41 ED Review of Systems ROS: Stated complaint: UPSET STOMACH Other details as noted in HPI Constitutional: denies: chills, fever Eyes: denies: eye pain, eye discharge, vision change ENT: denies: ear pain, throat pain Respiratory: denies: cough, shortness of breath, wheezing Cardiovascular: denies: chest pain, palpitations Endocrine: no symptoms reported Gastrointestinal: abdominal pain. denies: nausea, vomiting, diarrhea, constipation, melena Genitourinary: denies: urgency, dysuria, frequency Musculoskeletal: denies: back pain, joint swelling, arthralgia Skin: denies: rash, lesions Neurological: denies: headache, weakness, paresthesias Psychiatric: denies: anxiety, depression Hematological/Lymphatic: denies: easy bleeding, easy bruising ED Past Medical Hx - Past Medical History Previous Medical History?: Yes Hx Hypertension: Yes Hx Heart Attack/AMI: Yes Hx Diabetes: Yes Hx Arthritis: Yes (gout) Hx COPD: Yes (Admitted with acute exacerbation) Hx Dementia: No Additional medical history: gout, Chronic Pain in legs - Surgical History Past Surgical History?: Yes Additional Surgical History: ribs - Social History Smoking Status: Current Every Day Smoker Substance Use Type: Alcohol - Medications Home Medications: Home Medications Medication Instructions Recorded Confirmed Last Taken Type Fluticasone [Flonase] 1 spray NS QDAY #1 bottle 11/22/18 01/28/19 Unknown Rx Albuterol INH(or & Nicu Only) 2 puff IH QID PRN #8.5 gram 01/18/19 01/28/19 Unknown Rx [ProAir HFA Inhaler] Ciprofloxacin HCl [Ciprofloxacin 500 mg PO Q12HR #14 tab 01/29/19 Unknown Rx TAB] glipiZIDE [Glucotrol] 5 mg PO BID #30 tablet 01/29/19 Unknown Rx Omeprazole 20 mg PO QDAY 20 Days #20 02/27/19 Unknown Rx capsule. Benzonatate [Tessalon Perles] 100 mg PO Q8HR PRN #20 capsule 03/25/19 Unknown Rx Dicyclomine [Bentyl] 20 mg PO QID PRN #20 tablet 03/25/19 Unknown Rx Naproxen [Naprosyn] 500 mg PO BID #20 tablet 03/25/19 Unknown Rx traMADoL [Ultram] 50 mg PO Q6HR PRN #7 tablet 03/25/19 Unknown Rx Omeprazole Magnesium [PriLOSEC Otc] 20 mg PO QDAY #30 tablet. 04/25/19 Unknown Rx ED Physical Exam - General Limitations: No Limitations General appearance: alert, in no apparent distress - Head Head exam: Present: atraumatic, normocephalic - Eye Eye exam: Present: normal appearance, PERRL, EOMI Pupils: Present: normal accommodation - ENT ENT exam: Present: mucous membranes moist - Neck Neck exam: Present: normal inspection, full ROM. Absent: tenderness - Respiratory Respiratory exam: Present: normal lung sounds bilaterally. Absent: respiratory distress, wheezes, stridor - Cardiovascular Cardiovascular Exam: Present: regular rate, normal rhythm, normal heart sounds. Absent: systolic murmur, diastolic murmur, rubs, gallop - GI/Abdominal GI/Abdominal exam: Present: soft, normal bowel sounds. Absent: distended, tenderness, rebound, rigid, bruit, hernia - Rectal Rectal exam: Present: deferred - Extremities Exam Extremities exam: Present: normal inspection, full ROM. Absent: tenderness - Back Exam Back exam: Present: normal inspection, full ROM. Absent: tenderness, CVA tenderness (R), CVA tenderness (L) - Neurological Exam Neurological exam: Present: alert, oriented X3, CN II-XII intact, normal gait - Psychiatric Psychiatric exam: Present: normal affect, normal mood - Skin Skin exam: Present: warm, dry, intact, normal color. Absent: rash ED Course Vital Signs 04/25/19 04:05 Temperature 97.8 F Pulse Rate 80 Respiratory 18 Rate Blood Pressure 176/92 O2 Sat by Pulse 96 Oximetry ED Medical Decision Making - Lab Data Result diagrams: 04/25/19 04:47 04/25/19 04:47 Labs 04/25/19 04/25/19 04:47 04:47 WBC 6.8 RBC 4.18 Hgb 11.3 L Hct 34.7 L MCV 83 L MCH 27 L MCHC 33 RDW 15.9 H Plt Count 228 Lymph % (Auto) 17.8 [place] % (Auto) 8.4 H Eos % (Auto) 2.4 Baso % (Auto) 1.4 Lymph # 1.2 [place]inn # 0.6 Eos # 0.2 Baso # 0.1 Seg Neutrophils % 70.0 Seg Neutrophils # 4.7 Sodium 142 Potassium 3.7 Chloride 101.4 Carbon Dioxide 26 Anion Gap 18 BUN 11 Creatinine 1.0 Estimated GFR > 60 BUN/Creatinine Ratio 11 Glucose 155 H Calcium 9.5 Total Bilirubin 0.40 AST 31 ALT 23 Alkaline Phosphatase 68 Total Protein 7.5 Albumin 4.1 Albumin/Globulin Ratio 1.2 Lipase 19 - Medical Decision Making labs are normal, pt is tolerating po intake, abd is normal to physical exam, no reproducible pain, no tenderness ,he declines imaging or further workup. pt is resting guitely with nad. plan: dc to self with rx for maalox prn, pt advised to take omeprazole as prescribed follow with primary care , given referral to [facility]. Critical care attestation.: If time is entered above; I have spent that time in minutes in the direct care of this critically ill patient, excluding procedure time. ED Disposition Clinical Impression: Abdominal pain Qualifiers: Abdominal location: generalized Qualified Code(s): R10.84 - Generalized abdominal pain Disposition: DC-01 TO HOME OR SELFCARE Is pt being admited?: No Does the pt Need Aspirin: No Condition: Stable Instructions: Abdominal Pain (ED) Prescriptions: Omeprazole Magnesium [PriLOSEC Otc] 20 mg PO QDAY #30 tablet. Referrals: CY GUNTER MD [Primary Care Provider] - 3-5 Days Time of Disposition: 06:15
[2019-04-25 05:26] LABS: Alanine Aminotransferase 23 units/L (7-56); Albumin 4.1 g/dL (3.9-5); BUN/Creatinine Ratio 11; Blood Urea Nitrogen 11 mg/dL (9-20); Calcium 9.5 mg/dL (8.4-10.2); Hemolysis Index 2
[2019-04-25 05:31] LABS: Basophils # (Auto) 0.1 K/mm3 (0.0-0.1); Basophils % (Auto) 1.4 % (0.0-1.8); Eosinophils # (Auto) 0.2 K/mm3 (0.0-0.4); Eosinophils % (Auto) 2.4 % (0.0-4.3); Hematocrit 34.7 % (35.5-45.6); Hemoglobin 11.3 gm/dl (11.8-15.2); Lymphocytes # (Auto) 1.2 K/mm3 (1.2-5.4); Lymphocytes % (Auto) 17.8 % (13.4-35.0); Mean Corpuscular HGB Conc 33 % (32-34); Mean Corpuscular Volume 83 fl (84-94); Monocytes # (Auto) 0.6 K/mm3 (0.0-0.8); Monocytes % (Auto) 8.4 % (0.0-7.3); Platelet Count 228 K/mm3 (140-440); Red Blood Count 4.18 M/mm3 (3.65-5.03); Red Cell Distribution Width 15.9 % (13.2-15.2)
== END 2019-04-25 07:29 | disposition home or self-care (01) ==
LOC: ED 03:43
DX: R10.84 Generalized abdominal pain (principal); I10 Essential (primary) hypertension; I25.2 Old myocardial infarction; E11.9 Type 2 diabetes mellitus without complications; M19.90 Unspecified osteoarthritis, unspecified site; J44.9 Chronic obstructive pulmonary disease, unspecified; F17.200 Nicotine dependence, unspecified, uncomplicated; Z98.890 Other specified postprocedural states; Z79.899 Other long term (current) drug therapy; Z88.0 Allergy status to penicillin
CPT/HCPCS: 36415; 80053; 83690; 85025; Q0162

== ENCOUNTER 2019-05-10 03:26 | Emergency (ER) | payer MEDICARE ==
[2019-05-10 04:04] VITALS: BP 181/91
[2019-05-10] MEDS ORDERED: ACETAMINOPHEN 500 MG TAB PO ONE (04:49)
[2019-05-10] MEDS ORDERED: IBUPROFEN 600 MG TAB PO ONE (04:49)
[2019-05-10] MEDS ORDERED: SULFAMETHOXAZOLE/TRIMETHOPRIM 800/160MG DS TAB PO ONE (04:49)
--- NOTE | 2019-05-10 05:18 | Emergency Department Report ---
- General Chief Complaint: Upper Respiratory Infection Stated Complaint: BODYACHES, COUGH Source: patient Mode of arrival: Ambulatory Limitations: No Limitations - History of Present Illness Initial Comments: Patient is a 68-year-old male with a history of [id number]-wrqhbnids diabetes, hypertension, chronic osteoarthritis, asthma and a heavy tobacco smoker who presented to the ED with persistent nasal and sinus congestion, persistent dry cough and diffuse bilateral foot and ankle joint pains. Patient admits to being homeless and that the cold weather makes the pain worse. Patient states that he has been walking in the cold weather and that his nasal congestion is worsened as well as his joint pains. Patient denies chest pain, shortness of breath, abdominal pain, nausea, vomiting, diarrhea, traumatic injury, heavy lifting, chills, fever, dizziness or syncope. MD Complaint: cough, rhinorrhea, nasal congestion, sinus pain, other (right foot pain) -: Sudden, week(s) (1) Severity: moderate Severity scale (0 -10): 5 Quality: dull, aching Consistency: constant Improves With: nothing Worsens With: other (being in cold weather) Associated Symptoms: denies other symptoms, rhinorrhea, nasal congestion, cough. denies: fever, chills, myalgias, diaphoresis, headache, sore throat, chest pain, abdominal pain, nausea, vomiting, diarrhea, rash, confusion, weight loss, hoarseness, ear pain Treatments Prior to Arrival: none - Related Data Previous Rx's Medication Instructions Recorded Last Taken Type Fluticasone [Flonase] 1 spray NS QDAY #1 bottle 11/22/18 Unknown Rx Albuterol INH(or & Nicu Only) 2 puff IH QID PRN #8.5 gram 01/18/19 Unknown Rx [ProAir HFA Inhaler] Ciprofloxacin HCl [Ciprofloxacin 500 mg PO Q12HR #14 tab 01/29/19 Unknown Rx TAB] glipiZIDE [Glucotrol] 5 mg PO BID #30 tablet 01/29/19 Unknown Rx Omeprazole 20 mg PO QDAY 20 Days #20 02/27/19 Unknown Rx capsule. Benzonatate [Tessalon Perlmyra] 100 mg PO Q8HR PRN #20 capsule 03/25/19 Unknown Rx Dicyclomine [Bentyl] 20 mg PO QID PRN #20 tablet 03/25/19 Unknown Rx Naproxen [Naprosyn] 500 mg PO BID #20 tablet 03/25/19 Unknown Rx traMADoL [Ultram] 50 mg PO Q6HR PRN #7 tablet 03/25/19 Unknown Rx Omeprazole Magnesium [PriLOSEC Otc] 20 mg PO QDAY #30 tablet. 04/25/19 Unknown Rx Ibuprofen [Motrin] 600 mg PO Q8H PRN #20 tablet 05/10/19 Unknown Rx Sulfamethoxazole/Trimethoprim 1 each PO Q12H #20 tablet 05/10/19 Unknown Rx [Bactrim DS TAB] Allergies Allergy/AdvReac Type Severity Reaction Status Date / Time Penicillins Allergy Mild Rash Verified 07/26/18 15:41 ED Review of Systems ROS: Stated complaint: BODYACHES, COUGH Other details as noted in HPI Constitutional: denies: chills, fever Eyes: denies: eye pain, eye discharge, vision change ENT: congestion. denies: ear pain, throat pain Respiratory: cough. denies: shortness of breath, SOB with exertion, SOB at rest, wheezing Cardiovascular: denies: chest pain, palpitations Endocrine: no symptoms reported Gastrointestinal: denies: abdominal pain, nausea, vomiting, diarrhea Genitourinary: denies: urgency, dysuria Musculoskeletal: arthralgia (Bilateral foot and ankle joint pains). denies: back pain, joint swelling Skin: other (Right plantar foot ulcerated wound with pain). denies: rash, lesions Neurological: denies: headache, weakness, paresthesias Psychiatric: denies: anxiety, depression Hematological/Lymphatic: denies: easy bleeding, easy bruising ED Past Medical Hx - Past Medical History Previous Medical History?: Yes Hx Hypertension: Yes Hx Heart Attack/AMI: Yes Hx Diabetes: Yes Hx Arthritis: Yes (gout) Hx COPD: Yes (Admitted with acute exacerbation) Hx Dementia: No Additional medical history: gout, Chronic Pain in legs - Surgical History Past Surgical History?: Yes Additional Surgical History: ribs - Social History Smoking Status: Never Smoker Substance Use Type: Alcohol - Medications Home Medications: Home Medications Medication Instructions Recorded Confirmed Last Taken Type Fluticasone [Flonase] 1 spray NS QDAY #1 bottle 11/22/18 01/28/19 Unknown Rx Albuterol INH(or & Nicu Only) 2 puff IH QID PRN #8.5 gram 01/18/19 01/28/19 Unknown Rx [ProAir HFA Inhaler] Ciprofloxacin HCl [Ciprofloxacin 500 mg PO Q12HR #14 tab 01/29/19 Unknown Rx TAB] glipiZIDE [Glucotrol] 5 mg PO BID #30 tablet 01/29/19 Unknown Rx Omeprazole 20 mg PO QDAY 20 Days #20 02/27/19 Unknown Rx capsule. Benzonatate [Tessalon Perles] 100 mg PO Q8HR PRN #20 capsule 03/25/19 Unknown Rx Dicyclomine [Bentyl] 20 mg PO QID PRN #20 tablet 03/25/19 Unknown Rx Naproxen [Naprosyn] 500 mg PO BID #20 tablet 03/25/19 Unknown Rx traMADoL [Ultram] 50 mg PO Q6HR PRN #7 tablet 03/25/19 Unknown Rx Omeprazole Magnesium [PriLOSEC Otc] 20 mg PO QDAY #30 tablet. 04/25/19 Unknown Rx Ibuprofen [Motrin] 600 mg PO Q8H PRN #20 tablet 05/10/19 Unknown Rx Sulfamethoxazole/Trimethoprim 1 each PO Q12H #20 tablet 05/10/19 Unknown Rx [Bactrim DS TAB] ED Physical Exam - General Limitations: No Limitations General appearance: alert, in no apparent distress - Head Head exam: Present: atraumatic, normocephalic, normal inspection - Eye Eye exam: Present: normal appearance, PERRL, EOMI Pupils: Present: normal accommodation - ENT ENT exam: Present: normal exam, normal orophraynx, mucous membranes moist, TM's normal bilaterally, normal external ear exam - Neck Neck exam: Present: normal inspection, full ROM. Absent: tenderness - Respiratory Respiratory exam: Present: normal lung sounds bilaterally. Absent: respiratory distress, wheezes, rales, rhonchi, chest wall tenderness, accessory muscle use, prolonged expiratory - Cardiovascular Cardiovascular Exam: Present: regular rate, normal rhythm, normal heart sounds. Absent: systolic murmur, diastolic murmur, rubs, gallop - GI/Abdominal GI/Abdominal exam: Present: soft, normal bowel sounds. Absent: tenderness, guarding, hyperactive bowel sounds, hypoactive bowel sounds, organomegaly - Extremities Exam Extremities exam: Present: normal inspection, full ROM, tenderness (Palpable mild bilateral ankle and foot joint tenderness), normal capillary refill. Absent: pedal edema, joint swelling, calf tenderness - Back Exam Back exam: Present: normal inspection - Neurological Exam Neurological exam: Present: alert, oriented X3, CN II-XII intact, normal gait, reflexes normal - Psychiatric Psychiatric exam: Present: normal affect, normal mood - Skin Skin exam: Present: warm, dry, intact, normal color, other (Mildly tender small right plantar foot ulcerated wound). Absent: rash ED Course Vital Signs 05/10/19 04:02 Temperature 98.3 F Pulse Rate 86 Respiratory 18 Rate Blood Pressure 181/91 O2 Sat by Pulse 91 Oximetry ED Medical Decision Making - Medical Decision Making This is a 68-year-old male who presented to the ED with persistent nasal and sinus congestion, persistent dry cough and diffuse bilateral foot and ankle joint pains. Patient admits to being homeless and that the cold weather makes the pain worse. In the ED, patient is alert and oriented x3 and is not in any distress. Patient drinking coffee during the physical exam and cracking jokes as at the same time. Patient was treated for pain in the ED and discharged out of the ED on pain medications including pain medicine and Bactrim DS. Patient was advised to follow-up with his primary care physician in 7 to 10 days for reevaluation or return to the ED immediately if symptoms get worse. - Differential Diagnosis URI; bronchitis; Osteoarthritis; Right foot ulcer Critical care attestation.: If time is entered above; I have spent that time in minutes in the direct care of this critically ill patient, excluding procedure time. ED Disposition Clinical Impression: Acute upper respiratory infection, Pain in right foot, Chronic osteoarthritis Chronic bronchitis Qualifiers: Chronic bronchitis type: simple Qualified Code(s): J41.0 - Simple chronic bronchitis Disposition: - TO HOME OR SELFCARE Is pt being admited?: No Does the pt Need Aspirin: No Condition: Stable Instructions: Chronic Bronchitis (ED), Arthralgia (ED), Upper Respiratory Infection (ED) Additional Instructions: Take medication with food, drink plenty of fluids and follow-up with your primary care physician in 7 to 10 days for reevaluation. Return to the ED immediately if symptoms get worse. Prescriptions: Sulfamethoxazole/Trimethoprim [Bactrim DS TAB] 1 each PO Q12H #20 tablet Ibuprofen [Motrin] 600 mg PO Q8H PRN #20 tablet PRN Reason: Pain Referrals: [facility] [Outside] - 3-5 Days Time of Disposition: 05:15 Print Language: INDONESIAN
== END 2019-05-10 05:27 | disposition home or self-care (01) ==
LOC: ED 03:26
DX: M19.071 Primary osteoarthritis, right ankle and foot (principal); J06.9 Acute upper respiratory infection, unspecified; J44.9 Chronic obstructive pulmonary disease, unspecified; E11.9 Type 2 diabetes mellitus without complications; M10.9 Gout, unspecified; I10 Essential (primary) hypertension; I25.2 Old myocardial infarction; Z98.890 Other specified postprocedural states; Z79.1 Long term (current) use of non-steroidal anti-inflammatories (NSAID); Z79.899 Other long term (current) drug therapy; Z88.0 Allergy status to penicillin
CPT/HCPCS: 99282

== ENCOUNTER 2019-10-07 01:13 | Emergency (ER) | payer MEDICARE | END 2019-10-07 04:30 | disposition left against medical advice (07) | LOC: ED 01:13 | DX: M79.10 Myalgia, unspecified site (principal); Z53.21 Procedure and treatment not carried out due to patient leaving prior to being seen by health care provider ==

== ENCOUNTER 2019-10-25 15:49 | Emergency (ER) | payer MEDICARE ==
[2019-10-25 16:08] VITALS: BP 151/82
== END 2019-10-26 09:12 | disposition left against medical advice (07) ==
LOC: ED 15:49
DX: M25.571 Pain in right ankle and joints of right foot (principal); Z53.21 Procedure and treatment not carried out due to patient leaving prior to being seen by health care provider

== ENCOUNTER 2021-02-13 07:35 | Emergency (ER) | payer MEDICARE ==
[2021-02-13 07:47] VITALS: BP 138/80
--- NOTE | 2021-02-13 07:56 | Emergency Department Report ---
Blank Doc - Documentation Documentation: 70-year-old male that presents with generalized pain, coughing, fatigue. Denies any shortness of breath. Patient is homeless and stated was outside all night. 1- This is a initial triage assessment/medical screening only. Full assessment and work-up will be completed once the patient is in proper hospital gown, ED bed and in a private room setting. This initial assessment/diagnostic orders/clinical plan/ treatment(s) is/are subject to change based on pt's health status, clinical progression and re-assessment by fellow clinical providers in the ED. Further treatment and workup at subsequent clinical providers discretion. Patient/guardians urged not to elope from ED as their condition may be serious if not clinically assessed and managed. 2-cardiac work-up The patient was evaluated in the emergency department for symptoms described in the history of present illness. He/she was evaluated in the context of the global COVID-19 pandemic, which necessitated consideration that the patient might be at risk for infection with the virus that causes COVID-19. Institutional protocols and algorithms that pertain to the evaluation of patients at risk for COVID-19 are in a state of rapid change based on information released by regulatory bodies including the CDC and federal and state organizations. These policies and algorithms were followed during the patient's care in the emergency department. Please note that these policies, procedures and recommendations changed on a rapid basis.
[2021-02-13 08:33] LABS: Basophils % (Auto) 0.4 % (0.0-1.8); Eosinophils # (Auto) 0.1 K/mm3 (0.0-0.4); Eosinophils % (Auto) 0.8 % (0.0-4.3); Hematocrit 35.7 % (35.5-45.6); Hemoglobin 11.7 gm/dl (11.8-15.2); Lymphocytes # (Auto) 0.9 K/mm3 (1.2-5.4); Lymphocytes % (Auto) 9.5 % (13.4-35.0); Mean Corpuscular HGB Conc 33 % (32-34); Mean Corpuscular Volume 91 fl (84-94); Monocytes # (Auto) 0.7 K/mm3 (0.0-0.8); Monocytes % (Auto) 7.6 % (0.0-7.3); Platelet Count 222 K/mm3 (140-440); Red Blood Count 3.94 M/mm3 (3.65-5.03); Red Cell Distribution Width 13.8 % (13.2-15.2)
[2021-02-13 08:50] LABS: INR 0.86 (0.87-1.13)
[2021-02-13 08:51] LABS: Partial Thromboplastin Time 35.4 Sec. (24.2-36.6)
[2021-02-13 08:59] LABS: Albumin 3.9 g/dL (3.9-5); Calcium 9.2 mg/dL (8.4-10.2)
--- NOTE | 2021-02-13 09:05 | XRay Report ---
CHEST 2 VIEWS INDICATION / CLINICAL INFORMATION: Chest Pain. COMPARISON: 08/16/2019 FINDINGS: SUPPORT DEVICES: None. HEART / MEDIASTINUM: No significant abnormality. LUNGS / PLEURA: No significant pulmonary or pleural abnormality. No pneumothorax. ADDITIONAL FINDINGS: Screw-plate devices are noted in several left ribs. There are healed right rib f ractures as well. IMPRESSION: 1. No acute findings. Signer Name: Bert Marroquin MD Signed: 02/13/2021 9:01 AM Workstation Name: [id number]
== END 2021-02-13 10:49 ==
LOC: ED 07:35
DX: R25.2 Cramp and spasm (principal); Z53.21 Procedure and treatment not carried out due to patient leaving prior to being seen by health care provider
CPT/HCPCS: 36415; 71046; 80053; 80061; 82550; 83735; 84484; 85025; 85610; 85730; 99283

== ENCOUNTER 2021-03-13 00:34 | Emergency (ER) | payer MEDICARE ==
[2021-03-13 00:59] VITALS: BP 154/82
[2021-03-13] MEDS ORDERED: ACETAMINOPHEN 500 MG TAB PO ONE (01:06)
[2021-03-13] MEDS ORDERED: traMADol 50 MG TAB PO ONE (01:06)
--- NOTE | 2021-03-13 01:17 | Emergency Department Report ---
ED Extremity Problem HPI - General Chief complaint: Dyspnea/Respdistress Stated complaint: COLD SX Source: patient Mode of arrival: Wheelchair Limitations: No Limitations - History of Present Illness Initial comments: Patient is a 70-year-old [place] male with a history of hypertension, coronary artery disease status post [place], COPD, chronic osteoarthritis, chronic gouty arthropathy, [id number] diabetes who presented to the ED with complaint of acute exacerbation of his chronic pain characterized by severe left knee and left ankle pain with mild swelling for the last 1 week, worse in the last 2 days. Patient states that [place] and that in the last 2 days the pain has worsened such that bearing weight on the legs makes the pain worse. Patient denies fall, traumatic injury, dizziness, syncope, heavy lifting, chest pain, shortness of breath, fever, chills, abdominal pain, heavy lifting, numbness and tingling or weakness of lower extremities bilaterally. MD Complaint: extremity pain (Chronic left knee and left ankle pain), extremity swelling (Chronic left knee and ankle), joint swelling, joint paint -: Gradual, year(s) (Chronic) Location: left, lower extremity (left knee and ankle), knee, other (left ankle) History of Same: Yes -: Yes arthralgia, No fever, No associated dyspnea Severity scale (0 -10): 8 Quality: aching, sharp Consistency: constant Improves with: nothing Worsens with: weight bearing, walking, exertion, palpation Associated Symptoms: denies other symptoms, arthralgias. denies: chest pain, shortness of breath, fever, myalgias - Related Data Previous Rx's Medication Instructions Recorded Last Taken Type Albuterol Mdi (or & Nicu Only) 2 puff IH QID PRN #8.5 gram 01/18/19 08/19/19 08:08 Rx [ProAir HFA Inhaler] Ciprofloxacin HCl [Ciprofloxacin 500 mg PO Q12HR #14 tab 01/29/19 Unknown Rx TAB] glipiZIDE [Glucotrol] 5 mg PO BID #30 tablet 01/29/19 08/16/19 Rx Omeprazole 20 mg PO QDAY 20 Days #20 02/27/19 08/15/19 Rx capsule. Benzonatate [Tessalchey Perlmyra] 100 mg PO Q8HR PRN #20 capsule 03/25/19 Unknown Rx Dicyclomine [Bentyl] 20 mg PO QID PRN #20 tablet 03/25/19 Unknown Rx Naproxen [Naprosyn] 500 mg PO BID #20 tablet 03/25/19 08/19/19 08:07 Rx Omeprazole Magnesium [PriLOSEC Otc] 20 mg PO QDAY #30 tablet. 04/25/19 Unknown Rx Ibuprofen [Motrin 600 MG tab] 600 mg PO Q8H PRN #20 tablet 05/10/19 Unknown Rx Fluticasone [Flonase] 50 mcg NS QDAY bottle 08/19/19 Unknown Rx Losartan [Cozaar] 12.5 mg PO QDAY #30 tablet 08/19/19 Unknown Rx carvediloL [Coreg] 3.125 mg PO BID #60 tablet 08/19/19 Unknown Rx Acetaminophen [Tylenol] 500 mg PO Q6HR PRN #30 tablet 03/13/21 Unknown Rx traMADoL [Ultram] 50 mg PO Q6HR PRN #10 tablet 03/13/21 Unknown Rx Allergies Allergy/AdvReac Type Severity Reaction Status Date / Time Penicillins Allergy Mild Rash Verified 07/26/18 15:41 ED Review of Systems ROS: Stated complaint: COLD SX Other details as noted in HPI Constitutional: denies: chills, fever Eyes: denies: eye pain, eye discharge, vision change ENT: denies: ear pain, throat pain Respiratory: denies: cough, shortness of breath, wheezing Cardiovascular: denies: chest pain, palpitations Endocrine: no symptoms reported Gastrointestinal: denies: abdominal pain, nausea, diarrhea Genitourinary: denies: urgency, dysuria Musculoskeletal: joint swelling (Left ankle and knee pain and swelling), arthralgia (Left knee pain, left ankle pain). denies: back pain Skin: denies: rash, lesions Neurological: denies: headache, weakness, paresthesias Psychiatric: denies: anxiety, depression Hematological/Lymphatic: denies: easy bleeding, easy bruising ED Past Medical Hx - Past Medical History Hx Hypertension: Yes Hx Heart Attack/AMI: Yes Hx Diabetes: Yes Hx Arthritis: Yes (gout) Hx COPD: Yes (Admitted with acute exacerbation) Hx Dementia: No Additional medical history: gout, Chronic Pain in legs - Surgical History Additional Surgical History: ribs - Social History Smoking Status: Current Some Day Smoker - Medications Home Medications: Home Medications Medication Instructions Recorded Confirmed Last Taken Type Albuterol Mdi (or & Nicu Only) 2 puff IH QID PRN #8.5 gram 01/18/19 08/19/19 08/19/19 08:08 Rx [ProAir HFA Inhaler] Ciprofloxacin HCl [Ciprofloxacin 500 mg PO Q12HR #14 tab 01/29/19 08/19/19 Unknown Rx TAB] glipiZIDE [Glucotrol] 5 mg PO BID #30 tablet 01/29/19 08/19/19 08/16/19 Rx Omeprazole 20 mg PO QDAY 20 Days #20 02/27/19 08/19/19 08/15/19 Rx capsule. Benzonatate [Tessalon Perles] 100 mg PO Q8HR PRN #20 capsule 03/25/19 08/19/19 Unknown Rx Dicyclomine [Bentyl] 20 mg PO QID PRN #20 tablet 03/25/19 08/19/19 Unknown Rx Naproxen [Naprosyn] 500 mg PO BID #20 tablet 03/25/19 08/19/19 08/19/19 08:07 Rx Omeprazole Magnesium [PriLOSEC Otc] 20 mg PO QDAY #30 tablet. 04/25/19 08/19/19 Unknown Rx Ibuprofen [Motrin 600 MG tab] 600 mg PO Q8H PRN #20 tablet 05/10/19 08/19/19 Unknown Rx Fluticasone [Flonase] 50 mcg NS QDAY bottle 08/19/19 Unknown Rx Losartan [Cozaar] 12.5 mg PO QDAY #30 tablet 08/19/19 Unknown Rx carvediloL [Coreg] 3.125 mg PO BID #60 tablet 08/19/19 Unknown Rx Acetaminophen [Tylenol] 500 mg PO Q6HR PRN #30 tablet 03/13/21 Unknown Rx traMADoL [Ultram] 50 mg PO Q6HR PRN #10 tablet 03/13/21 Unknown Rx ED Physical Exam - General Limitations: No Limitations General appearance: alert, in no apparent distress - Head Head exam: Present: atraumatic, normocephalic, normal inspection - Eye Eye exam: Present: normal appearance, PERRL, EOMI Pupils: Present: normal accommodation - ENT ENT exam: Present: normal exam, normal orophraynx, mucous membranes moist, TM's normal bilaterally, normal external ear exam - Neck Neck exam: Present: normal inspection, full ROM. Absent: tenderness - Respiratory Respiratory exam: Present: normal lung sounds bilaterally. Absent: respiratory distress, wheezes, rales, rhonchi, chest wall tenderness, decreased breath sounds, prolonged expiratory - Cardiovascular Cardiovascular Exam: Present: regular rate, normal rhythm, normal heart sounds. Absent: systolic murmur, diastolic murmur, rubs, gallop - GI/Abdominal GI/Abdominal exam: Present: soft, normal bowel sounds. Absent: tenderness, guarding, rebound, hyperactive bowel sounds, hypoactive bowel sounds, mass - Extremities Exam Extremities exam: Present: normal inspection, full ROM, tenderness (Palpable left knee and ankle tenderness with mild swelling), normal capillary refill, joint swelling (Mildly swollen left knee and ankle). Absent: pedal edema, calf tenderness - Back Exam Back exam: Present: normal inspection, full ROM, tenderness (Palpable lumbosacral paraspinal musculoskeletal tenderness), muscle spasm, paraspinal tenderness. Absent: CVA tenderness (L) - Neurological Exam Neurological exam: Present: alert, oriented X3, CN II-XII intact, normal gait, reflexes normal - Psychiatric Psychiatric exam: Present: normal affect, normal mood - Skin Skin exam: Present: warm, dry, intact, normal color. Absent: rash ED Course Vital Signs 03/13/21 00:53 Temperature 98.7 F Pulse Rate 72 Respiratory 20 Rate Blood Pressure 154/82 [Right] O2 Sat by Pulse 99 Oximetry ED Medical Decision Making - Medical Decision Making This is a 70-year-old [place] male with a history of hypertension, coronary artery disease status post [place], COPD, chronic osteoarthritis, chronic gouty arthropathy, [id number] diabetes who presented to the ED with complaint of acute exacerbation of his chronic pain characterized by severe left knee and left ankle pain with mild swelling for the last 1 week, worse in the last 2 days. Patient states that he [place] and that in the last 2 days the pain has worsened such that bearing weight on the legs makes the pain worse. In the ED, patient is alert and oriented x3 and is not in any distress but appears to be in pain. Clearly patient's case is chronic patient was treated for pain in the ED and discharged home on pain medications. Patient was advised to follow-up with his primary care physician in 7 to 10 days for reevaluation or return to the ED immediately if symptoms get worse. - Differential Diagnosis Chronic osteoarthritis, chronic gouty arthropathy, muscle strain, Critical care attestation.: If time is entered above; I have spent that time in minutes in the direct care of this critically ill patient, excluding procedure time. ED Disposition Clinical Impression: Chronic osteoarthritis, Chronic gouty arthropathy Disposition: HOME / SELF CARE / HOMELESS Is pt being admited?: No Does the pt Need Aspirin: No Condition: Stable Instructions: Arthritis, [id number], Preventing Osteoarthritis, Adult, Low- Purine Eating Plan Additional Instructions: Take medication with food, drink plenty of fluids and follow-up with your primary care physician in 5 to 7 days for reevaluation. Return to the ED im mediately if symptoms get worse. Prescriptions: Acetaminophen [Tylenol] 500 mg PO Q6HR PRN #30 tablet PRN Reason: Pain , Severe (7-10) traMADoL [Ultram] 50 mg PO Q6HR PRN #10 tablet PRN Reason: Pain Referrals: [facility] [Provider Group] - 3-5 Days Forms: Work/School Release Form(ED) Time of Disposition: 01:22 Print Language: BRITISH
== END 2021-03-13 05:00 | disposition home or self-care (01) ==
LOC: ED 00:34
DX: G89.29 Other chronic pain (principal); M19.90 Unspecified osteoarthritis, unspecified site; M1A.9XX0 Chronic gout, unspecified, without tophus (tophi); I10 Essential (primary) hypertension; J44.9 Chronic obstructive pulmonary disease, unspecified; E11.9 Type 2 diabetes mellitus without complications; Z98.890 Other specified postprocedural states; F17.200 Nicotine dependence, unspecified, uncomplicated; Z88.0 Allergy status to penicillin
CPT/HCPCS: 99282

== ENCOUNTER 2021-03-25 14:45 | Emergency (ER) | payer MEDICARE ==
[2021-03-25 17:25] VITALS: BP 211/103
[2021-03-25] MEDS ORDERED: IBUPROFEN 600 MG TAB PO STA (17:49)
[2021-03-25] MEDS ORDERED: ACETAMINOPHEN 500 MG TAB PO STA (17:49)
[2021-03-25] MEDS ORDERED: LOSARTAN 25 MG TAB PO STA (17:49)
[2021-03-25] MEDS ORDERED: carvediloL 3.125 MG TAB PO STA (17:49)
--- NOTE | 2021-03-25 17:55 | Emergency Department Report ---
ED General Adult HPI - General Chief complaint: Recheck/Abnormal Lab/Rx Stated complaint: MED REFILL Time Seen by Provider: 03/25/21 17:35 Source: patient, RN notes reviewed, old records reviewed Mode of arrival: Ambulatory Limitations: No Limitations - History of Present Illness Initial comments: The patient was evaluated in the emergency department for symptoms described in the history of present illness. He/she was evaluated in the context of the global COVID-19 pandemic, which necessitated consideration that the patient might be at risk for infection with the virus that causes COVID-19. Institutional protocols and algorithms that pertain to the evaluation of patients at risk for COVID-19 are in a state of rapid change based on information released by regulatory bodies including the CDC and federal and state organizations. These policies and algorithms were followed during the patient's care in the emergency department. Please note that these policies, procedures and recommendations changed on a rapid basis. The patient is a 70-year-old gentleman whom I evaluated in the past, who presents to the ER with a primary request for medication refill. He reports that he typically follows with the [facility]. He reports that he ran out of his Percocet. He has chronic arthritis. He denies additional injuries and additional painful complaints. On review of systems, endorses nonspecific rash and skin itching. The patient states he is living with family. The patient endorses a very mild cough. He denies loss of taste and smell. He denies focal extremity weakness and numbness. He reports that he believes his medications are due to be refilled in a few days from the [place] -: Gradual Severity scale (0 -10): 0 Improves with: none Worsens with: none Associated Symptoms: denies other symptoms - Related Data Previous Rx's Medication Instructions Recorded Last Taken Type Albuterol Mdi (or & Nicu Only) 2 puff IH QID PRN #8.5 gram 01/18/19 08/19/19 08:08 Rx [ProAir HFA Inhaler] glipiZIDE [Glucotrol] 5 mg PO BID #30 tablet 01/29/19 08/16/19 Rx Omeprazole 20 mg PO QDAY 20 Days #20 02/27/19 08/15/19 Rx capsule. Benzonatate [Tessalchey Perlmyra] 100 mg PO Q8HR PRN #20 capsule 03/25/19 Unknown Rx Omeprazole Magnesium [PriLOSEC Otc] 20 mg PO QDAY #30 tablet. 04/25/19 Unknown Rx Fluticasone [Flonase] 50 mcg NS QDAY bottle 08/19/19 Unknown Rx Losartan [Cozaar] 12.5 mg PO QDAY #30 tablet 08/19/19 Unknown Rx Acetaminophen [Acetaminophen TAB] 500 mg PO Q6HR PRN #30 tablet 03/25/21 Unknown Rx Ibuprofen [Motrin 600 MG tab] 600 mg PO Q8H PRN #20 tablet 03/25/21 Unknown Rx Losartan [Cozaar] 12.5 mg PO NOW #30 tablet 03/25/21 Unknown Rx Permethrin 5% [Acticin 5% CREAM] 1 applicatio TP ONCE #2 tube 03/25/21 Unknown Rx carvediloL [Coreg] 3.125 mg PO BID #60 tablet 03/25/21 Unknown Rx Allergies Allergy/AdvReac Type Severity Reaction Status Date / Time Penicillins Allergy Mild Rash Verified 07/26/18 15:41 ED Review of Systems ROS: Stated complaint: MED REFILL Other details as noted in HPI Constitutional: denies: fever Eyes: denies: eye discharge ENT: denies: epistaxis Respiratory: cough Cardiovascular: denies: chest pain Gastrointestinal: denies: abdominal pain Musculoskeletal: back pain, arthralgia, myalgia Skin: rash, lesions, pruritus Neurological: denies: weakness ED Past Medical Hx - Past Medical History Hx Hypertension: Yes Hx Heart Attack/AMI: Yes Hx Diabetes: Yes Hx Arthritis: Yes (gout) Hx COPD: Yes (Admitted with acute exacerbation) Hx Dementia: No Additional medical history: gout, Chronic Pain in legs - Surgical History Additional Surgical History: ribs - Social History Smoking Status: Current Some Day Smoker - Medications Home Medications: Home Medications Medication Instructions Recorded Confirmed Last Taken Type Albuterol Mdi (or & Nicu Only) 2 puff IH QID PRN #8.5 gram 01/18/19 08/19/19 08/19/19 08:08 Rx [ProAir HFA Inhaler] glipiZIDE [Glucotrol] 5 mg PO BID #30 tablet 01/29/19 08/19/19 08/16/19 Rx Omeprazole 20 mg PO QDAY 20 Days #20 02/27/19 08/19/19 08/15/19 Rx capsule.dr Benzonatate [Tessalon Perles] 100 mg PO Q8HR PRN #20 capsule 03/25/19 08/19/19 Unknown Rx Omeprazole Magnesium [PriLOSEC Otc] 20 mg PO QDAY #30 tablet. 04/25/19 08/19/19 Unknown Rx Fluticasone [Flonase] 50 mcg NS QDAY bottle 08/19/19 Unknown Rx Losartan [Cozaar] 12.5 mg PO QDAY #30 tablet 08/19/19 Unknown Rx Acetaminophen [Acetaminophen TAB] 500 mg PO Q6HR PRN #30 tablet 03/25/21 Unknown Rx Ibuprofen [Motrin 600 MG tab] 600 mg PO Q8H PRN #20 tablet 03/25/21 Unknown Rx Losartan [Cozaar] 12.5 mg PO NOW #30 tablet 03/25/21 Unknown Rx Permethrin 5% [Acticin 5% CREAM] 1 applicatio TP ONCE #2 tube 03/25/21 Unknown Rx carvediloL [Coreg] 3.125 mg PO BID #60 tablet 03/25/21 Unknown Rx ED Physical Exam - General Limitations: No Limitations, Other (Patient appears disheveled and unkempt) General appearance: alert, in no apparent distress - Head Head exam: Present: atraumatic, normocephalic - Eye Eye exam: Present: normal appearance, EOMI. Absent: nystagmus - ENT ENT exam: Present: normal exam, normal orophraynx, mucous membranes moist, normal external ear exam - Neck Neck exam: Present: normal inspection, full ROM. Absent: tenderness, meningismus - Respiratory Respiratory exam: Present: normal lung sounds bilaterally. Absent: respiratory distress, wheezes, rales, rhonchi, stridor, decreased breath sounds - Cardiovascular Cardiovascular Exam: Present: regular rate, normal rhythm, normal heart sounds. Absent: bradycardia, tachycardia, irregular rhythm, systolic murmur, diastolic murmur, rubs, gallop - GI/Abdominal GI/Abdominal exam: Present: soft. Absent: distended, tenderness, guarding, rebound, rigid, pulsatile mass - Rectal Rectal exam: Present: deferred - Extremities Exam Extremities exam: Present: normal inspection, full ROM, other (2+ pulses noted in the bilateral upper and lower extremities. There is no palpable cord. negative Homans sign. Muscular compartments are soft. The pelvis is stable.). Absent: pedal edema, calf tenderness - Back Exam Back exam: Present: normal inspection, full ROM. Absent: tenderness, CVA tenderness (R), CVA tenderness (L), paraspinal tenderness, vertebral tenderness - Neurological Exam Neurological exam: Present: alert, oriented X3, normal gait, other (No facial droop. Tongue midline. Extraocular movements intact bilaterally. Facial sensation intact to light touch in V1, V2, V3 distribution bilaterally. 5 and a 5 strength in 4 extremities. Sensation intact to light touch in 4 extremities.). Absent: motor sensory deficit - Psychiatric Psychiatric exam: Present: normal affect, normal mood - Skin Skin exam: Present: warm, abrasion, other (Linear excoriated scratch cerda noted on the lower extremities. Hyperpigmentation noted in the bilateral lower extremities. Chronic venous stasis changes noted in the bilateral lower extremities. There is no pus or streaking). Absent: cyanosis, diaphoretic, urticaria, vesicles, petechiae, pallor ED Course Vital Signs 03/25/21 17:24 Temperature 97.8 F Pulse Rate 75 Respiratory 16 Rate Blood Pressure 211/103 [Right] O2 Sat by Pulse 96 Oximetry ED Medical Decision Making - Lab Data Vital Signs 03/25/21 17:24 Temperature 97.8 F Pulse Rate 75 Respiratory 16 Rate Blood Pressure 211/103 [Right] O2 Sat by Pulse 96 Oximetry - Medical Decision Making Differential diagnosis, including but not limited to: Medication refill, chronic pain, encounter for medical screening examination Assessment and plan: 70-year-old gentleman, who is clinically sober, afebrile, with reassuring vital signs with exception of chronic hypertension which is not acutely decompensated (please reference the [employer] clinical policy on asymptomatic hypertension), who presents to the ER today with a primary complaint of request for medication and Percocet refill. Counseled patient that we will not refill Percocet. However, he can receive Tylenol and Motrin. Have also refilled his blood pressure medication. On review of systems endorses nonspecific pruritic rash. He appears very unkempt, and I am concerned that he may be undomiciled. Do not see any evidence of cutaneous lesion that would be consistent with acute cellulitis or acutely/emergently infectious pathology. He will also be given permethrin. Patient pleasant and cooperative, and does not meet criteria for 1013 hold or involuntary confinement at this time. He is of sound mind and exhibits decision-making capacity. He does not appear to have an emergent medical condition present at this time. He will need to follow-up as an outpatient Critical care attestation.: If time is entered above; I have spent that time in minutes in the direct care of this critically ill patient, excluding procedure time. ED Disposition Clinical Impression: Medicine refill, Rash, Elevated blood pressure reading, Encounter for medical screening examination, Chronic pain Disposition: HOME / SELF CARE / HOMELESS Is pt being admited?: No Does the pt Need Aspirin: No Condition: Good Instructions: Scabies, Adult, Managing Your Hypertension Additional Instructions: Please take your blood pressure medication as directed. Long-term complications of hypertension and elevated blood pressure include stroke, heart attack, disability, paralysis, and loss of quality of life. Please follow-up with a primary care doctor within the next month. Please take the prescribed pain medications as needed and directed. Patient was found to have nonspecific rash today, uncertain if related to insect bites. Use the permethrin medication as directed. Wash all clothing and linens with hot water and soap. Have your home/apartment evaluated by an shanker out for possible insect infestation. Please return to the emergency room right away with new pain, worsened pain, migration of pain, projectile vomiting, change in mental status, confusion, inability tolerate liquid feeds, new, worsened or different symptoms not present on the initial emergency room evaluation Prescriptions: Acetaminophen [Acetaminophen TAB] 500 mg PO Q6HR PRN #30 tablet PRN Reason: Pain , Severe (7-10) Permethrin 5% [Acticin 5% CREAM] 1 applicatio TP ONCE #2 tube carvediloL [Coreg] 3.125 mg PO BID #60 tablet Losartan [Cozaar] 12.5 mg PO NOW #30 tablet Ibuprofen [Motrin 600 MG tab] 600 mg PO Q8H PRN #20 tablet PRN Reason: Pain Referrals: [facility] [Provider Group] - 3-5 Days [facility] [Outside] - 3-5 Days
== END 2021-03-27 01:33 | disposition home or self-care (01) ==
LOC: ED 14:45
DX: Z76.0 Encounter for issue of repeat prescription (principal); I10 Essential (primary) hypertension; G89.29 Other chronic pain; I21.9 Acute myocardial infarction, unspecified; E11.8 Type 2 diabetes mellitus with unspecified complications; M1A.9XX0 Chronic gout, unspecified, without tophus (tophi); J44.1 Chronic obstructive pulmonary disease with (acute) exacerbation; Z88.0 Allergy status to penicillin; Z79.899 Other long term (current) drug therapy; Z98.890 Other specified postprocedural states; Z87.891 Personal history of nicotine dependence
CPT/HCPCS: 99281

== ENCOUNTER 2021-05-31 19:20 | Emergency (ER) | payer MEDICARE ==
--- NOTE | 2021-05-31 19:30 | Emergency Department Report ---
ED General Adult HPI - General Chief complaint: Medical Clearance Stated complaint: I am hungry, can I eat Time Seen by Provider: 05/31/21 19:28 Source: patient, EMS (Verbal report received from emergency medical services. EMS documentation not available at time of chart dictation ), RN notes reviewed, old records reviewed Mode of arrival: Stretcher Limitations: No Limitations - History of Present Illness Initial comments: This patient is a 71-year-old gentleman who is well-known to myself and to this institution. History obtained from EMS. EMS reports that they were called because the patient was staying or hanging out at a gas station, and would not leave. Apparently, personnel at the gas station called 911. Upon EMS arrival, the patient is awake alert oriented ambulatory. EMS reports normal vital signs in the field. EMS reports that the patient then complained of nausea and thus presented to the emergency room. Here in the emergency room, the patient denies physical pain. He states he is nauseous. He is asking to eat. He denies homicidality, suicidality and overdose. He is also asking for a warm blanket. He denies additional acute complaints. -: This evening - Related Data Previous Rx's Medication Instructions Recorded Last Taken Type Albuterol Mdi (or & Nicu Only) 2 puff IH QID PRN #8.5 gram 01/18/19 08/19/19 08:08 Rx [ProAir HFA Inhaler] glipiZIDE [Glucotrol] 5 mg PO BID #30 tablet 01/29/19 08/16/19 Rx Omeprazole 20 mg PO QDAY 20 Days #20 02/27/19 08/15/19 Rx capsule. Benzonatate [Tessalon Perles] 100 mg PO Q8HR PRN #20 capsule 03/25/19 Unknown Rx Omeprazole Magnesium [PriLOSEC Otc] 20 mg PO QDAY #30 tablet. 04/25/19 Unknown Rx Fluticasone [Flonase] 50 mcg NS QDAY bottle 08/19/19 Unknown Rx Losartan [Cozaar] 12.5 mg PO QDAY #30 tablet 08/19/19 Unknown Rx Acetaminophen [Acetaminophen TAB] 500 mg PO Q6HR PRN #30 tablet 03/25/21 Unknown Rx Ibuprofen [Motrin 600 MG tab] 600 mg PO Q8H PRN #20 tablet 03/25/21 Unknown Rx Losartan [Cozaar] 12.5 mg PO NOW #30 tablet 03/25/21 Unknown Rx Permethrin 5% [Acticin 5% CREAM] 1 applicatio TP ONCE #2 tube 03/25/21 Unknown Rx carvediloL [Coreg] 3.125 mg PO BID #60 tablet 03/25/21 Unknown Rx Allergies Allergy/AdvReac Type Severity Reaction Status Date / Time Penicillins Allergy Mild Rash Verified 07/26/18 15:41 ED Review of Systems ROS: Stated complaint: NAUSEA Other details as noted in HPI Constitutional: denies: fever Eyes: denies: eye discharge ENT: denies: epistaxis Respiratory: denies: cough Cardiovascular: denies: chest pain Gastrointestinal: denies: abdominal pain Genitourinary: denies: dysuria Neurological: denies: weakness Psychiatric: denies: auditory hallucinations, visual hallucinations, homicidal thoughts, suicidal thoughts ED Past Medical Hx - Past Medical History Hx Hypertension: Yes Hx Heart Attack/AMI: Yes Hx Diabetes: Yes Hx Arthritis: Yes (gout) Hx COPD: Yes (Admitted with acute exacerbation) Hx Dementia: No Additional medical history: gout, Chronic Pain in legs - Surgical History Additional Surgical History: ribs - Social History Smoking Status: Current Some Day Smoker - Medications Home Medications: Home Medications Medication Instructions Recorded Confirmed Last Taken Type Albuterol Mdi (or & Nicu Only) 2 puff IH QID PRN #8.5 gram 01/18/19 08/19/19 08/19/19 08:08 Rx [ProAir HFA Inhaler] glipiZIDE [Glucotrol] 5 mg PO BID #30 tablet 01/29/19 08/19/19 08/16/19 Rx Omeprazole 20 mg PO QDAY 20 Days #20 02/27/19 08/19/19 08/15/19 Rx capsule. Benzonatate [Tessalon Perles] 100 mg PO Q8HR PRN #20 capsule 03/25/19 08/19/19 Unknown Rx Omeprazole Magnesium [PriLOSEC Otc] 20 mg PO QDAY #30 tablet. 04/25/19 08/19/19 Unknown Rx Fluticasone [Flonase] 50 mcg NS QDAY bottle 08/19/19 Unknown Rx Losartan [Cozaar] 12.5 mg PO QDAY #30 tablet 08/19/19 Unknown Rx Acetaminophen [Acetaminophen TAB] 500 mg PO Q6HR PRN #30 tablet 03/25/21 Unknown Rx Ibuprofen [Motrin 600 MG tab] 600 mg PO Q8H PRN #20 tablet 03/25/21 Unknown Rx Losartan [Cozaar] 12.5 mg PO NOW #30 tablet 03/25/21 Unknown Rx Permethrin 5% [Acticin 5% CREAM] 1 applicatio TP ONCE #2 tube 03/25/21 Unknown Rx carvediloL [Coreg] 3.125 mg PO BID #60 tablet 03/25/21 Unknown Rx ED Physical Exam - General Limitations: No Limitations General appearance: alert, in no apparent distress - Head Head exam: Present: atraumatic, normocephalic - Eye Eye exam: Present: normal appearance, EOMI. Absent: nystagmus - ENT ENT exam: Present: normal exam, normal orophraynx, mucous membranes moist, normal external ear exam - Neck Neck exam: Present: normal inspection, full ROM. Absent: tenderness, meningismus - Respiratory Respiratory exam: Present: normal lung sounds bilaterally. Absent: respiratory distress, wheezes, rales, rhonchi, stridor, decreased breath sounds - Cardiovascular Cardiovascular Exam: Present: regular rate, normal rhythm, normal heart sounds. Absent: bradycardia, tachycardia, irregular rhythm, systolic murmur, diastolic murmur, rubs, gallop - GI/Abdominal GI/Abdominal exam: Present: soft. Absent: distended, tenderness, guarding, rebound, rigid, pulsatile mass - Rectal Rectal exam: Present: deferred - Extremities Exam Extremities exam: Present: normal inspection, full ROM, other (2+ pulses noted in the bilateral upper and lower extremities. There is no palpable cord. negative Homans sign. Muscular compartments are soft. The pelvis is stable.). Absent: pedal edema, calf tenderness - Back Exam Back exam: Present: normal inspection, full ROM. Absent: tenderness, CVA tenderness (R), CVA tenderness (L), paraspinal tenderness, vertebral tenderness - Neurological Exam Neurological exam: Present: alert, oriented X3, normal gait, other (No facial droop. Tongue midline. Extraocular movements intact bilaterally. Facial sensation intact to light touch in V1, V2, V3 distribution bilaterally. 5 and a 5 strength in 4 extremities. Sensation intact to light touch in 4 extremities.). Absent: motor sensory deficit - Psychiatric Psychiatric exam: Present: flat affect. Absent: homicidal ideation, suicidal ideation - Skin Skin exam: Present: warm, dry, intact, normal color. Absent: rash ED Course Vital Signs 05/31/21 20:49 Temperature 98.6 F Pulse Rate 68 Respiratory 16 Rate Blood Pressure 156/96 [Left] O2 Sat by Pulse 97 Oximetry ED Medical Decision Making - Lab Data Result diagrams: 05/31/21 19:45 05/31/21 19:45 Vital Signs 05/31/21 20:49 Temperature 98.6 F Pulse Rate 68 Respiratory 16 Rate Blood Pressure 156/96 [Left] O2 Sat by Pulse 97 Oximetry Lab Results 05/31/21 05/31/21 05/31/21 Range/Units 19:45 19:45 19:45 WBC 8.3 (4.5-11.0) K/mm3 RBC 4.30 (3.65-5.03) M/mm3 Hgb 12.8 (11.8-15.2) gm/dl Hct 38.6 (35.5-45.6) % MCV 90 (84-94) fl MCH 30 (28-32) pg MCHC 33 (32-34) % RDW 14.1 (13.2-15.2) % Plt Count 207 (140-440) K/mm3 Sodium 140 (137-145) mmol/L Potassium 3.9 (3.6-5.0) mmol/L Chloride 104.9 (98-107) mmol/L Carbon Dioxide 23 (22-30) mmol/L Anion Gap 16 mmol/L BUN 32 H (9-20) mg/dL Creatinine 1.7 H (0.8-1.3) mg/dL Estimated GFR 40 ml/min BUN/Creatinine Ratio 19 % Glucose 128 H (75-100) mg/dL Calcium 9.6 (8.4-10.2) mg/dL Magnesium 1.90 (1.7-2.3) mg/dL Total Bilirubin 0.60 (0.1-1.2) mg/dL AST 30 (5-40) units/L ALT 17 (7-56) units/L Alkaline Phosphatase 60 (35-129) units/L Total Creatine Kinase 761 H (55-170) units/L Total Protein 7.2 (6.3-8.2) g/dL Albumin 3.7 L (3.9-5) g/dL Albumin/Globulin Ratio 1.1 % Salicylates < 0.3 L (2.8-20.0) mg/dL Acetaminophen (10.0-30.0) ug/mL Plasma/Serum Alcohol (0-0.07) % 05/31/21 05/31/21 Range/Units 19:45 19:45 WBC (4.5-11.0) K/mm3 RBC (3.65-5.03) M/mm3 Hgb (11.8-15.2) gm/dl Hct (35.5-45.6) % MCV (84-94) fl MCH (28-32) pg MCHC (32-34) % RDW (13.2-15.2) % Plt Count (140-440) K/mm3 Sodium (137-145) mmol/L Potassium (3.6-5.0) mmol/L Chloride (98-107) mmol/L Carbon Dioxide (22-30) mmol/L Anion Gap mmol/L BUN (9-20) mg/dL Creatinine (0.8-1.3) mg/dL Estimated GFR ml/min BUN/Creatinine Ratio % Glucose (75-100) mg/dL Calcium (8.4-10.2) mg/dL Magnesium (1.7-2.3) mg/dL Total Bilirubin (0.1-1.2) mg/dL AST (5-40) units/L ALT (7-56) units/L Alkaline Phosphatase (35-129) units/L Total Creatine Kinase (55-170) units/L Total Protein (6.3-8.2) g/dL Albumin (3.9-5) g/dL Albumin/Globulin Ratio % Salicylates (2.8-20.0) mg/dL Acetaminophen 5.0 L (10.0-30.0) ug/mL Plasma/Serum Alcohol < 0.01 (0-0.07) % - Medical Decision Making Differential diagnosis, including but not limited to: Encounter for behavioral h ealth screening, encounter for medical screening, homelessness, chronic renal insufficiency Assessment and plan: 71-year-old gentleman, who is awake, alert, oriented, sober with a GCS of 15, not homicidal or suicidal, does not meet criteria for 1013 hold or involuntary confinement. Physical exam unremarkable. Laboratory studies unremarkable for acute or emergent findings. No active vomiting at this time. Vital signs are unremarkable for emergent findings. Patient does not appear to have an emergent medical psychiatric condition present at this time. He may be discharged from the emergency room to follow-up with an outpatient primary care doctor or mental health specialist. We will also provide him with a list of homeless longterm resources. Renal insufficiency is chronic. Outpatie nt follow-up Critical care attestation.: If time is entered above; I have spent that time in minutes in the direct care of this critically ill patient, excluding procedure time. ED Disposition Clinical Impression: Encounter for medical screening examination, Encounter for behavioral health screening, Chronic renal insufficiency, Homelessness Disposition: HOME / SELF CARE / HOMELESS Is pt being admited?: No Does the pt Need Aspirin: No Condition: Good Additional Instructions: Avoid consumption of alcohol. Avoid consumption of tobacco and smoke products. Do not take Motrin, ibuprofen, Naprosyn, Aleve. Follow-up with outpatient resources that have been provided to the patient. Follow-up with your primary care doctor within the next month. Please return to the emergency room right away with new pain, worsened pain, migration of pain, projectile vomiting, change in mental status, confusion, inability tolerate liquid feeds, new, worsened or different symptoms not present on the initial emergency room evaluation Referrals: MARQUIS ACUNA MD [Primary Care Provider] - 3-5 Days [facility] [Outside] - 3-5 Days [facility] [Outside] - 3-5 Days
[2021-05-31 19:58] LABS: Hematocrit 38.6 % (35.5-45.6); Hemoglobin 12.8 gm/dl (11.8-15.2); Mean Corpuscular HGB Conc 33 % (32-34); Mean Corpuscular Volume 90 fl (84-94); Platelet Count 207 K/mm3 (140-440); Red Cell Distribution Width 14.1 % (13.2-15.2)
[2021-05-31 20:19] LABS: Albumin 3.7 g/dL (3.9-5); Calcium 9.6 mg/dL (8.4-10.2)
[2021-06-01 03:00] VITALS: BP 154/94
== END 2021-06-01 00:15 | disposition home or self-care (01) ==
LOC: ED 19:20
DX: I12.0 Hypertensive chronic kidney disease with stage 5 chronic kidney disease or end stage renal disease (principal); E11.22 Type 2 diabetes mellitus with diabetic chronic kidney disease; N18.9 Chronic kidney disease, unspecified; Z00.00 Encounter for general adult medical examination without abnormal findings; Z13.30 Encounter for screening examination for mental health and behavioral disorders, unspecified; F17.200 Nicotine dependence, unspecified, uncomplicated; Z88.0 Allergy status to penicillin
CPT/HCPCS: 36415; 80053; 80320; 82550; 83735; 85027; 99283; G0480